=== PATIENT | male | born 1955 | race Caucasian/White ===

== ENCOUNTER → 2016-08-31 | Day surgery (SDC) | payer OTHER ==
--- NOTE | 2016-08-29 05:43 | HP ---
PREOPERATIVE HISTORY AND PHYSICAL: DATE OF ADMISSION/SURGERY: 08/31/16 DATE OF OFFICE VISIT: 08/25/16 ATTENDING SURGEON: Hattie Burns MD PROCEDURE: Left shoulder excision distal clavicle open, removal of ganglion cyst at the acromioclavicular joint. CHIEF COMPLAINT: Left shoulder pain. HISTORY OF PRESENT ILLNESS: Mr. Coombs is a 61-year-old male who presents to the clinic for ongoing left shoulder pain due to severe osteoarthritis of the left shoulder and presence of a ganglion cyst on the acromioclavicular joint. The patient has failed conservative measures and therefore has agreed to undergo a left shoulder excision distal clavicle open, removal of ganglion cyst of the acromioclavicular joint with Dr. Burns on 08/31/16. PAST MEDICAL HISTORY: 1. Ganglion cyst of the left shoulder. 2. Osteoarthritis of the left shoulder. 3. Atrial fibrillation. 4. Gout. 5. History of a grand mal seizure. 6. Lumbar spondylosis. 7. Lumbosacral stenosis. 8. Idiopathic peripheral neuropathy. PAST SURGICAL HISTORY: 1. ORIF of the left shoulder. 2. Washout of the left shoulder. 3. Right foot bunionectomy and accessory navicular removal. 4. Abdominal hernia repair. 5. Appendectomy. 6. Tonsillectomy. MEDICATIONS: 1. Hydrocodone/acetaminophen 10-325 mg 1 to 2 tabs every 6 hours as needed for pain. 2. Depakote ER 250 mg take 1 by mouth in the morning and take 2 tabs every evening. 3. Valium 5 mg 1 by mouth 1 hour prior to an MRI, may repeat x1 if not drowsy and still nervous. 4. Zolpidem tartrate 12.5 mg 1 by mouth at bedtime as needed. 5. Voltaren 1% apply 2 g of gel twice daily to the affected area. 6. Omeprazole 20 mg take 1 tab by mouth daily as needed. 7. Benzonatate 200 mg one by mouth 3 times daily as needed for cough. 8. Aspirin EC low dose 81 mg 1 tab p.o. daily. 9. Lyrica 100 mg 1 capsule twice daily, may take 2 capsules twice daily during flare of neuropathy. 10. Metoprolol succinate ER 100 mg take 1 by mouth every day. 11. Allopurinol 300 mg take 1 by mouth daily. ALLERGIES: DOXYCYCLINE and FLECAINIDE. FAMILY HISTORY: Mom, history of cancer. Patient denies family history of DVT or PE. SOCIAL HISTORY: This 61-year-old male lives with and daughter. He is a former smoker of one pack per day, but he quit 20 years ago. He denies alcohol or illegal drug use. REVIEW OF SYSTEMS: General: Negative for fevers, chills, night sweats. No known anesthesia problems. HEENT: Negative for headache, lightheadedness or syncopal episodes. Integumentary: Negative for abrasions, lesions or open wounds. Cardiovascular: Positive for occasional palpitations due to AFib. Negative for chest pain, edema or hypertension. Pulmonary: Negative for shortness of breath with exertion. Chronic cough or COPD. The patient does have a history of pneumonia. GI: Negative for nausea, vomiting, diarrhea, constipation or GERD. : Negative of nocturia, history of UTIs or kidney problems. Musculoskeletal: Positive for the current complaint. Neuro: Positive for numbness and tingling in the feet due to neuropathy. Positive for history of grand mal seizure. Negative for history of stroke. Endocrine: Negative for diabetes or thyroid issues. Heme: Negative for easy bruising, anemia, excessive bleeding or history of DVTs. Infectious Disease: Negative for history of MRSA, hep C, or HIV. PHYSICAL EXAMINATION GENERAL: Well-developed, well-nourished 61-year-old male in no acute distress. VITAL SIGNS: Height 74, weight 248, pulse 86, blood pressure 118/80, BMI 36.6. HEENT: Normocephalic, atraumatic. PERRLA. Throat: Clear. NECK: Supple. PULMONARY: Lungs clear to auscultation bilaterally. No wheezing, rhonchi or rales. CARDIO: Regular rate and rhythm. S1 and S2. No murmurs, gallops or rubs. No edema. ABDOMEN: Positive bowel sounds. Soft, nontender. MUSCULOSKELETAL: Left shoulder skin is intact. Probable ganglion cyst on the top of the AC joint that is tender to palpation. Forward flexion to 90 degrees , abduction to 45 degrees, extension to 45 degrees. Internal rotation to the lateral hip, external rotation to 45 degrees; +2 radial pulses. Sensation intact to light touch distally. NEUROLOGIC: Alert and oriented x3. Cranial nerves grossly intact. Sensation intact to light touch distally. LABORATORY DATA AND DIAGNOSTIC STUDIES: X-rays reveal glenohumeral arthritis. MRI reveal presence of a ganglion cyst in the left shoulder above the superior aspect of the acromioclavicular joint. IMPRESSION: Left shoulder osteoarthritis and ganglion cyst. PLAN: The patient is scheduled to undergo a left shoulder excision distal clavicle open, removal of ganglion cyst of the acromioclavicular joint with Dr. Burns on 08/31/16. He will return to the office in 10 to 14 days postop for followup and suture removal. The patient has had a recent episode of AFib that was due to use of indomethacin for gout. Therefore, clearance for surgery is pending cardiac clearance. He has been cleared by his primary care physician as long as Cardio clears him. The patient is currently taking hydrocodone/ acetaminophen for pain. He was prescribed Percocet for postoperative pain, but was instructed not to use the hydrocodone/acetaminophen at the same time as the Percocet. The patient was also prescribed Keflex for postoperative antibiotic for infection prevention. IVONE CAMPOS [id number]/[facility]PS #: [id number] [facility]
[~2016-08-31] MED LIST: Buffered Lidocaine 1% SYR 3ML* 3 ML/SYR SYRINGE INTRADERM ONE; Buffered Lidocaine 1% SYR 3ML* 3 ML/SYR SYRINGE ONE; Bupivacaine 0.25% SDV* 30 ML ONE; Dexamethasone IV* 4 MG/ML 1 ML (4 MG) ONE; Famotidine IV* 10 MG/ML 2 ML (20 mg) IV ONE; Famotidine IV* 10 MG/ML 2 ML (20 mg) ONE; KETAMINE HCL* 50 MG/ML 10 ML VIAL ONE; Ketorolac INJ* 30 MG/ML 1 ML VIAL ONE; Labetalol IV* 5 MG/ML 20 ML VIAL IV PUSH ONE; Labetalol IV* 5 MG/ML 20 ML VIAL ONE; Metoprolol Tartrate IV* 1 MG/ML 5 ML VIAL ONE; Midazolam* 1 MG/ML 5 ML VIAL (5 MG) ONE; Morphine INJ* 2 MG/ML 1 ML CARPUJECT IV PRN; Ondansetron INJ* 2 MG/ML VIAL ONE; PROCHLORPERAZINE INJ 5 MG/ML 2 ML VIAL IV PRN; Phenylephrine INJ* 10 MG/ML 1 ML VIAL (10 MG) ONE; Propofol* 10 MG/ML 20 ML BTL IV PUSH ONE; ceFAZolin 1 GM VIAL(*) ONE; ceFAZolin 2 GM PREMIX (*) 2 GM/50 ML BAG IVPB ONE; fentaNYL* 50 MCG/ML 2 ML VIAL (100 MCG VIAL) IV PRN; fentaNYL* 50 MCG/ML 2 ML VIAL (100 MCG VIAL) ONE; oxyCODONE/Acetamin 5/325 MG* TAB ONE; oxyCODONE/Acetamin 5/325 MG* TAB PO PRN
[2016-08-31 15:47] VITALS: BP 153/86
--- NOTE | 2016-09-01 00:54 | OP ---
DATE OF OPERATION: 08/31/16 [facility] DATE OF : 57 SURGEON: Hattie Burns MD RACK PULLER: IVONE Orellana. An college sports assistant was needed for the entirety of the case to help with positioning, retraction, and closure. ANESTHESIOLOGIST: Dr. Boudreaux. ANESTHESIA: General with LMA. PRE-OP DIAGNOSES: Left shoulder AC joint ganglion and AC joint arthritis. POST-OP DIAGNOSES: Left shoulder AC joint ganglion and AC joint arthritis. OPERATIVE PROCEDURE: Left open excision of ganglion, which was 3 cm x 5 cm and distal clavicle excision open. INDICATIONS: Santosh Coombs is a 61-year-old male with a complicated medical history of left shoulder ganglion that began a few months ago. We had aspirated it and sent it for culture and it was found to be negative. He had a complicated shoulder history of having a previous fracture with massive rotator cuff repair that then subsequently got infected. He has since had some necrosis of the humeral head and chronic infection and as he is quite young, he is waiting for his reverse shoulder arthroplasty. In the meantime, he has been subsequently developing pain along the anterior superior aspect of the shoulder along the AC joint. He was diagnosed with AC joint arthritis and the large ganglion cyst. This has been aspirated at least twice and injected. He experienced relief from that, but it keeps returning and he has elected to proceed with removal of the ganglion with distal clavicle excision. Risks and benefits of surgery were discussed at length including, but are not limited to bleeding, infection, damage to nerves, vessels, surrounding structures, wound nonhealing, persistent pain, need for further surgery, incomplete relief of symptoms, recurrence of the ganglion, risks of anesthesia, risk of DVT. After obtaining a preoperative risk assessment for his medical problems, he has elected to proceed with surgery. ESTIMATED BLOOD LOSS: 25 cc. SPECIMENS: Ganglion cyst as well as distal clavicle sent to pathology. COMPLICATIONS: None. DESCRIPTION OF PROCEDURE: The patient was greeted in the preoperative area by the attending surgeon. Correct extremity was marked. Consent was confirmed. The patient was brought back to the operating suite where he was placed in the supine position on the operating table. He then underwent general anesthesia with LMA intubation, which he tolerated without difficulty. The bed was then gently beach- chaired with a pillow under his knees and he was placed in a lazy beach chair. The left arm was then prepped and draped in the usual sterile fashion beginning with chlorhexidine soap and alcohol scrub and a final prep with ChloraPrep. After appropriate surgical pause indicating side, site, procedure, and administration of antibiotics, an incision centered over the distal clavicle was made. This was in line with the clavicle. This do encompass and envelope the entire ganglion. The soft tissues were carefully dissected and the ganglion was readily apparent. Care was taken to try to excise and release it from its adhesions and then release all in one mass. This took some time and this was done with Metzenbaum scissors and alternated with electrocautery device to preserve hemostasis. Once this was completely released, this was then sent to pathology. Next, the AP joint was identified and incised longitudinally. The distal clavicle was identified and appeared to be quite arthritic, though 1 cm was measured and 1 cm was removed of the distal clavicle. The care was taken to try to release all of the surrounding tissues. It was evident that the CC ligaments were spared and were not damaged as there was no elevation of the clavicle. The bone was also sent to pathology per policy. Wounds were copiously irrigated. The AC joint capsule and the fascia were closed with 0 Vicryl interrupted sutures. The subcutaneous layer was closed with 2-0 Vicryl and the skin with 3-0 nylon. Sterile dressings were applied. 30 mL of 0.25% Marcaine were injected all around the incision for postoperative pain control. The sterile dressings were applied and he was used to place in a regular sling. POSTOPERATIVE PLAN: He will be nonweightbearing. He will be allowed to work on range of motion as tolerated. He will be discharged on pain medication and antibiotics. I will see the patient back in 10 to 14 days. DVT prophylaxis was considered, but deferred due to no previous, personal, or family history. CC: [place], [place] [id number]/[facility] #: [id number] [facility]
== END | disposition home or self-care (01) ==
LOC: OR 10:10
PROVIDERS: ATTEND Orthopaedic Surgery
DX: M19.012 Primary osteoarthritis, left shoulder (principal); M67.412 Ganglion, left shoulder; I48.91 Unspecified atrial fibrillation; A69.20 Lyme disease, unspecified; Z87.891 Personal history of nicotine dependence
CPT/HCPCS: 88304; 88311; A9270-GY; J0690; J1100; J1885; J2250; J2405; J2704; J3010; J3490

== ENCOUNTER 2017-01-04 10:49 | Day surgery (SDC) | payer OTHER ==
[~2017-01-04 10:49] MED LIST changes: -Buffered Lidocaine 1% SYR 3ML* 3 ML/SYR SYRINGE ONE; -Bupivacaine 0.25% SDV* 30 ML ONE; +Dexamethasone IV* 4 MG/ML 1 ML (4 MG) IV SLOW PU ONE; +DiMENhydriNATE IV* 50 MG/ML VIAL IV PUSH PRN; +HYDROmorphone* 1 MG/ML 1 ML SYR IV PRN; -KETAMINE HCL* 50 MG/ML 10 ML VIAL ONE; -Ketorolac INJ* 30 MG/ML 1 ML VIAL ONE; -Labetalol IV* 5 MG/ML 20 ML VIAL IV PUSH ONE; -Labetalol IV* 5 MG/ML 20 ML VIAL ONE; -Metoprolol Tartrate IV* 1 MG/ML 5 ML VIAL ONE; -Midazolam* 1 MG/ML 5 ML VIAL (5 MG) ONE; -Morphine INJ* 2 MG/ML 1 ML CARPUJECT IV PRN; +Ondansetron INJ* 2 MG/ML VIAL IV PRN; -Ondansetron INJ* 2 MG/ML VIAL ONE; -Phenylephrine INJ* 10 MG/ML 1 ML VIAL (10 MG) ONE; -Propofol* 10 MG/ML 20 ML BTL IV PUSH ONE; -ceFAZolin 1 GM VIAL(*) ONE; +ceFAZolin 1 GM in Dextrose (*) 1 GM/50 ML BAG IVPB ONE; -ceFAZolin 2 GM PREMIX (*) 2 GM/50 ML BAG IVPB ONE; +ceFAZolin 2 GM PREMIX(*) 2 GM/50 ML BAG IVPB ONE; -fentaNYL* 50 MCG/ML 2 ML VIAL (100 MCG VIAL) ONE; -oxyCODONE/Acetamin 5/325 MG* TAB ONE; -oxyCODONE/Acetamin 5/325 MG* TAB PO PRN
[2017-01-04] MEDS ORDERED: fentaNYL* 50 MCG/ML 2 ML VIAL (100 MCG VIAL) ONE ×2 (11:03→12:58)
[2017-01-04] MEDS ORDERED: Midazolam* 1 MG/ML 5 ML VIAL (5 MG) ONE (11:03)
[2017-01-04] MEDS ORDERED: HYDROmorphone* 1 MG/ML 1 ML SYR ONE ×3 (11:03→13:46)
[2017-01-04] MEDS ORDERED: Bupivacaine 0.5% W/EPI SDV* 30 ML VIAL ONE ×2 (11:26→12:07)
[2017-01-04] MEDS ORDERED: Propofol* 10 MG/ML 20 ML BTL IV PUSH ONE (11:26)
[2017-01-04] MEDS ORDERED: Ondansetron INJ* 2 MG/ML VIAL ONE (11:26)
[2017-01-04] MEDS ORDERED: Morphine INJ* 10 MG/ML 1 ML SYRINGE ONE (12:58)
[2017-01-04] MEDS ORDERED: VASOPRESSIN 20 UNITS/ML 1 ML VIAL ONE (13:15)
[2017-01-04] MEDS ORDERED: Desflurane* 240 ML INH ONE (13:22)
[2017-01-04] MEDS ORDERED: Meperidine SYRINGE* 50 MG/ML ONE (13:49)
[2017-01-04 15:53] VITALS: BP 146/94
--- NOTE | 2017-01-05 13:05 | OP ---
CC: Dr. Navarrete OPERATIVE REPORT: DATE OF OPERATION: 01/04/17 DATE OF : 57 SURGEON: Hattie Burns MD SAP DEVELOPER: IVONE Orellana An per diem physical therapist assistant was needed for the entirety of the case to help with positioning, retraction, and was utilized throughout all portions of the case. ANESTHESIOLOGIST: Nabil Thompson MD ANESTHESIA: General interscalene block. PRE-OP DIAGNOSES: Left shoulder massive rotator cuff tear, glenohumeral arthritis, history of infection. POST-OP DIAGNOSES: 1. Left shoulder glenohumeral arthritis, chronic massive rotator tear. 2. History of infection. 3. Loose foreign body and impingement. OPERATIVE PROCEDURE: Left shoulder arthroscopy with: 1. Extensive glenohumeral debridement including chondroplasty. 2. Removal of foreign body x1. 3. Subacromial decompression with acromioplasty. 4. Aspiration of the joint. Micro specimen was sent for Gram stain, culture, and anaerobic/aerobic as well as P. acnes. COMPLICATIONS: None. ESTIMATED BLOOD LOSS: Minimal. INDICATIONS: Santosh Coombs is a 61-year-old gentleman who has had a complicated shoulder history with previous posterior humeral dislocation that resulted in large Hill-Sachs deformity as well as lesser tuberosity fracture. This was then fixed arthroscopic and open by my previous partner Dr. Brayan Vanegas. He had subsequent problems afterwards. He had an infection that was washed out. He then had AC joint pain and a ganglion in the shoulder. He underwent an open distal clavicle excision several months ago, which he did well from, but after discussion with myself and my shoulder colleague, we talked about debridement prior to any sort of replacement type of surgery. He also has not been floridly sick in a while but has maintained elevated CRP levels. After an extensive discussion of the risks and benefits of the surgery versus nonoperative treatment, he is elected to proceed. We did talk about the debridement only, this will not be any kind of repair in any fashion. He likely will need a reverse shoulder arthroplasty that would not be done at this time as he is too young. He verbalized understanding. After obtaining preoperative risk assessment, he is elected to proceed with surgery. DESCRIPTION OF PROCEDURE: The patient was greeted in the preoperative area by the attending surgeon, and correct extremity was marked and consent was confirmed. He underwent interscalene nerve block in the preoperative area by the anesthesiologist after which the patient was brought back to the operating suite where he was placed in the supine position on the operating table. He then underwent general anesthesia with LMA intubation, after which the patient was placed in the right lateral decubitus position with an axillary roll. All bony prominences were padded. He was supported with a pegboard. The left arm was suspended with about 15 pounds of traction. The left shoulder was then prepped and draped in usual sterile fashion beginning with chlorhexidine soap, scrub, and alcohol wipe, and a final prep of ChloraPrep. After appropriate surgical pause indicating side, site, procedure, and administration of antibiotics, the standard posterior lateral portal was made sharply with 11 blade and scope was introduced in the joint. The joint was examined. At this point, approximately 3 cc of serous fluid was then removed and sent for Gram stain culture, anaerobic/aerobic as well as P. acnes. There was evidence of a full thickness massive retracted rotator cuff tear, supraspinatus tear, although it was still attached anterosuperiorly. There was evidence of grade 2 to 3 changes of unstable flaps of the glenoid and a small area of grade 4 changes of the humeral head with grade 2 and 3 changes with unstable flaps. The anterior posterior labrum was torn. The superior labrum had evidence of previous biceps tenotomy and the subscap was identified and found to be retracted. The anterior portal was made in an outside-in fashion. The shaver was used to debride the anterior, posterior, and superior labrum. The electrocautery device was then used to release some of the adhesions anteriorly. Chondroplasty was also done of the glenoid and the humeral head as well and the rotator cuff was also debrided back. As this debridement was done and soft tissues were carefully removed, I identified a small area of sutures, which was then found to be a small anchor. This was a PEEK anchor that was around 4 to 5 mm in width. This was identified and then removed in its entirety. No further anchors were identified. The inferior recess was intact but had abundant synovitis. Once the debridement was completed in the glenohumeral joint, attention was directed to the subacromial space. The scope was repositioned in the subacromial space. There was abundant bursa that was evident as well as full thickness rotator cuff that was again attached anterosuperiorly but then largely torn. Lateral portal was made in an outside- in fashion. The shaver was then used to debride back the rotator cuff as well as the undersurface of the acromion, which had evidence of small anterolateral spur and a remnant spur from his previous decompression. The electrocautery device was used to skeletonize the acromion and 4-0 oval babak was then used for revision acromioplasty. All loose debris and fluid was removed from the joint. After final images were obtained and all fluid and debris was removed from the joint, the portals were closed with 3-0 nylon. Sterile dressings were applied, a Cryo/Cuff as well as sling. The patient was then awoken from anesthesia and transferred to the PACU in stable condition. POSTOPERATIVE PLAN: He will be weightbearing as tolerated. He will be allowed to work on range of motion as he gets comfortable. He will be in the sling for few days as tolerated. He will be discharged on pain medications as well as antibiotics. He is on chronic pain medication at baseline, so we will give him a short course of oxycodone IR. DVT prophylaxis is considered but deferred due to no previous personal or family history. I will see the patient back in 10 to 14 days. [id number]/[facility] #: [id number] YADIRA
== END 2017-01-04 15:58 | disposition home or self-care (01) ==
LOC: OR 10:49
PROVIDERS: ATTEND Orthopaedic Surgery
DX: M75.102 Unspecified rotator cuff tear or rupture of left shoulder, not specified as traumatic (principal); M75.42 Impingement syndrome of left shoulder; M19.012 Primary osteoarthritis, left shoulder; Z87.891 Personal history of nicotine dependence; I48.91 Unspecified atrial fibrillation; I10 Essential (primary) hypertension
CPT/HCPCS: 87070; 87205; 87640; 87641; A9270-GY; J0690; J1100; J1170; J2250; J2270; J2405; J2704; J3010

== ENCOUNTER 2017-05-06 09:59 | Emergency (ER) | payer OTHER ==
[2017-05-06] MEDS ORDERED: Albuterol 2.5 MG/3 ML NEB.SOL* (0.083%) INH ONE (12:01)
[2017-05-06] MEDS ORDERED: Ipratropium 0.5MG/2.5ML NEB* 0.5 MG/2.5 ML NEB.SOLN INH ONE (12:01)
[2017-05-06] MEDS ORDERED: methylPREDNISolone 125 MG* 2 ML VIAL IM ONE (12:01)
[2017-05-06 13:23] VITALS: BP 116/77
--- NOTE | 2017-06-11 07:26 | UC ---
Andrea Nunez Nikita, scribed for Chacha Linares DO on 05/06/17 at 1206 . Respiratory Complaint HPI - HPI Summary HPI Summary: This patient is a 61 year old M presenting to [facility] with a chief complaint of upper respiratory symptoms since 3 days ago. The patient rates the pain 0/10 in severity. Symptoms aggravated by nothing. Symptoms alleviated by nothing. Patient reports productive cough (clear), wheezing, decreased sleep, SOB, near LOC, and CANTU. Patient denies sinus congestion, nasal and eye drainage, sore throat, ear ache, CP, N/V, abdominal pain, urinary and bowel symptoms. Pt currently takes Xarelto. - History of Current Complaint Chief Complaint: UCRespiratory Stated Complaint: CHEST CONGESTION Time Seen by Provider: 05/06/17 11:55 Hx Obtained From: Patient Onset/Duration: Sudden Onset, Lasting Days, Still Present Timing: Constant Severity Currently: None Pain Intensity: 0 Pain Scale Used: 0-10 Numeric Character: Cough: Productive - clear Aggravating Factors: Nothing Alleviating Factors: Nothing Associated Signs And Symptoms: Positive: Wheezing - Patient reports productive cough (clear), decreased sleep, SOB, near LOC, and CANTU. Patient denies sinus congestion, nasal and eye drainage, sore throat, ear ache, CP, N/V, abdominal pain, urinary and bowel symptoms. - Allergies/Home Medications Allergies/Adverse Reactions: Allergies Allergy/AdvReac Type Severity Reaction Status Date / Time Doxycycline Allergy Intermediate Hives Verified 05/09/17 14:57 Flecainide Allergy See Comment Verified 05/09/17 14:57 MORPHINE EPIDURAL Allergy ITCHY Uncoded 05/06/17 10:10 NOSE/NAUSEA VOMITING psuedofed Allergy heart Uncoded 05/06/17 10:11 racing hx of afib VYCRAL SUTURES Allergy BODY Uncoded 05/06/17 10:10 REJECTS THE SUTURES Home Medications: Home Medications Rivaroxaban TAB(*) [Xarelto 20 mg] 20 mg PO DAILY 05/06/17 [History Confirmed ] PMH/Surg Hx/FS Hx/Imm Hx Cardiovascular History: Hypertension, Atrial Fibrillation Other Cardiovascular History: Palpitations Other Respiratory History: bronchial pneumonia GI/ History: Gastroesophageal Reflux Other GI/ History: neuropathy Neurological History: Seizures, Other - neuropathy Other Neurological History: neuropathy Psychological History: Anxiety - Surgical History Surgical History: Yes Surgery Procedure, Year, and Place: TONSILLECTOMY, ADENOIDECTOMY AND APPENDECTOMY A CHILD,. ABDOMINAL HERNIA SURGERY A CHILD. 1989 BUNIONECTOMY X2, [place]. 03/2015 LEFT SHOULDER ARTHROSCOPIC ROTATOR CUFF REPAIR AND ORIF, [facility] [place]. 04/2015 I & D LEFT SHOULDER, [facility] [place]; Left Shoulder Surgery for ganglion cyst 09/11/16 [facility] [place]; LEFT SHOULDER SURGERY DECEMBER [address] SMITH AT [facility] [place] - Family History Known Family History: Negative: Cardiac Disease, Hypertension, Diabetes - Social History Alcohol Use: None Substance Use Type: None Smoking Status (MU): Former Smoker Type: Cigarettes Amount Used/How Often: 1 PPD FOR 20 YEARS Length of Time of Smoking/Using Tobacco: 20 Have You Smoked in the Last Year: No When Did the Patient Quit Smoking/Using Tobacco: 1995 - Immunization History Most Recent Influenza Vaccination: Unknown Most Recent Tetanus Shot: 2009 Most Recent Pneumonia Vaccination: Never Review of Systems Eyes: Other - Denies eye discharge. ENT: Other - Denies sinus congestion, nasal discharge, sore throat, ear ache Respiratory: Shortness Of Breath, Cough - productive (clear), Other - Wheezing Cardiovascular: Other - denies CPv Gastrointestinal: Other - Denies N/V, abdominal pain, bowel symptoms Genitourinary: Other - Denies urinary symptoms Neurological: Headache, Other - Decreased sleep, near LOC All Other Systems Reviewed And Are Negative: Yes Physical Exam Triage Information Reviewed: Yes Vital Signs: Initial Vital Signs Temp 99 F 05/06/17 10:13 Pulse 88 05/06/17 10:13 Resp 20 05/06/17 10:13 BP 112/79 05/06/17 10:13 Pulse Ox 100 05/06/17 10:13 - Additional Comments Appearance: Well-Appearing, No Pain Distress, Well-Nourished Eyes: conjunctiva clear, negative: discharge ENT: Hearing grossly normal, Negative: Muffled/hoarse voice. Hearing grossly normal, normal voice. Neck: Normal, Supple Respiratory/Lung Sounds: Diffuse wheezing in all lyons. After nebulizer, auscultation reveals significantly decreased wheezing; only scattered wheezing remains. Cardiovascular: RRR, No murmur Musculoskeletal: Normal Neurological: Alert, muscle tone normal Psychiatric: Normal, age appropriate behavior Skin: Normal, other -- Warm, Dry, Normal color UC Diagnostic Evaluation - Laboratory O2 Sat by Pulse Oximetry: 100 Re-Evaluation - Re-Evaluation First Eval Change: Improved Comment: Pt reports significantly decreased wheezing and cough; pt also reports ease of breathing. Respiratory Course/Dx - Course Course Of Treatment: This patient is a 61 year old M presenting to [facility] with a chief complaint of upper respiratory symptoms since 3 days ago. The patient rates the pain 0/10 in severity. Symptoms aggravated by nothing. Symptoms alleviated by nothing. Patient reports productive cough (clear), wheezing, decreased sleep, SOB, near LOC, and CANTU. Patient denies sinus congestion, nasal and eye drainage, sore throat, ear ache, CP, N/V, abdominal pain, urinary and bowel symptoms. In the course, pt was given a nebulizer. Medications reviewed this visit. Pt will be discharged. Pt is agreeable with this plan. - Differential Dx/Diagnosis Provider Diagnoses: Acute bronchitis Discharge - Discharge Plan Condition: Stable Disposition: HOME Prescriptions: Albuterol HFA INHALER* [Ventolin HFA Inhaler*] 2 puff INH Q4H PRN #1 mdi PRN Reason: Sob/Wheezing Benzonatate CAP* [Tessalon 100 MG CAP*] 100 mg PO TID #30 cap Patient Education Materials: Acute Bronchitis (ED) Referrals: Eliezer Barnes, [facility] [Primary Care Provider] - If Needed Additional Instructions: INHALED BRONCHODILATORS: You have received a prescription for an inhaled bronchodilator -- a medication which stimulates the airways in the lung to dilate. This improves the flow of air in asthma, bronchitis, and emphysema. These medicines have some similarity to adrenaline, and can cause similar side effects: shakiness, racing heart, and a sense of nervousness. These side effects decrease with time. Contact your doctor if these side effects are severe. Do not over-use the medicine. Too-frequent use of the inhaler may make it ineffective. Call your doctor if the inhaler is not controlling your symptoms at the prescribed doses. COUGH-SUPPRESSANT & EXPECTORANT MEDICATION: You are to use a cough medication as needed for relief of symptoms. This medicine is a combination of an expectorant (to make the mucous thinner and more easily "coughed up") and a cough suppressant (to reduce the frequency of coughing). The cough-suppressant medicine is related to narcotics. You may experience mild nausea and sleepiness. Some patients who are very sensitive to narcotics may have stomach pain from this medicine. Taking the medicine with food reduces these side effects. Do not drive or work with machinery until you know how this medicine affects you. The expectorant should have no side effects. Iodine-containing expectorants (such as organidin) should not be taken by persons with active thyroid disease unless approved by your doctor. Call the doctor if you develop shortness of breath, hives, rash, itching, lightheadedness, or severe nausea and vomiting. EXPECTORANT MEDICATION:CONTINUE MUCINEX DIRECTED An expectorant medicine has been prescribed. This type of drug makes mucous thinner, helping the sinuses, nose, and bronchial tubes to remain free of pus and mucous. Expectorants make a cough less severe and more comfortable, and help infected sinuses drain. In general, antihistamines defeat the purpose of the expectorant by making mucous thicker. They should be avoided unless specifically recommended by your physician. TESSALON PERLES: You have received a prescription for Tessalon Perles (benzonatate). This is a non-narcotic medicine for relief of cough. It usually works in about 15- 20 minutes and lasts around four hours. Tessalon Perles should be swallowed. They should not be chewed or dissolved in the mouth (this can produce temporary numbing of the mouth and choking can occur). If you develop any adverse effects such as wheezing, shortness of breath, hives, rash, itching, or lightheadedness, please return at once. CORTICOSTEROID MEDICATION: You have been given a medicine of the cortisone class. This medication is used to control inflammation or allergy. It is usually only given for a short period of time, until the acute process subsides. There are usually no side effects from short-term use of cortisone-like medications. Some persons feel an increased sense of well-being and are not sleepy at bedtime. Long-term use of cortisone medications is best avoided, unless required for a severe condition. If your condition does not remit, or relapses after the course of corticosteroid medication, you should consult your physician. Contact the physician if you develop lightheadedness, black or tarry stools , swelling of the legs, or significant rapid change in weight. ANTIBIOTICS ARE NOT CURRENTLY INDICATED FOR YOUR CONDITION. hOWEVER, IF YOUR SYMPTOMS WORSEN OR PERSIST FOR OVER THE NEXT 3-5 DAYS, YOU CAN TAKE THE FOLLOWING MEDICATION: CEPHALOSPORINS: An antibiotic of the cephalosporin class has been prescribed. This type of antibiotic covers a wide variety of infections, including those of the skin, lungs, middle ear, and urinary tract. This antibiotic is somewhat similar to the penicillin family. In rare cases , a person who is allergic to penicillin will also be allergic to this medication. If you have had a severe allergic reaction to penicillin, and have not taken this antibiotic since that time, notify your doctor. Antibiotics which cover many germs ("broad spectrum" antibiotics) are more likely to cause diarrhea or "yeast" infections. Women prone to vaginal yeast problems may suffer an attack after taking this antibiotic. In infants, oral thrush (white spots "stuck" on the cheek) or yeast diaper rash may result. See your doctor if these problems occur. Call the doctor at once if you develop hives, itching, shortness of breath , or lightheadedness. ANYTIME YOU TAKE AN ANTIBIOTIC, IT IS IMPORTANT TO REPLENISH THE BODY'S SUPPLY OF "GOOD BACTERIA." YOU CAN GET GOOD BACTERIA FROM HIGH QUALITY CULTURED FOODS SUCH LOCAL YOGURT, SOUR KRAUT, NATIVIDAD NICOLE, NATURALLY FERMENTED PICKLES AND PROBIOTIC DRINKS. YOU CAN ALSO GET GOOD BACTERIA FROM A PROBIOTIC SUPPLEMENT. The documentation as recorded by the Andrea piedra Nikita accurately reflects the service I personally performed and the decisions made by , Chacha Linares DO.
== END 2017-05-06 13:30 | disposition home or self-care (01) ==
LOC: UCEAST 09:59
DX: J20.9 Acute bronchitis, unspecified (principal); I10 Essential (primary) hypertension; I48.91 Unspecified atrial fibrillation; Z79.01 Long term (current) use of anticoagulants; R00.2 Palpitations; K21.9 Gastro-esophageal reflux disease without esophagitis; G62.9 Polyneuropathy, unspecified; R56.9 Unspecified convulsions; F41.9 Anxiety disorder, unspecified; Z88.1 Allergy status to other antibiotic agents; Z88.5 Allergy status to narcotic agent; Z87.891 Personal history of nicotine dependence
CPT/HCPCS: 96372; 99212; G0463; J2930; J7644

== ENCOUNTER 2017-08-27 09:06 | Emergency (ER) | payer OTHER ==
[2017-08-27 09:16] VITALS: BP 138/78
--- NOTE | 2017-08-27 09:16 | UC ---
Respiratory Complaint HPI - HPI Summary HPI Summary: 62 yo male with a 2 day hx of productive cough and wheezing no f/c no CP or SOB some fatigue - History of Current Complaint Stated Complaint: CHEST CONGESTION Time Seen by Provider: 08/27/17 09:13 Hx Obtained From: Patient Onset/Duration: Gradual Onset, Lasting Days Timing: Constant Severity Initially: Mild Severity Currently: Moderate Pain Intensity: 2 Pain Scale Used: 0-10 Numeric Character: Cough: Productive Aggravating Factors: Nothing Alleviating Factors: Nothing Associated Signs And Symptoms: Positive: Wheezing - Allergies/Home Medications Allergies/Adverse Reactions: Allergies Allergy/AdvReac Type Severity Reaction Status Date / Time Doxycycline Allergy Intermediate Hives Verified 08/27/17 09:12 Flecainide Allergy See Comment Verified 08/27/17 09:12 MORPHINE EPIDURAL Allergy ITCHY Uncoded 08/27/17 09:12 NOSE/NAUSEA VOMITING psuedofed Allergy heart Uncoded 08/27/17 09:12 racing hx of afib VYCRAL SUTURES Allergy BODY Uncoded 08/27/17 09:12 REJECTS THE SUTURES PMH/Surg Hx/FS Hx/Imm Hx Previously Healthy: Yes Cardiovascular History: Hypertension, Atrial Fibrillation Respiratory History: Bronchitis, Pneumonia Neurological History: Seizures - Surgical History Surgical History: Yes Surgery Procedure, Year, and Place: TONSILLECTOMY, ADENOIDECTOMY AND APPENDECTOMY A CHILD,. ABDOMINAL HERNIA SURGERY A CHILD. [address] 03/2015 LEFT SHOULDER ARTHROSCOPIC ROTATOR [place]FF [place] [facility] [place] [facility] [place] Surgery for ganglion cyst 09[place]11/[place] [facility] [place]ER SURG[place] DECEM[place] [address] SM[place] [facility] [place] - Family History Known Family History: Negative: Cardiac Disease, Hypertension, Diabetes - Social History Alcohol Use: None Substance Use Type: None Smoking Status (MU): Former Smoker Type: Cigarettes Amount Used/How Often: 1 PPD FOR 20 YEARS Length of Time of Smoking/Using Tobacco: 20 Have You Smoked in the Last Year: No When Did the Patient Quit Smoking/Using Tobacco: 1995 - Immunization History Most Recent Influenza Vaccination: Unknown Most Recent Tetanus Shot: 2009 Most Recent Pneumonia Vaccination: Never Review of Systems Constitutional: Fatigue Skin: Negative Eyes: Negative ENT: Negative Respiratory: Cough Cardiovascular: Negative Gastrointestinal: Negative Genitourinary: Negative Motor: Negative Neurovascular: Negative Musculoskeletal: Negative Neurological: Negative Psychological: Negative Is Patient Immunocompromised?: No All Other Systems Reviewed And Are Negative: Yes Physical Exam Triage Information Reviewed: Yes Appearance: Well-Appearing, No Pain Distress, Well-Nourished Vital Signs: Initial Vital Signs Temp 98 F 08/27/17 09:12 Pulse 62 08/27/17 09:12 Resp 15 08/27/17 09:12 BP 138/78 08/27/17 09:12 Pulse Ox 100 08/27/17 09:12 Eyes: Positive: Conjunctiva Clear ENT: Positive: Hearing grossly normal, Pharynx normal, TMs normal, Uvula midline. Negative: Nasal congestion, Nasal drainage, Tonsillar swelling, Tonsillar exudate, Trismus, Muffled voice, Hoarse voice, Dental tenderness, Sinus tenderness Neck: Positive: Supple, Nontender, No Lymphadenopathy Respiratory: Positive: No respiratory distress, No accessory muscle use, Crackles - right base, Wheezing Cardiovascular: Positive: No Murmur. Negative: RRR Musculoskeletal: Positive: ROM Intact, No Edema Neurological: Positive: Alert Psychological Exam: Normal Skin Exam: Normal UC Diagnostic Evaluation - Laboratory O2 Sat by Pulse Oximetry: 100 - normal/not hypoxic - Radiology Xray Interpretation: No Acute Changes Radiology Interpretation Completed By: Radiologist Respiratory Course/Dx - Differential Dx/Diagnosis Provider Diagnoses: ACUTE BRONCHITIS WITH BRONCHOSPASM Discharge - Discharge Plan Condition: Stable Disposition: HOME Prescriptions: Amoxicillin PO (*) [Amoxicillin 875 MG (*)] 875 mg PO BID #14 tab Guaifenesin-Codeine [Cheratussin AC] 5 - 10 ml PO Q12HR PRN #100 syp MDD 20 PRN Reason: Cough Prednisone [Deltasone] 40 mg PO DAILY #10 tab Patient Education Materials: Acute Bronchitis (ED), Bronchospasm (ED) Referrals: Eliezer Barnes, [facility] C[employer]TER [Primary Care Provider] - 4 Days (if not better) Additional Instructions: rest fluids use inhaler as directed RECHECK FOR NEW OR WORSENING SYMPTOMS
[2017-08-27] MEDS ORDERED: Albuterol HFA INHALER* 8 gm MDI INH ONE (09:42)
--- NOTE | 2017-08-27 09:49 | RAD ---
INDICATION: Productive cough wheezing and rales. COMPARISON: Comparison prior study from August 09, 2015. TECHNIQUE: Dual-energy PA and lateral views of the chest were obtained. FINDINGS: The heart is within normal limits in size. Mediastinal and hilar contours appear within normal limits. The lungs are underinflated and clear. No pleural effusion is seen. IMPRESSION: NO EVIDENCE FOR ACTIVE CARDIOPULMONARY DISEASE.
== END 2017-08-27 10:12 | disposition home or self-care (01) ==
LOC: UCEAST 09:06
DX: J20.9 Acute bronchitis, unspecified (principal); I10 Essential (primary) hypertension; I48.91 Unspecified atrial fibrillation; R56.9 Unspecified convulsions; Z87.891 Personal history of nicotine dependence
CPT/HCPCS: 71046; 99213; A9270-GY; G0463

== ENCOUNTER 2018-02-01 06:01 | Emergency (ER) | payer OTHER ==
[2018-02-01] MEDS ORDERED: Albuterol/Ipratropium NEB.SOL* Albuterol 2.5 MG/Ipratropium 0.5 MG 3 ML INH ONE (06:47)
[2018-02-01] MEDS ORDERED: NS 0.9% 1000 ML* 1,000 ML IV ONE (06:47)
--- NOTE | 2018-02-01 06:56 | ED ---
Respiratory - HPI Summary HPI Summary: Pt. is a 62y.o male who presents to the ER for a productive cough and wheeze x 1.5 weeks. Pt. states cough has progressively become more productive and today his sputum was blood tinged. He admits to lightheadedness/dizziness, [place], and fever as high as 102F. Denies abd. pain, N/V/D, urinary symptoms, chest pain or palpitations. Pt. notes he did have a sore throat earlier in the week but it has resolved. Past medical hx or a fib (on xarelto), HTN, lyme disease, and chronic pain. Pt. denies smoking. States that he has a hx of recurrent bronchitis. Symptoms are moderate in severity. No current modifying factors. - History of Current Complaint Chief Complaint: EDUpperRespComplaint Stated Complaint: COUGH, FEVER Time Seen by Provider: 02/01/18 06:39 Hx Obtained From: Patient, Family/Boat Repairer Pain Intensity: 6 - Allergy/Home Medications Allergies/Adverse Reactions: Allergies Allergy/AdvReac Type Severity Reaction Status Date / Time doxycycline Allergy Intermediate Hives Verified 02/01/18 06:09 flecainide Allergy Itchy Verified 02/01/18 06:09 Nose, Nausea, Heart Racing Hx of AFIB pseudoephedrine Allergy Palpitation Verified 02/01/18 06:09 [From Olga] s VYCRAL SUTURES Allergy BODY Uncoded 02/01/18 06:09 REJECTS THE SUTURES Home Medications: Home Medications fentaNYL [Duragesic] 25 mcg TD SEE INSTRUCTIONS 02/01/18 [History Confirmed ] PMH/Surg Hx/FS Hx/Imm Hx Previously Healthy: Yes Endocrine/Hematology History: Denies: Hx Diabetes, Hx Thyroid Disease Cardiovascular History: Reports: Hx Atrial Fibrillation, Hx Hypercholesterolemia , Hx Hypertension - ON MEDICATION FOR, Other Cardiovascular Problems/Disorders - Atrial Fib occasionally Denies: Hx Congestive Heart Failure, Hx Pacemaker/ICD Respiratory History: Reports: Hx Pneumonia, Other Respiratory Problems/ Disorders - ASPIRATION PNEUMONIA BEGINNING OF 04/2015, RLL INFILTRATE Denies: Hx Asthma, Hx Chronic Obstructive Pulmonary Disease (COPD) GI History: Reports: Hx Gastroesophageal Reflux Disease - HX OF, Other GI Disorders - pre mri pt had 2016 colonoscopy with polyps removed Denies: Hx Ulcer History: Denies: Hx Dialysis, Hx Renal Disease Musculoskeletal History: Reports: Hx Arthritis - SPINE, Hx Back Problems - Chronic Back, Hx Bursitis - ELBOWS OCCASIONALLY, Hx Gout, Hx Tendonitis - BILATERAL KNEES AND ANKLES, Other Musculoskeletal History - SPINAL STENOSIS/ SOME NECK PROBLEMS Denies: Hx Rheumatoid Arthritis, Hx Osteoporosis Sensory History: Reports: Hx Contacts or Glasses - READING GLASSES Denies: Hx Hearing Aid Opthamlomology History: Reports: Hx Contacts or Glasses - READING GLASSES Neurological History: Reports: Hx Nerve Disease - IDIOPATHIC NEUROPATHY BILATERAL FEET AND LEGS, R/T HX OF LYME DISEASE, Hx Seizures - X - 12/2014 - MAY HAVE RELATED TO MEDICATION/WOKE 3 HRS LATER, FX LEFT SHOU, Other Neuro Impairments/Disorders Psychiatric History: Reports: Hx Anxiety, Other Psychiatric Issues/Disorders - Claustrophobia Denies: Hx Panic Disorder - Cancer History Hx Chemotherapy: No Hx Radiation Therapy: No Hx Palliative Cancer Treatment: No - Surgical History Surgery Procedure, Year, and Place: TONSILLECTOMY, ADENOIDECTOMY AND APPENDECTOMY A CHILD,. ABDOMINAL HERNIA SURGERY A CHILD. 1989 BUNIONECTOMY , [place]. 03/2015 LEFT SHOULDER ARTHROSCOPIC ROTATOR CUFF REPAIR [place] [facility] [place] I & D LEFT SHOULDER, [facility] [place] Surgery for ganglion cyst 09/11/16 [facility] [place] LEFT SHOULDER SURGERY DECEMBER [address] SMITH AT [facility] [place] Hx Anesthesia Reactions: Yes - BUNIONECTOMY,-MSO4 EPIDURAL - SEVERE N/V - Immunization History Date of Tetanus Vaccine: 2 years ago Date of Influenza Vaccine: 2011 Infectious Disease History: No Infectious Disease History: Denies: Hx Clostridium Difficile, Hx Hepatitis, Hx Human Immunodeficiency Virus (HIV), Hx of Known/Suspected MRSA, Hx Shingles, Hx Tuberculosis, Hx Known/ Suspected VRE, Hx Known/Suspected VRSA, History Other Infectious Disease, Traveled Outside the [place] in Last 30 Days - Family History Known Family History: Positive: Unknown Negative: Cardiac Disease, Hypertension, Diabetes - Social History Occupation: Retired Lives: With Family Alcohol Use: None Hx Substance Use: No Substance Use Type: Reports: None Hx Tobacco Use: No Smoking Status (MU): Former Smoker Type: Cigarettes Amount Used/How Often: 1 PPD FOR 20 YEARS Length of Time of Smoking/Using Tobacco: 20 Have You Smoked in the Last Year: No Review of Systems Positive: Fever, Chills Eyes: Negative ENT: Negative Cardiovascular: Negative Negative: Palpitations, Chest Pain Positive: Shortness Of Breath, Cough Gastrointestinal: Negative Negative: Abdominal Pain, Vomiting, Diarrhea, Nausea Genitourinary: Negative Skin: Negative Neurological: Negative Negative: Headache, Weakness, Paresthesia, Numbness, Syncope All Other Systems Reviewed And Are Negative: Yes Physical Exam Triage Information Reviewed: Yes Vital Signs On Initial Exam: Initial Vitals Temp Pulse Resp BP Pulse Ox 96.8 F 114 16 137/86 95 02/01/18 06:03 02/01/18 06:03 02/01/18 06:03 02/01/18 06:03 02/01/18 06:03 Vital Signs Reviewed: Yes Appearance: Positive: No Pain Distress - Pt. sitting on side of bed, appears to feel unwell but is nontoxic. present. Skin: Positive: Warm, Dry, Pale Head/Face: Positive: Normal Head/Face Inspection Eyes: Positive: Normal, BLAYNE ENT: Positive: Pharyngeal erythema. Negative: Tonsillar swelling, Tonsillar exudate Neck: Positive: Supple, Nontender. Negative: Nuchal Rigidity Respiratory/Lung Sounds: Positive: Other - He was instructed to ask for wheeze throughout. No accessory muscle use, retractions, inspiratory stridor. Cardiovascular: Positive: Normal, RRR Neurological: Positive: Normal, CN Intact II-III Psychiatric: Positive: Affect/Mood Appropriate Diagnostics - Vital Signs Vital Signs Temp Pulse Resp BP Pulse Ox 02/01/18 06:39 120/85 02/01/18 06:29 104 157/120 96 02/01/18 06:03 96.8 F 114 16 137/86 95 - Laboratory Result Diagrams: 02/01/18 07:18 02/01/18 07:18 Lab Statement: Any lab studies that have been ordered have been reviewed, and results considered in the medical decision making process. Disposition - Course Course Of Treatment: Patient presenting for productive cough, fever and shortness of breath. He is afebrile. Oxygenation saturation is 95% on room air which is low normal. Heart rate tachycardic around 114 beats per minute. Given ongoing symptoms, fever, shortness of breath, fatigue, will obtain basic blood work, give IV fluids, breathing treatment, chest x-ray and EKG. CBC shows a mildly elevated WBC of 12.2, mildly low H and H of 11.6 and 37. CMP unremarkable. Negative troponin. Chest xray per radiology is negative for infiltrate or acute change ECG done at 0658 shows a fib at a rate of 104bpm, normal axis, no ST elevation or depression. On re-exam pt.s wheezing has significantly improved and he is feeling better. Results discussed. Will cover with zithromax and start on steroids. Pt. states he does not tolerate steroids well and would like a medrol dose pack. He has a neb and duoneb at home. Advised breathing treatments every 4-6 hours. To schedule a close f.u with PCP. To return to ER for worsening sxs. Pt. understands and agrees with plan. DC vitals:O2 sat 95% on RA, resp. 18, temp. 98F, HR 95bpm, BP 131/93. - Differential Dx - Cardiopulmonary Differential Diagnoses - Cardiopulmonary: Acute Coronary, Asthma, Exacerbation Of COPD, Influenza, Lower Resp Infection - Diagnoses Provider Diagnoses: Bronchitis, Bronchospasm Discharge - Sign-Out/Discharge Documenting (check all that apply): Discharge/Admit/Transfer - Discharge Plan Condition: Good Disposition: HOME Prescriptions: Azithromycin TAB* [Zithromax TAB (Z-PENNIE) 250 mg #6 tabs] 2 tab PO .TODAY, THEN 1 DAILY #1 pennie methylPREDNISolone [Medrol Dosepak 4 MG*] 0 mg PO .SEE PENNIE INSTRUCTION #1 tab Patient Education Materials: Acute Bronchitis (ED), Bronchospasm (ED) Referrals: Eliezer Barnes, [employer] [Primary Care Provider] - Additional Instructions: Schedule a close follow up appointment with your PCP Take medications as directed Continue home breathing treatments every 4-6 hours as needed for wheezing Return to ER for increased shortness of breath, chest pain, or if concerned - Billing Disposition and Condition Condition: GOOD Disposition: Home
[2018-02-01 07:27] LABS: ABS Basophils 0.1 10^3/ul (0-0.2); ABS Eosinophils 0.4 10^3/ul (0-0.6); ABS Lymphocytes 1.8 10^3/ul (1.0-4.8); ABS Monocytes 0.8 10^3/ul (0-0.8); ABS Neutrophils 9.1 10^3/ul (1.5-7.7); ABS Nucleated RBC 0 10^3/ul; Hematocrit 37 % (42-52); Hemoglobin 11.6 g/dl (14.0-18.0); Lymphocyte % 14.4 % (25-47); Mean Corpuscular HGB Conc 32 g/dl (31-36); Mean Corpuscular Hemoglobin 27 pg (27-31); Mean Corpuscular Volume 85 fL (80-94); Mean Platelet Volume 7.6 um3 (7.4-10.4); Nucleated Red Blood Cells % 0; Platelet Count 229 10^3/ul (150-450); Red Blood Count 4.31 10^6/ul (4.00-5.40); Red Cell Distribution Width 17 % (10.5-15); White Blood Count 12.2 10^3/ul (3.5-10.8)
[2018-02-01 07:33] LABS: INR 1.37 (0.77-1.02)
[2018-02-01 07:47] LABS: EGFR Non-African American 78.7 (>60)
--- NOTE | 2018-02-01 07:53 | RAD ---
INDICATION: Cough COMPARISON: Chest x-ray dated August 27, 2017 TECHNIQUE: Single AP portable view of the chest was obtained. FINDINGS: Image quality is compromised due to the relative inferiority of a portable chest x-ray. The heart and mediastinum exhibit normal size and contour. The lungs are grossly clear. There is no evidence of a large pleural effusion. Visualized bones are normal for the patient's age. IMPRESSION: No radiographic evidence for acute cardiopulmonary abnormality on this portable chest x-ray.
[2018-02-01 08:46] VITALS: BP 131/93
== END 2018-02-01 08:46 | disposition home or self-care (01) ==
LOC: ED 06:01
DX: J40 Bronchitis, not specified as acute or chronic (principal); R05 Cough; R42 Dizziness and giddiness; I48.91 Unspecified atrial fibrillation; Z87.891 Personal history of nicotine dependence; R06.02 Shortness of breath
CPT/HCPCS: 36415; 71045; 80053; 84484; 85025; 85610; 93005; 96360; 99283; A9270-GY

== ENCOUNTER 2018-03-17 23:00 | Emergency (ER) | payer OTHER ==
[2018-03-17] MEDS ORDERED: Lidocaine 5% OINT TOPICAL ONE (23:47)
--- NOTE | 2018-03-18 00:21 | ED ---
Lower Extremity - HPI Summary HPI Summary: This is tadeo Ramirez documenting for attending Dr. Doron Miguel MD. The patient is a 62 y/o M [facility] c/o feeling of burning sensation in his left foot after applying capscacin cream to his foot and gray at 19:00 tonight. The pain is rated 8/10 in severity. He has a hx of arthritis and neuropathy in the foot and thought that the cream could help with a pain he's been having. He takes Lyrica for episodes of pain but has not taken anything for recently. He denies swelling and blistering in his foot. - History of Current Complaint Chief Complaint: EDExtremityLower Stated Complaint: LT FOOT PAIN Time Seen by Provider: 03/17/18 23:39 Hx Obtained From: Patient Mechanism Of Injury: Unknown Onset of Pain: Hours Onset/Duration: Still Present Severity Initially: Moderate Severity Currently: Moderate Pain Intensity: 8 Pain Scale Used: 0-10 Numeric Timing: Constant Location: Is Diffuse - all over left foot and gray Associated Signs And Symptoms: Positive: Negative - blistering. Negative: Swelling Aggravating Factor(s): Nothing Able to Bear Weight: Yes Related History: Other - neuropathy and arthritis Legs: 1 - burning sensation in left foot and gray - Allergies/Home Medications Allergies/Adverse Reactions: Allergies Allergy/AdvReac Type Severity Reaction Status Date / Time doxycycline Allergy Intermediate Hives Verified 03/20/18 10:20 flecainide Allergy Itchy Verified 03/20/18 10:20 Nose, Nausea, Heart Racing Hx of AFIB pseudoephedrine Allergy Palpitation Verified 03/20/18 10:20 [From Olga] s VYCRAL SUTURES Allergy BODY Uncoded 03/17/18 23:12 REJECTS THE SUTURES PMH/Surg Hx/FS Hx/Imm Hx Endocrine/Hematology History: Denies: Hx Diabetes, Hx Thyroid Disease Cardiovascular History: Reports: Hx Atrial Fibrillation, Hx Hypercholesterolemia , Hx Hypertension - ON MEDICATION FOR, Other Cardiovascular Problems/Disorders - Atrial Fib occasionally Denies: Hx Congestive Heart Failure, Hx Pacemaker/ICD Respiratory History: Reports: Hx Pneumonia, Other Respiratory Problems/ Disorders - ASPIRATION PNEUMONIA BEGINNING OF 04/2015, RLL INFILTRATE Denies: Hx Asthma, Hx Chronic Obstructive Pulmonary Disease (COPD) GI History: Reports: Hx Gastroesophageal Reflux Disease - HX OF, Other GI Disorders - pre mri pt had 2016 colonoscopy with polyps removed Denies: Hx Ulcer History: Denies: Hx Dialysis, Hx Renal Disease Musculoskeletal History: Reports: Hx Arthritis - SPINE, Hx Back Problems - Chronic Back, Hx Bursitis - ELBOWS OCCASIONALLY, Hx Gout, Hx Tendonitis - BILATERAL KNEES AND ANKLES, Other Musculoskeletal History - SPINAL STENOSIS/ SOME NECK PROBLEMS Denies: Hx Rheumatoid Arthritis, Hx Osteoporosis Sensory History: Reports: Hx Contacts or Glasses - READING GLASSES Denies: Hx Hearing Aid Opthamlomology History: Reports: Hx Contacts or Glasses - READING GLASSES Neurological History: Reports: Hx Nerve Disease - IDIOPATHIC NEUROPATHY BILATERAL FEET AND LEGS, R/T HX OF LYME DISEASE, Hx Seizures - X - 12/2014 - MAY HAVE RELATED TO MEDICATION/WOKE 3 HRS LATER, FX LEFT SHOU, Other Neuro Impairments/Disorders Psychiatric History: Reports: Hx Anxiety, Other Psychiatric Issues/Disorders - Claustrophobia Denies: Hx Panic Disorder - Cancer History Hx Chemotherapy: No Hx Radiation Therapy: No Hx Palliative Cancer Treatment: No - Surgical History Surgery Procedure, Year, and Place: TONSILLECTOMY, ADENOIDECTOMY AND APPENDECTOMY A CHILD,. ABDOMINAL HERNIA SURGERY A CHILD. [address]/2015 LEFT SHOULDER ARTHROSCOPIC ROTATOR CUFF REPAIR AND ORIF, [facility] [place]. 04/2015 I & D LEFT SHOULDER, [facility] [place]; Left Shoulder Surgery for ganglion cyst 09/11/16 [facility] [place]; LEFT SHOULDER SURGERY DECEMBER [address] SMITH AT [facility] [place] Hx Anesthesia Reactions: Yes - BUNIONECTOMY,-MSO4 EPIDURAL - SEVERE N/V - Immunization History Date of Tetanus Vaccine: 2 years ago Date of Influenza Vaccine: July 2017 Infectious Disease History: No Infectious Disease History: Denies: Hx Clostridium Difficile, Hx Hepatitis, Hx Human Immunodeficiency Virus (HIV), Hx of Known/Suspected MRSA, Hx Shingles, Hx Tuberculosis, Hx Known/ Suspected VRE, Hx Known/Suspected VRSA, History Other Infectious Disease, Traveled Outside the [place] in Last 30 Days - Family History Known Family History: Negative: Cardiac Disease, Hypertension, Diabetes - Social History Alcohol Use: None Hx Substance Use: No Substance Use Type: Reports: None Hx Tobacco Use: No Smoking Status (MU): Former Smoker Type: Cigarettes Amount Used/How Often: 1 PPD FOR 20 YEARS Length of Time of Smoking/Using Tobacco: 20 Have You Smoked in the Last Year: No Review of Systems Negative: Edema Skin: Negative - blistering Neurological: Other - burning sensation in left foot All Other Systems Reviewed And Are Negative: Yes Physical Exam - Summary Physical Exam Summary: Appearance: Well-appearing, Well-nourished, lying in bed comfortable Skin: Warm, dry, no obvious rash, No redness, swelling, or blistering in the left foot Eyes: sclera anicteric, no conjunctival pallor ENT: mucous membranes moist Neck: deferred Respiratory: No signs of respiratory distress Cardiovascular: Appears well perfused, pulses are nml Abdomen: deferred Musculoskeletal: Moving all 4 extremities without obvious discomfort Neurological: Awake and alert, mentation is normal, speech is fluent and appropriate Psychiatric: affect is normal, does not appear anxious or depressed Triage Information Reviewed: Yes Vital Signs On Initial Exam: Initial Vitals Temp Pulse Resp BP Pulse Ox 97.7 F 90 17 155/93 98 03/17/18 23:12 03/17/18 23:12 03/17/18 23:12 03/17/18 23:12 03/17/18 23:12 Vital Signs Reviewed: Yes Diagnostics - Vital Signs Vital Signs Temp Pulse Resp BP Pulse Ox 03/17/18 23:12 97.7 F 90 17 155/93 98 - Laboratory Lab Statement: Any lab studies that have been ordered have been reviewed, and results considered in the medical decision making process. Lower Extremity Course/Dx - Diagnoses Provider Diagnoses: Foot pain Discharge - Sign-Out/Discharge Documenting (check all that apply): Patient Departure - Pt will be discharged home. - Discharge Plan Condition: Good Disposition: HOME Prescriptions: Lidocaine 4% TOPICAL* 1 applic TOPICAL BID PRN #45 ml PRN Reason: Pain Patient Education Materials: Capsaicin (On the skin) Referrals: Eliezer Barnes NP [Primary Care Provider] - - Billing Disposition and Condition Condition: GOOD Disposition: Home
[2018-03-18 00:40] VITALS: BP 135/106
== END 2018-03-18 00:38 | disposition home or self-care (01) ==
LOC: ED 23:00
DX: M79.672 Pain in left foot (principal); Z87.891 Personal history of nicotine dependence
CPT/HCPCS: 99282; A9270-GY

== ENCOUNTER 2018-06-06 07:30 | Inpatient (IN) | payer OTHER ==
[~2018-06-06 07:30] MED LIST changes: +Buffered Lidocaine 0.9% SYRIN* 5 ML/SYR SYRINGE INTRADERM ONE; -Buffered Lidocaine 1% SYR 3ML* 3 ML/SYR SYRINGE INTRADERM ONE; -Dexamethasone IV* 4 MG/ML 1 ML (4 MG) IV SLOW PU ONE; -Dexamethasone IV* 4 MG/ML 1 ML (4 MG) ONE; +Dexamethasone TAB* 4 MG PO ONE; -Famotidine IV* 10 MG/ML 2 ML (20 mg) ONE; -HYDROmorphone* 1 MG/ML 1 ML SYR IV PRN; +Naloxone* 0.4 MG/ML 1 ML VIAL IV PRN; -Ondansetron INJ* 2 MG/ML VIAL IV PRN; +Ondansetron TAB* 4 MG PO ONE; -ceFAZolin 1 GM in Dextrose (*) 1 GM/50 ML BAG IVPB ONE; -ceFAZolin 2 GM PREMIX(*) 2 GM/50 ML BAG IVPB ONE; +oxyCODONE/Acetamin 5/325 MG* TAB PO PRN
--- OUTSIDE RECORDS SUMMARY | 2018-06-06 09:40 | XMS REPORT ---
:1955 External Reference #:[id number] Author Organization [employer] Address [address] [place] [address] [place] [address] Phone [phone] Care Team Providers Name Role Phone Abby Arora MD Primary Care Physician Unavailable Payers Type Date Identification Numbers Payment Provider Subscriber Commercial Policy Number: [id number] Jamaal Coombs Group Number: [id number] [address] PayID: [id number] [place] [address] Medigap Part B Expires: 2015 Policy Number: [id number] [employer] Melinda Coombs PayID: [id number] [address] [address] [place] [address] Commercial Effective: 2015 Policy Number: 70% [facility] Melinda Coombs Expires: 2017 PayID: [id number] [address] Problems Date Description Provider Status Onset: 03/20/2013 Atrial fibrillation Gregorio Garcia M.D. Active Onset: 03/20/2013 Electrocardiogram abnormal Gregorio Garcia M.D. Active Onset: 03/20/2013 Benign essential hypertension Gregorio Garcia M.D. Active Onset: 02/09/2015 Loss of consciousness Emani Inman M.D. Active Note: with high suspicion of seizure (01/08/15) Onset: 03/16/2015 Strain of rotator cuff capsule Brayan Vanegas M.D. Active Onset: 07/09/2015 Idiopathic peripheral neuropathy Emani Inman M.D. Active Onset: 07/09/2015 Lumbosacral stenosis Emani Inman M.D. Active Onset: 07/28/2015 Lumbar spondylosis Prasanna Mata M.D. Active Onset: 03/08/2016 Full thickness rotator cuff tear Hattie Burns MD Active Onset: 07/05/2016 Other seizures Emani Sandoval NP Active Onset: 07/05/2016 Shoulder joint pain Hattie Burns MD Active Onset: 07/05/2016 Localized, primary osteoarthritis of Hattie Burns MD Active the shoulder region Onset: 07/12/2016 Ganglion/synovial cyst - shoulder Hattie Burns MD Active Onset: 08/18/2016 Paroxysmal atrial fibrillation Eliezer Barnes NP Active Onset: 01/20/2017 Oth specific joint derangements of Hattie Burns MD Active left shoulder, NEC Onset: 04/14/2017 Residual foreign body in soft tissue Hattie Burns MD Active Family History Date Family Member(s) Problem(s) Comments General Epilepsy Father Alive And Well Father dementia Mother Rheumatoid Arthritis Mother Throat Cancer First Daughter Alive And Well Second Daughter Alive And Well Third Daughter Epilepsy First Brother Alive And Well Second Brother Alive And Well Paternal Grandfather due to Natural Causes () Paternal Grandmother due to Natural Causes () Maternal Grandfather due to ID () Maternal Grandmother due to Natural Causes () Social History Type Date Description Comments Marital Status Occupation Currently Working Occupation [employer] advisor ETOH Use Denies alcohol use Smoking Patient is a former smoker 20 years ago, 1 PPD Recreational Drug Use Denies Drug Use Daily Caffeine Consumes on average 2 cups of regular coffee per day Exercise Type/Frequency Exercises regularly walks 5 days a week General Hx Text Non smoker, no alcohol, lives in [place], moved from [place] in February. No foreign travel. No pets. Retired worked at [employer]. Allergies, Adverse Reactions, Alerts Date Description Reaction Status Severity Comments 11/12/2012 Doxycycline hives active hives 05/05/2015 Flecainide active seizure 10/14/2016 Vicryl Sutures suture abscess active 11/09/2012 NKDA inactive Medications Medication Date Status Form Strength Qnty SIG Indications Ordering Provider Alprazolam 06/04 Active Tablets 0.5mg 10tab 1/2-1 Tab Eliezer s Twice Daily KARLY Barnes as Needed For Anxiety Zolpidem 01/23 Active Tablets ER 12.5mg 30tab 1 by mouth Eliezer Tartrate ER /2017 s at bedtime KARLY Barnes as needed mdd 1 Nebulizer 08/28 Active Device 1unit use for R06.02 Eliezer /2017 s albuterol KARLY Barnes nebulized solution up to 4 times a day. Nebulizer 08/28 Active Kit QS for use 4 R06.02 Eliezer Kit/Tubing/Mout /2017 times daily KARLY Barnes hpiece as needed Xarelto 01/25 Active Tablets 20mg 90tab 1 by mouth Qutayb s every day Danette Garcia M.D. Depakote ER 07/08 Active Tablets ER 250mg 180ta take 1 tab 24HR bs (250 mg) by sheldon Inman in the M.DJackie morning and take 1 tabs every evening Lyrica Active Capsules 100mg 90cap one capsule Eliezer / s twice a day. KARLY Barnes may take two capsules twice daily during flare of neuropathy Hydrocodone Active 1 tab q-6 Unknown Bitartrate/Acet /0000 hours as aminophen needed Allopurinol Active Tablets 300mg 30tab Take One Eliezer /0000 s Tablet By KARLY Barnes Mouth Every Day Metoprolol Active Tablets ER 100mg 30tab Take One Eliezer Succinate ER / 24HR s Tablet By KARLY Barnes Mouth Every Day Ergocalciferol 05/08 Hx Capsules [id number] 8caps Take 1 by Zapravinb mouth weekly Estelle Burns x 8 weeks 06/04 Levofloxacin 02/13 Hx Tablets 500mg 10tab one by mouth J01.90 s daily for 10 Varn, - days N.P. 02/23 Fluticasone 10/25 Hx Suspension 50mcg/Act 16uni 2 sprays J20.9 Parris Propionate ts each nostril Varn, - daily as N.P. 04/26 Guaifenesin-Cod 10/25 Hx Solution 100-10mg/ 236ml 10 J20.9 5ML milliliters Varn, - 3 times a N.P. Guaifenesin-Cod 10/25 Hx Solution 100-10mg/ 236ml 10 J20.9 5ML milliliters Varn, - 3 times a N.P. Guaifenesin-Cod 10/25 Hx Syrup 100-10mg/ 240ml 10 5ML milliliters Varn, - three times N.P. 04/24 a day needed cough Guaifenesin-Cod 08/28 Hx Solution 100-10mg/ 236ml 10 ml 3 Norberto 5ML times a day Landon Mccabe M.D. 09/04 Pulmicort 08/28 Hx Aerosol 180mcg/Ac 1unit 2 puffs J20.9 t s twice daily Varn, - N.P. 03/15 Ipratropium 08/28 Hx Solution 0.5-2.5(3 90uni 1 vial in R06.02 Eliezer Ellinger/Albuter /2017 )mg/3ML ts nebulizer KARLY Barnes ol Sulfate - four times a 02/13 day needed for asthma Levofloxacin 06/14 Hx Tablets 500mg 10tab one by mouth J01.90 Eliezer s daily for 10 Molly, [employer]ATE - days 06/25 Benzonatate 06/14 Hx Capsules 200mg 30cap one by mouth J01.90 Eliezer s three times Molly, RE[employer]MENT [employer]IATE - daily as 06/20 needed for cough Amoxicillin/Cla 05/16 Hx Tablets 875-125mg 20tab one tablet J01.90 Parris vulanate s by mouth Varn, Potassium - twice daily N.P. 05/26 for 10 days Pulmicort 05/16 Hx Aerosol 180mcg/Ac 1unit 2 puffs J20.9 Parris Flexhaler t s twice daily Varn, - N.P. 06/15 Fluticasone 05/16 Hx Suspension 50mcg/Act 16uni 2 sprays J01.90 Parris Propionate ts each nostril Varn, - daily as N.P. 05/30 Zolpidem 05/01 Hx Tablets 10mg 30tab 1/2 to 1 tab Eliezer Tartrate s by mouth Molly, RE[employer]MENT ASSOCIATE - every night 01/23 at bedtime as needed Percocet 01/07 Hx Tablets 5-325mg 30tab 1 - 2 tabs s by mouth Yaseen, - every 4 - 6 MD 02/06 hours needed for pain. Keflex 01/04 Hx Capsules 500mg 28cap 1 tab by s mouth four Yaseen, - times a day MD 02/06 Oxycodone HCL 01/04 Hx Tablets 5mg 30tab 1-2 tabs by s mouth every Yaseen, - 4-6 hours as 01/27 needed Bactrim DS 10/05 Hx Tablets 800-160mg 14tab Take 1 by s mouth daily Yasedilcia, - x 14 days 12/10 Oxycodone HCL 09/02 Hx Capsules 5mg 30cap one to two s tablets Yaseen, - every 6 MD 08/13 hours needed for pain Keflex 08/25 Hx Capsules 500mg 40cap take 1 tab M67.412 s by mouth Grant, - four times a MD 08/13 day x days Percocet 08/08 Hx Tablets 5-325mg 40tab take 1 tabs b s as needed Grant, - for pain MD 08/13 every hours. do not combine with tylenol Oxycodone-Aceta 08/02 Hx Tablets 5-325mg 60tab 1-2 tabs po M67.412 Zaneb minophen s q 4 hrs prn Grant, - pain 08/13 Hydrocodone-Danyel 07/19 Hx Tablets 10-325mg 180ta 1-2 tablet S43.82xD Eliezer taminophen bs every 6 Molly, RE[employer]MENT ASS[employer]IATE - hours as 08/13 needed for pain M25.512 Oxycodone-Acetaminophen 07/12/2016 Hx Tablets 5-325mg 60tabs 1-2 tabs M19.012 Zaneb - by mouth Yaseen, 07/19/2016 every 4 MD hours as needed pain Valium 07/06/2016 Hx Tablets 5mg 2tabs 1 by Eliezer - mouth KARLY Barnes 12/10/2016 one hour prior to MRI. May repeat x 1 if not drowsy and still nervous. Oxycodone-Acetaminophen 07/05/2016 Hx Tablets 5-325mg 60tabs 1-2 tabs M75.122 Zaneb - po q 4 Yaseen, 07/12/2016 hrs prn MD pain Zolpidem Tartrate ER 06/10/2016 Hx Tablets 12.5mg 30tabs 1 by Eliezer - ER mouth at KARLY Barnes 04/13/2017 bedtime as needed Voltaren 05/26/2016 Hx Gel 1% 100gm apply 2 G60.3 Eliezer - grams of KARLY Barnes 08/23/2017 gel twice daily to the affected areas Hydrocodone-Acetaminophe 04/29/2016 Hx Tablets 10-325mg 180tabs 1-2 S43.82xD Eliezer n - tablet KARLY Barnes 07/06/2016 every 6 hours as needed for pain M25.512 Omeprazole 04/13/2016 - Hx Capsules DR 20mg 30caps take one Eliezer 08/23/2017 tablet by KARLY Barnes mouth once daily as needed Hydrocodone-Acet 03/02/2016 - Hx Tablets 10-325m 120tabs 1 tablet S43 Eliezer aminophen 04/13/2016 g every 6 .82 KARLY Barnes hours as xD needed for pain Advair HFA 02/23/2016 - Hx Aerosol 230-21m 8gm 2 puffs R05 Eliezer 08/22/2016 cg/Act twice daily KARLY Barnes (not using) Benzonatate 02/19/2016 - Hx Capsules 200mg 30caps one by mouth J20 Eliezer 12/26/2016 three times .9 KARLY Barnes daily as needed for cough (not taking) Percocet 02/19/2016 - Hx Tablets 5-325mg 60tabs 1 every 12 M25 Eliezer 04/29/2016 hours as .51 KARLY Barnes needed for 2 severe pain Levaquin 02/17/2016 - Hx Tablets 500mg 10tabs 1 by mouth Eliezer 02/19/2016 every day Molly, RE[employer]ISHMENT ASSOCIATE Amoxicillin/Clav 02/03/2016 - Hx Tablets 875-125 20tabs take one J01 Eliezer ulanate 02/13/2016 mg tablet q12 .00 Molly, REPL[employer]ISHMENT ASSOCIATE Potassium hours for 10 days Advair HFA 02/03/2016 - Hx Aerosol 230-21m 8gm 2 puffs R05 Eliezer 02/17/2016 cg/Act twice daily Molly, RE[employer]ISHMENT ASSOCIATE x 2 weeks Percocet 01/15/2016 - Hx Tablets 5-325mg 30tabs take 1 tabs M75 Zaneb 01/19/2016 as needed .12 MD Grant for pain 2 every 12 hours. do not combine with tylenol Oxycodone-Acetam 11/17/2015 - Hx Tablets 5-325mg 90tabs take 1/2- 1 M25 Eliezer inophen 12/14/2015 tablet by .51 Molly, RE[employer]ISHMENT ASSOCIATE mouth every 2 8 hours if needed for pain Amoxicillin/Clav 11/17/2015 - Hx Tablets 875-125 20tabs take one J01 Eliezer ulanate 11/28/2015 mg tablet q12 .00 Molly, REPLENISHMENT ASSOCIATE Potassium hours for 10 days Hydrocodone-Acet 11/10/2015 - Hx Tablets 5-325mg 60tabs take 1 Eliezer aminophen 11/17/2015 tablet every Molly, REPLENISHMENT ASSOCIATE 6 hours for pain. Valium 11/06/2015 - Hx Tablets 5mg 2tabs 1 by mouth Eliezer 11/06/2015 one hour Molly, REPLENISHMENT ASSOCIATE prior to MRI. May repeat x 1 if not drowsy and still nervous. Zolpidem 09/14/2015 - Hx Tablets ER 12.5mg 30tabs 1 by mouth Norberto Tartrate ER 05/26/2016 at bedtime [place]ach[place], as needed M.D. Hydrocodone-Acet 09/07/2015 - Hx Tablets 5-325mg 120tabs 1 tablets by S43 Eliezer aminophen 03/02/2016 mouth every .82 Molly, REPLENISHMENT ASSOCIATE 6 hours as xD needed for pain. Hydrocodone-Acet 08/24/2015 - Hx Tablets 5-500mg 60tabs 1 by mouth S43 Dirk aminophen 09/07/2015 every 6 .82 Holly, hours if xD M.D. needed Valium 06/16/2015 - Hx Tablets 5mg 2tabs 1 by mouth 1 Emani 07/08/2015 hour prior Henny, to MRI, december M.D. repeat x1 if not drowsy and still nervous Cipro 05/11/2015 - Hx Tablets 500mg 1 by mouth Unknown 05/26/2015 twice a day x 14 days Clindamycin HCL 05/11/2015 - Hx Capsules 300mg 1 po tid x Unknown 05/26/2015 14 days Hydrocodone-Acet 05/05/2015 - Hx Tablets 5-325mg 60tabs 1-2 tabs by 840 Syeda aminophen 08/24/2015 mouth four .4 Curiel-You times a day Satish león as needed pain Keflex 05/05/2015 - Hx Capsules 500mg 28caps 1 tab by Brayan 05/07/2015 mouth every Young, 6 hours M.D. Oxycodone-Acetam 04/02/2015 - Hx Tablets 5-325mg 60tabs 1-2 tabs by [place] fernandes 06/14/2015 mouth every Angel, 4 hours for M.D. pain Hydrocodone-Acet 03/16/2015 - Hx Tablets 5-325mg 60tabs 1-2 tabs po 840 Brayan aminophen 04/02/2015 qid prn pain .4 Satish Vanegas Depakote ER 02/25/2015 - Hx Tablets ER 250mg 180tabs 1 tab by Melinda Samaniego 07/08/2016 24HR mouth twice [place], a day M.D. Levetiracetam 02/09/2015 - Hx Tablets 250mg 60tabs Not Taking 780 Emani 06/14/2015 .39 Satish Inman Tramadol HCL 01/27/2015 - Hx Tablets 50mg 60tabs 1-2 tab Brayan 03/21/2015 every 4-6 Young, hours as M.D. needed pain Lidoderm 01/26/2015 - Hx Patches 5% 30units 1 topically Brayan 02/04/2015 every 12 Young, hours on and M.D. 12 hours off to affected area Indocin 05/10/2013 - Hx Suspension 25mg/5M [place] 10/22/2014 Inocencia Ortiz M.D. Indomethacin 05/10/2013 - Hx Capsules 25mg 80caps 1 po qd prn [place] 03/21/2015 Satish Ortiz Percocet 10/05/2012 - Hx Tablets 10-325m 60tabs 1 po qid prn Brayan 03/20/2013 darrian Vanegas M.D. Vicodin 08/24/2012 - Hx Tablets 5-500mg 40tabs 1-2 tablets Silvestre 03/20/2013 every 4-6 Gabby, hours as Satish needed Endocet 04/17/2012 - Hx Tablets 5-325mg 30tabs 1 po q 4 hr Brayan 03/20/2013 prn Satish Vanegas Zithromax - Hx Tablets 500mg 5tabs 1 qd for 5 Unknown Tri-Garuang 03/20/2013 days Ipratropium - Hx Solution 0.03% 30ml instill 2 Unknown Ellinger 03/20/2013 sprays in each nostril twice a day Albuterol - Hx Syrup 2mg/5ML Unknown Sulfate 03/20/2013 Voltaren - Hx Gel 1% Lrgtube apply 2 Unknown 03/20/2013 grams topically three times a day Salsalate - Hx Tablets 500mg 540tabs 1 tab by Unknown 03/20/2013 mouth four times a day times with food Ketorolac - Hx Tablets 10mg 10tabs take 1 by Unknown Tromethamine 03/20/2013 mouth every 8 hours as needed for migraine. take with food. Xanax - Hx Tablets 0.25mg 20tabs one by mouth Unknown 03/20/2013 up to three times daily as needed for anxiety Zolpidem - Hx Tablets ER 12.5mg 18tabs 1 po qhs Unknown Tartrate ER 05/08/2013 Flecainide - Hx Tablets 100mg 180tabs 1 po bid Unknown Acetate 01/19/2015 Lyrica - Hx Capsules 100mg 60caps 1 po bid Unknown 10/22/2014 Aspirin Ec - Hx 81mg 1 tablet po Unknown Lo-Dose 02/13/2018 daily Hydrocodone-Acet - Hx Tablets 10-325m 1-2 tabs by Unknown aminophen 02/06/2017 g mouth every 4- 6 hours as needed pain Ventolin HFA - Hx Aerosol 108(90B Inhale Two Unknown 08/23/2017 ase) Puffs By mcg/Act Mouth Every 4 Hours as Needed For For Shortness Of Tussin Cough DM - Hx Syrup 100-10m 5ml 3-4 Unknown 08/23/2017 g/5ML times a day as needed Iron - Hx Tablets 325(65F 1 by mouth Unknown 08/23/2017 e) mg every day Prednisone - Hx Tablets 40mg Keren, 01/29/2018 (Not MD Melinda Taking) Amoxicillin - Hx Tablets 875mg Keren, 01/29/2018 MD Melinda Guaifenesin-Code - Hx Solution 100-10m [place], ine 08/28/2017 g/5ML MD Melinda Albuterol - Hx Nebulizer (5mg/ML 2 puffs Unknown Sulfate 02/13/2018 ) 0.5% every 4 hours as needed sob or wheeze Fish Oil - Hx Capsules 1000mg 2 by mouth Unknown 06/04/2018 twice a day Medications Administered in Office Medication Date Status Form Strength Qnty SIG Indications Ordering Provider No Injection Administered Injection Hattie Burns MD No Injection Administered Injection Hattie Burns MD Depomedrol Administered Injection [place] 80MG Dana Ortiz M.D. Inj, Administered Injection Alex Pinto Regadenoson, 012 Nik, 0.1 MG Satish, JON, FASVICKI Technetium TC Administered Injection Alex Pinto 99M 012 Mulugeta Zaragoza M.D., JON, Per Unit Dose [place] Up To 40 Millicuries Immunizations CPT Code Status Date Vaccine Reaction Lot # 47095 Given 06/22/2017 Influenza Virus Vaccine, No immediate [id number] Quadrivalent, Split, reaction...jh Preservative Free Vital Signs Date Vital Result Comment 06/04/2018 Height 74 inches 6'2" Weight 294.75 lb Heart Rate 79 /min BP Systolic 124 mmHg BP Diastolic 76 mmHg Body Temperature 96.8 F O2 % BldC Oximetry 97 % BMI (Body Mass Index) 37.8 kg/m2 05/24/2018 Height 74 inches 6'2" Weight 286.50 lb Heart Rate 68 /min BP Systolic 146 mmHg BP Diastolic 88 mmHg Respiratory Rate 18 /min Body Temperature 97.5 F Pain Level 7 BMI (Body Mass Index) 36.8 kg/m2 04/27/2018 Height 74 inches 6'2" Weight 282.00 lb Heart Rate 64 /min BP Systolic Sitting 120 mmHg LA, large BP Diastolic Sitting 80 mmHg LA, large BMI (Body Mass Index) 36.2 kg/m2 Ejection Fraction 55%-60% echo 02/04/15 04/25/2018 Height 74 inches 6'2" Weight 263.00 lb BP Systolic Sitting 120 mmHg BP Diastolic Sitting 78 mmHg Respiratory Rate 15 /min BMI (Body Mass Index) 33.8 kg/m2 04/24/2018 Height 74 inches 6'2" Weight 286.00 lb BP Systolic 120 mmHg BP Diastolic 74 mmHg Respiratory Rate 18 /min Pain Level 5 BMI (Body Mass Index) 36.7 kg/m2 02/13/2018 Height 74 inches 6'2" Weight 286.25 lb Heart Rate 80 /min BP Systolic 109 mmHg BP Diastolic 65 mmHg Body Temperature 97.4 F O2 % BldC Oximetry 96 % BMI (Body Mass Index) 36.7 kg/m2 01/30/2018 Height 74 inches 6'2" Weight 284.00 lb Heart Rate 96 /min BP Systolic Sitting 128 mmHg BP Diastolic Sitting 78 mmHg Body Temperature 100.9 F O2 % BldC Oximetry 95 % BMI (Body Mass Index) 36.5 kg/m2 10/25/2017 Weight 271.50 lb Heart Rate 82 /min BP Systolic Sitting 126 mmHg BP Diastolic Sitting 80 mmHg Body Temperature 96.3 F O2 % BldC Oximetry 96 % 08/28/2017 Weight 271.00 lb Heart Rate 100 /min BP Systolic 120 mmHg BP Diastolic 78 mmHg Body Temperature 97.4 F O2 % BldC Oximetry 97 % 08/24/2017 Height 74 inches 6'2" Weight 270.00 lb w/shoes Heart Rate 82 /min BP Systolic Sitting 118 mmHg LA lg cuff BP Diastolic Sitting 74 mmHg LA lg cuff BMI (Body Mass Index) 34.7 kg/m2 Ejection Fraction 75% Jimmy 02/27/17 06/22/2017 Height 74 inches 6'2" Weight 282.25 lb Heart Rate 87 /min BP Systolic Sitting 118 mmHg BP Diastolic Sitting 72 mmHg O2 % BldC Oximetry 97 % BMI (Body Mass Index) 36.2 kg/m2 06/14/2017 Height 74 inches 6'2" Weight 281.00 lb Heart Rate 66 /min BP Systolic Sitting 122 mmHg BP Diastolic Sitting 68 mmHg Body Temperature 97.0 F O2 % BldC Oximetry 98 % BMI (Body Mass Index) 36.1 kg/m2 05/16/2017 Weight 281.50 lb Heart Rate 68 /min BP Systolic 118 mmHg BP Diastolic 68 mmHg Body Temperature 97.4 F O2 % BldC Oximetry 98 % 04/14/2017 Height 74 inches 6'2" Weight 285.00 lb BP Systolic 132 mmHg BP Diastolic 81 mmHg Respiratory Rate 16 /min Pain Level 4 BMI (Body Mass Index) 36.6 kg/m2 03/10/2017 Height 74 inches 6'2" Heart Rate 76 /min BP Systolic Sitting 124 mmHg LA, Large BP Diastolic Sitting 70 mmHg LA, Large 02/07/2017 Height 74 inches 6'2" Weight 285.00 lb Heart Rate 70 /min BP Systolic 128 mmHg BP Diastolic 80 mmHg Body Temperature 95.8 F Pain Level 5 BMI (Body Mass Index) 36.6 kg/m2 01/27/2017 Weight 284.00 lb Heart Rate 91 /min BP Systolic 118 mmHg BP Diastolic 80 mmHg Body Temperature 97.8 F O2 % BldC Oximetry 98 % 01/20/2017 Height 74 inches 6'2" Weight 285.00 lb BP Systolic 131 mmHg BP Diastolic 81 mmHg Respiratory Rate 16 /min Body Temperature 96.3 F Pain Level 4 BMI (Body Mass Index) 36.6 kg/m2 01/10/2017 Height 74 inches 6'2" Weight 285.00 lb Respiratory Rate 16 /min Body Temperature 96.6 F Pain Level 6 BMI (Body Mass Index) 36.6 kg/m2 12/26/2016 Weight 285.00 lb Heart Rate 84 /min BP Systolic Sitting 140 mmHg BP Diastolic Sitting 70 mmHg O2 % BldC Oximetry 97 % 12/21/2016 Height 74 inches 6'2" Weight 282.00 lb w/shoes Heart Rate 84 /min BP Systolic Sitting 138 mmHg LA lg cuff BP Diastolic Sitting 98 mmHg LA lg cuff BMI (Body Mass Index) 36.2 kg/m2 Ejection Fraction 55-60% Echo 02/04/15 12/15/2016 Height 74 inches 6'2" Weight 270.00 lb Heart Rate 84 /min BP Systolic 143 mmHg BP Diastolic 94 mmHg Body Temperature 97.3 F Pain Level 2 BMI (Body Mass Index) 34.7 kg/m2 10/14/2016 Height 74 inches 6'2" Weight 270.00 lb BP Systolic 120 mmHg BP Diastolic 80 mmHg Respiratory Rate 18 /min Pain Level 0 BMI (Body Mass Index) 34.7 kg/m2 09/13/2016 Height 74 inches 6'2" Weight 284.00 lb Respiratory Rate 16 /min Pain Level 6 BMI (Body Mass Index) 36.5 kg/m2 08/25/2016 Height 74 inches 6'2" Weight 284.75 lb with shoes Heart Rate 86 /min BP Systolic Sitting 118 mmHg LA lrg cuff BP Diastolic Sitting 80 mmHg LA lrg cuff BMI (Body Mass Index) 36.6 kg/m2 Ejection Fraction 55% - 60% echo 02/04/15 08/25/2016 Height 74 inches 6'2" Weight 270.00 lb Heart Rate 64 /min BP Systolic Sitting 132 mmHg BP Diastolic Sitting 80 mmHg Respiratory Rate 16 /min Pain Level 2 BMI (Body Mass Index) 34.7 kg/m2 08/18/2016 Weight 291.00 lb Heart Rate 68 /min BP Systolic Sitting 132 mmHg BP Diastolic Sitting 80 mmHg Respiratory Rate 15 /min Body Temperature 98.2 F O2 % BldC Oximetry 98 % 08/02/2016 Height 74 inches 6'2" Weight 270.00 lb Respiratory Rate 16 /min Pain Level 8 BMI (Body Mass Index) 34.7 kg/m2 07/12/2016 Height 74 inches 6'2" Weight 270.00 lb Pain Level 9 BMI (Body Mass Index) 34.7 kg/m2 07/05/2016 Height 74 inches 6'2" Weight 270.00 lb Heart Rate 82 /min BP Systolic Sitting 128 mmHg BP Diastolic Sitting 88 mmHg BMI (Body Mass Index) 34.7 kg/m2 06/20/2016 Weight 277.00 lb Heart Rate 90 /min BP Systolic Sitting 126 mmHg BP Diastolic Sitting 84 mmHg Respiratory Rate 15 /min Body Temperature 97.1 F O2 % BldC Oximetry 98 % 05/26/2016 Weight 278.50 lb Heart Rate 95 /min BP Systolic Sitting 135 mmHg BP Diastolic Sitting 84 mmHg Body Temperature 96.0 F O2 % BldC Oximetry 98 % 04/13/2016 Weight 286.00 lb Heart Rate 74 /min BP Systolic Sitting 132 mmHg BP Diastolic Sitting 82 mmHg Respiratory Rate 15 /min O2 % BldC Oximetry 98 % 03/08/2016 Height 72.5 inches 6'0.50" Weight 287.00 lb BMI (Body Mass Index) 38.4 kg/m2 03/02/2016 Weight 287.00 lb with shoes Heart Rate 106 /min BP Systolic Sitting 120 mmHg BP Diastolic Sitting 84 mmHg Body Temperature 96.7 F O2 % BldC Oximetry 98 % 02/23/2016 Height 74 inches 6'2" Weight 286.00 lb Heart Rate 76 /min BP Systolic Sitting 110 mmHg BP Diastolic Sitting 70 mmHg Body Temperature 97.3 F Pain Level 0 BMI (Body Mass Index) 36.7 kg/m2 02/19/2016 Weight 285.00 lb Heart Rate 86 /min BP Systolic Sitting 128 mmHg BP Diastolic Sitting 82 mmHg Respiratory Rate 14 /min Body Temperature 98.8 F O2 % BldC Oximetry 97 % 02/03/2016 Weight 288.00 lb Heart Rate 84 /min BP Systolic Sitting 124 mmHg BP Diastolic Sitting 82 mmHg Respiratory Rate 15 /min Body Temperature 98.3 F O2 % BldC Oximetry 98 % 01/21/2016 Weight 290.00 lb Heart Rate 100 /min BP Systolic Sitting 120 mmHg BP Diastolic Sitting 84 mmHg Body Temperature 96.6 F O2 % BldC Oximetry 97 % 01/20/2016 Height 72.5 inches 6'0.50" Weight 289.25 lb Heart Rate 74 /min BP Systolic Sitting 120 mmHg BP Diastolic Sitting 86 mmHg Respiratory Rate 18 /min Pain Level 4 BMI (Body Mass Index) 38.7 kg/m2 01/15/2016 Height 72.5 inches 6'0.50" Weight 294.00 lb Heart Rate 64 /min BP Systolic Sitting 132 mmHg BP Diastolic Sitting 74 mmHg Respiratory Rate 16 /min Pain Level 9 BMI (Body Mass Index) 39.3 kg/m2 12/07/2015 Height 72.5 inches 6'0.50" Weight 294.00 lb Heart Rate 80 /min BP Systolic Sitting 112 mmHg BP Diastolic Sitting 64 mmHg Respiratory Rate 14 /min Body Temperature 98.2 F BMI (Body Mass Index) 39.3 kg/m2 11/17/2015 Height 72.5 inches 6'0.50" Weight 294.00 lb Heart Rate 94 /min BP Systolic Sitting 126 mmHg BP Diastolic Sitting 82 mmHg Respiratory Rate 15 /min Body Temperature 97.2 F O2 % BldC Oximetry 98 % BMI (Body Mass Index) 39.3 kg/m2 11/16/2015 Height 72.5 inches 6'0.50" Weight 296.00 lb Heart Rate 80 /min BP Systolic Sitting 130 mmHg BP Diastolic Sitting 82 mmHg Respiratory Rate 14 /min Body Temperature 98.9 F BMI (Body Mass Index) 39.6 kg/m2 10/23/2015 Height 72.5 inches 6'0.50" Weight 291.00 lb Heart Rate 85 /min BP Systolic Sitting 128 mmHg BP Diastolic Sitting 78 mmHg Body Temperature 96.7 F O2 % BldC Oximetry 98 % BMI (Body Mass Index) 38.9 kg/m2 09/07/2015 Height 72.5 inches 6'0.50" Weight 280.50 lb Heart Rate 63 /min BP Systolic Sitting 122 mmHg BP Diastolic Sitting 79 mmHg Body Temperature 97.0 F O2 % BldC Oximetry 98 % BMI (Body Mass Index) 37.5 kg/m2 08/24/2015 Height 75 inches 6'3" Weight 282.00 lb BMI (Body Mass Index) 35.2 kg/m2 07/28/2015 Height 75 inches 6'3" Weight 282.00 lb Heart Rate 74 /min BP Systolic Sitting 122 mmHg BP Diastolic Sitting 82 mmHg Pain Level 0 BMI (Body Mass Index) 35.2 kg/m2 07/09/2015 Height 75 inches 6'3" Weight 265.00 lb Heart Rate 68 /min BP Systolic Sitting 130 mmHg BP Diastolic Sitting 72 mmHg Respiratory Rate 16 /min BMI (Body Mass Index) 33.1 kg/m2 06/15/2015 Height 75 inches 6'3" Weight 265.00 lb Heart Rate 64 /min BP Systolic Sitting 112 mmHg BP Diastolic Sitting 80 mmHg Respiratory Rate 14 /min BMI (Body Mass Index) 33.1 kg/m2 05/27/2015 Height 75 inches 6'3" Weight 285.00 lb Heart Rate 71 /min BP Systolic Sitting 126 mmHg BP Diastolic Sitting 80 mmHg Respiratory Rate 14 /min Body Temperature 97.2 F BMI (Body Mass Index) 35.6 kg/m2 05/21/2015 Height 75 inches 6'3" Weight 295.00 lb Body Temperature 95.6 F BMI (Body Mass Index) 36.9 kg/m2 05/05/2015 Height 75 inches 6'3" Weight 295.00 lb Pain Level 5 BMI (Body Mass Index) 36.9 kg/m2 05/01/2015 Height 75 inches 6'3" Weight 295.00 lb Pain Level 7 BMI (Body Mass Index) 36.9 kg/m2 04/02/2015 Height 75 inches 6'3" Weight 295.00 lb Body Temperature 94.1 F BMI (Body Mass Index) 36.9 kg/m2 03/16/2015 Height 75 inches 6'3" Weight 295.00 lb Heart Rate 81 /min BP Systolic 118 mmHg BP Diastolic 82 mmHg BMI (Body Mass Index) 36.9 kg/m2 02/10/2015 Height 75 inches 6'3" Weight 292.00 lb w/ shoes Heart Rate 70 /min BP Systolic Sitting 124 mmHg Ra, reg BP Diastolic Sitting 80 mmHg Ra, reg BMI (Body Mass Index) 36.5 kg/m2 Ejection Fraction 55-60% 02/04/15 ECHO 02/09/2015 Height 75 inches 6'3" Weight 290.00 lb Heart Rate 66 /min BP Systolic Sitting 110 mmHg BP Diastolic Sitting 78 mmHg Respiratory Rate 20 /min BMI (Body Mass Index) 36.2 kg/m2 01/20/2015 Height 75 inches 6'3" Weight 305.75 lb with shoes Heart Rate 66 /min BP Systolic Sitting 118 mmHg Ra lg cuff BP Diastolic Sitting 90 mmHg Ra lg cuff Respiratory Rate 16 /min BMI (Body Mass Index) 38.2 kg/m2 01/15/2015 Height 75 inches 6'3" Weight 295.00 lb Heart Rate 67 /min BP Systolic Sitting 112 mmHg BP Diastolic Sitting 87 mmHg Pain Level 8 with movement BMI (Body Mass Index) 36.9 kg/m2 10/23/2014 Height 75 inches 6'3" Weight 301.00 lb Heart Rate 72 /min BP Systolic Sitting 148 mmHg LA, large BP Diastolic Sitting 90 mmHg LA, large BMI (Body Mass Index) 37.6 kg/m2 05/08/2013 Height 75 inches 6'3" Weight 304.00 lb Heart Rate 60 /min BP Systolic 120 mmHg BP Diastolic 84 mmHg BMI (Body Mass Index) 38.0 kg/m2 03/20/2013 Height 75 inches 6'3" Weight 300.00 lb Heart Rate 84 /min BP Systolic Sitting 144 mmHg BP Diastolic Sitting 100 mmHg Respiratory Rate 16 /min BMI (Body Mass Index) 37.5 kg/m2 11/12/2012 Height 75 inches 6'3" Weight 275.00 lb Heart Rate 72 /min BP Systolic 130 mmHg BP Diastolic 86 mmHg Body Temperature 97.8 F BMI (Body Mass Index) 34.4 kg/m2 Results Test Date Test Result H/L Range Note Urine Culture And 05/24/2018 Urine Culture SEE RESULT BELOW 1 Sensitivities Type & Screen 05/24/2018 Patient Blood A Negative Type Antibody Screen NEGATIVE Urinalysis Profile 05/24/2018 Urine Color Yellow Urine Appearance Clear Urine Specific [place] 1.019 1.010-1.030 Urine pH 5.0 5-9 Urine Urobilinogen Negative Negative Urine Ketones Negative Negative Urine Protein Negative Negative Urine Leukocytes Negative Negative Urine Blood Negative Negative * * Negative 2 Urine Nitrite Negative Negative Urine Bilirubin Negative Negative Urine Glucose Negative Negative CBC Auto Diff 05/24/2018 White Blood Count 9.9 10^3/uL 3.5-10.8 Red Blood Count 4.73 10^6/uL 4.00-5.40 Hemoglobin 12.5 g/dL Low 14.0-18.0 Hematocrit 39 % Low 42-52 Mean Corpuscular Volume 83 fL 80-94 Mean Corpuscular Hemoglobin 26 pg Low 27-31 Mean Corpuscular HGB Conc 32 g/dL 31-36 Red Cell Distribution Width 17 % High 10.5-15 Platelet Count 356 10^3/uL 150-450 Mean Platelet Volume 8.1 um3 7.4-10.4 Abs Neutrophils 5.2 10^3/uL 1.5-7.7 Abs Lymphocytes 3.2 10^3/uL 1.0-4.8 Abs Monocytes 1.1 10^3/uL High 0-0.8 Abs Eosinophils 0.3 10^3/uL 0-0.6 Abs Basophils 0 10^3/uL 0-0.2 Abs Nucleated RBC 0 10^3/uL Granulocyte % 53.0 % 38-83 Lymphocyte % 32.3 % 25-47 Monocyte % 11.5 % High 0-7 Eosinophil % 2.8 % 0-6 Basophil % 0.4 % 0-2 Nucleated Red Blood Cells % 0.1 Comp Metabolic Panel 05/24/2018 Sodium 140 mmol/L 135-145 Potassium 4.8 mmol/L 3.5-5.0 Chloride 104 mmol/L 101-111 Co2 Carbon Dioxide 31 mmol/L 22-32 Anion Gap 5 mmol/L 2-11 Glucose 67 mg/dL Low 70-100 Blood Urea Nitrogen 14 mg/dL 6-24 Creatinine 0.97 mg/dL 0.67-1.17 BUN/Creatinine Ratio 14.4 8-20 Calcium 9.3 mg/dL 8.6-10.3 Total Protein 6.6 g/dL 6.4-8.9 Albumin 4.4 g/dL 3.2-5.2 Globulin 2.2 g/dL 2-4 Albumin/Globulin Ratio 2.0 1-3 Total Bilirubin 0.30 mg/dL 0.2-1.0 Alkaline Phosphatase 50 U/L 34-104 Alt 11 U/L 7-52 Ast 13 U/L 13-39 Egfr Non- 78.7 >60 Egfr 95.2 >60 3 Laboratory test finding 05/24/2018 Partial Thrombo Time 43.4 seconds High 26.0-36.3 PTT Inr/Protime 05/24/2018 Inr 1.51 High 0.77-1.02 CBC Auto Diff 05/07/2018 White Blood Count 6.0 10^3/uL 3.5-10.8 Red Blood Count 4.44 10^6/uL 4.00-5.40 Hemoglobin 11.9 g/dL Low 14.0-18.0 Hematocrit 38 % Low 42-52 Mean Corpuscular Volume 85 fL 80-94 Mean Corpuscular Hemoglobin 27 pg 27-31 Mean Corpuscular HGB Conc 32 g/dL 31-36 Red Cell Distribution Width 17 % High 10.5-15 Platelet Count 281 10^3/uL 150-450 Mean Platelet Volume 7.9 um3 7.4-10.4 Abs Neutrophils 3.0 10^3/uL 1.5-7.7 Abs Lymphocytes 2.2 10^3/uL 1.0-4.8 Abs Monocytes 0.6 10^3/uL 0-0.8 Abs Eosinophils 0.2 10^3/uL 0-0.6 Abs Basophils 0 10^3/uL 0-0.2 Abs Nucleated RBC 0 10^3/uL Granulocyte % 49.4 % 38-83 Lymphocyte % 36.6 % 25-47 Monocyte % 10.0 % High 0-7 Eosinophil % 3.5 % 0-6 Basophil % 0.5 % 0-2 Nucleated Red Blood Cells % 0.1 Laboratory test finding 05/07/2018 C Reactive Protein 8.68 mg/L High < 8.01 Erythrocyte Sed Rate 10 mm/Hr 0-20 Vitamin D Total 25(Oh) 19.3 ng/mL Low 20-50 CBC Auto Diff 02/01/2018 White Blood Count 12.2 10^3/uL High 3.5-10.8 Red Blood Count 4.31 10^6/uL 4.00-5.40 Hemoglobin 11.6 g/dL Low 14.0-18.0 Hematocrit 37 % Low 42-52 Mean Corpuscular Volume 85 fL 80-94 Mean Corpuscular Hemoglobin 27 pg 27-31 Mean Corpuscular HGB Conc 32 g/dL 31-36 Red Cell Distribution Width 17 % High 10.5-15 Platelet Count 229 10^3/uL 150-450 Mean Platelet Volume 7.6 um3 7.4-10.4 Abs Neutrophils 9.1 10^3/uL High 1.5-7.7 Abs Lymphocytes 1.8 10^3/uL 1.0-4.8 Abs Monocytes 0.8 10^3/uL 0-0.8 Abs Eosinophils 0.4 10^3/uL 0-0.6 Abs Basophils 0.1 10^3/uL 0-0.2 Abs Nucleated RBC 0 10^3/uL Granulocyte % 75.2 % 38-83 Lymphocyte % 14.4 % Low 25-47 Monocyte % 7.0 % 0-7 Eosinophil % 3.0 % 0-6 Basophil % 0.4 % 0-2 Nucleated Red Blood Cells % 0 Inr/Protime 02/01/2018 Inr 1.37 High 0.77-1.02 Comp Metabolic Panel 02/01/2018 Sodium 136 mmol/L Low 139-145 Potassium 4.1 mmol/L 3.5-5.0 Chloride 101 mmol/L 101-111 Co2 Carbon Dioxide 27 mmol/L 22-32 Anion Gap 8 mmol/L 2-11 Glucose 93 mg/dL 70-100 Blood Urea Nitrogen 14 mg/dL 6-24 Creatinine 0.97 mg/dL 0.67-1.17 BUN/Creatinine Ratio 14.4 8-20 Calcium 8.7 mg/dL 8.6-10.3 Total Protein 6.4 g/dL 6.4-8.9 Albumin 3.7 g/dL 3.2-5.2 Globulin 2.7 g/dL 2-4 Albumin/Globulin Ratio 1.4 1-3 Total Bilirubin 0.50 mg/dL 0.2-1.0 Alkaline Phosphatase 44 U/L 34-104 Alt 9 U/L 7-52 Ast 12 U/L Low 13-39 Egfr Non- 78.7 >60 Egfr 101.2 >60 4 Laboratory test finding 02/01/2018 Troponin-I (TnI) 0.00 ng/mL <0.04 Basic Metabolic Panel 12/20/2017 Sodium 143 mmol/L 139-145 Potassium 4.9 mmol/L 3.5-5.0 Chloride 104 mmol/L 101-111 Co2 Carbon Dioxide 32 mmol/L 22-32 Anion Gap 7 mmol/L 2-11 Glucose 85 mg/dL 70-100 Blood Urea Nitrogen 18 mg/dL 6-24 Creatinine 1.05 mg/dL 0.67-1.17 BUN/Creatinine Ratio 17.1 8-20 Calcium 9.1 mg/dL 8.6-10.3 Egfr Non- 71.8 >60 Egfr 92.3 >60 5 Laboratory test finding 12/20/2017 C Reactive Protein 8.80 mg/L High < 5.00 6 Order 08/28/2017 Nebulizer Treatment <pending> Lipid Profile (Trig/Chol/HDL) 07/03/2017 Triglycerides 125 mg/dL 7 Cholesterol 154 mg/dL 8 HDL Cholesterol 36.1 mg/dL 9 LDL Cholesterol 93 mg/dL 10 Laboratory test finding 07/03/2017 Glucose 89 mg/dL 70-100 11 Uric Acid 4.9 mg/dL 4.4-7.6 12 CRP High Sensitivity 5.25 mg/L 13 Laboratory test finding 02/07/2017 PSA Screening 1.083 ng/mL 0-4.000 14 C Reactive Protein 7.45 mg/L High < 5.00 15 Ua Routine 01/27/2017 Ua Specific [place] 1.020 Ua PH 5 Ua Color yellow Ua Appera clear Ua WBC neg Ua Protein trace Ua Glucose norm Ua Ketones neg Ua Bilirubin neg Ua Urobilinogen norm Ua Nitrite neg Ua Occult Blood trace Body Fluid C&S 01/04/2017 Body Fluid Cult Gram SEE RESULT BELOW 16 Stain CBC Auto Diff 12/28/2016 White Blood Count 8.2 10^3/uL 3.5-10.8 Red Blood Count 4.43 10^6/uL 4.0-5.4 Hemoglobin 13.3 g/dL Low 14.0-18.0 Hematocrit 41 % Low 42-52 Mean Corpuscular Volume 92 fL 80-94 Mean Corpuscular Hemoglobin 30 pg 27-31 Mean Corpuscular HGB Conc 33 g/dL 31-36 Red Cell Distribution Width 16 % High 10.5-15 Platelet Count 224 10^3/uL 150-450 Mean Platelet Volume 8 um3 7.4-10.4 Abs Neutrophils 4.0 10^3/uL 1.5-7.7 Abs Lymphocytes 3.3 10^3/uL 1.0-4.8 Abs Monocytes 0.7 10^3/uL 0-0.8 Abs Eosinophils 0.3 10^3/uL 0-0.6 Abs Basophils 0 10^3/uL 0-0.2 Abs Nucleated RBC 0 10^3/uL Granulocyte % 48.6 % 38-83 Lymphocyte % 39.7 % 25-47 Monocyte % 8.0 % 1-9 Eosinophil % 3.1 % 0-6 Basophil % 0.6 % 0-2 Nucleated Red Blood Cells % 0 Comp Metabolic Panel 12/28/2016 Sodium 138 mmol/L 133-145 Potassium 4.7 mmol/L 3.5-5.0 Chloride 102 mmol/L 101-111 Co2 Carbon Dioxide 30 mmol/L 22-32 Anion Gap 6 mmol/L 2-11 Glucose 74 mg/dL 70-100 Blood Urea Nitrogen 20 mg/dL 6-24 Creatinine 1.04 mg/dL 0.67-1.17 BUN/Creatinine Ratio 19.2 8-20 Calcium 8.8 mg/dL 8.6-10.3 Total Protein 6.2 g/dL Low 6.4-8.9 Albumin 4.0 g/dL 3.2-5.2 Globulin 2.2 g/dL 2-4 Albumin/Globulin Ratio 1.8 1-3 Total Bilirubin 0.30 mg/dL 0.2-1.0 Alkaline Phosphatase 49 U/L 34-104 Alt 11 U/L 7-52 Ast 14 U/L 13-39 Egfr Non- 72.8 >60 Egfr 93.7 >60 17 CBC Auto Diff 09/22/2016 White Blood Count 7.4 10^3/uL 3.5-10.8 Red Blood Count 4.64 10^6/uL 4.0-5.4 Hemoglobin 14.0 g/dL 14.0-18.0 Hematocrit 43 % 42-52 Mean Corpuscular Volume 93 fL 80-94 Mean Corpuscular Hemoglobin 30 pg 27-31 Mean Corpuscular HGB Conc 32 g/dL 31-36 Red Cell Distribution Width 15 % 10.5-15 Platelet Count 265 10^3/uL 150-450 Mean Platelet Volume 8 um3 7.4-10.4 Abs Neutrophils 4.0 10^3/uL 1.5-7.7 Abs Lymphocytes 2.3 10^3/uL 1.0-4.8 Abs Monocytes 0.6 10^3/uL 0-0.8 Abs Eosinophils 0.3 10^3/uL 0-0.6 Abs Basophils 0.1 10^3/uL 0-0.2 Abs Nucleated RBC 0 10^3/uL Granulocyte % 54.2 % 38-83 Lymphocyte % 31.8 % 25-47 Monocyte % 8.8 % 1-9 Eosinophil % 4.5 % 0-6 Basophil % 0.7 % 0-2 Nucleated Red Blood Cells % 0.1 Basic Metabolic Panel 09/22/2016 Sodium 137 mmol/L 133-145 Potassium 4.4 mmol/L 3.5-5.0 Chloride 100 mmol/L Low 101-111 Co2 Carbon Dioxide 30 mmol/L 22-32 Anion Gap 7 mmol/L 2-11 Glucose 87 mg/dL 70-100 Blood Urea Nitrogen 13 mg/dL 6-24 Creatinine 0.97 mg/dL 0.67-1.17 BUN/Creatinine Ratio 13.4 8-20 Calcium 9.3 mg/dL 8.6-10.3 Egfr Non- 78.9 >60 Egfr 101.5 >60 18 Inr/Protime 09/22/2016 Inr 0.98 0.89-1.11 Laboratory test 08/31/2016 Surgical Pathology SEE RESULT BELOW 19 finding Laboratory test 07/12/2016 Body Fluid C&S SEE RESULT BELOW 20, 21 finding Body Fluid Cell 07/12/2016 Body Fluid Source Synovial Fluid 20 Count Body Fluid Appearance Cloudy 20 Body Fluid Color Yellow 20 Body Fluid Volume 1 mL 20 Body Fluid WBC 294 /mcL 20, 22 Body Fluid RBC 5108 /mcL 20 Body Fluid Lymph 95 % 20 Body Fluid Reactive Lymph 5 % 20 Body Fluid Other Cells 100 20 Body Fluid Total Cells Counted 42 20 Fluid Reviewed By MD (SEE NOTE) 20, 23 Laboratory test 07/12/2016 Cytology Non-Trauma Director SEE RESULT BELOW 20, 24 finding Laboratory test 07/07/2016 Valproic Acid 38.0 g/mL Low 50-100 finding (Depakene) CBC Auto Diff 07/05/2016 White Blood Count 5.7 10^3/uL 3.5-10.8 Red Blood Count 4.66 10^6/uL 4.0-5.4 Hemoglobin 13.9 g/dL Low 14.0-18.0 Hematocrit 42 % 42-52 Mean Corpuscular Volume 91 fL 80-94 Mean Corpuscular Hemoglobin 30 pg 27-31 Mean Corpuscular HGB Conc 33 g/dL 31-36 Red Cell Distribution Width 16 % High 10.5-15 Platelet Count 210 10^3/uL 150-450 Mean Platelet Volume 8 um3 7.4-10.4 Abs Neutrophils 2.5 10^3/uL 1.5-7.7 Abs Lymphocytes 2.3 10^3/uL 1.0-4.8 Abs Monocytes 0.6 10^3/uL 0-0.8 Abs Eosinophils 0.2 10^3/uL 0-0.6 Abs Basophils 0 10^3/uL 0-0.2 Abs Nucleated RBC 0 10^3/uL Granulocyte % 44.6 % 38-83 Lymphocyte % 40.1 % 25-47 Monocyte % 10.7 % High 1-9 Eosinophil % 4.3 % 0-6 Basophil % 0.3 % 0-2 Nucleated Red Blood Cells % 0 Laboratory test finding 07/05/2016 Erythrocyte Sed Rate 10 mm/Hr 0-20 C Reactive Protein 10.24 mg/L High < 5.00 25 Laboratory test 05/17/2016 Surgical Pathology SEE RESULT 26, 27 finding BELOW Laboratory test 05/17/2016 Clotest SEE RESULT 28, 29 finding BELOW Laboratory test 03/18/2016 Erythrocyte Sed Rate 8 mm/Hr 0-20 finding Laboratory test 03/07/2016 Occult Blood - Stool pos x 2, neg x finding 1 Laboratory test 03/04/2016 C Reactive Protein 7.75 mg/L High < 5.00 30 finding Laboratory test 03/04/2016 Anti Nuclear 2.1 U 31 finding Antibody Creatine Kinase(CK) 79 U/L 10-223 32 C Reactive Protein 7.61 mg/L High < 5.00 33 Vitamin B12 And Folate Serum 03/04/2016 Vitamin B12 474 pg/mL 180-914 34 Folic Acid (Folate) 14.81 ng/mL >3.99 Laboratory test finding 03/04/2016 Ferritin < 10.0 ng/mL Low 24-336 Iron & Iron Binding Capacity 03/04/2016 Iron 73 g/dL 50-212 Unsaturated Iron Binding 406 g/dL Total Iron Binding Capacity 479 g/dL High 250-450 % Iron Saturation 15 % 15-55 CBC Auto Diff 03/04/2016 White Blood Count 8.3 10^3/uL 3.5-10.8 Red Blood Count 4.80 10^6/uL 4.0-5.4 Hemoglobin 11.5 g/dL Low 14.0-18.0 Hematocrit 38 % Low 42-52 Mean Corpuscular Volume 79 fL Low 80-94 Mean Corpuscular Hemoglobin 24 pg Low 27-31 Mean Corpuscular HGB Conc 30 g/dL Low 31-36 Red Cell Distribution Width 20 % High 10.5-15 Platelet Count 289 10^3/uL 150-450 Mean Platelet Volume 8 um3 7.4-10.4 Abs Neutrophils 4.8 10^3/uL 1.5-7.7 Abs Lymphocytes 2.3 10^3/uL 1.0-4.8 Abs Monocytes 0.8 10^3/uL 0-0.8 Abs Eosinophils 0.4 10^3/uL 0-0.6 Abs Basophils 0.1 10^3/uL 0-0.2 Abs Nucleated RBC 0 10^3/uL Granulocyte % 58.3 % 38-83 Lymphocyte % 27.2 % 25-47 Monocyte % 9.0 % 1-9 Eosinophil % 4.8 % 0-6 Basophil % 0.7 % 0-2 Nucleated Red Blood Cells % 0 Vitamin D 1,25 And Vitamin 03/04/2016 Vitamin D Total 25(Oh) 13.7 ng/mL Low 30-50 35 D,2 Vitamin D, 1,25 Dihydroxy 23 pg/mL 18-64 36 Laboratory test finding 03/04/2016 Vitamin B12 475 pg/mL 180-914 37 Silvia Igg AB Reflex 03/04/2016 SS-A/Ro Antibody 0.2 U 38 SS-B/La Antibody <0.2 U 39 Sm (Thompson) IgG Antibody <0.2 U 40 U1-nRNP Antibody <0.2 U 41 Scl-70 (Scleroderma) Antibody <0.2 U 42 Abigail-1 Antibody <0.2 U 43 Laboratory test finding 03/04/2016 Complement C3 128 mg/dL 75 - 175 44 Complement C4 22 mg/dL 14 - 40 45 Anti Double Stranded Dna AB <12.3 IU/mL 46 Cardiolipin Igg/Igm 03/04/2016 Phospholipid Ab IgM, S < 4.0 MPL 47 Phospholipid Ab IgG < 4.0 GPL 48 Laboratory test finding 01/26/2016 C Reactive Protein 11.04 mg/L High < 5.00 49 Laboratory test finding 01/26/2016 Anti Nuclear Antibody 2.2 U 50 PSA Screening 0.666 ng/mL 0-4.000 51 Lipid Profile (Trig/Chol/HDL) 01/26/2016 Triglycerides 182 mg/dL 52 Cholesterol 160 mg/dL 53 HDL Cholesterol 31.7 mg/dL 54 LDL Cholesterol 92 mg/dL 55 Basic Metabolic Panel 01/26/2016 Sodium 137 mmol/L 133-145 Potassium 4.2 mmol/L 3.5-5.0 Chloride 101 mmol/L 101-111 Co2 Carbon Dioxide 30 mmol/L 22-32 Anion Gap 6 mmol/L 2-11 Glucose 81 mg/dL 70-100 Blood Urea Nitrogen 15 mg/dL 6-24 Creatinine 1.06 mg/dL 0.67-1.17 BUN/Creatinine Ratio 14.2 8-20 Calcium 9.2 mg/dL 8.6-10.3 Egfr Non- 71.5 >60 Egfr 92.0 >60 56 Laboratory test finding 01/26/2016 Erythrocyte Sed Rate 4 mm/Hr 0-20 57 CBC Auto Diff 01/26/2016 White Blood Count 5.4 10^3/uL 3.5-10.8 Red Blood Count 5.09 10^6/uL 4.0-5.4 Hemoglobin 11.9 g/dL Low 14.0-18.0 Hematocrit 40 % Low 42-52 Mean Corpuscular Volume 78 fL Low 80-94 Mean Corpuscular Hemoglobin 23 pg Low 27-31 Mean Corpuscular HGB Conc 30 g/dL Low 31-36 Red Cell Distribution Width 18 % High 10.5-15 Platelet Count 278 10^3/uL 150-450 Mean Platelet Volume 8 um3 7.4-10.4 Abs Neutrophils 2.4 10^3/uL 1.5-7.7 Abs Lymphocytes 2.1 10^3/uL 1.0-4.8 Abs Monocytes 0.5 10^3/uL 0-0.8 Abs Eosinophils 0.3 10^3/uL 0-0.6 Abs Basophils 0 10^3/uL 0-0.2 Abs Nucleated RBC 0 10^3/uL Granulocyte % 44.4 % 38-83 Lymphocyte % 39.8 % 25-47 Monocyte % 9.9 % High 1-9 Eosinophil % 5.0 % 0-6 Basophil % 0.9 % 0-2 Nucleated Red Blood Cells % 0.1 Liver Function Panel 01/26/2016 Total Protein 6.7 g/dL 6.4-8.9 Albumin 4.3 g/dL 3.2-5.2 Globulin 2.4 g/dL 2-4 Albumin/Globulin Ratio 1.8 1-3 Total Bilirubin 0.40 mg/dL 0.2-1.0 Direct Bilirubin 0.10 mg/dL 0.03-0.18 Indirect Bilirubin 0.3 mg/dL 0.3-1.0 Alkaline Phosphatase 47 U/L 34-104 Alt 12 U/L 7-52 Ast 16 U/L 13-39 Body Fluid C&S 12/30/2015 Body Fluid Cult SEE RESULT BELOW 58 Gram Stain Laboratory test 12/30/2015 Anaerobic Culture SEE RESULT BELOW 59 finding Laboratory test 12/18/2015 C Reactive Protein 52.18 mg/L High < 5.00 60 finding Laboratory test 11/30/2015 C Reactive Protein 13.25 mg/L High < 5.00 61 finding CBC Auto Diff 09/19/2015 White Blood Count 7.2 10^3/uL 3.5-10.8 Red Blood Count 4.88 10^6/uL 4.0-5.4 Hemoglobin 12.6 g/dL Low 14.0-18.0 Hematocrit 41 % Low 42-52 Mean Corpuscular Volume 85 fL 80-94 Mean Corpuscular Hemoglobin 26 pg Low 27-31 Mean Corpuscular HGB Conc 31 g/dL 31-36 Red Cell Distribution Width 15 % 10.5-15 Platelet Count 303 10^3/uL 150-450 Mean Platelet Volume 8 um3 7.4-10.4 Abs Neutrophils 4.3 10^3/uL 1.5-7.7 Abs Lymphocytes 2.0 10^3/uL 1.0-4.8 Abs Monocytes 0.6 10^3/uL 0-0.8 Abs Eosinophils 0.2 10^3/uL 0-0.6 Abs Basophils 0.1 10^3/uL 0-0.2 Abs Nucleated RBC 0 10^3/uL Granulocyte % 60.3 % 38-83 Lymphocyte % 27.6 % 25-47 Monocyte % 7.7 % 1-9 Eosinophil % 3.4 % 0-6 Basophil % 1.0 % 0-2 Nucleated Red Blood Cells % 0 Comp Metabolic Panel 09/19/2015 Sodium 133 mmol/L 133-145 Potassium 4.4 mmol/L 3.5-5.0 Chloride 103 mmol/L 101-111 Co2 Carbon Dioxide 24 mmol/L 22-32 Anion Gap 6 mmol/L 2-11 Glucose 113 mg/dL High 70-100 Blood Urea Nitrogen 15 mg/dL 6-24 Creatinine 0.91 mg/dL 0.67-1.17 BUN/Creatinine Ratio 16.5 8-20 Calcium 9.0 mg/dL 8.6-10.3 Total Protein 6.2 g/dL Low 6.4-8.9 Albumin 4.1 g/dL 3.2-5.2 Globulin 2.1 g/dL 2-4 Albumin/Globulin Ratio 2.0 1-3 Total Bilirubin 0.40 mg/dL 0.2-1.0 Alkaline Phosphatase 46 U/L 34-104 Alt 11 U/L 7-52 Ast 13 U/L 13-39 Egfr Non- 85.3 >60 Egfr 109.7 >60 62 Laboratory test finding 09/11/2015 Rheumatoid Factor <15 IU/mL <15 63 Anti Ssa/Ro 0.3 U 64 Anti SSB LA <0.2 U 65 U1 MOTION PICTURE COMMENTATOR/SNRNP Igg Autoabs <0.2 U 66 SM(Thompson) Igg Autoantibodies <0.2 U 67 CBC Auto Diff 07/24/2015 White Blood Count 7.7 10^3/uL 4.8-10.8 Red Blood Count 4.79 10^6/uL 4.0-5.4 Hemoglobin 13.7 g/dL Low 14.0-18.0 Hematocrit 42 % 42-52 Mean Corpuscular Volume 89 fL 80-94 Mean Corpuscular Hemoglobin 29 pg 27-31 Mean Corpuscular HGB Conc 32 g/dL 31-36 Red Cell Distribution Width 17 % High 10.5-15 Platelet Count 301 10^3/uL 150-450 Mean Platelet Volume 8 um3 7.4-10.4 Abs Neutrophils 4.5 10^3/uL 1.5-7.7 Abs Lymphocytes 2.2 10^3/uL 1.0-4.8 Abs Monocytes 0.6 10^3/uL 0-0.8 Abs Eosinophils 0.3 10^3/uL 0-0.6 Abs Basophils 0.1 10^3/uL 0-0.2 Abs Nucleated RBC 0 10^3/uL Granulocyte % 58.6 % 38-83 Lymphocyte % 29.1 % 25-47 Monocyte % 8.0 % 1-9 Eosinophil % 3.5 % 0-6 Basophil % 0.8 % 0-2 Nucleated Red Blood Cells % 0 Comp Metabolic Panel 07/24/2015 Sodium 140 mmol/L 133-145 Potassium 4.3 mmol/L 3.5-5.0 Chloride 104 mmol/L 101-111 Co2 Carbon Dioxide 29 mmol/L 22-32 Anion Gap 7 mmol/L 2-11 Glucose 90 mg/dL 70-100 Blood Urea Nitrogen 15 mg/dL 6-24 Creatinine 1.00 mg/dL 0.67-1.17 BUN/Creatinine Ratio 15.0 8-20 Calcium 9.0 mg/dL 8.6-10.3 Total Protein 6.1 g/dL Low 6.4-8.9 Albumin 4.0 g/dL 3.2-5.2 Globulin 2.1 g/dL 2-4 Albumin/Globulin Ratio 1.9 1-3 Total Bilirubin 0.50 mg/dL 0.2-1.0 Alkaline Phosphatase 50 U/L 34-104 Alt 10 U/L 7-52 Ast 11 U/L Low 13-39 Egfr Non- 76.7 >60 Egfr 98.7 >60 68 Laboratory test finding 07/24/2015 TSH (Thyroid Stim Horm) 1.50 ?IU/mL 0.34-5.60 Free T4 (Free Thyroxine) 0.66 ng/mL 0.61-1.12 Vitamin B12 424 pg/mL 180-914 69 Folic Acid (Folate) 11.05 ng/mL >3.99 Teri (Antinuclear Antibodies) Reflexed to FA Negative Protein Electrophoresis 07/24/2015 Total Protein(Pep) 6.3 g/dL 6.3 - 7.9 Albumin 3.4 g/dL 3.4-4.7 Alpha-1 Globulin 0.2 g/dL 0.1-0.3 Alpha-2 Globulin 0.8 g/dL 0.6-1.0 Beta Globulin 0.9 g/dL 0.7-1.2 Gamma Globulin 0.9 g/dL 0.6-1.6 Albumin/Globulin Ratio 1.19 Impression See Comment 70 Teri Hep-2 07/24/2015 Teri Pattern Speckled Negative Teri Titer 1:640 <1:80 Teri Reviewed By MD Lemuel Rai <SEE NOTE> 71 CBC Auto Diff 01/08/2015 White Blood Count 13.1 10^3/uL High 4.8-10.8 Red Blood Count 4.47 10^6/uL 4.0-5.4 Hemoglobin 13.3 g/dL Low 14.0-18.0 Hematocrit 41 % Low 42-52 Mean Corpuscular Volume 91 fL 80-94 Mean Corpuscular Hemoglobin 30 pg 27-31 Mean Corpuscular HGB Conc 33 g/dL 31-36 Red Cell Distribution Width 16 % High 10.5-15 Platelet Count 277 10^3/uL 150-450 Mean Platelet Volume 8 um3 7.4-10.4 Abs Neutrophils 8.6 10^3/uL High 1.5-7.7 Abs Lymphocytes 3.3 10^3/uL 1.0-4.8 Abs Monocytes 0.8 10^3/uL 0-0.8 Abs Eosinophils 0.3 10^3/uL 0-0.6 Abs Basophils 0.1 10^3/uL 0-0.2 Abs Nucleated RBC 0 10^3/uL Granulocyte % 65.4 % 38-83 Lymphocyte % 24.9 % Low 25-47 Monocyte % 6.3 % 1-9 Eosinophil % 2.5 % 0-6 Basophil % 0.9 % 0-2 Nucleated Red Blood Cells % 0 Comp Metabolic Panel 01/08/2015 Sodium 136 mmol/L 133-145 Potassium 3.6 mmol/L 3.5-5.0 Chloride 100 mmol/L Low 101-111 Co2 Carbon Dioxide 23 mmol/L 22-32 Anion Gap 13 mmol/L High 2-11 Glucose 110 mg/dL High 70-100 Blood Urea Nitrogen 16 mg/dL 6-24 Creatinine 1.45 mg/dL High 0.67-1.17 BUN/Creatinine Ratio 11.0 8-20 Calcium 8.9 mg/dL 8.6-10.3 Total Protein 6.6 g/dL 6.4-8.9 Albumin 4.0 g/dL 3.2-5.2 Globulin 2.6 g/dL 2-4 Albumin/Globulin Ratio 1.5 1-3 Total Bilirubin 0.40 mg/dL 0.2-1.0 Alkaline Phosphatase 49 U/L 34-104 Alt 16 U/L 7-52 Ast 21 U/L 13-39 Egfr Non- 50.0 >60 Egfr 64.3 >60 72 Laboratory test 01/08/2015 Troponin I 0.04 ng/mL High <0.03 73 finding Inr/Protime 01/08/2015 Inr 0.98 0.78-1.07 Laboratory test 01/08/2015 Activated Partial 33.8 seconds 26.0-36.3 finding Thrombo Time Lactic Acid 6.9 mmol/L High 0.5-2.2 74 Type & Screen 01/08/2015 Patient Blood Type A Negative Antibody Screen NEGATIVE Urinalysis Profile 01/08/2015 Urine Color Yellow Urine Appearance Cloudy Urine Specific [place] 1.015 1.010-1.030 Urine pH 5.0 5-9 Urine Urobilinogen Negative Negative Urine Ketones Negative Negative Urine Protein 1+(30 mg/dL) Negative Urine Leukocytes Negative Negative Urine Blood 1+ Negative Urine Nitrite Negative Negative Urine Bilirubin Negative Negative Urine Glucose Negative Negative Urine White Blood Cell Trace(0-5/hpf) Absent Urine Red Blood Cell Trace(0-2/hpf) Absent Urine Bacteria Absent Absent Urine Squamous Epithelial Cell Present Absent 1 SEE RESULT BELOW Name: MELINDA COOMBS : [address]: Hattie Burns MD Acct: [id number] Unit: [id number] AGE: 62 Location: PAT Re05/24/18 SEX: M Status: REG REF SPEC: [id number] ERICK: 05/24/[address] [facility] [address]: Hattie Burns MD REQ: [id number] RECD: 05/24/18 STATUS: COMP _ SOURCE: URINE SPDESC: ORDERED: Urine Culture QUERIES: Urine Source: Clean Catch Procedure Result Reported Site Urine Culture Final 05/25/18- 1232 ML No Growth (<1,000 CFU/mL) * ML - Main Lab . END OF REPORT DEPARTMENT OF PATHOLOGY, [address] [place] [address] Lemuel Leyva M.D. Director [facility] # [id number] 2 *Ascorbic acid is present which may interfere with detection of blood. 3 Because ethnic data is not always readily available, this report includes an eGFR for both -Americans and non- Americans. The National Kidney Disease Education Program (NKDEP) does not endorse the use of the MDRD equation for patients that are not between the ages of 18 and 70, are , have extremes of body size, muscle mass, or nutritional status, or are non- or non-. According to the National Kidney Foundation, irrespective of diagnosis, the stage of the disease is based on the level of kidney function: Stage Description GFR(mL/min/1.73 m(2)) 1 Kidney damage with normal or decreased GFR 90 2 Kidney damage with mild decrease in GFR 60-89 3 Moderate decrease in GFR 30-59 4 Severe decrease in GFR 15-29 5 Kidney failure <15 (or dialysis) 4 Because ethnic data is not always readily available, this report includes an eGFR for both -Americans and non- Americans. The National Kidney Disease Education Program (NKDEP) does not endorse the use of the MDRD equation for patients that are not between the ages of 18 and 70, are , have extremes of body size, muscle mass, or nutritional status, or are non- or non-. According to the National Kidney Foundation, irrespective of diagnosis, the stage of the disease is based on the level of kidney function: Stage Description GFR(mL/min/1.73 m(2)) 1 Kidney damage with normal or decreased GFR 90 2 Kidney damage with mild decrease in GFR 60-89 3 Moderate decrease in GFR 30-59 4 Severe decrease in GFR 15-29 5 Kidney failure <15 (or dialysis) 5 Because ethnic data is not always readily available, this report includes an eGFR for both -Americans and non- Americans. The National Kidney Disease Education Program (NKDEP) does not endorse the use of the MDRD equation for patients that are not between the ages of 18 and 70, are , have extremes of body size, muscle mass, or nutritional status, or are non- or non-. According to the National Kidney Foundation, irrespective of diagnosis, the stage of the disease is based on the level of kidney function: Stage Description GFR(mL/min/1.73 m(2)) 1 Kidney damage with normal or decreased GFR 90 2 Kidney damage with mild decrease in GFR 60-89 3 Moderate decrease in GFR 30-59 4 Severe decrease in GFR 15-29 5 Kidney failure <15 (or dialysis) 6 Acute inflammation: >10.00 7 Desirable: <150 Borderline High: 150-199 High: 200-499 Very High: >500 8 Desirable: <200 Borderline High: 200-239 High: >239 9 Low: <40 Desirable: 40-60 High: >60 10 Desirable: <100 Near Optimal: 100-129 Borderline High: 130-159 High: 160-189 Very High: >189 11 FASTING 10 HOUR 12 FASTING 10 HOUR 13 Low risk: <1.00 Average risk: 1.00-3.00 High risk: >3.00 14 Serum levels of PSA measured using the Anne Cuauhtemoc DXI Hybritech immunoassay should not be interpreted as absolute evidence of the presence or absence of disease. The PSA value should be used in conjunction with other pertinent clinical diagnostic procedures. The values obtained with different assay methods or kits cannot be used interchangeably. 15 Acute inflammation: >10.00 16 SEE RESULT BELOW Name: MELINDA COOMBS : [address]: Hattie Burns MD Acct: [id number] Unit: [id number] AGE: 61 Location: OR Re01/04/17 SEX: M Status: [facility] SPEC: [id number] ERICK: 01/04/[address] [facility] [address]: Hattie Burns MD REQ: [id number] RECD: 01/04/17 STATUS: RAJESH ROCHA DR: Eliezer Barnes REPLENISHMENT ASSOCIATE _ SOURCE: JOINT FLUI SPDESC:SHOULDER L ORDERED: BF Cult/GS, MRSA/SA SSTI Procedure Result Reported Site Body Fluid Gram Stain Final 01/04/17- 1554 ML 2+ Neutrophils Possible 1+ Gram Positive Cocci Preparation By Cytospin Smear Body Fluid Culture Final 01/08/17- 0847 ML No Growth Day 4 MRSA/S. aureus SSTI PCR Final 01/04/17- 1634 ML Organism 1 MRSA NEGATIVE Organism 2 S.AUREUS NEGATIVE * ML - MAIN LAB ([facility]) . END OF REPORT * ML=Testing performed at Main Lab DEPARTMENT OF PATHOLOGY, [address] [place] [address] Lemuel Leyva M.D. Director [facility] # [id number] 17 Because ethnic data is not always readily available, this report includes an eGFR for both -Americans and non- Americans. The National Kidney Disease Education Program (NKDEP) does not endorse the use of the MDRD equation for patients that are not between the ages of 18 and 70, are , have extremes of body size, muscle mass, or nutritional status, or are non- or non-. According to the National Kidney Foundation, irrespective of diagnosis, the stage of the disease is based on the level of kidney function: Stage Description GFR(mL/min/1.73 m(2)) 1 Kidney damage with normal or decreased GFR 90 2 Kidney damage with mild decrease in GFR 60-89 3 Moderate decrease in GFR 30-59 4 Severe decrease in GFR 15-29 5 Kidney failure <15 (or dialysis) 18 Because ethnic data is not always readily available, this report includes an eGFR for both -Americans and non- Americans. The National Kidney Disease Education Program (NKDEP) does not endorse the use of the MDRD equation for patients that are not between the ages of 18 and 70, are , have extremes of body size, muscle mass, or nutritional status, or are non- or non-. According to the National Kidney Foundation, irrespective of diagnosis, the stage of the disease is based on the level of kidney function: Stage Description GFR(mL/min/1.73 m(2)) 1 Kidney damage with normal or decreased GFR 90 2 Kidney damage with mild decrease in GFR 60-89 3 Moderate decrease in GFR 30-59 4 Severe decrease in GFR 15-29 5 Kidney failure <15 (or dialysis) 19 SEE RESULT BELOW Name: MELINDA COOMBS : [address]: Hattie Burns MD Acct: [id number] Unit: [id number] AGE: 61 Location: OR Re08/31/16 SEX: M Status: REG SDC SPEC: [id number] ERICK: 08/31/16- [facility] DR: Hattie Burns MD REQ: [id number] RECD: 08/31/16143 STATUS: SOUT _ ORDERED: Decal, LEVEL III FINAL DIAGNOSIS Bone and soft tissue, left shoulder, resection: -- Ganglion cyst. -- Bone and cartilage with severe degenerative osteoarthritic changes. -- Normocellular bone marrow with mixed trilinear hematopoiesis. 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 The cut surface is cystic and mucinous regan-pink. Received separately in the same container is a 3.7 x 2.4 x 1.1 cm regan-pink irregular shaggy bone fragment with a smooth margin of resection. [employer] sections are submitted in cassettes A and B to include bone following decalcification in cassette B. MICROSCOPIC DESCRIPTION Signed (signature on file) Lemuel Leyva MD 1035 END OF REPORT * ML=Testing performed at Main Lab DEPARTMENT OF PATHOLOGY, [address] [place] [address] Lemuel Leyva M.D. Director [facility] # [id number] 20 [id number] 21 SEE RESULT BELOW Name: MELINDA COOMBS : [address]: Hattie Burns MD Acct: [id number] Unit: [id number] AGE: 60 Location: [facility] Re07/12/16 SEX: M Status: REG REF SPEC: [id number] ERICK: 07/12/16-[address]: Hattie Burns MD REQ: [id number] RECD: 07/12/16 STATUS: COMP _ SOURCE: JOINT FLUI SPDESC:SHOULDER L ORDERED: YOSSI Ruffin/GS Procedure Result Reported Site Body Fluid Gram Stain Final 07/12/16- 2222 ML 2+ Nucleated Cells No Neutrophils Observed No Organisms Seen Preparation By Direct Smear Body Fluid Culture Final 07/16/16- 826 ML No Growth Day 4 * ML - MAIN LAB ([facility]) . END OF REPORT * ML=Testing performed at Main Lab DEPARTMENT OF PATHOLOGY, [address] [place] [address] Lemuel Leyva M.D. Director [facility] # [id number] 22 -- REFERENCE VALUE -- Synovial: <150/mcL Peritoneal: <500/mcL Pleural: <500/mcL Pericardial: <500/mcL 23 Reactive macrophages and synovial cells seen. Peripheral blood contamination. No acute inflammatory response seen. Reviewed by Dr. Leyva 24 SEE RESULT BELOW Name: MELINDA COOMBS Celestine : [address]: Hattie Burns MD Acct: [id number] Unit: [id number] AGE: 60 Location: [facility] Re07/12/16 SEX: M Status: REG REF SPEC: [id number] ERICK: 07/12/161207 SUBM DR: Hattie Burns MD REQ: [id number] RECD: 07/12/16 STATUS: SOUT _ ORDERED: THIN PREP NON G COMMENTS: [id number] FINAL DIAGNOSIS Shoulder, left, fine needle aspiration: --Benign- proteinaceous fluid with scattered macrophages only. Shoulder NEC - GANGLION CYST OF LEFT SHOULDER FINE NEEDLE ASPIRATION CLINICAL HISTORY Ganglion fluid left shoulder. History of infection, multiple surgeries, new mass above AC joint. GROSS DESCRIPTION 1 mls of cloudy viscous orange fluid. Signed (signature on file) Lemuel Leyva MD 1427 END OF REPORT * ML=Testing performed at Main Lab DEPARTMENT OF PATHOLOGY, [address] [place] [address] Lemuel Leyva M.D. Director [facility] # [id number] 25 Acute inflammation: >10.00 26 [id number] 27 SEE RESULT BELOW Name: BRANDENMELINDA : [address]: Wero Aquino MD Acct: [id number] Unit: [id number] AGE: 60 Location: [facility] Re05/17/16 SEX: M Status: REG REF SPEC: [id number] ERICK: 05/17/16-[address]: Wero Aquino MD REQ: [id number] RECD: 05/17/16-1554 STATUS: ELVIS ROCHA DR: Eliezer Barnes REPLENISHMENT ASSOCIATE _ ORDERED: LEVEL IV COMMENTS: [id number] FINAL DIAGNOSIS Small bowel, second portion of duodenum, biopsy: -- Small bowel mucosa with normal villous architecture and no significant pathologic abnormality. -- No infectious agents or viral pathologic changes are identified. CLINICAL HISTORY No history given POST-OPERATIVE DIAGNOSIS Esophagus - normal; stomach - normal, biopsied; duodenum - normal, biopsied. Colonoscopy to cecum - tics. 10 years GROSS DESCRIPTION The specimen is received in formalin labeled, Biopsy Second Portion Duodenum , and consists of a 0.6 x 0.3 x 0.2 cm speckled regan-red irregular to polypoid soft tissue fragment, which is entirely submitted in one cassette. Signed (signature on file) Lemuel Leyva MD 1048 END OF REPORT * ML=Testing performed at Main Lab DEPARTMENT OF PATHOLOGY, [address] [place] [address] Lemuel Leyva M.D. Director [facility] # [id number] 28 [id number] 29 SEE RESULT BELOW Name: MELINDA COOMBS : [address]: Wero Aquino MD Acct: [id number] Unit: [id number] AGE: 60 Location: END[facility] Re05/17/16 SEX: M Status: REG REF SPEC: [id number] ERICK: 05/17/16-[address] [facility] [address]: Wero Aquino MD REQ: [id number] RECD: 05/17/16-160 STATUS: COMP OTHR DR: Eliezer Barnes REPLENISHMENT ASSOCIATE _ SOURCE: GAS ANTRUM SPDESC: ORDERED: Clotest COMMENTS: [id number] Procedure Result Reported Site Clotest Final 05/18/16- 739 ML Clotest Negative * ML - [facility] ([facility]) . END OF REPORT * ML=Testing performed at Main Lab DEPARTMENT OF PATHOLOGY, [address] [place] [address] Lemuel Leyva M.D. Director [facility] # [id number] 30 Acute inflammation: >10.00 31 Interpretation: Weak Positive (1.1-2.9) REFERENCE VALUE <=1.0 (Negative) Test Performed by: [address] [address] [employer] Coordinator: Doroteo Humphries II, M.D., Ph.D. 32 Please check this week 33 Acute inflammation: >10.00 34 Normal Range 180 to 914 Indeterminate Range 145 to 180 Deficient Range <145 35 Please check this week 36 Test Performed by: [place] [address] [employer] Coordinator: Doroteo Humphries II, M.D., Ph.D. 37 Normal Range 180 to 914 Indeterminate Range 145 to 180 Deficient Range <145 38 REFERENCE VALUE <1.0 (Negative) 39 REFERENCE VALUE <1.0 (Negative) 40 REFERENCE VALUE <1.0 (Negative) 41 REFERENCE VALUE <1.0 (Negative) 42 REFERENCE VALUE <1.0 (Negative) 43 REFERENCE VALUE <1.0 (Negative) Test Performed by: [place] [address] [employer] Coordinator: Doroteo Humphries II, M.D., Ph.D. 44 Test Performed by: [place] [address] [employer] Coordinator: Doroteo Humphries II, M.D., Ph.D. 45 Test Performed by: [place] [address] [employer] Coordinator: Doroteo Humphries II, M.D., Ph.D. 46 REFERENCE VALUE <30.0 (Negative) Test Performed by: [place] [address] [employer] Coordinator: Doroteo Humphries II, M.D., Ph.D. 47 REFERENCE VALUE <10.0 (Negative) 48 REFERENCE VALUE <10.0 (Negative) Test Performed by: [place] [address] [employer] Coordinator: Doroteo Humphries II, M.D., Ph.D. 49 Acute inflammation: >10.00 50 Interpretation: Weak Positive (1.1-2.9) REFERENCE VALUE <=1.0 (Negative) Test Performed by: [place] [address] [employer] Coordinator: Doroteo Humphries II, M.D., Ph.D. 51 FASTING 10 HOUR 52 Desirable <150 Borderline high 150-199 High 200-499 Very High >500 53 Desirable <200 Borderline high 200-239 High >239 54 Low <40 Desirable: 40-60 High: >60 55 Desirable: <100 mg/dL Near Optimal: 100-129 mg/dL Borderline High: 130-159 mg/dL High: 160-189 mg/dL Very High: >189 mg/dL 56 Because ethnic data is not always readily available, this report includes an eGFR for both -Americans and non- Americans. The National Kidney Disease Education Program (NKDEP) does not endorse the use of the MDRD equation for patients that are not between the ages of 18 and 70, are , have extremes of body size, muscle mass, or nutritional status, or are non- or non-. According to the National Kidney Foundation, irrespective of diagnosis, the stage of the disease is based on the level of kidney function: Stage Description GFR(mL/min/1.73 m(2)) 1 Kidney damage with normal or decreased GFR 90 2 Kidney damage with mild decrease in GFR 60-89 3 Moderate decrease in GFR 30-59 4 Severe decrease in GFR 15-29 5 Kidney failure <15 (or dialysis) 57 FASTING 10 HOUR 58 SEE RESULT BELOW Name: MELINDA COOMBS : [address]: Shayne Lopez MD Acct: [id number] Unit: [id number] AGE: 60 Location: Re12/30/15 SEX: M Status: REG REF SPEC: [id number] ERICK: 12/30/15-[address]: Shayne Lopez MD REQ: [id number] RECD: 12/30/15 STATUS: RAJESH ROCHA DR: Eliezer Barnes REPLENISHMENT ASSOCIATE _ SOURCE: JOINT FLUI SPDESC:SHOULDER R ORDERED: BF Cult/GS Procedure Result Reported Site Body Fluid Gram Stain Final 12/30/15- 1251 ML 1+ Neutrophils 3+ Nucleated Cells No Organisms Seen Preparation By Cytospin Smear Body Fluid Culture Final 01/06/16- 904 ML NO GROWTH 7 DAYS * ML - MAIN LAB ([facility]) . END OF REPORT * ML=Testing performed at Main Lab DEPARTMENT OF PATHOLOGY, [address] [place] [address] Lemuel Leyva M.D. Director [place] # [id number] 60 SEE RESULT BELOW Name: MELINDA COOMBS : [address]: Shayne Lopez MD Acct: [id number] Unit: [id number] AGE: 60 Location: SP Re12/30/15 SEX: M Status: REG REF SPEC: [id number] ERICK: 12/30/15-[address] [facility] [address]: Shayne Lopez MD REQ: [id number] RECD: 12/30/15 STATUS: RAJESH ROCHA DR: Eliezer Barnes REPLENISHMENT ASSOCIATE _ SOURCE: BODY FLUID SPDESC:SHOULDER R ORDERED: Anaerobic Cult Procedure Result Reported Site Anaerobic Culture Final 01/06/16903 ML NO GROWTH AT 7 DAYS * ML - [facility] ([facility]) . END OF REPORT * ML=Testing performed at Main Lab DEPARTMENT OF PATHOLOGY, [address] [place] [address] Lemuel Leyva M.D. Director [facility] # [id number] 60 Acute inflammation: >10.00 61 Acute inflammation: >10.00 62 Because ethnic data is not always readily available, this report includes an eGFR for both -Americans and non- Americans. The National Kidney Disease Education Program (NKDEP) does not endorse the use of the MDRD equation for patients that are not between the ages of 18 and 70, are , have extremes of body size, muscle mass, or nutritional status, or are non- or non-. According to the National Kidney Foundation, irrespective of diagnosis, the stage of the disease is based on the level of kidney function: Stage Description GFR(mL/min/1.73 m(2)) 1 Kidney damage with normal or decreased GFR 90 2 Kidney damage with mild decrease in GFR 60-89 3 Moderate decrease in GFR 30-59 4 Severe decrease in GFR 15-29 5 Kidney failure <15 (or dialysis) 63 Test Performed by: [place] [address] [employer] Coordinator: Doroteo Humphries II, M.D., Ph.D. 64 REFERENCE VALUE <1.0 (Negative) Test Performed by: [place] [address] [employer] Coordinator: Doroteo Humphries II, M.D., Ph.D. 65 REFERENCE VALUE <1.0 (Negative) Test Performed by: [place] [address] [employer] Coordinator: Doroteo Humphries II, M.D., Ph.D. 66 REFERENCE VALUE <1.0 (Negative) Test Performed by: [facility] [place] [address] [employer] Coordinator: Doroteo Humphries II, M.D., Ph.D. 67 REFERENCE VALUE <1.0 (Negative) Test Performed by: [place] [address] [employer] Coordinator: Doroteo Humphries II, M.D., Ph.D. 68 Because ethnic data is not always readily available, this report includes an eGFR for both -Americans and non- Americans. The National Kidney Disease Education Program (NKDEP) does not endorse the use of the MDRD equation for patients that are not between the ages of 18 and 70, are , have extremes of body size, muscle mass, or nutritional status, or are non- or non-. According to the National Kidney Foundation, irrespective of diagnosis, the stage of the disease is based on the level of kidney function: Stage Description GFR(mL/min/1.73 m(2)) 1 Kidney damage with normal or decreased GFR 90 2 Kidney damage with mild decrease in GFR 60-89 3 Moderate decrease in GFR 30-59 4 Severe decrease in GFR 15-29 5 Kidney failure <15 (or dialysis) 69 Normal Range 180 to 914 Indeterminate Range 145 to 180 Deficient Range <145 70 RESULT: No apparent monoclonal protein on serum electrophoresis. Test Performed by: [place] [address] [employer] Coordinator: Doroteo Humphries II, M.D., Ph.D. 71 Lemuel Leyva 72 Because ethnic data is not always readily available, this report includes an eGFR for both -Americans and non- Americans. The National Kidney Disease Education Program (NKDEP) does not endorse the use of the MDRD equation for patients that are not between the ages of 18 and 70, are , have extremes of body size, muscle mass, or nutritional status, or are non- or non-. According to the National Kidney Foundation, irrespective of diagnosis, the stage of the disease is based on the level of kidney function: Stage Description GFR(mL/min/1.73 m(2)) 1 Kidney damage with normal or decreased GFR 90 2 Kidney damage with mild decrease in GFR 60-89 3 Moderate decrease in GFR 30-59 4 Severe decrease in GFR 15-29 5 Kidney failure <15 (or dialysis) 73 Reference Range and Interpretation: TnI (ng/mL) Interpretation Less Than 0.03 ng/mL Not supportive of diagnosis of ID 0.03 - 0.50 ng/mL Indeterminate: suggest serial studies if clinically indicated. Greater than 0.5 ng/mL Consistent with diagnosis of ID 74 Critical Result LACT:6.9 Called to COLE at: 19:15:20 by:[id number] Read back by:COLE Procedures Date CPT Code Description Status 04/27/2018 21042 EKG Tracing & Interpretation Completed 11/08/2017 83934 Destruction ALL Benign Or Premalignant Lesion (Other Completed Than [place] 08/24/2017 44706 EKG Tracing & Interpretation Completed 03/10/2017 23234 EKG Tracing & Interpretation Completed 01/25/2017 36792 Color Flow Doppler/Interp & Reprt Completed 01/25/2017 89826 Pulse Wave/Continuous-Interp.RPT Completed 01/25/2017 18948 Echocardiography, Transesophageal, Real Time W/Image 2D Completed W/W/O M-M 01/04/2017 71089 arthroscopy w/removal loose body or foreign body Completed 01/04/2017 74057 Arthroscopy Shoulder Debridement Extensive Completed 01/04/2017 79150 Arthroscopy Shoulder Debridement Extensive Completed 01/04/2017 91658 Arthroscopy,Shoulder Decompression Of Subacromial Space Completed W/Acromio 12/21/2016 09389 EKG Tracing & Interpretation Completed 08/31/2016 15992 claviculectomy;partial Completed 08/31/2016 38602 claviculectomy;partial Completed 08/31/2016 88942 Excision Tumor, Soft Tissue, Shoulder Area Subfascial, Completed 5 CM Or > 08/25/2016 30786 EKG Tracing & Interpretation Completed 08/02/2016 Aspiration &/Or Inj Of Ganglion Cyst(S) Any Location Completed 07/12/201609049 Aspiration &/Or Inj Of Ganglion Cyst(S) Any Location Completed 05/17/2016 Colonoscopy Completed 07/09/2015 88256 Nerve Conduction 03-04 Studies Completed 07/09/2015 54094 Needle Electromyography Complete, Five Or More Muscles Completed Studied 06/03/2015 53927 EEG Recording Awake & Asleep Completed 05/07/2015 07962 I & D Post-Op Wound Infect Compl Completed 05/07/2015 97259 I & D Post-Op Wound Infect Compl Completed 03/25/2015 48550 Repair Rotator Cuff Rupture open Acute Completed 03/25/2015 42921 Repair Rotator Cuff Rupture open Acute Completed 03/25/2015 19061 Arthroscopy Shoulder,W/Rotator Cuff Repair Completed 03/25/2015 83545 Arthroscopy Shoulder,W/Rotator Cuff Repair Completed 03/25/2015 47923 Open TX Proximal Humeral FX Incl Fixation When Completed Performed 03/25/2015 45482 Open TX Proximal Humeral FX Incl Fixation When Completed Performed 02/06/2015 29819 Holter Monitor Review (24 hr)dr review & interp only Completed 02/04/2015 91595 ECHO Transthoracic, Real-Time 2D With Doppler And Color Completed Flow 02/03/2015 72197 EEG Recording Awake & Drowsy Completed 01/20/2015 59213 EKG Tracing & Interpretation Completed 01/09/2015 90155 Dislocation Shoulder W/FX GRTR Tuberosity Completed W/Manipulation 01/09/2015 13562 EKG, Interpretation Only Completed 01/09/2015 48482 Closed TX Of Greater Humeral Tuberosity FX;W/O Completed Manipulation 01/09/2015 37705 EEG Recording Awake & Asleep Completed 10/23/2014 60601 EKG Tracing & Interpretation Completed 03/22/2013 08767 Holter Monitoring 24 HR New Completed 03/21/2013 44211 ECHO Transthoracic, Real-Time 2D With Doppler And Color Completed Flow 03/20/2013 86542 EKG Tracing & Interpretation Completed 10/05/201233067 Inject/Drain Joint/Bursa Major W/O US Completed 08/19/2012 Inject/Drain Joint/Bursa Intermediate W/O US Completed 07/04/2012 48352 Inject/Drain Joint/Bursa Intermediate W/O US Completed 07/04/2012 93804 Rad Exam; Foot Comp Completed 07/04/2012 07852 Rad Exam; Foot Limited Completed 07/04/2012 75047 Rad Exam; Ankle Comp Completed 06/25/2012 76499 Stress Test Completed 06/25/2012 56596 Myocardial Perfusion Imaging Tomographic (Spect) Completed Multiple Studies 06/05/2012 36265 ECHO Stress Test Incl Perf Contiuous ekg Monitoring Completed W/Phys Superv 06/04/2012 53404 ECHO Transthoracic, Real-Time 2D With Doppler And Color Completed Flow Encounters Type Date Location Provider CPT E/M Dx Office Visit 04/27/2018 3:20p [facility] Gregorio Garcia, [address]11 I48.2 M.Bailee R94.31 Z01.810 M19.012 Office Visit 04/24/2018 2:15p [facility] [place] [address] M19.012 C.M.A. S46.012D Office Visit 02/13/2018 2:20p [facility] Internal Medicine - Parris Cornejo, N.P. 51290 J20.9 Arion Office Visit 01/30/2018 2:00p [facility] Internal Medicine - Arturo Chery, 12997 J20.9 Migue Covarrubias Office Visit 11/08/2017 9:30a [facility] [place] [address] L30.4 L57.0 Office Visit 10/31/2017 9:30a [facility] [place] [address] D22.39 D18.01 D48.5 Office Visit 10/25/2017 3:40p [facility] Internal Medicine Parris Cornejo, N.P. 19659 J20.9 - Jerry D23.9 Office Visit 08/28/2017 3:40p [facility] [place] [address] R05 Arion R06.02 Office Visit 08/24/2017 1:20p [facility] Gregorio SJackie 36678 I48.0 Emre Garcia M.D. R94.31 I71.9 I35.1 Office Visit 06/22/2017 9:40a [facility] [place] [address] Z00.00 Arion G40.89 I48.0 M10.9 Z23 R79.82 Office Visit 06/14/2017 10:40a [facility] [place] [address] J01.90 - Arion Office Visit 05/16/2017 11:20a [facility] Internal Medicine Parris Cornejo, N.P. 34372 J01.90 - Arion J20.9 Office Visit 04/14/2017 10:30a [facility] [place] [address] M75.122 C.M.A. M79.5 M19.012 Office Visit 04/14/2017 2:30p [facility] Emani Inman M.D. 38237 G40.89 Services Of [facility] Office Visit 01/27/2017 2:00p [facility] [place] [address] R35.8 - Arion R32 Office Visit 12/26/2016 3:00p [facility] [place] [address] Z01.818 Arion M25.512 I48.0 G60.3 G40.89 Office Visit 12/21/2016 3:20p [facility] Gregorio Garcia, 92536 R94.31 Satish I48.91 Z01.810 S46.012A Office Visit 12/15/2016 9:30a [facility] [place] [address] M19.012 C.M.A. S46.012D Office Visit 08/25/2016 3:00p [facility] IVONE Santacruz 87858 I48.0 Z01.810 M67.412 Office Visit 08/18/2016 9:00a [facility] [place] [address] Z01.818 Arion M67.412 G40.89 I48.0 M10.9 Office Visit 07/12/2016 11:15a [facility] [place] [address] M19.012 C.M.A. M75.122 M67.412 Office Visit 07/05/2016 1:30p [facility] [place] [address] M25.512 C.M.A. M19.012 M75.122 R22.32 Office Visit 07/05/2016 8:30a [facility] Emani Sandoval, 18146 G40.89 REPLENISHMENT ASSOCIATE G60.3 M75.122 M48.07 Office Visit 06/20/2016 9:40a [facility] [place] [address] M25.512 Arion Office Visit 05/26/2016 9:20a [facility] [place] [address] M25.512 Arion D64.9 G60.3 Office Visit 04/13/2016 11:40a [facility] [place] [address] M25.512 Arion Office Visit 03/08/2016 11:45a [facility] [place] [address] M75.122 C.M.A. R79.82 Office Visit 03/02/2016 3:20p [facility] Internal [place] [address] D64.9 [place] Office Visit 02/23/2016 2:00p [facility] [place] Kathleen, 22350 R76.0 [facility] Satish R79.82 R20.8 Office Visit 02/19/2016 3:40p [facility] [place] [address] R05 [place] J20.9 M25.512 Office Visit 02/03/2016 10:40a [facility] [place] [address] R05 [place] J01.00 M25.512 Office Visit 01/21/2016 3:40p [facility] [place] [address] R79.9 [place] Z12.5 Z13.220 Z13.1 Office Visit 01/20/2016 8:30a [facility] Emani Inman M.D. 93803 G40.89 Services Of [facility] G60.3 M48.07 Z79.899 Office Visit 01/15/2016 1:00p [facility] [address] M75.122 C.[facility]. M25.512 Office Visit 12/07/2015 2:00p [facility] Vera Morocho 50518 M25.512 Infectious Diseases Satish Lopez R79.82 Office Visit 11/17/2015 10:40a [facility] [place] [address] J01.90 - [place] Office Visit 11/16/2015 3:40p [facility] Vera Morocho 48496 M25.512 Infectious Diseases Satish Lopez Z96.612 Office Visit 10/23/2015 2:20p [facility] [place] [address] F43.21 - [place] Office Visit 09/07/2015 1:00p [facility] [place] [address] M25.50 - [place] Office Visit 08/24/2015 8:00a [facility] Tr Barrera M.D. 06871 S43.82xD C.M.A. S46.012D Office Visit 07/28/2015 11:00a [facility] Prasanna Mata, 87342 M47.816 Of Emre Covarrubias Office Visit 07/09/2015 8:30a [facility] Emani Inman, 02407 M48.07 Services Of Emre Covarrubias G40.89 G60.3 Office Visit 06/15/2015 2:15p [facility] Emani Inman M.D. 75048 G40.89 Services [facility] M54.17 Office Visit 05/27/2015 2:20p [facility] Vera Morocho 25290 T81.4xxD Infectious Dago Lopez M.D. Office Visit 05/11/2015 10:20a [facility] Vera Morocho 41217 780.60 Infectious Dago Lopez M.D. 780.99 786.30 998.59 Office Visit 05/11/2015 9:00a [facility], Allie Wang, 44893 486 Hospitalists D.O. 345.90 780.60 998.59 Office Visit 05/10/2015 9:00a [facility], Allie Wang 84699 486 Hospitalists D.O. 345.90 998.59 780.60 Office Visit 05/09/2015 8:59a [facility], Allie Wang, 16841 780.60 Hospitalists D.O. 998.59 345.90 486 Office Visit 05/08/2015 8:59a [facility], Allie Wang, 29377 780.60 Hospitalists D.O. 486 998.59 345.90 Office Visit 05/07/2015 8:58a [facility], Allie Wang, 19544 486 Hospitalists D.O. 998.59 345.90 780.60 Office Visit 02/10/2015 1:30p [facility] IVONE Santacruz 61743 427.31 401.1 780.2 780.39 Office Visit 02/09/2015 3:15p [facility] Emani Inman M.D. 50962 780.39 Services [facility] Office Visit 01/20/2015 3:20p [facility] Gregorio Samaniego 29629 780.2 Satish Garcia 427.31 401.1 Office Visit 01/10/2015 10:20a [facility] Emani Inman 12550 780.39 MSofie 780.2 831.02 Office Visit 01/10/2015 1:43p [facility], Gaby Hernandez, 99170 780.2 Hospitalserena Covarrubias 427.31 780.39 274.9 Office Visit 01/09/2015 7:00a [facility] Brayan Vanegas M.D. 64127 719.41 C.M.AJackie 831.02 812.03 Office Visit 01/09/2015 10:09a [facility] Emani Inman 26718 780.2 MJackieDJackie Office Visit 01/08/2015 10:08a [facility] Emani Inman 18820 780.2 MJackieDJackie Office Visit 01/08/2015 1:42p [facility], Aileen Malin 33713 780.2 Hospitalists 780.39 427.31 274.9 Office Visit 10/23/2014 3:20p [facility] S. Jose, 57204 427.31 MSofie 401.1 Office Visit 05/13/2013 9:45a [facility] [place] Angel, 67804 719.47 C.M.A. MSofie Office Visit 05/08/2013 2:40p [facility] S. 97385 427.31 Satish Garcia Office Visit 03/20/2013 2:40p [facility] S. 92405 427.31 Satish Garcia 794.31 401.1 Office Visit 03/07/2013 3:19p [facility] Roddy Pierre, 39570 780.59 M.DJackie Office Visit 11/12/2012 2:20p [facility] Shayne Morocho 94198 719.07 Infectious Diseases Satish Lopez Office Visit 10/12/2012 2:45p [facility] Brayan Vanegas M.D. 63203 726.65 C.M.A. Office Visit 10/05/2012 2:00p [facility] [place] You 74907 726.65 C.M.A. RPA-C 719.07 719.06 Office Visit 10/02/2012 2:00p [facility] Brayan Vanegas M.D. 50404 274.9 C.M.A. 726.65 Office Visit 08/24/2012 4:00p [facility] Silvestre Hutsonelia 50735 274.9 C.M.A. M.DJackie Office Visit 07/04/2012 1:30p [facility] [place] Ortiz 11363 719.07 C.M.A. M.DJackie Office Visit 04/17/2012 2:45p [facility] Brayan Vanegas M.D. 07111 715.36 C.M.A. Plan of Care Future Appointment(s):06/19/2018 10:45 am - Hattie Burns MD at [facility]06/06/2018 10:30 am - Maricarmen Ramirez PA-C at [facility]04/26/2019 8:30 am - Emani Inman M.D. at [facility]06/06/2018 10:30 am - Hattie Burns MD at [facility] C.MJackieA.06/04/2018 - Eliezer Barnes, NPZ01.818 Encounter for other preprocedural yirjyrjxqpyU84.512 Pain in left tryycpxtN41.91 Unspecified atrial sozwxyhigavaX34.9 Anemia, yklthkrkksqT91.89 Other seizures
--- OUTSIDE RECORDS SUMMARY | 2018-06-06 09:41 | XMS REPORT ---
:1955 External Reference #:[id number] Author Organization [employer] Address [address] [facility] [place] [address] [place] [address] Phone [phone] Care Team Providers Name Role Phone Eliezer Barnes NP Primary Care Physician Unavailable Payers Type Date Identification Numbers Payment Provider Subscriber Commercial Policy Number: [id number] Jamaal Coombs Group Number: [id number] [address] PayID: [id number] [place] [address] Medigap Part B Expires: 2015 Policy Number: [id number] [employer] Melinda Coombs PayID: [id number] [address] [address] [place] [address] Commercial Effective: 2015 Policy Number: 70% [facility] Melinda Coombs Expires: 2017 PayID: [id number] [address] Problems Date Description Provider Status Onset: 03/20/2013 Atrial fibrillation Gregorio Garcia M.D. Active Onset: 03/20/2013 Electrocardiogram abnormal Gregorio Garcia M.D. Active Onset: 03/20/2013 Benign essential hypertension Gregorio Garcia M.D. Active Onset: 02/09/2015 Loss of consciousness Emani Inman M.D. Active Note: with high suspicion of seizure (01/08/15) Onset: 03/16/2015 Strain of rotator cuff capsule Brayan Vaengas M.D. Active Onset: 07/09/2015 Idiopathic peripheral neuropathy [...] Natural Causes () Maternal Grandfather due to [place] () Maternal Grandmother due to Natural Causes () Social History Type Date Description Comments Marital Status Occupation Currently Working Occupation [employer] advisor ETOH Use Denies alcohol use Smoking Patient is a former smoker 20 years ago, 1 PPD Recreational Drug Use Denies Drug Use Daily Caffeine Consumes on average 2 cups of regular coffee per day Exercise Type/Frequency Exercises regularly walks 5 days a week General Hx Text Non smoker, no alcohol, lives in [place], moved from [place] in February. No foreign travel. No pets. Retired worked at [employer]. Allergies, Adverse Reactions, Alerts Date Description Reaction Status Severity Comments 11/12/2012 Doxycycline hives active hives 05/05/2015 Flecainide active seizure 10/14/2016 Vicryl Sutures suture abscess active 11/09/2012 NKDA inactive Medications Medication Date Status Form Strength Qnty SIG Indications Ordering Provider Ergocalciferol 05/08 Active Capsules [id number] 8caps Take 1 by Zaneb mouth weekly Grant, x 8 weeks Zolpidem 01/23 Active Tablets ER 12.5mg 30tab 1 by mouth Eliezer Tartrate ER /2017 s at bedtime KARLY Barnes as needed mdd 1 Nebulizer 08/28 Active Device 1unit use for R06.02 Eliezer /2018 s albuterol KARLY Barnes nebulized solution up to 4 times a day. Nebulizer 08/28 Active Kit QS for use 4 R06.02 Eliezer Kit/Tubing/Mout /2017 times daily KARLY Barnes hpiece as needed Xarelto 01/25 Active Tablets 20mg 90tab 1 by mouth Qutayb s every day Danette Garcia M.D. Depakote ER 07/08 Active Tablets ER 250mg 180ta take 1 tab Emani /2015 24HR bs (250 mg) by sheldon Inman in the M.D. morning and take 1 tabs every evening [...] Tablet By KARLY Barnes Mouth Every Day Levofloxacin 02/13 Hx Tablets 500mg 10tab one by mouth J01.90 s daily for 10 Varn, - days N.P. 02/23 Fluticasone 10/25 Hx Suspension 50mcg/Act 16uni 2 sprays J20.9 Parris Propionate ts each nostril Varn, - daily as N.P. 04/26 Guaifenesin-Cod 10/25 Hx Solution 100-10mg/ 236ml 10 J20.9 Parris eine 5ML milliliters Varn, - 3 times a N.P. Guaifenesin-Cod 10/25 Hx Solution 100-10mg/ 236ml 10 J20.9 Parris 5ML milliliters Varn, - 3 times a [...] 0.5-2.5(3 90uni 1 vial in R06.02 Eliezer [place]/Albuter )mg/3ML ts nebulizer KARLY Barnes ol Sulfate - four times a 02/13 day needed for asthma Levofloxacin 06/14 Hx Tablets 500mg 10tab one by mouth J01.90 Eliezer s daily for 10 Molly, [employer] - days 06/25 Benzonatate 06/14 Hx Capsules 200mg 30cap one by mouth J01.90 Eliezer s three times Molly, [employer] - daily as 06/20 needed for cough Amoxicillin/Cla 05/16 Hx Tablets 875-125mg 20tab one tablet J01.90 Parris vulanate s by mouth Varn, Potassium - twice daily N.P. 05/26 for 10 Pulmicort 05/16 Hx Aerosol 180mcg/Ac 1unit 2 puffs J20.9 Parris Flexhal t s twice daily Varn, - N.P. 06/15 Fluticasone 05/16 Hx Suspension 50mcg/Act 16uni 2 sprays J01.90 Parris Propionate ts each nostril Varn, - daily as N.P. 05/30 Zolpidem 05/01 Hx Tablets 10mg 30tab 1/2 to 1 tab Eliezer Tartrate s by mouth Molly, [employer] - every night 01/23 at bedtime as needed Percocet 01/07 Hx Tablets 5-325mg 30tab 1 - 2 tabs b s by mouth Yaseen, - every 4 - 6 MD 02/06 hours needed for pain. Keflex 01/04 Hx Capsules 500mg 28cap 1 tab by b s mouth four Yaseen, - times a day MD 02/06 Oxycodone HCL 01/04 Hx Tablets 5mg 30tab 1-2 tabs by s mouth every Yaseen, - 4-6 hours as MD 01/27 needed Bactrim DS 10/05 Hx Tablets 800-160mg 14tab Take 1 by s mouth daily Yasedilcia, - x 14 days MD 12/10 Oxycodone HCL 09/02 Hx Capsules 5mg 30cap one to two s tablets Yaseen, - every 6 MD 08/13 hours needed for pain Keflex 08/25 Hx Capsules 500mg 40cap take 1 tab M67.412 s by mouth Yasedilcia, - four times a MD 08/13 day x days Percocet 08/08 Hx Tablets 5-325mg 40tab take 1 tabs b s as needed Yaseen, - for pain MD 08/13 every hours. do not combine with tylenol Oxycodone-Aceta 08/02 Hx Tablets 5-325mg 60tab 1-2 tabs po M67.412 Zaneb minophen s q 4 hrs prn Grant, - pain MD 08/13 Hydrocodone-Danyel 07/19 Hx Tablets 10-325mg 180ta 1-2 tablet S43.82xD Eliezer taminophen /2015 bs every 6 Molly [employer] - hours as 08/13 needed for pain [...] po q 4 Yaseen, 07/12/2016 hrs prn pain Zolpidem Tartrate ER 06/10/2016 Hx Tablets [...] 1 by mouth Eliezer 02/19/2016 every day KARLY Barnes Amoxicillin/Clav 02/03/2016 - Hx Tablets 875-125 20tabs take one J01 Eliezer ulanate 02/13/2016 mg tablet q12 .00 Molly, [employer] Potassium hours for 10 days Advair HFA 02/03/2016 - Hx Aerosol 230-21m 8gm 2 puffs R05 Eliezer 02/17/2016 cg/Act twice daily Molly, [employer] x 2 weeks Percocet 01/15/2016 - Hx Tablets 5-325mg 30tabs take 1 tabs M75 Zaneb 01/19/2016 as needed .12 MD Grant for pain 2 every 12 hours. do not combine with tylenol Oxycodone-Acetam 11/17/2015 - Hx Tablets 5-325mg 90tabs take 1/2- 1 M25 Eliezer inophen 12/14/2015 tablet by .51 Molly, [employer] mouth every 2 8 hours if needed for pain Amoxicillin/Clav 11/17/2015 - Hx Tablets 875-125 20tabs take one J01 Eliezer ulanate 11/28/2015 mg tablet q12 .00 Molly, [employer] Potassium hours for 10 days Hydrocodone-Acet 11/10/2015 - Hx Tablets 5-325mg 60tabs take 1 Eliezer aminophen 11/17/2015 tablet every Molly, [employer] 6 hours for pain. Valium 11/06/2015 - Hx Tablets 5mg 2tabs 1 by mouth Eliezer 11/06/2015 one hour Molly, [employer] prior to MRI. December repeat x 1 if not drowsy and still nervous. Zolpidem 09/14/2015 - Hx Tablets ER 12.5mg 30tabs 1 by mouth Norberto Tartrate ER 05/26/2016 at bedtime Xinika, as needed M.D. Hydrocodone-Acet 09/07/2015 - Hx Tablets 5-325mg 120tabs 1 tablets by S43 Eliezer aminophen 03/02/2016 mouth every .82 Molly, [employer] 6 hours as xD needed for pain. [...] by Melinda Samaniego 07/08/2016 24HR mouth twice William, a day M.DJacike Levetiracetam 02/09/2015 - Hx Tablets 250mg 60tabs [...] Silvestre 03/20/2013 every 4-6 Gabby, hours as M.D. needed Endocet 04/17/2012 - Hx Tablets 5-325mg 30tabs 1 po q 4 hr Brayan 03/20/2013 prn Satish Vanegas Zithromax - Hx Tablets 500mg 5tabs 1 qd for 5 Unknown Tri-Gaurang 03/20/2013 days Ipratropium - Hx Solution 0.03% 30ml instill 2 Unknown [place] 03/20/2013 sprays in each nostril twice a [...] Melinda Taking) Amoxicillin - Hx Tablets 875mg [employer], 01/29/2018 MD Melinda Guaifenesin-Code - Hx Solution 100-10m Keren, ine 08/28/2017 g/5ML MD Melinda Albuterol - Hx Nebulizer (5mg/ML 2 puffs Unknown Sulfate 02/13/2018 ) 0.5% every 4 hours as needed sob or wheeze Medications Administered in Office Medication Date Status Form Strength Qnty SIG Indications Ordering Provider No Injection Administered Injection Hattie Burns MD No Injection Administered Injection Zapravinb Damian Burns MD Depomedrol Administered Injection [place] 80MG Dana Ortiz M.D. Inj, Administered Injection Alex Pinto Regadenoson, 012 Nik, 0.1 MG Satish, JON, FASNC Technetium TC Administered Injection Alex Pinto 99M 012 Muulgeta Zaragoza M.D., FACPamela, Per Unit Dose FASVICKI Up To 40 Millicuries Immunizations CPT Code Status Date Vaccine Reaction Lot # [id number] Given 06/22/2017 Influenza Virus Vaccine, No immediate [id number] Quadrivalent, Split, reaction...jh Preservative Free Vital Signs Date Vital Result Comment 05/24/2018 Height 74 inches 6'2" Weight 286.50 [...] Test Date Test Result H/L Range Note CBC Auto Diff 05/07/2018 White Blood Count [...] Egfr Non- 78.7 >60 Egfr 101.2 >60 1 Laboratory test finding 02/01/2018 Troponin-I (TnI) 0.00 [...] Egfr Non- 71.8 >60 Egfr 92.3 >60 2 Laboratory test finding 12/20/2017 C Reactive Protein 8.80 mg/L High < 5.00 3 Order 08/28/2017 Nebulizer Treatment <pending> Lipid Profile (Trig/Chol/HDL) 07/03/2017 Triglycerides 125 mg/dL 4 Cholesterol 154 mg/dL 5 HDL Cholesterol 36.1 mg/dL 6 LDL Cholesterol 93 mg/dL 7 Laboratory test finding 07/03/2017 Glucose 89 mg/dL 70-100 8 Uric Acid 4.9 mg/dL 4.4-7.6 9 CRP High Sensitivity 5.25 mg/L 10 Laboratory test finding 02/07/2017 PSA Screening 1.083 ng/mL 0-4.000 11 C Reactive Protein 7.45 mg/L High < 5.00 12 Ua Routine 01/27/2017 Ua Specific [place] 1.020 Ua PH 5 Ua Color yellow Ua Appera clear Ua WBC neg Ua Protein trace Ua Glucose norm Ua Ketones neg Ua Bilirubin neg Ua Urobilinogen norm Ua Nitrite neg Ua Occult Blood trace Body Fluid C&S 01/04/2017 Body Fluid Cult Gram SEE RESULT BELOW 13 Stain CBC Auto Diff 12/28/2016 White Blood [...] Egfr Non- 72.8 >60 Egfr 93.7 >60 14 CBC Auto Diff 09/22/2016 White Blood Count [...] Egfr Non- 78.9 >60 Egfr 101.5 >60 15 Inr/Protime 09/22/2016 Inr 0.98 0.89-1.11 Laboratory test 08/31/2016 Surgical Pathology SEE RESULT BELOW 16 finding Laboratory test 07/12/2016 Body Fluid C&S SEE RESULT BELOW 17, 18 finding Body Fluid Cell 07/12/2016 Body Fluid Source Synovial Fluid 17 Count Body Fluid Appearance Cloudy 17 Body Fluid Color Yellow 17 Body Fluid Volume 1 mL 17 Body Fluid WBC 294 /mcL 17, 19 Body Fluid RBC 5108 /mcL 17 Body Fluid Lymph 95 % 17 Body Fluid Reactive Lymph 5 % 17 Body Fluid Other Cells 100 17 Body Fluid Total Cells Counted 42 17 Fluid Reviewed By MD (SEE NOTE) 17, 20 Laboratory test 07/12/2016 Cytology Non-Teacher Learning Disabled SEE RESULT BELOW 17, 21 finding Laboratory test 07/07/2016 Valproic Acid 38.0 [...] Reactive Protein 10.24 mg/L High < 5.00 22 Laboratory test 05/17/2016 Clotest SEE RESULT 23, 24 finding BELOW Laboratory test 05/17/2016 Surgical Pathology SEE RESULT 25, 26 finding BELOW Laboratory test 03/18/2016 Erythrocyte Sed Rate 8 mm/Hr 0-20 finding Laboratory test 03/07/2016 Occult Blood - Stool pos x 2, neg x finding 1 Laboratory test 03/04/2016 C Reactive Protein 7.75 mg/L High < 5.00 27 finding Laboratory test 03/04/2016 Anti Nuclear 2.1 U 28 finding Antibody Creatine Kinase(CK) 79 U/L 10-223 29 C Reactive Protein 7.61 mg/L High < 5.00 30 Vitamin B12 And Folate Serum 03/04/2016 Vitamin B12 474 pg/mL 180-914 31 Folic Acid (Folate) 14.81 ng/mL >3.99 Laboratory [...] D Total 25(Oh) 13.7 ng/mL Low 30-50 32 D,2 Vitamin D, 1,25 Dihydroxy 23 pg/mL 18-64 33 Laboratory test finding 03/04/2016 Vitamin B12 475 pg/mL 180-914 34 Silvia Igg AB Reflex 03/04/2016 SS-A/Ro Antibody 0.2 U 35 SS-B/La Antibody <0.2 U 36 Sm (Thompson) IgG Antibody <0.2 U 37 U1-nRNP Antibody <0.2 U 38 Scl-70 (Scleroderma) Antibody <0.2 U 39 Abigail-1 Antibody <0.2 U 40 Laboratory test finding 03/04/2016 Complement C3 128 mg/dL 75 - 175 41 Complement C4 22 mg/dL 14 - 40 42 Anti Double Stranded Dna AB <12.3 IU/mL 43 Cardiolipin Igg/Igm 03/04/2016 Phospholipid Ab IgM, S < 4.0 MPL 44 Phospholipid Ab IgG < 4.0 GPL 45 Laboratory test finding 01/26/2016 C Reactive Protein 11.04 mg/L High < 5.00 46 Laboratory test finding 01/26/2016 Anti Nuclear Antibody 2.2 U 47 PSA Screening 0.666 ng/mL 0-4.000 48 Lipid Profile (Trig/Chol/HDL) 01/26/2016 Triglycerides 182 mg/dL 49 Cholesterol 160 mg/dL 50 HDL Cholesterol 31.7 mg/dL 51 LDL Cholesterol 92 mg/dL 52 Basic Metabolic Panel 01/26/2016 Sodium 137 mmol/L 133-145 Potassium 4.2 mmol/L 3.5-5.0 Chloride 101 mmol/L 101-111 Co2 Carbon Dioxide 30 mmol/L 22-32 Anion Gap 6 mmol/L 2-11 Glucose 81 mg/dL 70-100 Blood Urea Nitrogen 15 mg/dL 6-24 Creatinine 1.06 mg/dL 0.67-1.17 BUN/Creatinine Ratio 14.2 8-20 Calcium 9.2 mg/dL 8.6-10.3 Egfr Non- 71.5 >60 Egfr 92.0 >60 53 Laboratory test finding 01/26/2016 Erythrocyte Sed Rate 4 mm/Hr 0-20 54 CBC Auto Diff 01/26/2016 White Blood Count [...] 12/30/2015 Body Fluid Cult SEE RESULT BELOW 55 Gram Stain Laboratory test 12/30/2015 Anaerobic Culture SEE RESULT BELOW 56 finding Laboratory test 12/18/2015 C Reactive Protein 52.18 mg/L High < 5.00 57 finding Laboratory test 11/30/2015 C Reactive Protein 13.25 mg/L High < 5.00 58 finding Comp Metabolic Panel 09/19/2015 Sodium 133 mmol/L [...] Egfr Non- 85.3 >60 Egfr 109.7 >60 59 CBC Auto Diff 09/19/2015 White Blood Count [...] Blood Cells % 0 Laboratory test finding 09/11/2015 Rheumatoid Factor <15 IU/mL <15 60 Anti Ssa/Ro 0.3 U 61 Anti SSB LA <0.2 U 62 U1 POOL LIFEGUARD/SNRNP Igg Autoabs <0.2 U 63 SM(Thompson) Igg Autoantibodies <0.2 U 64 CBC Auto Diff 07/24/2015 White Blood Count [...] Egfr Non- 76.7 >60 Egfr 98.7 >60 65 Laboratory test finding 07/24/2015 TSH (Thyroid Stim Horm) 1.50 ?IU/mL 0.34-5.60 Free T4 (Free Thyroxine) 0.66 ng/mL 0.61-1.12 Vitamin B12 424 pg/mL 180-914 66 Folic Acid (Folate) 11.05 ng/mL >3.99 Teri (Antinuclear Antibodies) Reflexed to FA Negative Protein Electrophoresis 07/24/2015 Total Protein(Pep) 6.3 g/dL 6.3 - 7.9 Albumin 3.4 g/dL 3.4-4.7 Alpha-1 Globulin 0.2 g/dL 0.1-0.3 Alpha-2 Globulin 0.8 g/dL 0.6-1.0 Beta Globulin 0.9 g/dL 0.7-1.2 Gamma Globulin 0.9 g/dL 0.6-1.6 Albumin/Globulin Ratio 1.19 Impression See Comment 67 Teri Hep-2 07/24/2015 Teri Pattern Speckled Negative Teri Titer 1:640 <1:80 Teri Reviewed By MD Lemuel Rai <SEE NOTE> 68 CBC Auto Diff 01/08/2015 White Blood Count [...] Egfr Non- 50.0 >60 Egfr 64.3 >60 69 Laboratory test 01/08/2015 Troponin I 0.04 ng/mL High <0.03 70 finding Inr/Protime 01/08/2015 Inr 0.98 0.78-1.07 Laboratory test 01/08/2015 Activated Partial 33.8 seconds 26.0-36.3 finding Thrombo Time Lactic Acid 6.9 mmol/L High 0.5-2.2 71 Type & Screen 01/08/2015 Patient Blood Type A Negative Antibody Screen NEGATIVE Urinalysis Profile 01/08/2015 Urine Color Yellow Urine Appearance Cloudy Urine Specific [place] 1.015 1.010-1.030 Urine pH 5.0 5-9 Urine Urobilinogen Negative Negative Urine Ketones Negative Negative Urine Protein 1+(30 mg/dL) Negative Urine Leukocytes Negative Negative Urine Blood 1+ Negative Urine Nitrite Negative Negative Urine Bilirubin Negative Negative Urine Glucose Negative Negative Urine White Blood Cell Trace(0-5/hpf) Absent Urine Red Blood Cell Trace(0-2/hpf) Absent Urine Bacteria Absent Absent Urine Squamous Epithelial Cell Present Absent 1 Because ethnic data is not always readily [...] 15-29 5 Kidney failure <15 (or dialysis) 2 Because ethnic data is not always readily [...] 15-29 5 Kidney failure <15 (or dialysis) 3 Acute inflammation: >10.00 4 Desirable: <150 Borderline High: 150-199 High: 200-499 Very High: >500 5 Desirable: <200 Borderline High: 200-239 High: >239 6 Low: <40 Desirable: 40-60 High: >60 7 Desirable: <100 Near Optimal: 100-129 Borderline High: 130-159 High: 160-189 Very High: >189 8 FASTING 10 HOUR 9 FASTING 10 HOUR 10 Low risk: <1.00 Average risk: 1.00-3.00 High risk: >3.00 11 Serum levels of PSA measured using the Anne Harleigh DXI Hybritech immunoassay should not be interpreted as absolute evidence of the presence or absence of disease. The PSA value should be used in conjunction with other pertinent clinical diagnostic procedures. The values obtained with different assay methods or kits cannot be used interchangeably. 12 Acute inflammation: >10.00 13 SEE RESULT BELOW Name: MELINDA COOMBS : [address]: Hattie Burns MD Acct: [id number] Unit: [id number] AGE: 61 Location: OR Re01/04/17 SEX: M Status: MARIAH VACAC SPEC: [id number] ERICK: 01/04/17132 [facility] DR: Hattie Burns MD REQ: [id number] RECD: 01/04/17 STATUS: RAJESH ROCHA DR: Eliezer Barnes [employer] _ SOURCE: JOINT FLUI SPDESC:SHOULDER L ORDERED: [...] Organism 2 S.AUREUS NEGATIVE * ML - [facility] ([facility]) . END OF REPORT * ML=Testing performed at Main Lab DEPARTMENT OF PATHOLOGY, [address] [place] [address] Lemuel Leyva M.D. Director [facility] # [id number] 14 Because ethnic data is not always readily [...] 15-29 5 Kidney failure <15 (or dialysis) 15 Because ethnic data is not always readily [...] 15-29 5 Kidney failure <15 (or dialysis) 16 SEE RESULT BELOW Name: MELINDA COOMBS : [address]: Hattie Burns MD Acct: [id number] Unit: [id number] AGE: 61 Location: [place] Re08/31/16 SEX: M Status: [place] [facility] [place] [id number] ERICK: 08/31/16- SUBM DR: Hattie Burns MD REQ: [id number] RECD: 08/31/16-1431 STATUS: SOUT _ ORDERED: Decal, LEVEL III [...] fragment with a smooth margin of resection. Porcelain Enamel Sprayer sections are submitted in cassettes A and B to include bone following decalcification in cassette B. MICROSCOPIC DESCRIPTION Signed (signature on file) Lemuel Leyva MD 1035 END OF REPORT * ML=Testing performed at Main Lab DEPARTMENT OF PATHOLOGY, [address] [place] [address] Lemuel Leyva M.D. Director [facility] # [id number] 17 [id number] SEE RESULT BELOW Name: MELINDA COOMBS Celestine : [address]: Hattie Burns MD Acct: [id number] Unit: [id number] AGE: 60 Location: [facility] Re07/12/16 SEX: M Status: REG REF SPEC: [id number] ERICK: 07/12/161207 SUBM DR: Hattie Burns MD REQ: [id number] RECD: 07/12/16 STATUS: COMP _ SOURCE: JOINT FLUI SPDESC:SHOULDER L ORDERED: YOSSI Ruffin/KANIKA Procedure Result Reported Site Body Fluid Gram Stain Final 07/12/162222 ML 2+ Nucleated Cells No Neutrophils Observed No Organisms Seen Preparation By Direct Smear Body Fluid Culture Final 07/16/16- 826 ML No Growth Day 4 * ML - MAIN LAB ([facility]) . END OF REPORT * ML=Testing performed at Main Lab DEPARTMENT OF PATHOLOGY, [address] [place] [address] Lemuel Leyva M.D. Director [facility] # [id number] 19 -- REFERENCE VALUE -- Synovial: <150/mcL Peritoneal: <500/mcL Pleural: <500/mcL Pericardial: <500/mcL 20 Reactive macrophages and synovial cells seen. Peripheral blood contamination. No acute inflammatory response seen. Reviewed by Dr. Leyva 21 SEE RESULT BELOW Name: MELINDA COOMBS : [address]: Hattie Burns MD Acct: [id number] Unit: [id number] AGE: 60 Location: [facility] Re07/12/16 SEX: M Status: REG REF SPEC: [id number] ERICK: 07/12/16-1207 [facility] DR: Hattie Burns MD REQ: [id number] RECD: 07/12/16 STATUS: SOUT _ ORDERED: THIN PREP NON G COMMENTS: [id number] FINAL DIAGNOSIS Shoulder, left, fine needle aspiration: [...] performed at Main Lab DEPARTMENT OF PATHOLOGY, [address] [place] [address] Lemuel Leyva M.D. Director [facility] # [id number] 22 Acute inflammation: >10.00 23 [id number] 24 SEE RESULT BELOW Name: MELINDA COOMBS : [address]: Wero Aquino MD Acct: [id number] Unit: [id number] AGE: 60 Location: [facility] Re05/17/16 SEX: M Status: REG REF SPEC: [id number] ERICK: 05/17/16-1309 [facility] DR: Wero Aquino MD REQ: [id number] RECD: 05/17/16-160 STATUS: RAJESH ROCHA DR: Eliezer Barnes [employer] _ SOURCE: GAS ANTRUM SPDES: ORDERED: Clotest COMMENTS: [id number] Procedure Result Reported Site Clotest Final 05/18/16- 0740 ML Clotest Negative * ML - MAIN LAB ([facility]) . END OF REPORT * ML=Testing performed at Main Lab DEPARTMENT OF PATHOLOGY, [address], [place], [place] [address] Lemuel Leyva M.D. Director [facility] # [id number] 25 [id number] 26 SEE RESULT BELOW Name: MELINDA COOMBS : [address]: Wero Aquino MD Acct: [id number] Unit: [id number] AGE: 60 Location: [facility] Re05/17/16 SEX: M Status: REG REF SPEC: [id number] ERICK: 05/17/16-[address]: Wero Aquino MD REQ: [id number] RECD: 05/17/16-7902 STATUS: ELVIS ROCHA DR: Eliezer Barnes [employer] _ ORDERED: LEVEL IV COMMENTS: [id number] FINAL DIAGNOSIS Small bowel, second portion of [...] performed at Main Lab DEPARTMENT OF PATHOLOGY, [address] [place] [address] Lemuel Leyva M.D. Director [facility] # [id number] 27 Acute inflammation: >10.00 28 Interpretation: Weak Positive (1.1-2.9) REFERENCE VALUE <=1.0 (Negative) Test Performed by: [place] [address] [employer] Assistant: Doroteo Humphries II, M.D., Ph.D. 29 Please check this week 30 Acute inflammation: >10.00 31 Normal Range 180 to 914 Indeterminate Range 145 to 180 Deficient Range <145 32 Please check this week 33 Test Performed by: [place] [address] [employer] Assistant: Doroteo Humphries II, M.D., Ph.D. 34 Normal Range 180 to 914 Indeterminate Range 145 to 180 Deficient Range <145 35 REFERENCE VALUE <1.0 (Negative) 36 REFERENCE VALUE <1.0 (Negative) 37 REFERENCE VALUE <1.0 (Negative) 38 REFERENCE VALUE <1.0 (Negative) 39 REFERENCE VALUE <1.0 (Negative) 40 REFERENCE VALUE <1.0 (Negative) Test Performed by: [place] [address] [employer] Assistant: Doroteo Humphries II, M.D., Ph.D. 41 Test Performed by: [place] [address] [employer] Assistant: Doroteo Humphries II, M.D., Ph.D. 42 Test Performed by: [place] [address] [employer] Assistant: Doroteo Humphries II, M.D., Ph.D. 43 REFERENCE VALUE <30.0 (Negative) Test Performed by: [place] [address] [employer] Assistant: Doroteo Humphries II, M.D., Ph.D. 44 REFERENCE VALUE <10.0 (Negative) 45 REFERENCE VALUE <10.0 (Negative) Test Performed by: [place] [address] [employer] Assistant: Doroteo Humphries II, M.D., Ph.D. 46 Acute inflammation: >10.00 47 Interpretation: Weak Positive (1.1-2.9) REFERENCE VALUE <=1.0 (Negative) Test Performed by: [place] [address] [employer] Assistant: Doroteo Humphries II, M.D., Ph.D. 48 FASTING 10 HOUR 49 Desirable <150 Borderline high 150-199 High 200-499 Very High >500 50 Desirable <200 Borderline high 200-239 High >239 51 Low <40 Desirable: 40-60 High: >60 52 Desirable: <100 mg/dL Near Optimal: 100-129 mg/dL Borderline High: 130-159 mg/dL High: 160-189 mg/dL Very High: >189 mg/dL 53 Because ethnic data is not always readily [...] 15-29 5 Kidney failure <15 (or dialysis) 54 FASTING 10 HOUR 55 SEE RESULT BELOW Name: BRANDENMELINDA : [address]: Shayne Lopez MD Acct: [id number] Unit: [id number] AGE: 60 Location: Re12/30/15 SEX: M Status: REG REF SPEC: [id number] ERICK: 12/30/15 [facility] DR: Shayne Lopez MD REQ: [id number] RECD: 12/30/15 STATUS: RAJESH ROCHA DR: Eliezer Barnes [employer] _ SOURCE: JOINT FLUI SPDESC:SHOULDER R ORDERED: BF Laly/KANIKA Procedure Result Reported Site Body Fluid Gram Stain Final 12/30/15- 1252 ML 1+ Neutrophils 3+ Nucleated Cells No Organisms Seen Preparation By Cytospin Smear Body Fluid Culture Final 01/06/16- 0905 ML NO GROWTH 7 DAYS * ML - MAIN LAB ([facility]) . END OF REPORT * ML=Testing performed at Main Lab DEPARTMENT OF PATHOLOGY, [address] [place] [address] Lemuel Leyva M.D. Director [facility] # [id number] 56 SEE RESULT BELOW Name: MELINDA COOMBS : [address]: Shayne Lopez MD Acct: [id number] Unit: [id number] AGE: 60 Location: [place] Re12/30/15 SEX: M Status: REG REF SPEC: [id number] ERICK: 12/30/15 [facility] [address]: Shayne Lopez MD REQ: [id number] RECD: 12/30/15 STATUS: RAJESH ROCHA DR: Eliezer Barnes DIRECTOR OF [employer]PORATE [employer]ONSORSHIPS _ SOURCE: BODY FLUID SPDESC:SHOULDER R ORDERED: Anaerobic Cult Procedure Result Reported Site Anaerobic Culture Final 01/06/16903 ML NO GROWTH AT 7 DAYS * ML - MAIN LAB (PSC1) . END OF REPORT * ML=Testing performed at Main Lab DEPARTMENT OF PATHOLOGY, [address] [place] [address] Lemuel Leyva M.D. Director [facility] # [id number] 57 Acute inflammation: >10.00 58 Acute inflammation: >10.00 59 Because ethnic data is not always readily [...] 15-29 5 Kidney failure <15 (or dialysis) 60 Test Performed by: [place] [address] Acquisitions Assistant: Doroteo Humphries II, M.D., Ph.D. 61 REFERENCE VALUE <1.0 (Negative) Test Performed by: [place] [address] Acquisitions Assistant: Doroteo Humphries II, M.D., Ph.D. 62 REFERENCE VALUE <1.0 (Negative) Test Performed by: [place] [address] Acquisitions Assistant: Doroteo Humphries II, M.D., Ph.D. 63 REFERENCE VALUE <1.0 (Negative) Test Performed by: [place] [address] Acquisitions Assistant: Doroteo Humphries II, M.D., Ph.D. 64 REFERENCE VALUE <1.0 (Negative) Test Performed by: [place] [id number] Acquisitions Assistant: Doroteo Humphries II, M.D., Ph.D. 65 Because ethnic data is not always readily [...] 15-29 5 Kidney failure <15 (or dialysis) 66 Normal Range 180 to 914 Indeterminate Range 145 to 180 Deficient Range <145 67 RESULT: No apparent monoclonal protein on serum electrophoresis. Test Performed by: [address] [address] Acquisitions Assistant: Doroteo Humphries II, M.D., Ph.D. 68 Lemuel Leyva 69 Because ethnic data is not always readily [...] 15-29 5 Kidney failure <15 (or dialysis) 70 Reference Range and Interpretation: TnI (ng/mL) Interpretation Less Than 0.03 ng/mL Not supportive of diagnosis of [place] 0.03 - 0.50 ng/mL Indeterminate: suggest serial studies if clinically indicated. Greater than 0.5 ng/mL Consistent with diagnosis of [place] 71 Critical Result LACT:6.9 Called to [id number] at: 19:15:20 by:[id number] Read back by:COLE Procedures Date CPT Code Description Status 04/27/2018 78668 EKG Tracing & Interpretation Completed 11/08/2017 75318 Destruction ALL Benign Or Premalignant Lesion (Other Completed Than [place] 08/24/2017 63147 EKG Tracing & Interpretation Completed 03/10/2017 79108 EKG Tracing & Interpretation Completed 01/25/2017 29993 Color Flow Doppler/Interp & Reprt Completed 01/25/2017 19359 Pulse Wave/Continuous-Interp.RPT Completed 01/25/2017 89631 Echocardiography, Transesophageal, Real Time W/Image 2D Completed W/W/O M-M 01/04/2017 53155 arthroscopy w/removal loose body or foreign body Completed 01/04/2017 17540 Arthroscopy Shoulder Debridement Extensive Completed 01/04/2017 79822 Arthroscopy Shoulder Debridement Extensive Completed 01/04/2017 86761 Arthroscopy,Shoulder Decompression Of Subacromial Space Completed W/Acromio 12/21/2016 77764 EKG Tracing & Interpretation Completed 08/31/2016 10955 claviculectomy;partial Completed 08/31/2016 97569 claviculectomy;partial Completed 08/31/2016 59442 Excision Tumor, Soft Tissue, Shoulder Area Subfascial, Completed 5 CM Or > 08/25/2016 60377 EKG Tracing & Interpretation Completed 08/02/201665637 Aspiration &/Or Inj Of Ganglion Cyst(S) Any Location Completed 07/12/2016 Aspiration &/Or Inj Of Ganglion Cyst(S) Any Location Completed 05/17/2016 Colonoscopy Completed 07/09/2015 86274 Nerve Conduction 03-04 Studies Completed 07/09/2015 72459 Needle Electromyography Complete, Five Or More Muscles Completed Studied 06/03/2015 24558 EEG Recording Awake & Asleep Completed 05/07/2015 71752 I & D Post-Op Wound Infect Compl Completed 05/07/2015 11989 I & D Post-Op Wound Infect Compl Completed 03/25/2015 73178 Repair Rotator Cuff Rupture open Acute Completed 03/25/2015 47880 Repair Rotator Cuff Rupture open Acute Completed 03/25/2015 87895 Arthroscopy Shoulder,W/Rotator Cuff Repair Completed 03/25/2015 02666 Arthroscopy Shoulder,W/Rotator Cuff Repair Completed 03/25/2015 33869 Open TX Proximal Humeral FX Incl Fixation When Completed Performed 03/25/2015 61897 Open TX Proximal Humeral FX Incl Fixation When Completed Performed 02/06/2015 48555 Holter Monitor Review (24 hr)dr review & interp only Completed 02/04/2015 22038 ECHO Transthoracic, Real-Time 2D With Doppler And Color Completed Flow 02/03/2015 77121 EEG Recording Awake & Drowsy Completed 01/20/2015 50961 EKG Tracing & Interpretation Completed 01/09/2015 66059 Dislocation Shoulder W/FX GRTR Tuberosity Completed W/Manipulation 01/09/2015 18616 EKG, Interpretation Only Completed 01/09/2015 49502 Closed TX Of Greater Humeral Tuberosity FX;W/O Completed Manipulation 01/09/2015 66272 EEG Recording Awake & Asleep Completed 10/23/2014 37511 EKG Tracing & Interpretation Completed 03/22/2013 79360 Holter Monitoring 24 HR New Completed 03/21/2013 50355 ECHO Transthoracic, Real-Time 2D With Doppler And Color Completed Flow 03/20/2013 83855 EKG Tracing & Interpretation Completed 10/05/2012 99833 Inject/Drain Joint/Bursa Major W/O US Completed 08/19/201246848 Inject/Drain Joint/Bursa Intermediate W/O US Completed 07/04/2012 79644 Inject/Drain Joint/Bursa Intermediate W/O US Completed 07/04/2012 15835 Rad Exam; Foot Comp Completed 07/04/2012 07050 Rad Exam; Foot Limited Completed 07/04/2012 81012 Rad Exam; Ankle Comp Completed 06/25/2012 37426 Stress Test Completed 06/25/2012 85994 Myocardial Perfusion Imaging Tomographic (Spect) Completed Multiple Studies 06/05/2012 97050 ECHO Stress Test Incl Perf Contiuous ekg Monitoring Completed W/Phys Superv 06/04/2012 63844 ECHO Transthoracic, Real-Time 2D With Doppler And Color Completed Flow Encounters Type Date Location Provider CPT E/M Dx Office Visit 04/27/2018 3:20p [facility] Gregorio Garcia, 45248 I48.2 Satish R94.31 Z01.810 M19.012 Office Visit 04/24/2018 2:15p [facility] [place] [address] M19.012 C.M.AJackie S46.012D Office Visit 02/13/2018 2:20p [facility] Internal Medicine - Parris Cornejo, N.P. 68676 J20.9 [place] Office Visit 01/30/2018 2:00p [facility] Internal Medicine - Arturo Chery 47589 J20.9 [place] Covarrubias Office Visit 11/08/2017 9:30a [facility] [place] [address] L30.4 L57.0 Office Visit 10/31/2017 9:30a [facility] [place] [address] D22.39 D18.01 D48.5 Office Visit 10/25/2017 3:40p [facility] Internal Medicine Parris Cornejo, N.P. 27329 J20.9 - [place] D23.9 Office Visit 08/28/2017 3:40p [facility] [place] [address] R05 [place] R06.02 Office Visit 08/24/2017 1:20p [facility] Of Gregorio Samaniego 82221 I48.0 Emre Garcia M.D. R94.31 I71.9 I35.1 Office Visit 06/22/2017 9:40a [facility] [place] [address] Z00.00 [place] G40.89 I48.0 M10.9 Z23 R79.82 Office Visit 06/14/2017 10:40a [facility] [place] [address] J01.90 - [place] Office Visit 05/16/2017 11:20a [facility] Internal Medicine Parris Cornejo, N.P. 77560 J01.90 - [place] J20.9 Office Visit 04/14/2017 10:30a [facility] [place] [address] M75.122 C.M.A. M79.5 M19.012 Office Visit 04/14/2017 2:30p [facility] Emani Inman M.D. 10703 G40.89 [facility] Of [facility] Office Visit 01/27/2017 2:00p [facility] [place] [address] R35.8 - [place] R32 Office Visit 12/26/2016 3:00p [facility] [place] [address] Z01.818 [place] M25.512 I48.0 G60.3 G40.89 Office Visit 12/21/2016 3:20p [facility] Gregorio Garcia, 19217 R94.31 M.D. I48.91 Z01.810 S46.012A Office Visit 12/15/2016 9:30a [facility] [place] [address] M19.012 C.M.A. S46.012D Office Visit 08/25/2016 3:00p [facility] IVONE Santacruz 53385 I48.0 Z01.810 M67.412 Office Visit 08/18/2016 9:00a [facility] [place] [address] Z01.818 [place] M67.412 G40.89 I48.0 M10.9 Office Visit 07/12/2016 11:15a [facility] [place] [address] M19.012 C.M.A. M75.122 M67.412 Office Visit 07/05/2016 1:30p [facility] [place] [address] M25.512 C.M.A. M19.012 M75.122 R22.32 Office Visit 07/05/2016 8:30a [facility] Emani Sandoval 13819 G40.89 DIRECTOR OF [employer]SHIPS G60.3 M75.122 M48.07 Office Visit 06/20/2016 9:40a [facility] [place] [address] M25.512 [place] Office Visit 05/26/2016 9:20a [facility] [place] [address] M25.512 [place] D64.9 G60.3 Office Visit 04/13/2016 11:40a [facility] [place] [address] M25.512 [place] Office Visit 03/08/2016 11:45a [facility] [place] [address] M75.122 C.M.A. R79.82 Office Visit 03/02/2016 3:20p [facility] [place] [address] D64.9 [place] Office Visit 02/23/2016 2:00p [facility] Of Garett Frannie, 81449 R76.0 [facility] Satish R79.82 R20.8 Office Visit 02/19/2016 3:40p [facility] [place] [address] R05 Jerry J20.9 M25.512 Office Visit 02/03/2016 10:40a [facility] [place] [address] R05 Jerry J01.00 M25.512 Office Visit 01/21/2016 3:40p [facility] [place] [address] R79.9 [place] Z12.5 Z13.220 Z13.1 Office Visit 01/20/2016 8:30a [facility] Emani Inman M.D. 99840 G40.89 Services Of [facility] G60.3 M48.07 Z79.899 Office Visit 01/15/2016 1:00p [facility] [place] [address] M75.122 C.M.A. M25.512 Office Visit 12/07/2015 2:00p [facility] Vera Morocho 78979 M25.512 Infectious Diseases Satish Lopez R79.82 Office Visit 11/17/2015 10:40a [facility] [place] [address] J01.90 - [place] Office Visit 11/16/2015 3:40p [facility] Shayne Morocho 02554 M25.512 Infectious Diseases Satish Lopez Z96.612 Office Visit 10/23/2015 2:20p [facility] [place] [address] F43.21 - [place] Office Visit 09/07/2015 1:00p [facility] Internal Medicine Eliezeragatha Barnes, KRALY 45015 M25.50 - [place] Office Visit 08/24/2015 8:00a [facility] Tr Barrera M.D. 79394 S43.82xD Isa S46.012D Office Visit 07/28/2015 11:00a [facility] Prasanna Mata, 58652 M47.816 Of Emre Covarrubias Office Visit 07/09/2015 8:30a [facility] Emani Inman, 57952 M48.07 Services Of Emre Covarrubias G40.89 G60.3 Office Visit 06/15/2015 2:15p [facility] Emani Inman M.D. 26644 G40.89 [facility] M54.17 Office Visit 05/27/2015 2:20p [facility] Vera Morocho 58632 T81.4xxD Infectious Diseases Satish Lopez Office Visit 05/11/2015 10:20a [facility] Vera Morocho 07479 780.60 Infectious Diseases Satish Lopez 780.99 786.30 998.59 Office Visit 05/11/2015 9:00a [facility], Allie Wang, 88990 486 Hospitalists D.O. 345.90 780.60 998.59 Office Visit 05/10/2015 9:00a [facility], Allie Wang, 36941 486 Hospitalists D.O. 345.90 998.59 780.60 Office Visit 05/09/2015 8:59a [facility], Allie Wang, 78237 780.60 Hospitalists D.O. 998.59 345.90 486 Office Visit 05/08/2015 8:59a [facility], Allie Wang, 58092 780.60 Hospitalists D.O. 486 998.59 345.90 Office Visit 05/07/2015 8:58a [facility], Allie Wang, 30073 486 Hospitalists D.O. 998.59 345.90 780.60 Office Visit 02/10/2015 1:30p [facility] IVONE Santacruz 38655 427.31 401.1 780.2 780.39 Office Visit 02/09/2015 3:15p [facility] Emani Inman M.D. 58045 780.39 Services [facility] Office Visit 01/20/2015 3:20p [facility] Qutaybeh SJackie 85566 780.2 Satish Garcia 427.31 401.1 Office Visit 01/10/2015 10:20a [facility] Emani Inman, 02516 780.39 M.DJackie 780.2 831.02 Office Visit 01/10/2015 1:43p [facility], Gaby Hernandez, 55836 780.2 Hospitalists Satish 427.31 780.39 274.9 Office Visit 01/09/2015 7:00a [facility] Brayan Vanegas M.D. 56281 719.41 C.M.A. 831.02 812.03 Office Visit 01/09/2015 10:09a [facility] Emani Inman, 33291 780.2 M.D. Office Visit 01/08/2015 10:08a [facility] Emani Inman, 11476 780.2 M.D. Office Visit 01/08/2015 1:42p [facility], Aileen Malin, 73308 780.2 Hospitalists DIRECTOR OF [employer]SHIPS 780.39 427.31 274.9 Office Visit 10/23/2014 3:20p [facility] Gamaltaybrosaline Garcia 65514 427.31 Satish 401.1 Office Visit 05/13/2013 9:45a [facility] [place] Ortiz 35057 719.47 C.M.A. MJackieDJackie Office Visit 05/08/2013 2:40p [facility] Qutaybrosaline SJackie 32742 427.31 Satish Garcia Office Visit 03/20/2013 2:40p [facility] Qutaybeh SJackie 14090 427.31 Satish Garcia 794.31 401.1 Office Visit 03/07/2013 3:19p [facility] Roddy Pierre, 66757 780.59 MJackieDJackie Office Visit 11/12/2012 2:20p [facility] Shayne Morocho 05978 719.07 Infectious Diseases Satish Lopez Office Visit 10/12/2012 2:45p [facility] Brayan Vanegas M.D. 10205 726.65 C.M.A. Office Visit 10/05/2012 2:00p [facility] Bia You, 41204 726.65 C.M.A. [facility] 719.07 719.06 Office Visit 10/02/2012 2:00p [facility] Brayan Vanegas M.D. 94110 274.9 C.M.A. 726.65 Office Visit 08/24/2012 4:00p [facility] Silvestre Hutsonelia 41127 274.9 C.M.AJackie Covarrubias Office Visit 07/04/2012 1:30p [facility] [place] Angel 14240 719.07 C.M.AJackie Covarrubias Office Visit 04/17/2012 2:45p [facility] Brayan Vanegas M.D. 60860 715.36 C.M.A. Plan of Care Future Appointment(s):06/19/2018 10:45 am - Hattie Burns MD at [facility]06/04/2018 2:00 pm - Eliezer Barnes NP at [facility] Internal Medicine [facility]06/06/2018 10:30 am - Maricarmen Ramirez PA-C at [facility]04/26/2019 8:30 am - Emani Inman M.D. at [facility]06/06/2018 10:30 am - Hattie Burns MD at [facility]
--- OUTSIDE RECORDS SUMMARY | 2018-06-06 09:41 | XMS REPORT | Continuity of Care Document ---
:1955 External Reference #:[id number] Author Name Teofilo Fuentes, OD Address [address] [place] [address] Care Team Providers Name Role Phone Maurizio GILLESPIE, Tal Care Team Information Director Of Informatics Unavailable Maurizio GILLESPIE, Tal Primary Care Physician Unavailable Payers Type Date Identification Numbers Payment Provider Subscriber Policy Number: [id number] [facility] Santosh Coombs PayID: [id number] [address] [place] [address] Advance Directives Description No Information Available Problems Date Description Provider Status Onset: 02/10/2015 Nuclear senile cataract Marian Lopez O.D. Active Onset: 02/10/2015 Presbyopia Marian Lopez O.D. Active Onset: 02/10/2015 Vitreous opacities Marian Lopez O.D. Active Onset: 02/10/2015 Ulcerative blepharitis Marian Lopez O.D. Active Family History Date Family Member(s) Problem(s) Comments General Noncontributory Father Cataract Mother Cancer Social History Type Date Description Comments Sex Unknown ETOH Use Denies alcohol use Tobacco Use Start: Unknown End: Unknown Patient is a former smoker Smoking Status Reviewed: 05/09/18 Patient is a former smoker Allergies, Adverse Reactions, Alerts Description No Known Drug Allergies Medications Medication Date Status Form Strength Qnty SIG Indications Ordering Provider Allopurinol 00/0 Active Tablets Unknown 000 Keppra 00/0 Active Tablets by mouth Unknown 000 twice a day Aspir-81 0000/[address] 81mg once per Unknown 000 day by mouth Metoprolol 00/0 Active Tablets ER Unknown Succinate ER 000 24HR Lyrica /0 Active Capsules Unknown 000 Immunizations Description No Information Available Vital Signs Date Vital Result Comment 05/09/2018 3:24pm Intraocular Pressure Right Eye 14 mmHg Intraocular Pressure Left Eye 14 mmHg 02/10/2015 9:22am Intraocular Pressure Right Eye 14 mmHg Intraocular Pressure Left Eye 15 mmHg Results Description No Information Available Procedures Date Code Description Status 05/09/2018 02229 Refraction Completed 05/09/2018 84283 Eye Exam New Comprehensive Completed 02/10/2015 48049 Ophthalmoscopy Initial Completed 02/10/2015 64566 Refraction Completed 02/10/2015 85003 Eye Exam Est Comprehensive Completed Encounters Description No Information Available Plan of Treatment 05/09/2018 - Teofilo Fuentes, ODH43.813 Vitreous degeneration, jpglsgtzjT80.13 Age -related nuclear cataract, nlfmhbnmxJ38.4 PresbyopiaFollow up:yearly full, sooner PRN
[2018-06-06] MEDS ORDERED: KETAMINE HCL* 50 MG/ML 10 ML VIAL ONE (09:43)
[2018-06-06] MEDS ORDERED: fentaNYL* 50 MCG/ML 2 ML VIAL (100 MCG VIAL) ONE ×2 (09:43→11:52)
[2018-06-06] MEDS ORDERED: Midazolam* 1 MG/ML 5 ML VIAL (5 MG) ONE (09:43)
[2018-06-06] MEDS ORDERED: Dexamethasone IV* 4 MG/ML 1 ML (4 MG) ONE (09:45)
[2018-06-06] MEDS ORDERED: Famotidine IV* 10 MG/ML 2 ML (20 mg) ONE (09:45)
[2018-06-06] MEDS ORDERED: ceFAZolin 1 GM in Dextrose (*) 1 GM/50 ML BAG IVPB ONE (09:45)
[2018-06-06] MEDS ORDERED: ceFAZolin 2 GM PREMIX in ORs 2 GM/50 ML BAG IVPB ONE (09:45)
[2018-06-06] MEDS ORDERED: Buffered Lidocaine 0.9% SYRIN* 5 ML/SYR SYRINGE ONE (09:55)
[2018-06-06] MEDS ORDERED: Ondansetron ODT TAB* 4 MG ONE (10:07)
[2018-06-06] MEDS ORDERED: Dexamethasone TAB* 4 MG ONE (10:07)
[2018-06-06] MEDS ORDERED: Lidocaine 2% PF * 5 ML VIAL ONE (12:05)
[2018-06-06] MEDS ORDERED: Phenylephrine INJ* 10 MG/ML 1 ML VIAL (10 MG) ONE (12:05)
[2018-06-06] MEDS ORDERED: Propofol* 10 MG/ML 20 ML BTL IV PUSH ONE (12:06)
[2018-06-06] MEDS ORDERED: Bupivacaine 0.25% SDV* 30 ML ONE (12:06)
[2018-06-06] MEDS ORDERED: Metoprolol Tartrate IV* 1 MG/ML 5 ML VIAL ONE (12:13)
[2018-06-06] MEDS ORDERED: Atracurium* 10 MG/ML 10 ML VIAL ONE ×2 (13:08→14:12)
[2018-06-06] MEDS ORDERED: Ropivacaine* 2 MG/ML 20 ML VIAL (0.2%) ONE (14:55)
[2018-06-06] MEDS ORDERED: ceFAZolin 1 GM VIAL(*) ONE (15:33)
--- NOTE | 2018-06-06 17:39 | RAD ---
CPT II Codes: G9500 INDICATION: Left total shoulder replacement. Fluoroscopic services provided for referring physician. 10.2 seconds of fluoroscopy time was used. One spot image demonstrates left shoulder arthroplasty in place. IMPRESSION: Fluoroscopic services provided for referring physician for left shoulder arthroplasty.
[2018-06-06] MEDS ORDERED: Cyclobenzaprine TAB* 10 MG PO PRN (17:47)
[2018-06-06] MEDS ORDERED: Ondansetron INJ* 2 MG/ML VIAL IV PRN (17:47)
[2018-06-06] MEDS ORDERED: oxyCODONE TAB* 5 MG TAB PO PRN ×2 (17:47→22:39)
[2018-06-06] MEDS ORDERED: oxyCODONE/Acetamin 5/325 MG* TAB PO PRN (17:47)
[2018-06-06] MEDS ORDERED: diPHENhydraMINE IV* 50 MG/ML 1 ml VIAL (BENADRYL) IV PRN (17:47)
[2018-06-06] MEDS ORDERED: Magnesium Hydroxide LIQ* 30 ML UDC PO PRN (17:47)
[2018-06-06] MEDS ORDERED: Zolpidem TAB* 10 MG PO PRN (17:58)
[2018-06-06] MEDS ORDERED: Morphine VIAL* 4 MG/ML VIAL (1 ml vial) IV ONE (18:28)
[2018-06-06] MEDS: Morphine VIAL* 4 MG/ML VIAL (1 ml vial) IV PRN ×2 (18:29→19:00)
[2018-06-06] MEDS: Acetaminophen TAB* 325 MG PO SCH (21:50)
[2018-06-06] MEDS: Divalproex DR TAB(*) 250 MG PO SCH (21:56)
[2018-06-06] MEDS: Docusate CAP* 100 MG PO SCH (21:56)
[2018-06-06] MEDS: Magnesium Hydroxide LIQ* 30 ML UDC PO SCH (21:56)
--- NOTE | 2018-06-06 22:22 | CONSULT ---
Consult Consult: INPATIENT PAIN CONSULTATION Santosh Coombs is a 62 year old male with a history of atrial fibrillation. He takes Xarelto for this and in the past was on Flecainide to try to control palpitations. Three years ago, he had a grand mal seizure which is thought to have been caused by Flecainide. He dislocated his left shoulder during the seizure. He has had chronic left shoulder pain since. He has had multiple surgeries on the shoulder but still had pain. He has been a patient in the [facility] since 2017. He has been on different opioid medications for his pain since 2016. He has been on oxycodone, hydrocodone, transdermal fentanyl. Most recently, he was on hydroocodone/APAP, 10/325 up to 6 times a day. 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 He was admitted to [facility] today and underwent a left total shoulder replacement. I was asked to consult and assist in his post op pain management. PAST MEDICAL HISTORY: Atrial fibrillation, Peripheral Neuropathy possibly from Lyme disease, Seizures, HTN ALLERGIES: Doxycycline, Flecainide, pseudephedrine Current Medications Acetaminophen (Tylenol Tab*) 975 mg PO Q8H [facility] Last Admin: 06/06/18 21:50 Dose: Not Given Allopurinol (Zyloprim Tab*) 300 mg PO QAM [facility] Cyclobenzaprine HCl (Flexeril Tab*) 5 mg PO TID PRN PRN Reason: SPASMS Diphenhydramine HCl (Benadryl Iv*) 25 mg IV Q6H PRN PRN Reason: itching Divalproex Sodium (Depakote Dr Tab(*)) 250 mg PO BID [facility] Last Admin: 06/06/18 21:56 Dose: 250 mg Docusate Sodium (Colace Cap*) 100 mg PO BID [facility] Last Admin: 06/06/18 21:56 Dose: 100 mg Cefazolin Sodium/Dextrose (Kefzol 1 Gm In Dextrose Duplex (*)) 1 gm in 50 mls @ 200 mls/hr IVPB Q8H [facility] Stop: 06/07/18 16:14 Lactated Ringer's (Lactated Ringers 1000 Ml Bag*) 1,000 mls @ 75 mls/hr IV PER RATE [facility] Last Admin: 06/06/18 19:35 Dose: 75 mls/hr Lactulose (Lactulose*) 30 ml PO Q6H PRN PRN Reason: constipation Magnesium Hydroxide (Milk Of Magnesia Liq*) 30 ml PO BID [facility] Last Admin: 06/06/18 21:56 Dose: 30 ml Magnesium Hydroxide (Milk Of Magnesia Liq*) 30 ml PO Q6H PRN PRN Reason: constipation Metoprolol Succinate (Toprol Xl Tab*) 100 mg PO QAM [facility] Morphine Sulfate (Morphine Vial*) 4 mg IV Q2H PRN PRN Reason: PAIN Ondansetron HCl (Zofran Inj*) 4 mg IV Q6H PRN PRN Reason: nausea Oxycodone HCl (Roxycodone Tab*) 10 mg PO Q4H PRN PRN Reason: PAIN - SEVERE Last Admin: 06/06/18 22:07 Dose: 10 mg Oxycodone/Acetaminophen (Percocet 5/325 Tab*) 1 tab PO Q4H PRN PRN Reason: PAIN Oxycodone/Acetaminophen (Percocet 5/325 Tab*) 2 tab PO Q4H PRN PRN Reason: PAIN Pregabalin (Lyrica Cap(*)) 100 mg PO QAM DENA Rivaroxaban (Xarelto(*)) 20 mg PO QAM [facility] Zolpidem Tartrate (Ambien Tab*) 10 mg PO BEDTIME PRN; Protocol PRN Reason: INSOMNIA SOCIAL HISTORY: Non smoker, non drinker, lives with in 1 story house, 0 JEFF. Retired customs broker Vital Signs Temp Pulse Resp BP Pulse Ox 98.0 F 100 18 127/96 95 06/06/18 21:26 06/06/18 21:26 06/06/18 22:07 06/06/18 21:26 06/06/18 21:26 EXAM: GENERAL: alert, oriented x 3 LUNGS: clear HEART: regular rhythm ABDOMEN: Soft, +BS EXTREMITIES: Left shoulder wrapped. PPI. Some edema left hand NEUROLOGIC: A & O. Able to move all 4 extremities ASSESSMENT: 1. Left Shoulder Pain 2. Left Total Shoulder Replacement 3. Chronic Pain on Chronic Opioid Therapy PLAN: As he normally takes [place], 10/325 6 times a day, he may need more than 2 Percocet to control his post-op pain. I will write for Oxycodone 15 mg Q4H PRN and 20 mg Q4H PRN. He also has MSO4 4 mg IV for breakthrough. He was instructed to call the Pain Clinic tomorrow before they close to update them. Thanks.
[2018-06-07] MEDS: ceFAZolin 1 GM in Dextrose (*) 1 GM/50 ML BAG IVPB SCH ×3 (00:06→14:55)
[2018-06-07] MEDS: oxyCODONE/Acetamin 5/325 MG* TAB PO PRN ×2 (00:19→12:43)
[2018-06-07] MEDS: Morphine VIAL* 4 MG/ML VIAL (1 ml vial) IV PRN ×2 (01:07→03:37)
[2018-06-07] MEDS: Acetaminophen TAB* 325 MG PO SCH ×2 (01:24→08:33)
[2018-06-07] MEDS: oxyCODONE TAB* 5 MG TAB PO PRN ×3 (05:31→15:41)
--- NOTE | 2018-06-07 07:52 | RAD ---
INDICATION: Postop status post total left shoulder replacement surgery. TECHNIQUE: 2 views of the left shoulder were obtained. FINDINGS: The patient is status post total left shoulder replacement surgery with a reversed polarity prosthesis. The bones and prostheses are in normal alignment. There are multiple surgical chacho present. There is widening of the acromioclavicular joint which is unchanged from the prior study. IMPRESSION: STATUS POST LEFT SHOULDER ARTHROPLASTY. R1
[2018-06-07 08:12] LABS: EGFR Non-African American 72.6 (>60)
[2018-06-07] MEDS: Magnesium Hydroxide LIQ* 30 ML UDC PO SCH (08:31)
--- NOTE | 2018-06-07 08:32 | PN ---
Progress Note - Progress Note Date of Service: 06/07/18 SOAP: Subjective: []Patient seen and examined at bedside. He feels well and desires DC home today. Denies CP, SOB, dizziness, nausea, LUE numbness. Objective: [] General: Well appearing, NAD LUE: Drain removed with tip intact and without complication. Elbow, wrist and digits with flexion and extension intact. Okay sign and thumbs up sign intacyt. Sensation intact distally. 2+ radial pulse and capillary refill less than two seconds distally. Calves supple and nontender without erythema, edema or palpable cords Assessment: []POD1 s/p Left total shoulder replacement Plan: []Non-weight bearing for operative upper extremity. No active or passive range of motion of the shoulder. Continue elbow, wrist, and hand pendulums shown by PT . elbow should be visible to patient at all times, Do not posteriorly extend elbow. Per Dr Melendez pain consult: As he normally takes [place], 10/325 6 times a day, he may need more than 2 Percocet to control his post-op pain. I will write for Oxycodone 15 mg Q4H PRN and 20 mg Q4H PRN. He also has MSO4 4 mg IV for breakthrough. He was instructed to call [facility] tomorrow before they close to update them. dc home today Vital Signs Temp 98.0 F 06/07/18 12:50 Pulse 87 06/07/18 12:50 Resp 20 06/07/18 12:50 BP 138/78 06/07/18 12:50 Pulse Ox 96 06/07/18 12:50 Intake & Output 06/06/18 06/07/18 06/07/18 18:59 06:59 18:59 Intake Total 3000 505 905 Output Total 650 675 650 Balance 2350 -170 255 Weight 292 lb Intake: IV Fluids 3000 55 105 ABX - CEFAZOLIN 55 55 ANCEF 3 GMS 100 LR 50 lr 2900 Oral 450 800 Output: Hemovac Amount #1 250 Urine 400 675 400 Estimated Blood Loss 250 Other: Estimated Void Large Large # Voids 1 1 Laboratory Last Values Hgb 10.3 g/dl (14.0-18.0) L 06/07/18 08:26 Hct 33 % (42-52) L 06/07/18 08:26 Plt Count 256 10^3/ul (150-450) 06/07/18 08:26 MPV 7.8 um3 (7.4-10.4) 06/07/18 08:26 Sodium 137 mmol/L (135-145) 06/07/18 06:31 Potassium 4.8 mmol/L (3.5-5.0) 06/07/18 06:31 Chloride 105 mmol/L (101-111) 06/07/18 06:31 Carbon Dioxide 27 mmol/L (22-32) 06/07/18 06:31 Anion Gap 5 mmol/L (2-11) 06/07/18 06:31 BUN 19 mg/dL (6-24) 06/07/18 06:31 Creatinine 1.04 mg/dL (0.67-1.17) 06/07/18 06:31 Est GFR ( Amer) 87.9 (>60) 06/07/18 06:31 Est GFR (Non-Af Amer) 72.6 (>60) 06/07/18 06:31 BUN/Creatinine Ratio 18.3 (8-20) 06/07/18 06:31 Glucose 120 mg/dL (70-100) H 06/07/18 06:31 Calcium 8.2 mg/dL (8.6-10.3) L 06/07/18 06:31 <Myesha Harper - Last Filed: 06/07/18 13:18> - Progress Note SOAP: Pt seen and examined at 6:15 AM. Appreciate pain consult. Reviewed operative findings. Pt wants to go home today. Dressing down on Monday to shower. Reviewed positioning of shoulder. Will see at post op visit. <Hattie Burns - Last Filed: 06/07/18 21:03>
[2018-06-07] MEDS: Docusate CAP* 100 MG PO SCH (08:33)
[2018-06-07] MEDS: Divalproex DR TAB(*) 250 MG PO SCH (08:33)
[2018-06-07 08:49] LABS: Hematocrit 33 % (42-52); Hemoglobin 10.3 g/dl (14.0-18.0); Mean Platelet Volume 7.8 um3 (7.4-10.4); Platelet Count 256 10^3/ul (150-450)
[2018-06-07] MEDS ORDERED: Metoprolol Succinate XL TAB* 100 MG PO SCH (09:00)
[2018-06-07] MEDS ORDERED: Allopurinol TAB* 300 MG PO SCH (09:00)
[2018-06-07] MEDS ORDERED: Rivaroxaban TAB(*) 20 MG TAB PO SCH (09:00)
[2018-06-07] MEDS ORDERED: Pregabalin CAP(*) 100 MG PO SCH (09:00)
[2018-06-07 12:50] VITALS: BP 138/78
--- NOTE | 2018-06-07 12:51 | OP ---
DATE OF OPERATION: 06/06/18 - ROOM #347 DATE OF : 57 ATTENDING SURGEON: Hattie Burns MD ASSISTANTS: IVONE Tran and Rosalina GARCIA student. ANESTHESIOLOGIST: Dr. Boudreaux. ANESTHESIA: General with interscalene block. PRE-OP DIAGNOSES: 1. Left shoulder glenohumeral arthritis, humeral fracture nonunion, malunion. 2. Complete rotator cuff tear. POST-OP DIAGNOSES: 1. Left shoulder glenohumeral arthritis, humeral fracture nonunion, malunion. 2. Complete rotator cuff tear. OPERATIVE PROCEDURES: Left reverse shoulder arthroplasty. Please add #22 modifier complication as the case required a significant amount of time due to patients size, previous surgery, deformity of shoulder, distortion of anatomy. ESTIMATED BLOOD LOSS: 400 cc. IMPLANTS: Tornier Aequalis Flex Ascend stem size 3 with a centered base plate and +9 poly reverse baseplate 29 x 40 with a size 36 head. INDICATIONS: Santosh Coombs is a 62-year-old male with a very complicated history of left shoulder dislocation where he tore his rotator cuff, he also fractured his lesser tuberosity. He then underwent open reduction internal fixation, but the tuberosity did not heal; however, his subscap ended up being repaired. He has since had increasing pain and dysfunction. He had limitations in his range of motion for years as well as a component of pseudoparalysis as well as stiffness. He has also had numerous other surgeries, with distal clavicle excision. He has had a removal of loose body from arthroscopy and he has not done well. After extensive discussion and multiple opinions provided to the patient, it was determined that he is a candidate for reverse. We were waiting until he was a little bit older, his pain has increased significantly out of proportion, he is on narcotic pain medication. He has significant dysfunction. We talked about the risks and benefits of surgery. Risks include but are not limited to bleeding, infection, damage to nerves, vessels, surrounding structures, wound nonhealing, persistent pain, need for further surgery, scarring, stiffness, incomplete relief of symptoms, risk of anesthesia, risk of dislocation, fracture, and loss of motion. He has elected to proceed with surgery. DESCRIPTION OF PROCEDURE: The patient was greeted in the preoperative area by the attending surgeon. Correct extremity was marked, consent was confirmed. The patient was brought back to the operating suite, where he was placed in the supine position on the operating table. He then underwent interscalene nerve block by the anesthesiologist in the preoperative area. He then was brought back to the operating suite where he was placed in a supine position on the operating table. He then underwent general anesthesia with endotracheal intubation after which he was appropriately positioned on the bed in the lazy beach chair position. All bony prominences were padded. He was secured with straps. The left shoulder was then prepped and draped in the usual sterile fashion with chlorhexidine soap, scrub and alcohol wipe and a final prep with ChloraPrep. After appropriate surgical pause indicating side, site, procedure, administration of antibiotics, previously made incision was utilized and extended proximally and distally. Soft tissues were carefully exposed. There was abundant scar tissue on the muscle planes, it was difficult to identify. Therefore, distally the deltopectoral groove was identified and then tracked proximally. The pec tendon was identified, the proximal 1 cm was released. The abundant significant scar tissue about the bursal space was then carefully released. The patient had significant superior migration of the humeral head that was evident. As the dissection was taken proximally, the deformity of the patient's head was noted. He had a previous lesser tuberosity fracture that resulted in deformity of the anterior aspect of the head. The bicipital groove was able to be palpated, but only certain parts. At this point, the evidence of a full thickness supraspinatus tear tendon was identified, but the subscap in part was still attached on the bursal aspect. After the soft tissues were exposed and the conjoint tendon identified and the CA ligament released, the subscap was then released in a peeled fashion. This had a large bony fragment from his previous lesser tuberosity fracture that was embedded in the tendon. The tendon quality was poor, it was released and the patient was attempted to be externally rotated. This appeared to quite challenging. Subscap was released to expose the humeral head, but there was obviously the large fragment in the tendon itself that was blocking margin. This was then carefully scalloped out and removed. This was about 3 cm x 2 cm in dimension. The subscap had been tagged, but again was poor quality. After the subscap was released, fluid and culture specimens were then sent for stat Gram stain and culture, to be held for 10 to 14 days for P acnes. The patient has a history of possible infection in his shoulder, which may have been actually Vicryl sensitivity. The larger head glenosphere was chosen to prevent the risk of dislocation. This was very challenging to put in, but we were able to place it in. It was slightly larger in size than his glenoid was, however. At this point , this was secured. Appropriately, attention was then directed to the humeral stem. At this point, the humeral head was then carefully dislocated. Again he had significant deformity. Using the humeral cut guide, a provisional cut was made to try to not take too much bone, because this case was already complicated with the deformity. Once this was done, the canal finder was placed, his canal also was slightly distorted and when I tried to put the appropriate amount of version on the humeral component it drifted to more about 30 to 40 degrees retroversion compared to the 20 degrees which would have been optimal. The bone quality was okay, it was found that the size 3 was appropriate fit. The protector plate was placed and then attention was directed to the glenoid. The humeral shaft was placed deep into the wound. Posterior retractor was placed first, then a superior glenoid retractor Hohmann was placed. I exposed the glenoid, which had a small amount of cartilage remaining. The subscap was then mobilized. The superior, inferior, and middle glenohumeral ligaments were released. The neck retractor was placed anteriorly. This exposed the entire glenoid. The Mathis was then used to remove any remaining cartilage. At this point, the labrum was released beginning superiorly and then anteriorly. Then with tension on the inferior sutures, the inferior labrum was then released with care to prevent any iatrogenic injury to the vessels. This allowed for good exposure of the glenoid. At this point, about 10 mm from the inferior port it was provisionally marked. The size 29 guidewire was then drilled and placed. Once that was appropriately positioned, the reamer was then used to ream the chondral surface to allow for a bony bleeding bed. The footprint reamer was then used to ream around where the base plate would fit. This was then lavaged and any loose debris was removed. The size 8 mm cannulated drill bit was then drilled, and a size 6.5 mm cannulated drill bit was then drilled through the length of the glenoid center peg, which was found to be about 38. The final implant was then chosen and brought to the field and then placed with excellent purchase, 3 interlocking screws were then placed of equivocal length with a good fixation. At this point, because of the patient's size it was determined that we should try the larger glenosphere to prevent dislocation as this is a risk based on his BMI, his history. After the subscap was released, fluid and culture specimens were then sent for stat Gram stain and culture, to be held for 10 to 14 days for P acnes. The patient has a history of possible infection in his shoulder, which may have been actually Vicryl sensitivity. The larger head glenosphere was chosen to prevent the risk of dislocation. This was very challenging to put in, but we were able to place it in. It was slightly larger in size than his glenoid was, however. At this point, this was secured. Appropriately, attention was then directed to the humeral stem. The humerus just brought through the wound and assessed. The #3 stem was still fitting appropriately. The centered baseplate was then placed and the trial implant. The patient had been paralyzed and this was confirmed, but the shoulder was unable to be reduced. Further releases had been done posteriorly, anteriorly. The CA ligament was confirmed to be released. Any remaining infraspinatus was released, but the patient had very tight anatomy and it was difficult to reduce. After a significant time with trial and error trying to re- cut the humeral head, with care not to violate and take away the greater tuberosity, it was determined that the glenosphere was a larger size, then could be accommodating the shoulder and therefore, the size 36 head was then placed. After this, the shoulder was able to be trialed but because of the patient's anatomy, the version was appropriate. X- ray was brought in to make sure that there was no fracture or damage to the shoulder and that the components were well placed and this was confirmed. Finally, the stem was checked again and again his version was not 20 degrees like we had said, so reassessed and retrialed, also bone graft from his humerus was placed. This allowed for a good press fit and allowed me to fix the version of the humerus. Once that was appropriately seated, the shoulder was able to be reduced. There was concern with a +6 poly that there may be more give and therefore the +9 was placed, it was found to have better fit. The shoulder was able to be forward flex to about 110, externally rotated to about 40 degrees, and abducted to about 90. The patient had poor preop range of motion, this was customer retention representative of that as well. Once the stability was confirmed and the x-ray confirmed acceptable alignment, the final implants were brought to the field. The centered tray was impacted onto the size 3 stem which was placed, with the version allowed to make sure that the version did not change, this was impacted and placed in a good position. Then the poly was impacted and placed. The shoulder was then reduced and taken through range of motion, it was found to satisfactory. At this point, the subscap was not able to be repaired again because of his previous surgery and because of the large loose body that was misplaced in it. The wounds were then copiously irrigated with sterile saline. At this point, Gram stain did come back and was found to be negative. The intraarticular drain was then placed. The deltopectoral interval was closed with #2 Ethibond sutures. The skin was closed with 2-0 Vicryl and chacho. Sterile dressings were applied as well as a Cryo/Cuff and an UltraSling with no pillow. He was awoken from anesthesia and transferred to PACU in stable condition. This case did take significantly longer than typical reverse arthroplasty due to the patient's anatomy, due to the adhesions, due to the preoperative contracture, as well as the large BMI of the patient. POSTOPERATIVE PLAN: He will be admitted and receive 24 hours of antibiotics. He will be on pain medication. Acute pain consult was made because the patient has a previous history of pain management issues. We will take out the drain on postop day #1. He will be in the sling for 6 weeks. Postoperative x-rays were obtained and found to be a located joint. I will follow the patient very closely and I may limit his passive range of motion. I will see the patient back in 10 to 14 days. [id number]/CPS #: [id number]
== END 2018-06-07 15:40 | disposition home or self-care (01) | DRG 315 ==
LOC: AA 09:35 → SSU 19:37
PROVIDERS: ADMIT Orthopaedic Surgery; ATTEND Orthopaedic Surgery
PROC: 0RRK00Z Replacement of Left Shoulder Joint with Reverse Ball and Socket Synthetic Substitute, Open Approach (ICD-10-PCS; principal; 2018-06-06 11:00)
DX: M19.012 Primary osteoarthritis, left shoulder (principal); S42.26 Fracture of lesser tuberosity of humerus; M87.9 Osteonecrosis, unspecified; I10 Essential (primary) hypertension; M47.816 Spondylosis without myelopathy or radiculopathy, lumbar region; M48.07 Spinal stenosis, lumbosacral region; G60.9 Hereditary and idiopathic neuropathy, unspecified; I48.0 Paroxysmal atrial fibrillation; I77.819 Aortic ectasia, unspecified site; M75.122 Complete rotator cuff tear or rupture of left shoulder, not specified as traumatic; G40.909 Epilepsy, unspecified, not intractable, without status epilepticus; E66.9 Obesity, unspecified; I08.3 Combined rheumatic disorders of mitral, aortic and tricuspid valves; I48.2 Chronic atrial fibrillation; R94.31 Abnormal electrocardiogram [ECG] [EKG]; G89.29 Other chronic pain; Z88.1 Allergy status to other antibiotic agents; Z82.0 Family history of epilepsy and other diseases of the nervous system; Z82.61 Family history of arthritis; Z80.8 Family history of malignant neoplasm of other organs or systems; Z91.048 Other nonmedicinal substance allergy status; Z87.891 Personal history of nicotine dependence; Z88.8 Allergy status to other drugs, medicaments and biological substances; Z68.37 Body mass index [BMI] 37.0-37.9, adult
CPT/HCPCS: 36415; 76001; 80048; 85014; 85018; 85049; 87070; 87073; 87205; 88304; 88311; A9270-GY; C1713; C1776; J0690; J1100; J2250; J2270; J2704; J2795; J3010; J3490; J8540

== ENCOUNTER 2018-10-08 03:54 | Emergency (ER) | payer OTHER ==
--- OUTSIDE RECORDS SUMMARY | 2018-10-08 04:03 | XMS REPORT | Continuity of Care Document ---
:1955 External Reference #:[id number] Author Name Trish Bartholomew Care Team Providers Name Role Phone Abby Arora MD Primary Care Physician Unavailable Payers Date Identification Numbers Payment Provider Subscriber Policy Number: [id number] Jamaal Coombs Group Number: [id number] [address] PayID: [id number] [place] [address] Expires: 2015 Policy Number: [id number] [employer] Melinda Coombs PayID: [id number] [address] [address] [place] [address] Effective: 2015 Policy Number: 70% [facility] Melinda Coombs Expires: 2017 PayID: [id number] [address] Advance Directives Description No Information Available Problems Date Description Provider Status Onset: 03/20/2013 [...] fibrillation Eliezer Barnes NP Active Onset: 01/20/2017 Other specific joint derangements of Hattie Burns MD Active left shoulder, not elsewhere classified Onset: 04/14/2017 Residual foreign body in soft tissue Hattie Burns MD Active Onset: 07/17/2018 Prosthetic arthroplasty of shoulder Hattie Burns MD Active Family History Date Family Member(s) Observation Comments General Epilepsy Father Alive And Well Father dementia Mother Rheumatoid Arthritis Mother Throat Cancer First Daughter Alive And Well Second Daughter Alive And Well Third Daughter Epilepsy First Brother Alive And Well Second Brother Alive And Well Paternal Grandfather due to Natural Causes () Paternal Grandmother due to Natural Causes () Maternal Grandfather due to [place] () Maternal Grandmother due to Natural Causes () Social History Type Date Description Comments Sex Unknown Marital Status Occupation Currently Working Occupation [employer] advisor ETOH Use Denies alcohol use Tobacco Use Start: Unknown End: Patient is a former 20 years ago, 1 Unknown smoker PPD Recreational Drug Use Denies Drug Use Smoking Status Reviewed: 09/26/18 Patient is a former 20 years ago, 1 smoker PPD Exercise Type/Frequency Exercises regularly walks 5 days a week Allergies, Adverse Reactions, Alerts Date Description Reaction Status Severity Comments 11/12/2012 Doxycycline hives Active hives 05/05/2015 Flecainide Active seizure 10/14/2016 Vicryl Sutures suture abscess Active 11/09/2012 NKDA Inactive Medications Medication Date Status Form Strength Qnty SIG Indications Ordering Provider Cephalexin 09/26 Active Capsules 500mg 15cap one tablet Z96.612 s three times Holly, a day for 5 M.D. days Guaifenesin-Cod 09/07 Active Syrup 100-10mg/ 240ml 10 J06.9 Eliezer ei 5ML milliliters KARLY Barnes four times a day as needed cough Colace 06/07 Active Capsules 100mg 90cap 1 tab every Zane s 12 hours as Yasalvador, needed for MD constipation Zolpidem 01/23 Active Tablets ER 12.5mg 30tab Take One Eliezer Tartrate ER s Tablet By KARLY Barnes Mouth AT Bedtime as Needed Maximum Daily Dose=1 Nebulizer 08/28 Active Device 1unit use for R06. Eliezer s albuterol KARLY Barnes nebulized solution up to 4 times a day. Nebulizer 08/28 Active Kit QS for use 4 R06 Eliezer Kit/Tubing/Mout times daily KARLY Barnes hpiece as needed [...] twice daily during flare of neuropathy Hydrocodone 00 Active 1 tab q-6 Unknown Bitartrate/Acet /0000 hours as aminophen needed Metoprolol Active Tablets ER 100mg 30tab Take One Eliezer Succinate ER /0000 24HR s Tablet By KARLY Barnes Mouth Every Day Allopurinol 00 Active Tablets 300mg 30tab Take One Eliezer /0000 s Tablet By KARLY Barnes Mouth Every Day Fish Oil Active Capsules 1000mg 1 tab by Unknown /0000 mouth every morning Levofloxacin 08/01 Hx Tablets 500mg 10tab one by mouth R0 s daily for 10 Varn, - days N.P. 08/11 Guaifenesin-Cod 08/01 Hx Syrup 100-10mg/ 240ml 10 R05 5ML milliliters Varn, - three times N.P. 08/15 a day needed cough Qvar Redihaler 07/25 Hx Aerosol 40mcg/Act 31.8g 2 puffs by m mouth twice Molly RECREATION ASSISTANT - a day 07/25 Alprazolam 06/04 Hx Tablets 0.5mg 10tab 08/22-1 Tab s Twice Daily KARLY Barnes - as Needed 09/06 For Anxiety Ergocalciferol 05/08 Hx Capsules [id number] 8caps Take 1 by Zaneb mouth weekly Grant, - x 8 weeks 06/04 Levofloxacin 02/13 Hx Tablets 500mg 10tab one by mouth J01.90 s daily for 10 Varn, - days N.P. 02/23 Fluticasone 10/25 Hx Suspension 50mcg/Act 16uni 2 sprays R0 Propionate ts each nostril Varn, - daily as N.P. 04/26 Guaifenesin-Cod 10/25 Hx Solution 100-10mg/ 236ml 10 R05 5ML milliliters Varn, - 3 times a N.P. Guaifenesin-Cod 10/25 Hx Solution 100-10mg/ 236ml 10 R05 5ML milliliters Varn, - 3 times a N.P. Guaifenesin-Cod 10/25 Hx Syrup 100-10mg/ 240ml 10 5ML milliliters Varn, - three times N.P. 04/24 a day needed cough Guaifenesin-Cod 08/28 Hx Solution 100-10mg/ 236ml 10 ml 3 Boley 5ML times a day Landon Mccabe M.D. 09/04 Pulmicort 08/28 Hx Aerosol 180mcg/Ac 1unit 2 puffs R05 Parris Flexhaler t s twice daily Varn, - N.P. 03/15 Ipratropium 08/28 Hx Solution 0.5-2.5(3 90uni 1 vial in R06.02 Eliezer [place]/Albuter /2017 )mg/3ML ts nebulizer KARLY Barnes ol Sulfate - four times a 02/13 day as needed for asthma Levofloxacin 06/14 Hx Tablets 500mg 10tab one by mouth J01.90 Eliezer s daily for 10 Molly, RECREATION ASSISTANT - days 06/25 Benzonatate 06/14 Hx Capsules 200mg 30cap one by mouth J01.90 Eliezer s three times Molly, RECREATION ASSISTANT - daily as 06/20 needed for cough Amoxicillin/Cla 05/16 Hx Tablets 875-125mg 20tab one tablet J01.90 Parris vulanate s by mouth Varn, Potassium - twice daily N.P. 05/26 for 10 Pulmicort 05/16 Hx Aerosol 180mcg/Ac 1unit 2 puffs R05 Parris Flexhaler t s twice daily Varn, - N.P. 06/15 Fluticasone 05/16 Hx Suspension 50mcg/Act 16uni 2 sprays J01.90 Parris Propionate ts each nostril Varn, - daily as N.P. 05/30 needed Zolpidem 05/01 Hx Tablets 10mg 30tab 1/2 to 1 tab Eliezer Tartrate s by mouth Molly RECREATION ASSISTANT - every night 01/23 at bedtime as needed Percocet 01/07 Hx Tablets 5-325mg 30tab 1 - 2 tabs s by mouth Yaseen, - every 4 - 6 02/06 hours needed for pain. Keflex 01/04 Hx Capsules 500mg 28cap 1 tab by ne s mouth four Yaseen, - times a day MD 02/06 Oxycodone HCL 01/04 Hx Tablets 5mg 30tab 1-2 tabs by ne s mouth every Yaseen, - 4-6 hours as 01/27 needed Bactrim DS 10/05 Hx Tablets 800-160mg 14tab Take 1 by ne s mouth daily Yaseen, - x 14 days 12/10 Oxycodone HCL 09/02 Hx Capsules 5mg 30cap one to two Zaneb s tablets Grant, - every 6 08/13 hours needed for pain Keflex 08/25 Hx Capsules 500mg 40cap take 1 tab M67.412 Zaneb s by mouth Grant, - four times a MD 08/13 day x days Percocet 08/08 Hx Tablets 5-325mg 40tab take 1 tabs neb s as needed Grant, - for pain 08/13 every hours. do not combine with tylenol Oxycodone-Aceta 08/02 Hx Tablets 5-325mg 60tab 1-2 tabs po M67.412 Zaneb min s q 4 hrs prn Grant, - pain MD 08/13 Hydrocodone-Danyel 07/19 Hx Tablets 10-325mg 180ta 1-2 tablet S43.82xD Eliezer taminophen bs every 6 KARLY Barnes - hours as 08/13 needed for pain M25.512 Oxycodone-Acetaminophen 07/12/2016 Hx Tablets 5-325mg 60tabs 1-2 tabs M19.012 Zaneb - by mouth Grant, 07/19/2016 every 4 MD hours as needed pain Valium 07/06/2016 Hx Tablets 5mg 2tabs 1 by Eliezer - mouth KARLY Barnes 12/10/2016 one hour prior to MRI. May repeat x 1 if not drowsy and still nervous. Oxycodone-Acetaminophen 07/05/2016 Hx Tablets 5-325mg 60tabs 1-2 tabs M75.122 Zaneb - po q 4 Grant, 07/12/2016 hrs prn pain Zolpidem Tartrate ER [...] 30caps take one Eliezer 08/23/2017 tablet by Molly, RECREATION ASSISTANT mouth once daily as needed Hydrocodone-Acet 03/02/2016 - Hx Tablets 10-325m 120tabs 1 tablet S43 Eliezer aminophen 04/13/2016 g every 6 .82 KARLY Barnes hours as xD needed for pain Advair HFA 02/23/2016 - Hx Aerosol 230-21m 8gm 2 puffs R05 Eliezer 08/22/2016 cg/Act twice daily Molly RECREATION ASSISTANT (not using) Benzonatate 02/19/2016 - Hx Capsules 200mg 30caps one by mouth R05 Eliezer 12/26/2016 three times KARLY Barnes daily as needed for cough [...] Eliezer ulanate 02/13/2016 mg tablet q12 .00 KARLY Barnes Potassium hours for 10 days Advair HFA 02/03/2016 - Hx Aerosol 230-21m 8gm 2 puffs R05 Eliezer 02/17/2016 cg/Act twice daily KARLY Barnes x 2 weeks Percocet 01/15/2016 - Hx Tablets 5-325mg 30tabs take 1 tabs M75 Zaneb 01/19/2016 as needed .12 MD Grant for pain 2 every 12 hours. do not combine with tylenol Oxycodone-Acetam 11/17/2015 - Hx Tablets 5-325mg 90tabs take 1/2- 1 M25 Eliezer inophen 12/14/2015 tablet by .51 KARLY Barnes mouth every 2 8 hours if needed for pain Amoxicillin/Clav 11/17/2015 - Hx Tablets 875-125 20tabs take one J01 Eliezer ulanate 11/28/2015 mg tablet q12 .00 Molly, RECREATION ASSISTANT Potassium hours for 10 days Hydrocodone-Acet 11/10/2015 - Hx Tablets 5-325mg 60tabs take 1 Eliezer aminophen 11/17/2015 tablet every Molly, RECREATION ASSISTANT 6 hours for pain. Valium 11/06/2015 - Hx Tablets 5mg 2tabs 1 by mouth Eliezer 11/06/2015 one hour Molly, RECREATION ASSISTANT prior to MRI. December repeat x 1 if not drowsy and still nervous. Zolpidem 09/14/2015 - Hx Tablets ER 12.5mg 30tabs 1 by mouth Norberto Tartrate ER 05/26/2016 at bedtime Pachikara, as needed M.D. Hydrocodone-Acet 09/07/2015 - Hx Tablets 5-325mg 120tabs 1 tablets by S43 Eliezer aminophen 03/02/2016 mouth every .82 Molly, RECREATION ASSISTANT 6 hours as xD needed for pain. Hydrocodone-Acet 08/24/2015 - Hx Tablets 5-500mg 60tabs 1 by mouth S43 Dirk aminophen 09/07/2015 every 6 .82 Holly, hours if xD M.D. needed Valium 06/16/2015 - Hx Tablets 5mg 2tabs 1 by mouth 1 Emani 07/08/2015 hour [facility], december M.D. repeat x1 if [...] 07/08/2016 24HR mouth twice William, a day M.DJackie Levetiracetam 02/09/2015 - Hx Tablets 250mg 60tabs [...] 1 po q 4 hr Brayan 03/20/2013 prblair Vanegas M.D. Zithromax - Hx Tablets 500mg 5tabs 1 qd for 5 Unknown Tri-Gaurang 03/20/2013 days Ipratropium - Hx Solution 0.03% 30ml instill 2 Unknown [place] 03/20/2013 sprays in each nostril twice a [...] Burns MD Depomedrol Administered Injection [place] 80MG 012 Satish Ortiz Inj, Administered Injection Alexsravan Pinto Regadenoson, 012 Nik, 0.1 MG Satish, FACPamela, FASNC Technetium TC Administered Injection Alex Blair 99M 012 Mulugeta Zaragoza M.D., FAC, Per Unit Dose FASNC Up To 40 Millicuries Immunizations CPT Code Status Date Vaccine Reaction Lot # [id number] Given 06/22/2017 Influenza Virus Vaccine, No immediate [id number] Quadrivalent, Split, reaction...jh Preservative Free Vital Signs Date Vital Result Comment 09/26/2018 1:52pm Height 75 inches 6'3" Weight 293.00 lb BP Systolic 122 mmHg BP Diastolic 68 mmHg Body Temperature 97.2 F Pain Level 4 BMI (Body Mass Index) 36.6 kg/m2 09/13/2018 9:17am Height 75 inches 6'3" Weight 275.00 lb Heart Rate 89 /min Body Temperature 97.3 F Pain Level 4 O2 % BldC Oximetry 98 % BMI (Body Mass Index) 34.4 kg/m2 09/07/2018 11:34am Height 74 inches 6'2" Weight 281.00 lb Heart Rate 80 /min BP Systolic 114 mmHg BP Diastolic 73 mmHg Body Temperature 99.1 F O2 % BldC Oximetry 97 % BMI (Body Mass Index) 36.1 kg/m2 08/01/2018 11:53am Height 74 inches 6'2" Weight 275.00 lb Heart Rate 96 /min BP Systolic Sitting 104 mmHg BP Diastolic Sitting 65 mmHg Body Temperature 97.2 F O2 % BldC Oximetry 100 % BMI (Body Mass Index) 35.3 kg/m2 07/17/2018 10:19am Height 74 inches 6'2" Weight 294.00 lb BP Systolic 122 mmHg BP Diastolic 68 mmHg Respiratory Rate 20 /min Pain Level 2 BMI (Body Mass Index) 37.7 kg/m2 06/19/2018 10:54am Height 74 inches 6'2" Weight 294.00 lb Heart Rate 80 /min BP Systolic Sitting 142 mmHg Lue lg cuff BP Diastolic Sitting 80 mmHg Lue lg cuff Pain Level 8 BMI (Body Mass Index) 37.7 kg/m2 06/04/2018 2:11pm Height 74 inches 6'2" Weight 294.75 lb Heart Rate 79 /min BP Systolic 124 mmHg BP Diastolic 76 mmHg Body Temperature 96.8 F O2 % BldC Oximetry 97 % BMI (Body Mass Index) 37.8 kg/m2 05/24/2018 1:39pm Height 74 inches 6'2" Weight 286.50 lb Heart Rate 68 /min BP Systolic 146 mmHg BP Diastolic 88 mmHg Respiratory Rate 18 /min Body Temperature 97.5 F Pain Level 7 BMI (Body Mass Index) 36.8 kg/m2 04/27/2018 3:09pm Height 74 inches 6'2" Weight 282.00 lb Heart Rate 64 /min BP Systolic Sitting 120 mmHg LA, large BP Diastolic Sitting 80 mmHg LA, large BMI (Body Mass Index) 36.2 kg/m2 Ejection Fraction 55%-60% echo 02/04/15 04/25/2018 9:57am Height 74 inches 6'2" Weight 263.00 lb BP Systolic Sitting 120 mmHg BP Diastolic Sitting 78 mmHg Respiratory Rate 15 /min BMI (Body Mass Index) 33.8 kg/m2 04/24/2018 2:23pm Height 74 inches 6'2" Weight 286.00 lb BP Systolic 120 mmHg BP Diastolic 74 mmHg Respiratory Rate 18 /min Pain Level 5 BMI (Body Mass Index) 36.7 kg/m2 02/13/2018 1:57pm Height 74 inches 6'2" Weight 286.25 lb Heart Rate 80 /min BP Systolic 109 mmHg BP Diastolic 65 mmHg Body Temperature 97.4 F O2 % BldC Oximetry 96 % BMI (Body Mass Index) 36.7 kg/m2 01/30/2018 2:19pm Height 74 inches 6'2" Weight 284.00 lb Heart Rate 96 /min BP Systolic Sitting 128 mmHg BP Diastolic Sitting 78 mmHg Body Temperature 100.9 F O2 % BldC Oximetry 95 % BMI (Body Mass Index) 36.5 kg/m2 10/25/2017 3:28pm Weight 271.50 lb Heart Rate 82 /min BP Systolic Sitting 126 mmHg BP Diastolic Sitting 80 mmHg Body Temperature 96.3 F O2 % BldC Oximetry 96 % 08/28/2017 4:19pm Weight 271.00 lb Heart Rate 100 /min BP Systolic 120 mmHg BP Diastolic 78 mmHg Body Temperature 97.4 F O2 % BldC Oximetry 97 % 08/24/2017 1:00pm Height 74 inches 6'2" Weight 270.00 lb w/shoes Heart Rate 82 /min BP Systolic Sitting 118 mmHg LA lg cuff BP Diastolic Sitting 74 mmHg LA lg cuff BMI (Body Mass Index) 34.7 kg/m2 Ejection Fraction 75% Jimmy 02/27/17 06/22/2017 9:39am Height 74 inches 6'2" Weight 282.25 lb Heart Rate 87 /min BP Systolic Sitting 118 mmHg BP Diastolic Sitting 72 mmHg O2 % BldC Oximetry 97 % BMI (Body Mass Index) 36.2 kg/m2 06/14/2017 11:13am Height 74 inches 6'2" Weight 281.00 lb Heart Rate 66 /min BP Systolic Sitting 122 mmHg BP Diastolic Sitting 68 mmHg Body Temperature 97.0 F O2 % BldC Oximetry 98 % BMI (Body Mass Index) 36.1 kg/m2 05/16/2017 11:07am Weight 281.50 lb Heart Rate 68 /min BP Systolic 118 mmHg BP Diastolic 68 mmHg Body Temperature 97.4 F O2 % BldC Oximetry 98 % 04/14/2017 10:25am Height 74 inches 6'2" Weight 285.00 lb BP Systolic 132 mmHg BP Diastolic 81 mmHg Respiratory Rate 16 /min Pain Level 4 BMI (Body Mass Index) 36.6 kg/m2 03/10/2017 9:10am Height 74 inches 6'2" Heart Rate 76 /min BP Systolic Sitting 124 mmHg LA, Large BP Diastolic Sitting 70 mmHg LA, Large 02/07/2017 9:07am Height 74 inches 6'2" Weight 285.00 lb Heart Rate 70 /min BP Systolic 128 mmHg BP Diastolic 80 mmHg Body Temperature 95.8 F Pain Level 5 BMI (Body Mass Index) 36.6 kg/m2 01/27/2017 1:53pm Weight 284.00 lb Heart Rate 91 /min BP Systolic 118 mmHg BP Diastolic 80 mmHg Body Temperature 97.8 F O2 % BldC Oximetry 98 % 01/20/2017 11:02am Height 74 inches 6'2" Weight 285.00 lb BP Systolic 131 mmHg BP Diastolic 81 mmHg Respiratory Rate 16 /min Body Temperature 96.3 F Pain Level 4 BMI (Body Mass Index) 36.6 kg/m2 01/10/2017 11:34am Height 74 inches 6'2" Weight 285.00 lb Respiratory Rate 16 /min Body Temperature 96.6 F Pain Level 6 BMI (Body Mass Index) 36.6 kg/m2 12/26/2016 2:52pm Weight 285.00 lb Heart Rate 84 /min BP Systolic Sitting 140 mmHg BP Diastolic Sitting 70 mmHg O2 % BldC Oximetry 97 % 12/21/2016 2:55pm Height 74 inches 6'2" Weight 282.00 lb w/shoes Heart Rate 84 /min BP Systolic Sitting 138 mmHg LA lg cuff BP Diastolic Sitting 98 mmHg LA lg cuff BMI (Body Mass Index) 36.2 kg/m2 Ejection Fraction 55-60% Echo 02/04/15 12/15/2016 9:44am Height 74 inches 6'2" Weight 270.00 lb Heart Rate 84 /min BP Systolic 143 mmHg BP Diastolic 94 mmHg Body Temperature 97.3 F Pain Level 2 BMI (Body Mass Index) 34.7 kg/m2 10/14/2016 8:44am Height 74 inches 6'2" Weight 270.00 lb BP Systolic 120 mmHg BP Diastolic 80 mmHg Respiratory Rate 18 /min Pain Level 0 BMI (Body Mass Index) 34.7 kg/m2 09/13/2016 2:22pm Height 74 inches 6'2" Weight 284.00 lb Respiratory Rate 16 /min Pain Level 6 BMI (Body Mass Index) 36.5 kg/m2 08/25/2016 2:37pm Height 74 inches 6'2" Weight 284.75 lb with shoes Heart Rate 86 /min BP Systolic Sitting 118 mmHg LA lrg cuff BP Diastolic Sitting 80 mmHg LA lrg cuff BMI (Body Mass Index) 36.6 kg/m2 Ejection Fraction 55% - 60% echo 02/04/15 08/25/2016 1:30pm Height 74 inches 6'2" Weight 270.00 lb Heart Rate 64 /min BP Systolic Sitting 132 mmHg BP Diastolic Sitting 80 mmHg Respiratory Rate 16 /min Pain Level 2 BMI (Body Mass Index) 34.7 kg/m2 08/18/2016 8:55am Weight 291.00 lb Heart Rate 68 /min BP Systolic Sitting 132 mmHg BP Diastolic Sitting 80 mmHg Respiratory Rate 15 /min Body Temperature 98.2 F O2 % BldC Oximetry 98 % 08/02/2016 8:25am Height 74 inches 6'2" Weight 270.00 lb Respiratory Rate 16 /min Pain Level 8 BMI (Body Mass Index) 34.7 kg/m2 07/12/2016 11:06am Height 74 inches 6'2" Weight 270.00 lb Pain Level 9 BMI (Body Mass Index) 34.7 kg/m2 07/05/2016 8:36am Height 74 inches 6'2" Weight 270.00 lb Heart Rate 82 /min BP Systolic Sitting 128 mmHg BP Diastolic Sitting 88 mmHg BMI (Body Mass Index) 34.7 kg/m2 06/20/2016 9:36am Weight 277.00 lb Heart Rate 90 /min BP Systolic Sitting 126 mmHg BP Diastolic Sitting 84 mmHg Respiratory Rate 15 /min Body Temperature 97.1 F O2 % BldC Oximetry 98 % 05/26/2016 9:15am Weight 278.50 lb Heart Rate 95 /min BP Systolic Sitting 135 mmHg BP Diastolic Sitting 84 mmHg Body Temperature 96.0 F O2 % BldC Oximetry 98 % 04/13/2016 11:36am Weight 286.00 lb Heart Rate 74 /min BP Systolic Sitting 132 mmHg BP Diastolic Sitting 82 mmHg Respiratory Rate 15 /min O2 % BldC Oximetry 98 % 03/08/2016 12:07pm Height 72.5 inches 6'0.50" Weight 287.00 lb BMI (Body Mass Index) 38.4 kg/m2 03/02/2016 3:52pm Weight 287.00 lb with shoes Heart Rate 106 /min BP Systolic Sitting 120 mmHg BP Diastolic Sitting 84 mmHg Body Temperature 96.7 F O2 % BldC Oximetry 98 % 02/23/2016 2:14pm Height 74 inches 6'2" Weight 286.00 lb Heart Rate 76 /min BP Systolic Sitting 110 mmHg BP Diastolic Sitting 70 mmHg Body Temperature 97.3 F Pain Level 0 BMI (Body Mass Index) 36.7 kg/m2 02/19/2016 3:32pm Weight 285.00 lb Heart Rate 86 /min BP Systolic Sitting 128 mmHg BP Diastolic Sitting 82 mmHg Respiratory Rate 14 /min Body Temperature 98.8 F O2 % BldC Oximetry 97 % 02/03/2016 10:43am Weight 288.00 lb Heart Rate 84 /min BP Systolic Sitting 124 mmHg BP Diastolic Sitting 82 mmHg Respiratory Rate 15 /min Body Temperature 98.3 F O2 % BldC Oximetry 98 % 01/21/2016 3:28pm Weight 290.00 lb Heart Rate 100 /min BP Systolic Sitting 120 mmHg BP Diastolic Sitting 84 mmHg Body Temperature 96.6 F O2 % BldC Oximetry 97 % 01/20/2016 8:30am Height 72.5 inches 6'0.50" Weight 289.25 lb Heart Rate 74 /min BP Systolic Sitting 120 mmHg BP Diastolic Sitting 86 mmHg Respiratory Rate 18 /min Pain Level 4 BMI (Body Mass Index) 38.7 kg/m2 01/15/2016 1:05pm Height 72.5 inches 6'0.50" Weight 294.00 lb Heart Rate 64 /min BP Systolic Sitting 132 mmHg BP Diastolic Sitting 74 mmHg Respiratory Rate 16 /min Pain Level 9 BMI (Body Mass Index) 39.3 kg/m2 12/07/2015 1:56pm Height 72.5 inches 6'0.50" Weight 294.00 lb Heart Rate 80 /min BP Systolic Sitting 112 mmHg BP Diastolic Sitting 64 mmHg Respiratory Rate 14 /min Body Temperature 98.2 F BMI (Body Mass Index) 39.3 kg/m2 11/17/2015 10:42am Height 72.5 inches 6'0.50" Weight 294.00 lb Heart Rate 94 /min BP Systolic Sitting 126 mmHg BP Diastolic Sitting 82 mmHg Respiratory Rate 15 /min Body Temperature 97.2 F O2 % BldC Oximetry 98 % BMI (Body Mass Index) 39.3 kg/m2 11/16/2015 3:23pm Height 72.5 inches 6'0.50" Weight 296.00 lb Heart Rate 80 /min BP Systolic Sitting 130 mmHg BP Diastolic Sitting 82 mmHg Respiratory Rate 14 /min Body Temperature 98.9 F BMI (Body Mass Index) 39.6 kg/m2 10/23/2015 2:31pm Height 72.5 inches 6'0.50" Weight 291.00 lb Heart Rate 85 /min BP Systolic Sitting 128 mmHg BP Diastolic Sitting 78 mmHg Body Temperature 96.7 F O2 % BldC Oximetry 98 % BMI (Body Mass Index) 38.9 kg/m2 09/07/2015 1:04pm Height 72.5 inches 6'0.50" Weight 280.50 lb Heart Rate 63 /min BP Systolic Sitting 122 mmHg BP Diastolic Sitting 79 mmHg Body Temperature 97.0 F O2 % BldC Oximetry 98 % BMI (Body Mass Index) 37.5 kg/m2 08/24/2015 8:13am Height 75 inches 6'3" Weight 282.00 lb BMI (Body Mass Index) 35.2 kg/m2 07/28/2015 11:07am Height 75 inches 6'3" Weight 282.00 lb Heart Rate 74 /min BP Systolic Sitting 122 mmHg BP Diastolic Sitting 82 mmHg Pain Level 0 BMI (Body Mass Index) 35.2 kg/m2 07/09/2015 8:36am Height 75 inches 6'3" Weight 265.00 lb Heart Rate 68 /min BP Systolic Sitting 130 mmHg BP Diastolic Sitting 72 mmHg Respiratory Rate 16 /min BMI (Body Mass Index) 33.1 kg/m2 06/15/2015 2:26pm Height 75 inches 6'3" Weight 265.00 lb Heart Rate 64 /min BP Systolic Sitting 112 mmHg BP Diastolic Sitting 80 mmHg Respiratory Rate 14 /min BMI (Body Mass Index) 33.1 kg/m2 05/27/2015 2:12pm Height 75 inches 6'3" Weight 285.00 lb Heart Rate 71 /min BP Systolic Sitting 126 mmHg BP Diastolic Sitting 80 mmHg Respiratory Rate 14 /min Body Temperature 97.2 F BMI (Body Mass Index) 35.6 kg/m2 05/21/2015 2:16pm Height 75 inches 6'3" Weight 295.00 lb Body Temperature 95.6 F BMI (Body Mass Index) 36.9 kg/m2 05/05/2015 2:51pm Height 75 inches 6'3" Weight 295.00 lb Pain Level 5 BMI (Body Mass Index) 36.9 kg/m2 05/01/2015 11:13am Height 75 inches 6'3" Weight 295.00 lb Pain Level 7 BMI (Body Mass Index) 36.9 kg/m2 04/02/2015 2:49pm Height 75 inches 6'3" Weight 295.00 lb Body Temperature 94.1 F BMI (Body Mass Index) 36.9 kg/m2 03/16/2015 8:44am Height 75 inches 6'3" Weight 295.00 lb Heart Rate 81 /min BP Systolic 118 mmHg BP Diastolic 82 mmHg BMI (Body Mass Index) 36.9 kg/m2 02/10/2015 1:23pm Height 75 inches 6'3" Weight 292.00 lb w/ shoes Heart Rate 70 /min BP Systolic Sitting 124 mmHg Ra, reg BP Diastolic Sitting 80 mmHg Ra, reg BMI (Body Mass Index) 36.5 kg/m2 Ejection Fraction 55-60% 02/04/15 ECHO 02/09/2015 3:32pm Height 75 inches 6'3" Weight 290.00 lb Heart Rate 66 /min BP Systolic Sitting 110 mmHg BP Diastolic Sitting 78 mmHg Respiratory Rate 20 /min BMI (Body Mass Index) 36.2 kg/m2 01/20/2015 3:19pm Height 75 inches 6'3" Weight 305.75 lb with shoes Heart Rate 66 /min BP Systolic Sitting 118 mmHg Ra lg cuff BP Diastolic Sitting 90 mmHg Ra lg cuff Respiratory Rate 16 /min BMI (Body Mass Index) 38.2 kg/m2 01/15/2015 1:30pm Height 75 inches 6'3" Weight 295.00 lb Heart Rate 67 /min BP Systolic Sitting 112 mmHg BP Diastolic Sitting 87 mmHg Pain Level 8 with movement BMI (Body Mass Index) 36.9 kg/m2 10/23/2014 3:13pm Height 75 inches 6'3" Weight 301.00 lb Heart Rate 72 /min BP Systolic Sitting 148 mmHg LA, large BP Diastolic Sitting 90 mmHg LA, large BMI (Body Mass Index) 37.6 kg/m2 05/08/2013 2:15pm Height 75 inches 6'3" Weight 304.00 lb Heart Rate 60 /min BP Systolic 120 mmHg BP Diastolic 84 mmHg BMI (Body Mass Index) 38.0 kg/m2 03/20/2013 2:18pm Height 75 inches 6'3" Weight 300.00 lb Heart Rate 84 /min BP Systolic Sitting 144 mmHg BP Diastolic Sitting 100 mmHg Respiratory Rate 16 /min BMI (Body Mass Index) 37.5 kg/m2 11/12/2012 2:34pm Height 75 inches 6'3" Weight 275.00 lb Heart Rate 72 /min BP Systolic 130 mmHg BP Diastolic 86 mmHg Body Temperature 97.8 F BMI (Body Mass Index) 34.4 kg/m2 Results Test Date Facility Test Result H/L Range Note Drug Abuse 08/10/2018 [facility] Urine Amphetamine Negative ng/ mL 1 [address] [place] [address] [phone] Urine Barbiturates Negative ng/mL 2 Urine Benzodiazepines Negative ng/mL 3 Urine Cocaine Negative ng/mL 4 Urine Phencyclidine Negative ng/mL Cutoff: 25 Urine Tetrahydrocannabinol Negative ng/mL Cutoff: 50 5 Creatinine, Urine 349.8 mg/dL Specific [place] 1.021 pH 5.7 Oxidants Negative 6 Adulterants Comment Normal Codeine, Ur Not Detected ng/mL Cutoff: 25 7 Ghrtvxn-3-wkln-glucuronide, Ur Not Detected ng/mL 8 Morphine, Ur Not Detected ng/mL Cutoff: 25 9 Zljkeptd-5-bosv-glucuronide, U Not Detected ng/mL 10 6-monoacetylmorphine, Ur Not Detected ng/mL Cutoff: 25 11 Hydrocodone, Ur Not Detected ng/mL Cutoff: 25 12 Norhydrocodone, Ur Not Detected ng/mL Cutoff: 25 13 Dihydrocodeine, Ur Not Detected ng/mL Cutoff: 25 14 Hydromorphone, Ur Not Detected ng/mL Cutoff: 25 15 [id number] Not Detected ng/mL 16 Oxycodone, Ur Not Detected ng/mL Cutoff: 25 17 Noroxycodone, Ur Not Detected ng/mL Cutoff: 25 18 Oxymorphone, Ur Not Detected ng/mL Cutoff: 25 19 Pdmkurgubwv-4-fcxp-glucuronide Not Detected ng/mL 20 Noroxymorphone, Ur Not Detected ng/mL Cutoff: 25 21 Fentanyl, Ur Not Detected ng/mL Cutoff: 2 22 Norfentanyl, Ur Not Detected ng/mL Cutoff: 2 23 Meperidine, Ur Not Detected ng/mL Cutoff: 25 24 Normeperidine, Ur Not Detected ng/mL Cutoff: 25 25 Naloxone, Ur Not Detected ng/mL Cutoff: 25 26 Trhmftjy-2-vwtq-glucuronide, U Present ng/mL Abnormal 27 Methadone, Ur Not Detected ng/mL Cutoff: 25 28 Eddp, Ur Not Detected ng/mL Cutoff: 25 29 Propoxyphene, Ur Not Detected ng/mL Cutoff: 25 30 Norpropoxyphene, Ur Not Detected ng/mL Cutoff: 25 31 Tramadol, Ur Not Detected ng/mL Cutoff: 25 32 O-desmethyltramadol, Ur Not Detected ng/mL Cutoff: 25 33 Tapentadol, Ur Not Detected ng/mL Cutoff: 25 34 N-desmethyltapentadol, Ur Not Detected ng/mL Cutoff: 50 35 Bjbjhobscz-mdde-pknxyqfenbl, U Not Detected ng/mL 36 Buprenorphine, Ur Not Detected ng/mL Cutoff: 5 37 Norbuprenorphine, Ur Present ng/mL Abnormal Cutoff: 5 38 Norbuprenorphine glucuronide Not Detected ng/mL Cutoff: 20 39 Opioid Interpretation See Comment 40 Urinalysis Profile 05/24/2018 [facility] Urine Color Yellow [address] [place] [address] [phone] Urine Appearance Clear Urine Specific [place] 1.019 N 1.010-1.030 Urine pH 5.0 N 5-9 Urine Urobilinogen Negative Negative Urine Ketones Negative Negative Urine Protein Negative Negative Urine Leukocytes Negative Negative Urine Blood Negative Negative * * Abnormal Negative 41 Urine Nitrite Negative Negative Urine Bilirubin Negative Negative Urine Glucose Negative Negative CBC Auto Diff 05/24/2018 [facility] White Blood 9.9 10^3/uL N 3.5-10.[address] [place] [address] [phone] Red Blood Count 4.73 10^6/uL N 4.00-5.40 Hemoglobin 12.5 g/dL Low 14.0-18.0 Hematocrit 39 % Low 42-52 Mean Corpuscular Volume 83 fL N 80-94 Mean Corpuscular Hemoglobin 26 pg Low 27-31 Mean Corpuscular HGB Conc 32 g/dL N 31-36 Red Cell Distribution Width 17 % High 10.5-15 Platelet Count 356 10^3/uL N 150-450 Mean Platelet Volume 8.1 um3 N 7.4-10.4 Abs Neutrophils 5.2 10^3/uL N 1.5-7.7 Abs Lymphocytes 3.2 10^3/uL N 1.0-4.8 Abs Monocytes 1.1 10^3/uL High 0-0.8 Abs Eosinophils 0.3 10^3/uL N 0-0.6 Abs Basophils 0 10^3/uL N 0-0.2 Abs Nucleated RBC 0 10^3/uL Granulocyte % 53.0 % N 38-83 Lymphocyte % 32.3 % N 25-47 Monocyte % 11.5 % High 0-7 Eosinophil % 2.8 % N 0-6 Basophil % 0.4 % N 0-2 Nucleated Red Blood Cells % 0.1 Inr/Protime 05/24/2018 [facility] Inr 1.51 High 0.77-1.[address] [place] [address] [phone] Laboratory test 05/24/2018 [facility] Partial 43.4 High 26.0- 36.[address] [place] [address] Time PTT [phone] Comp Metabolic 05/24/2018 [facility] Sodium 140 mmol/L N 135- [address] [place], [place] [id number] [phone] Potassium 4.8 mmol/L N 3.5-5.0 Chloride 104 mmol/L N 101-111 Co2 Carbon Dioxide 31 mmol/L N 22-32 Anion Gap 5 mmol/L N 2-11 Glucose 67 mg/dL Low 70-100 Blood Urea Nitrogen 14 mg/dL N 6-24 Creatinine 0.97 mg/dL N 0.67-1.17 BUN/Creatinine Ratio 14.4 N 8-20 Calcium 9.3 mg/dL N 8.6-10.3 Total Protein 6.6 g/dL N 6.4-8.9 Albumin 4.4 g/dL N 3.2-5.2 Globulin 2.2 g/dL N 2-4 Albumin/Globulin Ratio 2.0 N 1-3 Total Bilirubin 0.30 mg/dL N 0.2-1.0 Alkaline Phosphatase 50 U/L N 34-104 Alt 11 U/L N 7-52 Ast 13 U/L N 13-39 Egfr Non- 78.7 >60 Egfr 95.2 >60 42 Type & Screen 05/24/2018 [facility] Patient Blood Type A Negative [address] [place], [place] [id number] [phone] Antibody Screen NEGATIVE Urine Culture And 05/24/2018 [facility] Urine Culture SEE RESULT [address] [place] [address] [phone] CBC Auto Diff 05/07/2018 [facility] White Blood 6.0 10^3/uL N 3.5-[address] DR[address] Count 0.8 [place], [place] [id number] [phone] Red Blood Count 4.44 10^6/uL N 4.00-5.40 Hemoglobin 11.9 g/dL Low 14.0-18.0 Hematocrit 38 % Low 42-52 Mean Corpuscular Volume 85 fL N 80-94 Mean Corpuscular Hemoglobin 27 pg N 27-31 Mean Corpuscular HGB Conc 32 g/dL N 31-36 Red Cell Distribution Width 17 % High 10.5-15 Platelet Count 281 10^3/uL N 150-450 Mean Platelet Volume 7.9 um3 N 7.4-10.4 Abs Neutrophils 3.0 10^3/uL N 1.5-7.7 Abs Lymphocytes 2.2 10^3/uL N 1.0-4.8 Abs Monocytes 0.6 10^3/uL N 0-0.8 Abs Eosinophils 0.2 10^3/uL N 0-0.6 Abs Basophils 0 10^3/uL N 0-0.2 Abs Nucleated RBC 0 10^3/uL Granulocyte % 49.4 % N 38-83 Lymphocyte % 36.6 % N 25-47 Monocyte % 10.0 % High 0-7 Eosinophil % 3.5 % N 0-6 Basophil % 0.5 % N 0-2 Nucleated Red Blood Cells % 0.1 Laboratory test 05/07/2018 [facility] C Reactive 8.68 mg/L High <8.[address] [place] [address] [phone] Erythrocyte Sed Rate 10 mm/Hr N 0-20 Vitamin D Total 25(Oh) 19.3 ng/mL Low 20-50 CBC Auto 02/01/2018 [facility] White Blood 12.2 10^3/uL High 3.5-10.[address] [place] [address] [phone] Red Blood Count 4.31 10^6/uL N 4.00-5.40 Hemoglobin 11.6 g/dL Low 14.0-18.0 Hematocrit 37 % Low 42-52 Mean Corpuscular Volume 85 fL N 80-94 Mean Corpuscular Hemoglobin 27 pg N 27-31 Mean Corpuscular HGB Conc 32 g/dL N 31-36 Red Cell Distribution Width 17 % High 10.5-15 Platelet Count 229 10^3/uL N 150-450 Mean Platelet Volume 7.6 um3 N 7.4-10.4 Abs Neutrophils 9.1 10^3/uL High 1.5-7.7 Abs Lymphocytes 1.8 10^3/uL N 1.0-4.8 Abs Monocytes 0.8 10^3/uL N 0-0.8 Abs Eosinophils 0.4 10^3/uL N 0-0.6 Abs Basophils 0.1 10^3/uL N 0-0.2 Abs Nucleated RBC 0 10^3/uL Granulocyte % 75.2 % N 38-83 Lymphocyte % 14.4 % Low 25-47 Monocyte % 7.0 % N 0-7 Eosinophil % 3.0 % N 0-6 Basophil % 0.4 % N 0-2 Nucleated Red Blood Cells % 0 Inr/Protime 02/01/2018 [facility] Inr 1.37 High 0.77-1.02 [address] [place] [address] [phone] Comp Metabolic 02/01/2018 [facility] Sodium 136 mmol/L Low 139 -145 Panel [address] [place] [address] [phone] Potassium 4.1 mmol/L N 3.5-5.0 Chloride 101 mmol/L N 101-111 Co2 Carbon Dioxide 27 mmol/L N 22-32 Anion Gap 8 mmol/L N 2-11 Glucose 93 mg/dL N 70-100 Blood Urea Nitrogen 14 mg/dL N 6-24 Creatinine 0.97 mg/dL N 0.67-1.17 BUN/Creatinine Ratio 14.4 N 8-20 Calcium 8.7 mg/dL N 8.6-10.3 Total Protein 6.4 g/dL N 6.4-8.9 Albumin 3.7 g/dL N 3.2-5.2 Globulin 2.7 g/dL N 2-4 Albumin/Globulin Ratio 1.4 N 1-3 Total Bilirubin 0.50 mg/dL N 0.2-1.0 Alkaline Phosphatase 44 U/L N 34-104 Alt 9 U/L N 7-52 Ast 12 U/L Low 13-39 Egfr Non- 78.7 >60 Egfr 101.2 >60 44 Laboratory test 02/01/2018 [facility] Troponin-I (TnI) 0.00 ng/ mL <0.04 finding [address] [place] [address] [phone] Basic Metabolic 12/20/2017 [facility] Sodium 143 mmol/L N 139- 145 Panel [address] [place] [address] [phone] Potassium 4.9 mmol/L N 3.5-5.0 Chloride 104 mmol/L N 101-111 Co2 Carbon Dioxide 32 mmol/L N 22-32 Anion Gap 7 mmol/L N 2-11 Glucose 85 mg/dL N 70-100 Blood Urea Nitrogen 18 mg/dL N 6-24 Creatinine 1.05 mg/dL N 0.67-1.17 BUN/Creatinine Ratio 17.1 N 8-20 Calcium 9.1 mg/dL N 8.6-10.3 Egfr Non- 71.8 >60 Egfr 92.3 >60 45 Laboratory test 12/20/2017 [facility] C Reactive 8.80 High < 5.00 [address] Protein mg/[place] [address] [phone] Order 08/28/2017 [facility] Nebulizer <pending [address] Treatment > [place], [place] [id number] [phone] Lipid Profile 07/03/2017 [facility] Triglycerides 125 47 (Trig/Chol/HDL) [address] mg/[place] [address] [phone] Cholesterol 154 mg/dL 48 HDL Cholesterol 36.1 mg/dL 49 LDL Cholesterol 93 mg/dL 50 Laboratory test finding 07/03/2017 [facility] Glucose 89 mg/dL N 70-[address] [place] [address] [phone] Uric Acid 4.9 mg/dL N 4.4-7.6 52 CRP High Sensitivity 5.25 mg/L 53 Laboratory test 02/07/2017 [facility] PSA Screening 1.083 ng/mL N 0-4.000 [address] [place] [address] [phone] C Reactive Protein 7.45 mg/L High < 5.00 55 Ua Routine 01/27/2017 [facility] Ua Specific [place] 1.020 Ua PH 5 Ua Color yellow Ua Appera clear Ua WBC neg Ua Protein trace Ua Glucose norm Ua Ketones neg Ua Bilirubin neg Ua Urobilinogen norm Ua Nitrite neg Ua Occult Blood trace Body Fluid 01/04/2017 [facility] Body Fluid SEE RESULT 56 C&S [address] [place] [place] [address] Stain [phone] CBC Auto Diff 12/28/2016 [facility] White Blood 8.2 10^3/uL N 3.5-10. [address] Count 8 [place] [address] [phone] Red Blood Count 4.43 10^6/uL N 4.0-5.4 Hemoglobin 13.3 g/dL Low 14.0-18.0 Hematocrit 41 % Low 42-52 Mean Corpuscular Volume 92 fL N 80-94 Mean Corpuscular Hemoglobin 30 pg N 27-31 Mean Corpuscular HGB Conc 33 g/dL N 31-36 Red Cell Distribution Width 16 % High 10.5-15 Platelet Count 224 10^3/uL N 150-450 Mean Platelet Volume 8 um3 N 7.4-10.4 Abs Neutrophils 4.0 10^3/uL N 1.5-7.7 Abs Lymphocytes 3.3 10^3/uL N 1.0-4.8 Abs Monocytes 0.7 10^3/uL N 0-0.8 Abs Eosinophils 0.3 10^3/uL N 0-0.6 Abs Basophils 0 10^3/uL N 0-0.2 Abs Nucleated RBC 0 10^3/uL N Granulocyte % 48.6 % N 38-83 Lymphocyte % 39.7 % N 25-47 Monocyte % 8.0 % N 1-9 Eosinophil % 3.1 % N 0-6 Basophil % 0.6 % N 0-2 Nucleated Red Blood Cells % 0 N Comp Metabolic Panel 12/28/2016 [facility] Sodium 138 mmol/L N 133-[address] [place] [address] [phone] Potassium 4.7 mmol/L N 3.5-5.0 Chloride 102 mmol/L N 101-111 Co2 Carbon Dioxide 30 mmol/L N 22-32 Anion Gap 6 mmol/L N 2-11 Glucose 74 mg/dL N 70-100 Blood Urea Nitrogen 20 mg/dL N 6-24 Creatinine 1.04 mg/dL N 0.67-1.17 BUN/Creatinine Ratio 19.2 N 8-20 Calcium 8.8 mg/dL N 8.6-10.3 Total Protein 6.2 g/dL Low 6.4-8.9 Albumin 4.0 g/dL N 3.2-5.2 Globulin 2.2 g/dL N 2-4 Albumin/Globulin Ratio 1.8 N 1-3 Total Bilirubin 0.30 mg/dL N 0.2-1.0 Alkaline Phosphatase 49 U/L N 34-104 Alt 11 U/L N 7-52 Ast 14 U/L N 13-39 Egfr Non- 72.8 N >60 Egfr 93.7 N >60 57 CBC Auto Diff 09/22/2016 [facility] White Blood 7.4 10^3/uL N 3.5-10.[address] [place] [address] [phone] Red Blood Count 4.64 10^6/uL N 4.0-5.4 Hemoglobin 14.0 g/dL N 14.0-18.0 Hematocrit 43 % N 42-52 Mean Corpuscular Volume 93 fL N 80-94 Mean Corpuscular Hemoglobin 30 pg N 27-31 Mean Corpuscular HGB Conc 32 g/dL N 31-36 Red Cell Distribution Width 15 % N 10.5-15 Platelet Count 265 10^3/uL N 150-450 Mean Platelet Volume 8 um3 N 7.4-10.4 Abs Neutrophils 4.0 10^3/uL N 1.5-7.7 Abs Lymphocytes 2.3 10^3/uL N 1.0-4.8 Abs Monocytes 0.6 10^3/uL N 0-0.8 Abs Eosinophils 0.3 10^3/uL N 0-0.6 Abs Basophils 0.1 10^3/uL N 0-0.2 Abs Nucleated RBC 0 10^3/uL N Granulocyte % 54.2 % N 38-83 Lymphocyte % 31.8 % N 25-47 Monocyte % 8.8 % N 1-9 Eosinophil % 4.5 % N 0-6 Basophil % 0.7 % N 0-2 Nucleated Red Blood Cells % 0.1 N Basic Metabolic Panel 09/22/2016 [facility] Sodium 137 mmol/L N 133-[address] [place] [address] [phone] Potassium 4.4 mmol/L N 3.5-5.0 Chloride 100 mmol/L Low 101-111 Co2 Carbon Dioxide 30 mmol/L N 22-32 Anion Gap 7 mmol/L N 2-11 Glucose 87 mg/dL N 70-100 Blood Urea Nitrogen 13 mg/dL N 6-24 Creatinine 0.97 mg/dL N 0.67-1.17 BUN/Creatinine Ratio 13.4 N 8-20 Calcium 9.3 mg/dL N 8.6-10.3 Egfr Non- 78.9 N >60 Egfr 101.5 N >60 58 Inr/Protime 09/22/2016 [facility] Inr 0.98 N 0.89-1.[address] [place], [place] [id number] [phone] Laboratory test 08/31/2016 [facility] Surgical SEE RESULT [address] [place] [address] [phone] Laboratory test 07/12/2016 [facility] Body Fluid SEE RESULT 60, finding [address] C&S BELOW [address] [place] [address] [phone] Body Fluid Cell 07/12/2016 [facility] Body Fluid Synovial N Count [address] [place] [address] [phone] Body Fluid Appearance Cloudy N Body Fluid Color Yellow N Body Fluid Volume 1 mL N Body Fluid WBC 294 /mcL N 62 Body Fluid RBC 5108 /mcL N Body Fluid Lymph 95 % N Body Fluid Reactive Lymph 5 % N Body Fluid Other Cells 100 N Body Fluid Total Cells Counted 42 N Fluid Reviewed By MD (SEE NOTE) N 63 Laboratory test 07/12/2016 [facility] Cytology Non-Furnace Repairer SEE RESULT [address] [place] [address] [phone] Laboratory test 07/07/2016 [facility] Valproic Acid 38.0 g/mL Low 50-[address] (Depakene) 0 [place] [address] [phone] Laboratory test 07/05/2016 [facility] Erythrocyte Sed 10 mm/Hr N 0-[address] [place] [address] [phone] C Reactive Protein 10.24 mg/L High < 5.00 65 CBC Auto Diff 07/05/2016 [facility] White Blood 5.7 10^3/uL N 3.5-10.[address] [place] [address] [phone] Red Blood Count 4.66 10^6/uL N 4.0-5.4 Hemoglobin 13.9 g/dL Low 14.0-18.0 Hematocrit 42 % N 42-52 Mean Corpuscular Volume 91 fL N 80-94 Mean Corpuscular Hemoglobin 30 pg N 27-31 Mean Corpuscular HGB Conc 33 g/dL N 31-36 Red Cell Distribution Width 16 % High 10.5-15 Platelet Count 210 10^3/uL N 150-450 Mean Platelet Volume 8 um3 N 7.4-10.4 Abs Neutrophils 2.5 10^3/uL N 1.5-7.7 Abs Lymphocytes 2.3 10^3/uL N 1.0-4.8 Abs Monocytes 0.6 10^3/uL N 0-0.8 Abs Eosinophils 0.2 10^3/uL N 0-0.6 Abs Basophils 0 10^3/uL N 0-0.2 Abs Nucleated RBC 0 10^3/uL N Granulocyte % 44.6 % N 38-83 Lymphocyte % 40.1 % N 25-47 Monocyte % 10.7 % High 1-9 Eosinophil % 4.3 % N 0-6 Basophil % 0.3 % N 0-2 Nucleated Red Blood Cells % 0 N Laboratory test 05/17/2016 [facility] Surgical SEE RESULT 66, [address] [place] [address] [phone] Laboratory test 05/17/2016 [facility] Clotest SEE RESULT 68 , [address] [place] [address] [phone] Laboratory test 03/18/2016 [facility] Erythrocyte Sed 8 mm/Hr N 0-[address] [place] [address] [phone] Laboratory test 03/07/2016 [facility] Occult Blood - pos x 2, finding Stool neg x 1 Cardiolipin 03/04/2016 [facility] Phospholipid Ab < 4.0 MPL N 70 Igg/Igm [address] IgM, [place] [address] [phone] Phospholipid Ab IgG < 4.0 GPL N 71 Laboratory test 03/04/2016 [facility] Anti Nuclear 2.1 U Abnormal [address] [place] [address] [phone] Creatine Kinase(CK) 79 U/L N 10-223 73 C Reactive Protein 7.61 mg/L High < 5.00 74 Laboratory test 03/04/2016 [facility] Complement C3 128 mg/dL N 75 - 175 [address] [place] [address] [phone] Complement C4 22 mg/dL N 14 - 40 76 Anti Double Stranded Dna AB <12.3 IU/mL N 77 Vitamin B12 And 03/04/2016 [facility] Vitamin B12 474 pg/mL N 180-914 78 Folate Serum [address] [place] [address] [phone] Folic Acid (Folate) 14.81 ng/mL N >3.99 Laboratory test 03/04/2016 [facility] Ferritin < 10.0 ng/mL Low 24-336 finding [address] [place] [address] [phone] Iron & Iron 03/04/2016 [facility] Iron 73 g/dL N 50-212 Binding Capacity [address] [place] [address] [phone] Unsaturated Iron Binding 406 g/dL N Total Iron Binding Capacity 479 g/dL High 250-450 % Iron Saturation 15 % N 15-55 CBC Auto Diff 03/04/2016 [facility] White Blood 8.3 10^3/uL N 3.5-10.8 [address] [facility] [place] [address] [phone] Red Blood Count 4.80 10^6/uL N 4.0-5.4 Hemoglobin 11.5 g/dL Low 14.0-18.0 Hematocrit 38 % Low 42-52 Mean Corpuscular Volume 79 fL Low 80-94 Mean Corpuscular Hemoglobin 24 pg Low 27-31 Mean Corpuscular HGB Conc 30 g/dL Low 31-36 Red Cell Distribution Width 20 % High 10.5-15 Platelet Count 289 10^3/uL N 150-450 Mean Platelet Volume 8 um3 N 7.4-10.4 Abs Neutrophils 4.8 10^3/uL N 1.5-7.7 Abs Lymphocytes 2.3 10^3/uL N 1.0-4.8 Abs Monocytes 0.8 10^3/uL N 0-0.8 Abs Eosinophils 0.4 10^3/uL N 0-0.6 Abs Basophils 0.1 10^3/uL N 0-0.2 Abs Nucleated RBC 0 10^3/uL N Granulocyte % 58.3 % N 38-83 Lymphocyte % 27.2 % N 25-47 Monocyte % 9.0 % N 1-9 Eosinophil % 4.8 % N 0-6 Basophil % 0.7 % N 0-2 Nucleated Red Blood Cells % 0 N Laboratory test 03/04/2016 [facility] C Reactive 7.75 mg/L High < 5.00 [address] [place] [address] [phone] Vitamin D 1,25 03/04/2016 [facility] Vitamin D 13.7 Low 30-50 80 And Vitamin D,[address] Total 25(Oh) ng/[place] [address] [phone] Vitamin D, 1,25 Dihydroxy 23 pg/mL N 18-64 81 Laboratory test 03/04/2016 [facility] Vitamin B12 475 pg/mL N 180-914 [address] [place] [address] [phone] Silvia Igg AB Reflex 03/04/2016 [facility] SS-A/Ro 0.2 U N [address] [place] [address] [phone] SS-B/La Antibody <0.2 U N 84 Sm (Thompson) IgG Antibody <0.2 U N 85 U1-nRNP Antibody <0.2 U N 86 Scl-70 (Scleroderma) Antibody <0.2 U N 87 Abigail-1 Antibody <0.2 U N 88 Liver Function 01/26/2016 [facility] Total Protein 6.7 g/dL N 6.4-8.[address] [place] [address] [phone] Albumin 4.3 g/dL N 3.2-5.2 Globulin 2.4 g/dL N 2-4 Albumin/Globulin Ratio 1.8 N 1-3 Total Bilirubin 0.40 mg/dL N 0.2-1.0 Direct Bilirubin 0.10 mg/dL N 0.03-0.18 Indirect Bilirubin 0.3 mg/dL N 0.3-1.0 Alkaline Phosphatase 47 U/L N 34-104 Alt 12 U/L N 7-52 Ast 16 U/L N 13-39 Laboratory test 01/26/2016 [facility] C Reactive 11.04 High < 5.00 [address] Protein mg/[place] [address] [phone] Laboratory test 01/26/2016 [facility] Anti Nuclear 2.2 U Abnormal [address] [place] [address] [phone] PSA Screening 0.666 ng/mL N 0-4.000 91 Lipid Profile 01/26/2016 [facility] Triglycerides 182 mg/dL N 92 (Trig/Chol/HDL) [address] [place] [address] [phone] Cholesterol 160 mg/dL N 93 HDL Cholesterol 31.7 mg/dL N 94 LDL Cholesterol 92 mg/dL N 95 Basic Metabolic Panel 01/26/2016 [facility] Sodium 137 mmol/L N 133-[address] [place] [address] [phone] Potassium 4.2 mmol/L N 3.5-5.0 Chloride 101 mmol/L N 101-111 Co2 Carbon Dioxide 30 mmol/L N 22-32 Anion Gap 6 mmol/L N 2-11 Glucose 81 mg/dL N 70-100 Blood Urea Nitrogen 15 mg/dL N 6-24 Creatinine 1.06 mg/dL N 0.67-1.17 BUN/Creatinine Ratio 14.2 N 8-20 Calcium 9.2 mg/dL N 8.6-10.3 Egfr Non- 71.5 N >60 Egfr 92.0 N >60 96 Laboratory test 01/26/2016 [facility] Erythrocyte Sed 4 mm/Hr N 0-[address] [place] [address] [phone] CBC Auto Diff 01/26/2016 [facility] White Blood 5.4 N 3.5- 10.[address] Count 10^3/[place] [address] [phone] Red Blood Count 5.09 10^6/uL N 4.0-5.4 Hemoglobin 11.9 g/dL Low 14.0-18.0 Hematocrit 40 % Low 42-52 Mean Corpuscular Volume 78 fL Low 80-94 Mean Corpuscular Hemoglobin 23 pg Low 27-31 Mean Corpuscular HGB Conc 30 g/dL Low 31-36 Red Cell Distribution Width 18 % High 10.5-15 Platelet Count 278 10^3/uL N 150-450 Mean Platelet Volume 8 um3 N 7.4-10.4 Abs Neutrophils 2.4 10^3/uL N 1.5-7.7 Abs Lymphocytes 2.1 10^3/uL N 1.0-4.8 Abs Monocytes 0.5 10^3/uL N 0-0.8 Abs Eosinophils 0.3 10^3/uL N 0-0.6 Abs Basophils 0 10^3/uL N 0-0.2 Abs Nucleated RBC 0 10^3/uL N Granulocyte % 44.4 % N 38-83 Lymphocyte % 39.8 % N 25-47 Monocyte % 9.9 % High 1-9 Eosinophil % 5.0 % N 0-6 Basophil % 0.9 % N 0-2 Nucleated Red Blood Cells % 0.1 N Laboratory test 12/30/2015 [facility] Anaerobic SEE RESULT [address] [place] [address] [phone] Body Fluid C&S 12/30/2015 [facility] Body Fluid SEE RESULT [address] [place] [address] Stain [phone] Laboratory test 12/18/2015 [facility] C Reactive 52.18 mg/L High < [address] Protein 5.00 [place] [address] [phone] Laboratory test 11/30/2015 [facility] C Reactive 13.25 mg/L High < [address] Protein 5.00 [place] [address] [phone] CBC Auto Diff 09/19/2015 [facility] White Blood 7.2 10^3/uL N 3.5-[address] Count 0.8 [place] [address] [phone] Red Blood Count 4.88 10^6/uL N 4.0-5.4 Hemoglobin 12.6 g/dL Low 14.0-18.0 Hematocrit 41 % Low 42-52 Mean Corpuscular Volume 85 fL N 80-94 Mean Corpuscular Hemoglobin 26 pg Low 27-31 Mean Corpuscular HGB Conc 31 g/dL N 31-36 Red Cell Distribution Width 15 % N 10.5-15 Platelet Count 303 10^3/uL N 150-450 Mean Platelet Volume 8 um3 N 7.4-10.4 Abs Neutrophils 4.3 10^3/uL N 1.5-7.7 Abs Lymphocytes 2.0 10^3/uL N 1.0-4.8 Abs Monocytes 0.6 10^3/uL N 0-0.8 Abs Eosinophils 0.2 10^3/uL N 0-0.6 Abs Basophils 0.1 10^3/uL N 0-0.2 Abs Nucleated RBC 0 10^3/uL N Granulocyte % 60.3 % N 38-83 Lymphocyte % 27.6 % N 25-47 Monocyte % 7.7 % N 1-9 Eosinophil % 3.4 % N 0-6 Basophil % 1.0 % N 0-2 Nucleated Red Blood Cells % 0 N Comp Metabolic Panel 09/19/2015 [facility] Sodium 133 mmol/L N 133-[address] [place] [address] [phone] Potassium 4.4 mmol/L N 3.5-5.0 Chloride 103 mmol/L N 101-111 Co2 Carbon Dioxide 24 mmol/L N 22-32 Anion Gap 6 mmol/L N 2-11 Glucose 113 mg/dL High 70-100 Blood Urea Nitrogen 15 mg/dL N 6-24 Creatinine 0.91 mg/dL N 0.67-1.17 BUN/Creatinine Ratio 16.5 N 8-20 Calcium 9.0 mg/dL N 8.6-10.3 Total Protein 6.2 g/dL Low 6.4-8.9 Albumin 4.1 g/dL N 3.2-5.2 Globulin 2.1 g/dL N 2-4 Albumin/Globulin Ratio 2.0 N 1-3 Total Bilirubin 0.40 mg/dL N 0.2-1.0 Alkaline Phosphatase 46 U/L N 34-104 Alt 11 U/L N 7-52 Ast 13 U/L N 13-39 Egfr Non- 85.3 N >60 Egfr 109.7 N >60 102 Laboratory test 09/11/2015 [facility] Rheumatoid <15 IU/mL N < 15 [address] [place] [address] [phone] Anti Ssa/Ro 0.3 U N 104 Anti SSB LA <0.2 U N 105 U1 BREAKDOWN PERSON/SNRNP Igg Autoabs <0.2 U N 106 SM(Thompson) Igg Autoantibodies <0.2 U N 107 CBC Auto Diff 07/24/2015 [facility] White Blood 7.7 10^3/uL N 4.8-10.[address] [place] [address] [phone] Red Blood Count 4.79 10^6/uL N 4.0-5.4 Hemoglobin 13.7 g/dL Low 14.0-18.0 Hematocrit 42 % N 42-52 Mean Corpuscular Volume 89 fL N 80-94 Mean Corpuscular Hemoglobin 29 pg N 27-31 Mean Corpuscular HGB Conc 32 g/dL N 31-36 Red Cell Distribution Width 17 % High 10.5-15 Platelet Count 301 10^3/uL N 150-450 Mean Platelet Volume 8 um3 N 7.4-10.4 Abs Neutrophils 4.5 10^3/uL N 1.5-7.7 Abs Lymphocytes 2.2 10^3/uL N 1.0-4.8 Abs Monocytes 0.6 10^3/uL N 0-0.8 Abs Eosinophils 0.3 10^3/uL N 0-0.6 Abs Basophils 0.1 10^3/uL N 0-0.2 Abs Nucleated RBC 0 10^3/uL N Granulocyte % 58.6 % N 38-83 Lymphocyte % 29.1 % N 25-47 Monocyte % 8.0 % N 1-9 Eosinophil % 3.5 % N 0-6 Basophil % 0.8 % N 0-2 Nucleated Red Blood Cells % 0 N Comp Metabolic Panel 07/24/2015 [facility] Sodium 140 mmol/L N 133-[address] [place] [address] [phone] Potassium 4.3 mmol/L N 3.5-5.0 Chloride 104 mmol/L N 101-111 Co2 Carbon Dioxide 29 mmol/L N 22-32 Anion Gap 7 mmol/L N 2-11 Glucose 90 mg/dL N 70-100 Blood Urea Nitrogen 15 mg/dL N 6-24 Creatinine 1.00 mg/dL N 0.67-1.17 BUN/Creatinine Ratio 15.0 N 8-20 Calcium 9.0 mg/dL N 8.6-10.3 Total Protein 6.1 g/dL Low 6.4-8.9 Albumin 4.0 g/dL N 3.2-5.2 Globulin 2.1 g/dL N 2-4 Albumin/Globulin Ratio 1.9 N 1-3 Total Bilirubin 0.50 mg/dL N 0.2-1.0 Alkaline Phosphatase 50 U/L N 34-104 Alt 10 U/L N 7-52 Ast 11 U/L Low 13-39 Egfr Non- 76.7 N >60 Egfr 98.7 N >60 108 Teri Hep-2 07/24/2015 [facility] Teri Pattern Speckled N Negative [address] [place] [address] [phone] Teri Titer 1:640 N <1:80 Teri Reviewed By MD Lemuel Rai <SEE NOTE> N 109 Protein 07/24/2015 [facility] Total 6.3 g/dL N 6.3 - Electrophoresis 101 Protein(Pep) 7.9 [place] [address] [phone] Albumin 3.4 g/dL N 3.4-4.7 Alpha-1 Globulin 0.2 g/dL N 0.1-0.3 Alpha-2 Globulin 0.8 g/dL N 0.6-1.0 Beta Globulin 0.9 g/dL N 0.7-1.2 Gamma Globulin 0.9 g/dL N 0.6-1.6 Albumin/Globulin Ratio 1.19 N Impression See Comment N 110 Laboratory test 07/24/2015 [facility] TSH (Thyroid 1.50 ?IU/mL N 0.34-5.[address] Stim Horm) [place] [address] [phone] Free T4 (Free Thyroxine) 0.66 ng/mL N 0.61-1.12 Vitamin B12 424 pg/mL N 180-914 111 Folic Acid (Folate) 11.05 ng/mL N >3.99 Teri (Antinuclear Antibodies) Reflexed to FA Abnormal Negative Comp Metabolic Panel 01/08/2015 [facility] Sodium 136 mmol/L N [address] [place] [address] [phone] Potassium 3.6 mmol/L N 3.5-5.0 Chloride 100 mmol/L Low 101-111 Co2 Carbon Dioxide 23 mmol/L N 22-32 Anion Gap 13 mmol/L High 2-11 Glucose 110 mg/dL High 70-100 Blood Urea Nitrogen 16 mg/dL N 6-24 Creatinine 1.45 mg/dL High 0.67-1.17 BUN/Creatinine Ratio 11.0 N 8-20 Calcium 8.9 mg/dL N 8.6-10.3 Total Protein 6.6 g/dL N 6.4-8.9 Albumin 4.0 g/dL N 3.2-5.2 Globulin 2.6 g/dL N 2-4 Albumin/Globulin Ratio 1.5 N 1-3 Total Bilirubin 0.40 mg/dL N 0.2-1.0 Alkaline Phosphatase 49 U/L N 34-104 Alt 16 U/L N 7-52 Ast 21 U/L N 13-39 Egfr Non- 50.0 N >60 Egfr 64.3 N >60 112 CBC Auto 01/08/2015 [facility] White Blood 13.1 10^3/uL High 4.8-10.[address] [place] [address] [phone] Red Blood Count 4.47 10^6/uL N 4.0-5.4 Hemoglobin 13.3 g/dL Low 14.0-18.0 Hematocrit 41 % Low 42-52 Mean Corpuscular Volume 91 fL N 80-94 Mean Corpuscular Hemoglobin 30 pg N 27-31 Mean Corpuscular HGB Conc 33 g/dL N 31-36 Red Cell Distribution Width 16 % High 10.5-15 Platelet Count 277 10^3/uL N 150-450 Mean Platelet Volume 8 um3 N 7.4-10.4 Abs Neutrophils 8.6 10^3/uL High 1.5-7.7 Abs Lymphocytes 3.3 10^3/uL N 1.0-4.8 Abs Monocytes 0.8 10^3/uL N 0-0.8 Abs Eosinophils 0.3 10^3/uL N 0-0.6 Abs Basophils 0.1 10^3/uL N 0-0.2 Abs Nucleated RBC 0 10^3/uL N Granulocyte % 65.4 % N 38-83 Lymphocyte % 24.9 % Low 25-47 Monocyte % 6.3 % N 1-9 Eosinophil % 2.5 % N 0-6 Basophil % 0.9 % N 0-2 Nucleated Red Blood Cells % 0 N Laboratory 01/08/2015 [facility] Troponin I 0.04 ng/mL High < 0.03 113 test finding [address] [place], [place] [address] [phone] Inr/Protime 01/08/2015 [facility] Inr 0.98 N 0.78-1.07 [address] [place], [place] [id number] [phone] Laboratory 01/08/2015 [facility] Activated 33.8 N 26.0-36.3 test finding [address] [place] [address] [place] [address] Thrombo Time [phone] Lactic Acid 6.9 mmol/L High 0.5-2.2 114 Type & Screen 01/08/2015 [facility] Patient Blood Type A Negative N [address] [place] [address] [phone] Antibody Screen NEGATIVE N Urinalysis Profile 01/08/2015 [facility] Urine Color Yellow N [address] [place] [address] [phone] Urine Appearance Cloudy N Urine Specific [place] 1.015 N 1.010-1.030 Urine pH 5.0 N 5-9 Urine Urobilinogen Negative N Negative Urine Ketones Negative N Negative Urine Protein 1+(30 mg/dL) Abnormal Negative Urine Leukocytes Negative N Negative Urine Blood 1+ Abnormal Negative Urine Nitrite Negative N Negative Urine Bilirubin Negative N Negative Urine Glucose Negative N Negative Urine White Blood Cell Trace(0-5/hpf) N Absent Urine Red Blood Cell Trace(0-2/hpf) N Absent Urine Bacteria Absent N Absent Urine Squamous Epithelial Cell Present Abnormal Absent 1 REFERENCE VALUE Cutoff: 500 2 REFERENCE VALUE Cutoff: 200 3 REFERENCE VALUE Cutoff: 100 4 REFERENCE VALUE Cutoff: 150 5 ADDITIONAL INFORMATION This report is intended for use in clinical monitoring or management of patients. It is not intended for use in employment-related testing. 6 REFERENCE VALUE Cutoff: 200 mg/L 7 Tylenol 3 8 Metabolite of codeine REFERENCE VALUE Cutoff: 100 9 Sophie Vásquez, MS Contin; Also a minor metabolite (10%) of codeine and can be seen in low concentrations (<2,000 ng/mL) with poppy seed ingestion. 10 Metabolite of morphine REFERENCE VALUE Cutoff: 100 11 Metabolite of heroin 12 Lortab, [place], Vicodin; Also a very minor metabolite of codeine and impurity (<1%) of oxycodone. 13 Metabolite of hydrocodone 14 Metabolite of hydrocodone 15 Dilaudid, Exalgo; Also a metabolite of hydrocodone and a minor (<5%) metabolite of morphine. 16 Metabolite of hydromorphone REFERENCE VALUE Cutoff: 100 17 Endocet, Percocet, Oxycontin 18 Metabolite of oxycodone 19 Numorphan, Opana; Also a metabolite of oxycodone. 20 Metabolite of oxymorphone REFERENCE VALUE Cutoff: 100 21 Metabolite of oxymorphone 22 Actiq, Duragesic, Fentora 23 Metabolite of fentanyl 24 Demerol 25 Metabolite of meperidine 26 Narcan 27 Metabolite of naloxone REFERENCE VALUE Cutoff: 100 28 Dolophine 29 Metabolite of methadone 30 Darvon, Darvocet 31 Metabolite of propoxyphene 32 Tradol, Ultram, Ultracet 33 Metabolite of tramadol 34 Nucynta 35 Metabolite of tapentadol 36 Metabolite of tapentadol REFERENCE VALUE Cutoff: 100 37 Buprenex, Suboxone 38 Metabolite of buprenorphine 39 Metabolite of buprenorphine 40 Test detected the presence of buprenorphine metabolite (norbuprenorphine) along with naloxone metabolite (qzhpmdla-9-ecuc-glucuronide). Suspect use of buprenorphine with naloxone (e.g. Suboxone) within the past three days. ADDITIONAL INFORMATION This test was developed and its performance characteristics determined by [facility] in a manner consistent with CLIA requirements. This test has not been cleared or approved by the U.S. Food and Drug Administration. Test Performed by: [facility] [address] [place] [address] 41 *Ascorbic acid is present which may interfere with detection of blood. 42 Because ethnic data is not always readily [...] 15-29 5 Kidney failure <15 (or dialysis) 43 SEE RESULT BELOW Name: MELINDA COOMBS : [address]: Hattie Burns MD Acct: [id number] Unit: [id number] AGE: 62 Location: [facility] Re05/24/18 SEX: M Status: REG REF SPEC: [id number] ERICK: 05/24/[address] [facility] [address]: Hattie Burns MD REQ: [id number] RECD: 05/24/18 STATUS: COMP _ SOURCE: URINE SPDESC: ORDERED: Urine Culture QUERIES: Urine Source: Clean Catch Procedure Result Reported Site Urine Culture Final 05/25/18- 1232 ML No Growth (<1,000 CFU/mL) * ML - Main Lab . END OF REPORT DEPARTMENT OF PATHOLOGY, [address] [place] [address] Lemuel Leyva M.D. Director [facility] # [id number] 44 Because ethnic data is not always readily [...] 15-29 5 Kidney failure <15 (or dialysis) 45 Because ethnic data is not always readily [...] 15-29 5 Kidney failure <15 (or dialysis) 46 Acute inflammation: >10.00 47 Desirable: <150 Borderline High: 150-199 High: 200-499 Very High: >500 48 Desirable: <200 Borderline High: 200-239 High: >239 49 Low: <40 Desirable: 40-60 High: >60 50 Desirable: <100 Near Optimal: 100-129 Borderline High: 130-159 High: 160-189 Very High: >189 51 FASTING 10 HOUR 52 FASTING 10 HOUR 53 Low risk: <1.00 Average risk: 1.00-3.00 High risk: >3.00 54 Serum levels of PSA measured using the Anne Zuni DXI Hybritech immunoassay should not be interpreted as absolute evidence of the presence or absence of disease. The PSA value should be used in conjunction with other pertinent clinical diagnostic procedures. The values obtained with different assay methods or kits cannot be used interchangeably. 55 Acute inflammation: >10.00 56 SEE RESULT BELOW Name: MELINDA COOMBS : [address]: Hattie Burns MD Acct: [id number] Unit: [id number] AGE: 61 Location: [place] Re01/04/17 SEX: M Status: [facility] SPEC: [id number] ERICK: 01/04/[address] [facility] [address]: Hattie Burns MD REQ: [id number] RECD: 01/04/17 STATUS: RAJESH ROCHA DR: Eliezer Barnes RECREATION ASSISTANT _ SOURCE: JOINT FLUI SPDESC:SHOULDER L ORDERED: BF Laly/GS, MRSA/SA SSTI Procedure Result Reported Site Body [...] performed at Main Lab DEPARTMENT OF PATHOLOGY, [address] [place] [address] Lemuel Leyva M.D. Director [facility] # [id number] 57 Because ethnic data is not always readily [...] 15-29 5 Kidney failure <15 (or dialysis) 58 Because ethnic data is not always readily [...] 15-29 5 Kidney failure <15 (or dialysis) 59 SEE RESULT BELOW Name: MELINDA COOMBS : [address]: Hattie Burns MD Acct: [id number] Unit: [id number] AGE: 61 Location: [place] Re08/31/16 SEX: M Status: [place] [facility] SPEC: [id number] ERICK: 08/31/16- [facility] DR: Hattie Burns MD REQ: [id number] RECD: 08/31/16143 STATUS: SOUT _ ORDERED: Decal, [...] fragment with a smooth margin of resection. Team Coordinator sections are submitted in cassettes A and B to include bone following decalcification in cassette B. MICROSCOPIC DESCRIPTION Signed (signature on file) Lemuel Leyva MD 1035 END OF REPORT * ML=Testing performed at Main Lab DEPARTMENT OF PATHOLOGY, [address] [place] [address] Lemuel Leyva M.D. Director [facility] # [id number] 60 [id number] 61 SEE RESULT BELOW Name: MELINDA COOMBS : [address]: Hattie Burns MD Acct: [id number] Unit: [id number] AGE: 60 Location: [facility] Re07/12/16 SEX: M Status: REG REF SPEC: [id number] ERICK: 07/12/16-[address]: Hattie Burns MD REQ: [id number] RECD: 07/12/16 STATUS: COMP _ SOURCE: JOINT FLUI SPDESC:SHOULDER L ORDERED: YOSSI Ruffin/GS Procedure Result Reported Site Body Fluid Gram Stain Final 07/12/16- 2222 ML 2+ Nucleated Cells No Neutrophils Observed No Organisms Seen Preparation By Direct Smear Body Fluid Culture Final 07/16/16- 826 ML No Growth Day 4 * ML - MAIN LAB ([facility]) . END OF REPORT * ML=Testing performed at Main Lab DEPARTMENT OF PATHOLOGY, [address] [place] [address] Lemuel Leyva M.D. Director [facility] # [id number] 62 -- REFERENCE VALUE -- Synovial: <150/mcL Peritoneal: <500/mcL Pleural: <500/mcL Pericardial: <500/mcL 63 Reactive macrophages and synovial cells seen. Peripheral blood contamination. No acute inflammatory response seen. Reviewed by Dr. Leyva 64 SEE RESULT BELOW Name: MELINDA COOMBS : [address]: Hattie Burns MD Acct: [id number] Unit: [id number] AGE: 60 Location: [facility] Re07/12/16 SEX: M Status: REG REF SPEC: [id number] ERICK: 07/12/16-[address] [facility] [address]: Hattie Burns MD REQ: [id number] RECD: 07/12/16 STATUS: SOUT _ ORDERED: THIN PREP NON G COMMENTS: [id number] FINAL DIAGNOSIS Shoulder, left, fine needle aspiration: [...] performed at Main Lab DEPARTMENT OF PATHOLOGY, [address] [place] [address] Lemuel Leyva M.D. Director [facility] # [id number] 65 Acute inflammation: >10.00 66 [id number] 67 SEE RESULT BELOW Name: MELINDA COOMBS : [address]: Wero Aquino MD Acct: [id number] Unit: [id number] AGE: 60 Location: [facility] Re05/17/16 SEX: M Status: REG REF SPEC: [id number] ERICK: 05/17/16-[address] [facility] [address]: Wero Aquino MD REQ: [id number] RECD: 05/17/16-1494 STATUS: ELVIS ROCHA DR: Eliezer Barnes RECREATION ASSISTANT _ ORDERED: LEVEL IV COMMENTS: [id number] FINAL DIAGNOSIS Small bowel, second portion of [...] performed at Main Lab DEPARTMENT OF PATHOLOGY, [address] [place] [address] Lemuel Leyva M.D. Director [facility] # [id number] 68 [id number] 69 SEE RESULT BELOW Name: MELINDA COOMBS : [address]: Wero Aquino MD Acct: [id number] Unit: [id number] AGE: 60 Location: [facility] Re05/17/16 SEX: M Status: REG REF SPEC: [id number] ERICK: 05/17/16-[address] [facility] [address]: Wero Aquino MD REQ: [id number] RECD: 05/17/16-160 STATUS: RAJESH ROCHA DR: Eliezer Barnes RECREATION ASSISTANT _ SOURCE: GAS ANTRUM SPDESC: ORDERED: Clotest COMMENTS: [id number] Procedure Result Reported Site Clotest Final 05/18/16739 ML Clotest Negative * ML - MAIN LAB ([facility]) . END OF REPORT * ML=Testing performed at Main Lab DEPARTMENT OF PATHOLOGY, [address] [place] [address] Lemuel Leyva M.D. Director [place] # [id number] 70 REFERENCE VALUE <10.0 (Negative) 71 REFERENCE VALUE <10.0 (Negative) Test Performed by: [place] [address] Studio Receptionist: Doroteo Humphries II, M.D., Ph.D. 72 Interpretation: Weak Positive (1.1-2.9) REFERENCE VALUE <=1.0 (Negative) Test Performed by: [place] [address] Studio Receptionist: Doroteo Humphries II, M.D., Ph.D. 73 Please check this week 74 Acute inflammation: >10.00 75 Test Performed by: [place] [address] Studio Receptionist: Doroteo Humphries II, M.D., Ph.D. 76 Test Performed by: [place] [address] Studio Receptionist: Doroteo Humphries II, M.D., Ph.D. 77 REFERENCE VALUE <30.0 (Negative) Test Performed by: [place] [address] Studio Receptionist: Doroteo Humphries II, M.D., Ph.D. 78 Normal Range 180 to 914 Indeterminate Range 145 to 180 Deficient Range <145 79 Acute inflammation: >10.00 80 Please check this week 81 Test Performed by: [place] [address] Studio Receptionist: Doroteo Humphries II, M.D., Ph.D. 82 Normal Range 180 to 914 Indeterminate Range 145 to 180 Deficient Range <145 83 REFERENCE VALUE <1.0 (Negative) 84 REFERENCE VALUE <1.0 (Negative) 85 REFERENCE VALUE <1.0 (Negative) 86 REFERENCE VALUE <1.0 (Negative) 87 REFERENCE VALUE <1.0 (Negative) 88 REFERENCE VALUE <1.0 (Negative) Test Performed by: [place] [address] Studio Receptionist: Doroteo Humphries II, M.D., Ph.D. 89 Acute inflammation: >10.00 90 Interpretation: Weak Positive (1.1-2.9) REFERENCE VALUE <=1.0 (Negative) Test Performed by: [place] [address] Studio Receptionist: Doroteo Humphries II, M.D., Ph.D. 91 FASTING 10 HOUR 92 Desirable <150 Borderline high 150-199 High 200-499 Very High >500 93 Desirable <200 Borderline high 200-239 High >239 94 Low <40 Desirable: 40-60 High: >60 95 Desirable: <100 mg/dL Near Optimal: 100-129 mg/dL Borderline High: 130-159 mg/dL High: 160-189 mg/dL Very High: >189 mg/dL 96 Because ethnic data is not always readily [...] 15-29 5 Kidney failure <15 (or dialysis) 97 FASTING 10 HOUR 98 SEE RESULT BELOW Name: MELINDA COOMBS : [address]: Shayne Lopez MD Acct: [id number] Unit: [id number] AGE: 60 Location: Re12/30/15 SEX: M Status: REG REF SPEC: [id number] ERICK: 12/30/15-[address] [facility] [address]: Shayne Lopez MD REQ: [id number] RECD: 12/30/15 STATUS: COMP [facility] DR: Eliezer Barnes RECREATION ASSISTANT _ SOURCE: BODY FLUID SPDESC:SHOULDER R ORDERED: Anaerobic Cult Procedure Result Reported Site Anaerobic Culture Final 01/06/16- 903 ML NO GROWTH AT 7 DAYS * ML - MAIN LAB ([facility]) . END OF REPORT * ML=Testing performed at Main Lab DEPARTMENT OF PATHOLOGY, [address] [place] [address] Lemuel Leyva M.D. Director [facility] # [id number] 99 SEE RESULT BELOW Name: MELINDA COOMBS DOB: [address]: Shayne Lopez MD Acct: [id number] Unit: [id number] AGE: 60 Location: [place] Re12/30/15 SEX: M Status: REG REF SPEC: [id number] ERICK: 12/30/[address] [facility] [address]: Shayne Lopez MD REQ: [id number] RECD: 12/30/15 STATUS: COMP AJ DR: Eliezer Barnes RECREATION ASSISTANT _ SOURCE: JOINT FLUI SPDESC:SHOULDER R ORDERED: BF Cult/GS Procedure Result Reported Site Body Fluid Gram Stain Final 12/30/15- 1252 ML 1+ Neutrophils 3+ Nucleated Cells No Organisms Seen Preparation By Cytospin Smear Body Fluid Culture Final 01/06/16- 0905 ML NO GROWTH 7 DAYS * ML - [facility] ([facility]) . END OF REPORT * [facility] DEPARTMENT OF PATHOLOGY, [address] [place] [address] Lemuel Leyva M.D. Director [facility] # [id number] 100 Acute inflammation: >10.00 101 Acute inflammation: >10.00 102 Because ethnic data is not always readily [...] 15-29 5 Kidney failure <15 (or dialysis) 103 Test Performed by: [place] [address] Studio Receptionist: Doroteo Humphries II, M.D., Ph.D. 104 REFERENCE VALUE <1.0 (Negative) Test Performed by: [place] [address] Studio Receptionist: Doroteo Humphries II, M.D., Ph.D. 105 REFERENCE VALUE <1.0 (Negative) Test Performed by: [place] [address] Studio Receptionist: Doroteo Humphries II, M.D., Ph.D. 106 REFERENCE VALUE <1.0 (Negative) Test Performed by: [place] [address] Studio Receptionist: Doroteo Humphries II, M.D., Ph.D. 107 REFERENCE VALUE <1.0 (Negative) Test Performed by: [place] [address] Studio Receptionist: Doroteo Humphries II, M.D., Ph.D. 108 Because ethnic data is not always readily [...] 15-29 5 Kidney failure <15 (or dialysis) 109 Lemuel Leyva 110 RESULT: No apparent monoclonal protein on serum electrophoresis. Test Performed by: [place] [address] Studio Receptionist: Doroteo G. Morice, II, M.D., Ph.D. 111 Normal Range 180 to 914 Indeterminate Range 145 to 180 Deficient Range <145 112 Because ethnic data is not always readily [...] 15-29 5 Kidney failure <15 (or dialysis) 113 Reference Range and Interpretation: TnI (ng/mL) Interpretation Less Than 0.03 ng/mL Not supportive of diagnosis of [place] 0.03 - 0.50 ng/mL Indeterminate: suggest serial studies if clinically indicated. Greater than 0.5 ng/mL Consistent with diagnosis of [place] 114 Critical Result LACT:6.9 Called to COLE at: 19:15:20 by:[id number] Read back by:COLE Procedures Date Code Description Status 06/06/2018 09536 Arthroplasty,Total Shoulder Replacement (TSR) Completed 06/06/2018 88027 Arthroplasty,Total Shoulder Replacement (TSR) Completed 04/27/2018 22789 EKG Tracing & Interpretation Completed 11/08/2017 08750 Destruction ALL Benign Or Premalignant Lesion (Other Completed Than [place] 08/24/2017 13986 EKG Tracing & Interpretation Completed 03/10/2017 39176 EKG Tracing & Interpretation Completed 01/25/2017 53869 Color Flow Doppler/Interp & Reprt Completed 01/25/2017 62049 Pulse Wave/Continuous-Interp.RPT Completed 01/25/2017 17636 Echocardiography, Transesophageal, Real Time W/Image 2D Completed W/W/O M-M 01/04/2017 79673 arthroscopy w/removal loose body or foreign body Completed 01/04/2017 89514 Arthroscopy Shoulder Debridement Extensive Completed 01/04/2017 58536 Arthroscopy Shoulder Debridement Extensive Completed 01/04/2017 90789 Arthroscopy,Shoulder Decompression Of Subacromial Space Completed W/Acromio 12/21/2016 51185 EKG Tracing & Interpretation Completed 08/31/2016 01583 claviculectomy;partial Completed 08/31/2016 08030 claviculectomy;partial Completed 08/31/2016 39647 Excision Tumor, Soft Tissue, Shoulder Area Subfascial, Completed 5 CM Or > 08/25/2016 50730 EKG Tracing & Interpretation Completed 08/02/2016 Aspiration &/Or Inj Of Ganglion Cyst(S) Any Location Completed 07/12/2016 Aspiration &/Or Inj Of Ganglion Cyst(S) Any Location Completed 05/17/2016 68941800 Colonoscopy Completed 07/09/2015 24957 Nerve Conduction 03-04 Studies Completed 07/09/2015 16448 Needle Electromyography Complete, Five Or More Muscles Completed Studied 06/03/2015 34607 EEG Recording Awake & Asleep Completed 05/07/2015 61248 I & D Post-Op Wound Infect Compl Completed 05/07/2015 23316 I & D Post-Op Wound Infect Compl Completed 03/25/2015 06274 Repair Rotator Cuff Rupture open Acute Completed 03/25/2015 29343 Repair Rotator Cuff Rupture open Acute Completed 03/25/2015 91111 Arthroscopy Shoulder,W/Rotator Cuff Repair Completed 03/25/2015 20737 Arthroscopy Shoulder,W/Rotator Cuff Repair Completed 03/25/2015 24371 Open TX Proximal Humeral FX Incl Fixation When Completed Performed 03/25/2015 99225 Open TX Proximal Humeral FX Incl Fixation When Completed Performed 02/06/2015 22649 Holter Monitor Review (24 hr)dr review & interp only Completed 02/04/2015 68183 ECHO Transthoracic, Real-Time 2D With Doppler And Color Completed Flow 02/03/2015 37483 EEG Recording Awake & Drowsy Completed 01/20/2015 45652 EKG Tracing & Interpretation Completed 01/09/2015 05060 Dislocation Shoulder W/FX GRTR Tuberosity Completed W/Manipulation 01/09/2015 02345 EKG, Interpretation Only Completed 01/09/2015 03229 Closed TX Of Greater Humeral Tuberosity FX;W/O Completed Manipulation 01/09/2015 52827 EEG Recording Awake & Asleep Completed 10/23/2014 58037 EKG Tracing & Interpretation Completed 03/22/2013 88305 Holter Monitoring 24 HR New Completed 03/21/2013 68817 ECHO Transthoracic, Real-Time 2D With Doppler And Color Completed Flow 03/20/2013 22810 EKG Tracing & Interpretation Completed 10/05/201212843 Inject/Drain Joint/Bursa Major W/O US Completed 08/19/2012 Inject/Drain Joint/Bursa Intermediate W/O US Completed 07/04/201259826 Inject/Drain Joint/Bursa Intermediate W/O US Completed 07/04/2012 79655 Rad Exam; Foot Comp Completed 07/04/2012 07864 Rad Exam; Foot Limited Completed 07/04/2012 19315 Rad Exam; Ankle Comp Completed 06/25/2012 10890 Stress Test Completed 06/25/2012 11392 Myocardial Perfusion Imaging Tomographic (Spect) Completed Multiple Studies 06/05/2012 55282 ECHO Stress Test Incl Perf Contiuous ekg Monitoring Completed W/Phys Superv 06/04/2012 02668 ECHO Transthoracic, Real-Time 2D With Doppler And Color Completed Flow Encounters Type Date Location Provider Dx Diagnosis Office Visit 09/13/2018 Orthopedic Hattie Burns MD M19.012 Primary 9:15a Services Of [facility] osteoarthritis, left shoulder Z96.612 Presence of left artificial shoulder joint Office Visit 09/07/2018 11:40a [facility] Eliezer Barnes M19.012 Primary Medicine - RECREATION ASSISTANT osteoarthritis, left [place] shoulder J06.9 Acute upper respiratory infection, unspecified Office Visit 08/01/2018 [facility] Parris Cornejo, R05 Cough 11:40a Medicine - N.P. [place] Office Visit 06/04/2018 [facility] Eliezer Barnes NP Z01.818 Encounter for other 2:00p Medicine - preprocedural [place] examination M25.512 Pain in left shoulder I48.91 Unspecified atrial fibrillation D64.9 Anemia, unspecified G40.89 Other seizures Office Visit 04/27/2018 [place] Qutaybeh S. I48.2 Chronic atrial 3:20p Cardiology Satish Garcia fibrillation R94.31 Abnormal electrocardiogram [ECG] [EKG] Z01.810 Encounter for preprocedural cardiovascular examination M19.012 Primary osteoarthritis, left shoulder Office Visit 04/25/2018 Neurohospitalist Emani Inman, G40.89 Other seizures 10:00a Clinic M.Bailee G60.9 Hereditary and idiopathic neuropathy, unspecified Office Visit 04/24/2018 Orthopedic Hattie Burns, M19.012 Primary 2:15p Services Of osteoarthritis, left C.M.A. shoulder S46.012D Strain of musc/tend the rotator cuff of left shoulder, subs Office Visit 02/13/2018 2:20p [facility] Parris Cornejo J20.9 Acute bronchitis, Medicine - N.P. unspecified [place] Office Visit 01/30/2018 2:00p [facility] Internal Arturo Montoya J20.9 Acute bronchitis, Medicine - Satish Chery unspecified [place] Office Visit 11/08/2017 9:30a [facility] Dermatology Sam Goldstein L30.4 Erythema intertrigo L57.0 Actinic keratosis Office Visit 10/31/2017 9:30a [facility] Dermatology Sam Goldstein, D22.39 Melanocytic nevi of other parts of face D18.01 Hemangioma of skin and subcutaneous tissue D48.5 Neoplasm of uncertain behavior of skin Office Visit 10/25/2017 3:40p [facility] Internal Parris Cornejo, J20.9 Acute bronchitis, Medicine - N.P. unspecified [place] D23.9 Other benign neoplasm of skin, unspecified Office Visit 08/28/2017 3:40p [facility] Internal Medicine - Eliezer Barnes NP R05 Cough [place] R06.02 Shortness of breath Office Visit 08/24/2017 Clif[place] Qutajp S. I48.0 Paroxysmal atrial 1:20p Cardiology Of Satish Garcia fibrillation [facility] R94.31 Abnormal electrocardiogram [ECG] [EKG] I71.9 Aortic aneurysm of unspecified site, without rupture I35.1 Nonrheumatic aortic (valve) insufficiency Office Visit 06/22/2017 9:40a [facility] Internal Eliezer Barnes Z00.00 Encntr for Medicine - RECREATION ASSISTANT general adult [place] medical exam w/o abnormal findings G40.89 Other seizures I48.0 Paroxysmal atrial fibrillation M10.9 Gout, unspecified Z23 Encounter for immunization R79.82 Elevated C-reactive protein (CRP) Office Visit 06/14/2017 10:40a [facility] Eliezer Barnes NP J01.90 Acute sinusitis, Medicine - unspecified [place] Office Visit 05/16/2017 11:20a [facility] Parris Cornejo J01.90 Acute sinusitis, Medicine - N.P. unspecified [place] J20.9 Acute bronchitis, unspecified Office Visit 04/14/2017 10:30a Orthopedic Hattie Burns, M75.122 Complete Services Of MD almonte-cuff C.M.A. tear/ruptr of left shoulder, not trauma M79.5 Residual foreign body in soft tissue M19.012 Primary osteoarthritis, left shoulder Office Visit 04/14/2017 2:30p [place] [facility] Emani Inman, G40.89 Other seizures Services Of Emre Covarrubias Office Visit 01/27/2017 2:00p [facility] Eliezer Barnes NP R35.8 Other polyuria Medicine - [place] R32 Unspecified urinary incontinence Office Visit 12/26/2016 3:00p [facility] Eliezer Barnes, Z01.818 Encounter for other Medicine - RECREATION ASSISTANT preprocedural [place] examination M25.512 Pain in left shoulder I48.0 Paroxysmal atrial fibrillation G60.3 Idiopathic progressive neuropathy G40.89 Other seizures Office 12/21/2016 [facility] Qutaybrosaline S. R94.31 Abnormal Visit 3:20p Cardiology Satish Garcia electrocardiogram [ECG] [EKG] I48.91 Unspecified atrial fibrillation Z01.810 Encounter for preprocedural cardiovascular examination S46.012A Strain of musc/tend the rotator cuff of left shoulder, init Office Visit 12/15/2016 Orthopedic Hattie Burns, M19.012 Primary 9:30a Services Of osteoarthritis, left C.M.A. shoulder S46.012D Strain of musc/tend the rotator cuff of left shoulder, subs Office Visit 08/25/2016 3:00p [facility] Trish Gonzalez, I48.0 Paroxysmal atrial PA fibrillation Z01.810 Encounter for preprocedural cardiovascular examination M67.412 Ganglion, left shoulder Office Visit 08/18/2016 9:00a [facility] Internal Eliezer Barnes, Z01.818 Encounter for other Medicine - RECREATION ASSISTANT preprocedural [place] examination M67.412 Ganglion, left shoulder G40.89 Other seizures I48.0 Paroxysmal atrial fibrillation M10.9 Gout, unspecified Office Visit 07/12/2016 Orthopedic Hattie Burns, M19.012 Primary 11:15a Services Of osteoarthritis, left C.M.A. shoulder M75.122 Complete rotatr-cuff tear/ruptr of left shoulder, not trauma M67.412 Ganglion, left shoulder Office Visit 07/05/2016 1:30p Orthopedic Hattie Burns, M25.512 Pain in left Services Of shoulder C.M.A. M19.012 Primary osteoarthritis, left shoulder M75.122 Complete rotatr-cuff tear/ruptr of left shoulder, not trauma R22.32 Localized swelling, mass and lump, left upper limb Office Visit 07/05/2016 Neurohospitalist Emani Sandoval, G40.89 Other 8:30a Clinic RECREATION ASSISTANT seizures G60.3 Idiopathic progressive neuropathy M75.122 Complete rotatr-cuff tear/ruptr of left shoulder, not trauma M48.07 Spinal stenosis, lumbosacral region Office Visit 06/20/2016 9:40a [facility] Internal Eliezer Barnes M25.512 Pain in left Medicine - RECREATION ASSISTANT shoulder [place] Office Visit 05/26/2016 9:20a [facility] Internal Eliezer Barnes M25.512 Pain in left Medicine - RECREATION ASSISTANT shoulder [place] D64.9 Anemia, unspecified G60.3 Idiopathic progressive neuropathy Office Visit 04/13/2016 11:40a [facility] Internal Eliezer Barnes M25.512 Pain in left Medicine - RECREATION ASSISTANT shoulder [place] Office Visit 03/08/2016 11:45a Orthopedic Hattie Burns, M75.122 Complete Services Of Isa GILLESPIE rotatr-cuff tear/ruptr of left shoulder, not trauma R79.82 Elevated C-reactive protein (CRP) Office Visit 03/02/2016 3:20p [facility] Internal Eliezer Barnes D64.9 Anemia, Medicine - RECREATION ASSISTANT unspecified [place] Office Visit 02/23/2016 2:00p Rheumatology Garett R76.0 Raised antibody Services Of Emre Kathleen M.D. titer R79.82 Elevated C-reactive protein (CRP) R20.8 Other disturbances of skin sensation Office Visit 02/19/2016 3:40p [facility] Internal Medicine - Eliezer Barnes NP R05 Cough [place] J20.9 Acute bronchitis, unspecified M25.512 Pain in left shoulder Office Visit 02/03/2016 10:40a [facility] Internal Medicine - Eliezer Barnes NP R05 Cough [place] J01.00 Acute maxillary sinusitis, unspecified M25.512 Pain in left shoulder Office Visit 01/21/2016 3:40p [facility] Internal Eliezer Barnes, R79.9 Abnormal finding Medicine - RECREATION ASSISTANT of blood [place] chemistry, unspecified Z12.5 Encounter for screening for malignant neoplasm of prostate Z13.220 Encounter for screening for lipoid disorders Z13.1 Encounter for screening for diabetes mellitus Office Visit 01/20/2016 8:30a [facility] Emani Inman, G40.89 Other seizures Services Of Emre Covarrubias G60.3 Idiopathic progressive neuropathy M48.07 Spinal stenosis, lumbosacral region Z79.899 Other jail (current) drug therapy Office Visit 01/15/2016 1:00p Orthopedic Hattie Burns, M75.122 Complete Services Of MD almonte-jess C.M.A. tear/ruptr of left shoulder, not trauma M25.512 Pain in left shoulder Office Visit 12/07/2015 2:00p [facility] Vera Morocho M25.512 Pain in left Infectious Mac, MJackieD. shoulder Diseases R79.82 Elevated C-reactive protein (CRP) Office Visit 11/17/2015 10:40a [facility] Internal Eliezer Barnes, J01.90 Acute sinusitis, Medicine - RECREATION ASSISTANT unspecified [place] Office Visit 11/16/2015 3:40p [facility] Vera Morocho M25.512 Pain in left Infectious [place], shoulder Diseases M.D. Z96.612 Presence of left artificial shoulder joint Office Visit 10/23/2015 2:20p [facility] Internal Eliezer Barnes, F43.21 Adjustment Medicine - RECREATION ASSISTANT disorder with [place] depressed mood Office Visit 09/07/2015 1:00p [facility] Internal Eliezer Barnes M25.50 Pain in Medicine - RECREATION ASSISTANT unspecified joint [place] Office Visit 08/24/2015 8:00a Orthopedic Tr Barrera, S43.82xD Sprain of oth Services Of Satish parts of left C.M.A. shoulder girdle, subs encntr S46.012D Strain of musc/tend the rotator cuff of left shoulder, subs Office Visit 07/28/2015 Neurosurgery Prasanna Sanchez M47.816 Spondylosis w/o 11:00a Services Of Emer Mata M.D. myelopathy or radiculopathy, lumbar region Office Visit 07/09/2015 [facility] Emani M48.07 Spinal stenosis, 8:30a Services Of Emre Inman M.D. lumbosacral region G40.89 Other seizures G60.3 Idiopathic progressive neuropathy Office Visit 06/15/2015 2:15p [facility] Emani Inman G40.89 Other seizures Services Of Emre Covarrubias M54.17 Radiculopathy, lumbosacral region Office Visit 05/27/2015 [facility] Shayne Morocho T81.4xxD Infection 2:20p For Amado Lopez M.D. following a Diseases procedure, subsequent encounter Office Visit 05/11/2015 [facility] Shayne Morocho 780.60 Fever, 10:20a For Amado Lopez M.D. Unspecified Diseases 780.99 General Symptoms Other 786.30 Hemoptysis, Unspecified 998.59 Postoperative Infection Other [facility]albaro Wang D.O. Organism Unspec Hospitalists 345.90 Epilepsy Unspec W/O Intractable 780.60 Fever, Unspecified 998.59 Postoperative Infection Other Office Visit 05/10/2015 [facility],albaro Wang D.O. Organism Unspec Hospitalists 345.90 Epilepsy Unspec W/O Intractable 998.59 Postoperative Infection Other 780.60 Fever, Unspecified Office Visit 05/09/2015 [facility] Fever, Assoc,Cassidy Wang.O. Unspecified Hospitalists 998.59 Postoperative Infection Other 345.90 Epilepsy Unspec W/O Intractable 486 Pneumonia Organism Unspec Office Visit 05/08/2015 8:59a [facility] Allie 780.60 Fever, Assoc,albaro Wang D.O. Unspecified Hospitalists 486 Pneumonia Organism Unspec 998.59 Postoperative Infection Other 345.90 Epilepsy Unspec W/O Intractable Office Visit 05/07/2015 8:58a [facility] Allie 486 Pneumonia Assoc,pc Sherry Wang Organism Unspec Hospitalists 998.59 Postoperative Infection Other 345.90 Epilepsy Unspec W/O Intractable 780.60 Fever, Unspecified Office Visit 02/10/2015 1:30p [facility] Trish Gonzalez, 427.31 Atrial PA Fibrillation 401.1 Hypertension Benign 780.2 Syncope & Collapse 780.39 Convulsions Other Office Visit 02/09/2015 3:15p [facility] Emani Inman 780.39 Convulsions Other Services Of [facility] Satish Office Visit 01/20/2015 3:20p [facility] Gregorio SJackie 780.2 Syncope & Ibis Garcia M.DJackie 427.31 Atrial Fibrillation 401.1 Hypertension Benign Office Visit 01/10/2015 Neurohospitalist Emani 780.39 Convulsions 10:20a Clinic Satish Inman Other 780.2 Syncope & Collapse 831.02 Dislocation Humerus Posterior Closed Office Visit 01/10/2015 1:43p [facility] Gaby Hernandez 780.2 Syncope & Assoc,albaro Covarrubias Collapse Hospitalists 427.31 Atrial Fibrillation 780.39 Convulsions Other 274.9 Gout Unspec Office Visit 01/09/2015 7:00a Orthopedic Brayan Vanegas 719.41 Pain Joint Services Of Isa Covarrubias Shoulder Region 831.02 Dislocation Humerus Posterior Closed 812.03 FX Humerus Greater Tuberosity Closed Office Visit 01/09/2015 Neurohospitalist Emani Inman 780.2 Syncope & 10:09a Clinic MSofie Collapse Office Visit 01/08/2015 Neurohospitalist Emani Inman 780.2 Syncope & 10:08a Clinic M.DJackie Collapse Office Visit 01/08/2015 [facility] Aileen 780.2 Syncope & 1:42p Assoc,pc Hospitalists KARLY Malin Collapse 780.39 Convulsions Other 427.31 Atrial Fibrillation 274.9 Gout Unspec Office Visit 10/23/2014 [facility] Gregorio SJackie 427.31 Atrial 3:20p Cardiology Satish Garcia Fibrillation 401.1 Hypertension Benign Office Visit 05/13/2013 9:45a [facility] [place] Chester9.47 Pain Joint Ankle & Services Of Satish Ortiz Foot C.M.A. Office Visit 05/08/2013 2:40p [facility] Qutaybeh S. 427.31 Atrial Cardiology Magzechariahydcandida, Fibrillation M.D. Office Visit 03/20/2013 2:40p [facility] Qutaybeh S. 427.31 Atrial Cardiology Maghaydah, Fibrillation M.D. 794.31 Electrocardiogram (ECG) (EKG) Abnormal 401.1 Hypertension Benign Office Visit 03/07/2013 3:19p Sleep Disorder Roddy SK. 780.59 Sleep Disturbances Center Satish Pierre Other Office Visit 11/12/2012 2:20p [facility] Shayne Morocho 719.07 Effusion Joint Infectious [place], Ankle & Foot Diseases Adonis.Cassidy. Office Visit 10/12/2012 2:45p Orthopedic Brayan Vanegas 726.65 Bursitis Services Of Satish Bautistaatenelson C.M.AJackie Office Visit 10/05/2012 2:00p Orthopedic Bia 726.65 Bursitis Services Of Tuan You C.M.Ana [facility] 719.07 Effusion Joint Ankle & Foot 719.06 Effusion Joint Lower Leg Office Visit 10/02/2012 2:00p Orthopedic Services Brayan Vanegas 274.9 Gout Unspec Of Pamela.MBlossom Covarrubias 726.65 Bursitis Prepatellar Office Visit 08/24/2012 Orthopedic Silvestre 274.9 Gout Unspec 4:00p Services Of Saitsh Pierre C.M.AJackie Office Visit 07/04/2012 Orthopedic [place] 719.07 Effusion Joint Ankle 1:30p Services Of Satish Ortiz & Foot C.M.A. Office Visit 04/17/2012 Orthopedic Brayan Vanegas, 715.36 Osteoarthrosis 2:45p Services Of Satish Lyman Spec C.M.A. Prime Or 2Ndy Lower Leg Plan of Treatment Future Appointment(s):10/11/2018 9:00 am - Hattie Burns MD at Orthopedic Services Of C.M.A.09/27/2018 2:20 pm - Sam Goldstein MD at [facility] Nnvesqmutid52/25 /2019 9:15 am - Hattie Burns MD at Orthopedic Services Of C.M.A.04/26/2019 8: 30 am - Emani Inman M.D. at [facility]09/26/2018 - Tr Barrera M.D.Z96.612 Presence of left artificial shoulder jointNew Medication :Cephalexin 500 mg - one tablet three times a day for 5 daysFollow up:Follow up : Dr. Burns 2-3 weeks Scrub those two areas with washcloth, or gauze daily, then open to the air or neosporin with a bandaid
--- OUTSIDE RECORDS SUMMARY | 2018-10-08 04:04 | XMS REPORT | Continuity of Care Document ---
:1955 External Reference #:[id number] Author Name Trish Bartholomew Care Team Providers Name Role Phone Abby Arora MD Primary Care Physician Unavailable Payers Type Date Identification Numbers Payment Provider Subscriber Policy Number: [id number] Jamaal Coombs Group Number: [id number] [address] PayID: [id number] [place] [address] Expires: 2015 Policy Number: [id number] [employer] Melinda Coombs PayID: [id number] [address] [address] [place] [address] Effective: 2015 Policy Number: 70% [facility] Melinda Coombs Expires: 2017 PayID: [id number] [address] Advance Directives Description No Information Available Problems [...] Natural Causes () Maternal Grandfather due to RI () Maternal Grandmother due to Natural Causes () Social History Type Date Description Comments Sex Unknown Marital Status Occupation Currently Working Occupation [employer] advisor ETOH Use Denies alcohol use Tobacco Use Start: Unknown End: Patient is a former 20 years ago, 1 Unknown smoker PPD Recreational Drug Use Denies Drug Use Smoking Status Reviewed: 09/13/18 Patient is a former 20 years ago, 1 smoker PPD Exercise Type/Frequency Exercises regularly walks 5 days a week Allergies, Adverse Reactions, Alerts Date Description Reaction Status Severity Comments 11/12/2012 Doxycycline hives Active hives 05/05/2015 Flecainide Active seizure 10/14/2016 Vicryl Sutures suture abscess Active 11/09/2012 NKDA Inactive Medications Medication Date Status Form Strength Qnty SIG Indications Ordering Provider Guaifenesin-Cod 09/07 Active Syrup 100-10mg/ 240ml 10 J06.9 Eliezer ei /2019 5ML milliliters KARLY Barnes four times a day as needed cough Colace 06/07 Active Capsules 100mg 90cap 1 tab every Zane s 12 hours as Grant, needed for MD constipation Zolpidem 01/23 Active Tablets ER 12.5mg 30tab Take One Eliezer Tartrate ER s Tablet By KARLY Barnes Mouth AT Bedtime as Needed Maximum Daily Dose=1 Nebulizer 08/28 Active Device 1unit use for R06. Eliezer s albuterol KARLY Barnes nebulized solution up to 4 times a day. Nebulizer 08/28 Active Kit QS for use 4 R06.02 Eliezer Kit/Tubing/Mout times daily KARLY Barnes hpiece [...] By KARLY Barnes Mouth Every Day Allopurinol Active Tablets 300mg 30tab Take One Eliezer / s Tablet By KARLY Barnes Mouth Every [...] Hx Aerosol 40mcg/Act 31.8g 2 puffs by Eliezer m mouth twice KARLY Barnes - a day 07/25 Alprazolam 06/04 Hx Tablets 0.5mg 10tab 08/22-1 Tab s Twice Daily KARLY Barnes - as Needed 09/06 For Anxiety Ergocalciferol 05/08 Hx Capsules 48906Sopw 8caps Take 1 by Zaneb mouth weekly Estelle Burns x 8 weeks 06/04 Levofloxacin 02/13 Hx Tablets 500mg 10tab one by mouth J01.90 s daily for 10 Varn, - days N.P. 02/23 Fluticasone 10/25 Hx Suspension 50mcg/Act 16uni 2 sprays R0 Propionate ts each nostril Varn, - daily as N.P. 04/26 Guaifenesin-Cod 10/25 Hx Solution 100-10mg/ 236ml 10 R05 Parris ei 5ML milliliters Varn, - 3 times a N.P. Guaifenesin-Cod 10/25 Hx Solution 100-10mg/ 236ml 10 R05 Parris ei 5ML milliliters Varn, - 3 times a N.P. Guaifenesin-Cod 10/25 Hx Syrup 100-10mg/ 240ml 10 5ML milliliters Varn, - three times N.P. /04 a day needed cough Guaifenesin-Cod 08/28 Hx Solution 100-10mg/ 236ml 10 ml 3 Norbetro 5ML times a day Landon Mccabe M.D. 09/04 Pulmicort 08/28 Hx Aerosol 180mcg/Ac 1unit 2 puffs Flexhaler t s twice daily Varn, - N.P. 03/15 Ipratropium 08/28 Hx Solution 0.5-2.5(3 90uni 1 vial in R06.02 Eliezer [place]/Albuter )mg/3ML ts nebulizer KARLY Barnes ol Sulfate - four times a 02/13 day needed for asthma Levofloxacin 06/14 Hx Tablets 500mg 10tab one by mouth J01.90 Eliezer s daily for 10 Molly, MANAGER LVN - days 06/25 Benzonatate 06/14 Hx Capsules 200mg 30cap one by mouth J01.90 Eliezer s three times Molly, MANAGER LVN - daily as 06/20 needed for cough [...] tab Eliezer Tartrate s by mouth Molly, MANAGER LVN - every night 01/23 at bedtime as needed Percocet 01/07 Hx Tablets 5-325mg 30tab 1 - 2 tabs s by mouth Yaseen, - every 4 - 6 02/06 hours needed for pain. Keflex 01/04 Hx Capsules 500mg 28cap 1 tab by s mouth four Yaseen, - times a day 02/06 Oxycodone HCL 01/04 Hx Tablets 5mg 30tab 1-2 tabs by s mouth every Yaseen, - 4-6 hours as 01/27 needed Bactrim DS 10/05 Hx Tablets 800-160mg 14tab Take 1 by s mouth daily Yaseen, - x 14 days 12/10 Oxycodone HCL 09/02 Hx Capsules 5mg 30cap one to two s tablets Yaseen, - every 6 / hours needed for pain Keflex 08/25 Hx Capsules 500mg 40cap take 1 tab M67.412 neb s by mouth Grant, - four times [...] tabs M75.122 Zaneb - po q 4 Yasalvador, 07/12/2016 hrs prn pain Zolpidem Tartrate ER [...] Eliezer ulanate 11/28/2015 mg tablet q12 .00 KARLY Barnes Potassium hours for 10 days Hydrocodone-Acet 11/10/2015 - Hx Tablets 5-325mg 60tabs take 1 Eliezer aminophen 11/17/2015 tablet every Molly, MANAGER LVN 6 hours for pain. Valium 11/06/2015 - Hx Tablets 5mg 2tabs 1 by mouth Eliezer 11/06/2015 one hour Molly, MANAGER LVN prior to MRI. December repeat x 1 if not drowsy and still nervous. Zolpidem 09/14/2015 - Hx Tablets ER 12.5mg 30tabs 1 by mouth [place] Tartrate ER 05/26/2016 at bedtime Pachikara, as needed M.D. Hydrocodone-Acet 09/07/2015 - Hx Tablets 5-325mg 120tabs 1 tablets by S43 Eliezer aminophen 03/02/2016 mouth every .82 Molly, MANAGER LVN 6 hours as xD needed for pain. Hydrocodone-Acet 08/24/2015 - Hx Tablets 5-500mg 60tabs 1 by mouth S43 Dirk aminophen 09/07/2015 every 6 .82 Holly, hours if xD M.D. needed Valium 06/16/2015 - Hx Tablets 5mg 2tabs 1 by mouth 1 Emani 07/08/2015 hour prior Cowdery, to MRI, december M.D. repeat x1 if not drowsy and still nervous Cipro 05/11/2015 - Hx Tablets 500mg 1 by mouth Unknown 05/26/2015 twice a day x 14 days Clindamycin HCL 05/11/2015 - Hx Capsules 300mg 1 po tid x Unknown 05/26/2015 14 days Hydrocodone-Acet 05/05/2015 - Hx Tablets 5-325mg 60tabs 1-2 tabs by 840 Syeda aminophen 08/24/2015 mouth four .4 Veena-You times a day Satish león as needed pain Keflex 05/05/2015 - Hx Capsules 500mg 28caps 1 tab by Brayan 05/07/2015 mouth every Guilherme, 6 hours M.D. Oxycodone-Acetam 04/02/2015 - Hx [...] Samaniego 07/08/2016 24HR mouth twice William, a emilie Covarrubias Levetiracetam 02/09/2015 - Hx Tablets 250mg 60tabs [...] Silvestre 03/20/2013 every 4-6 Gabby, hours as M.DJackie needed Endocet 04/17/2012 - Hx Tablets 5-325mg 30tabs 1 po q 4 hr Brayan 03/20/2013 prblair Vanegas M.D. Zithromax - Hx Tablets 500mg 5tabs 1 qd for 5 Unknown Tri-Gaurang 03/20/2013 days Ipratropium - Hx Solution 0.03% 30ml instill 2 Unknown [place] 03/20/2013 sprays in each nostril twice a [...] Indications Ordering Provider No Injection Administered Injection Zaneb 016 Yaseen, MD No Injection Administered Injection Hattie Burns MD Depomedrol Administered Injection [place] 80MG 012 Satish Ortiz Inj, Administered Injection Alex Blair Regadenoson, 012 Nik, 0.1 MG Satish, FACPamela, FASNC Technetium TC Administered Injection Alex Pinto 99M 012 Mulugeta Zaragoza M.D., FAC, Per Unit Dose FASNV Up To 40 Millicuries Immunizations CPT Code Status Date Vaccine Reaction Lot # 42422 Given 06/22/2017 Influenza Virus Vaccine, No immediate [id number] Quadrivalent, Split, reaction...jh Preservative Free Vital Signs Date Vital Result Comment 09/13/2018 9:17am Height 75 inches 6'3" Weight [...] Result H/L Range Note Drug Abuse 08/10/2018 [facility] Urine Amphetamine Negative ng/ mL 1 [address] [place] [address] [phone] Urine Barbiturates Negative ng/mL 2 Urine Benzodiazepines Negative ng/mL 3 Urine Cocaine Negative ng/mL 4 Urine Phencyclidine Negative ng/mL Cutoff: 25 Urine Tetrahydrocannabinol Negative ng/mL Cutoff: 50 5 Creatinine, Urine 349.8 mg/dL Specific Harmony 1.021 pH 5.7 Oxidants Negative 6 Adulterants Comment Normal Codeine, Ur Not Detected ng/mL Cutoff: 25 7 Mbzlbcg-3-rpgs-glucuronide, Ur Not Detected ng/mL 8 Morphine, Ur Not Detected ng/mL Cutoff: 25 9 Ytvqgxqx-6-kzvf-glucuronide, U Not Detected ng/mL 10 6-monoacetylmorphine, Ur Not Detected ng/mL Cutoff: 25 11 Hydrocodone, Ur Not Detected ng/mL Cutoff: 25 12 Norhydrocodone, Ur Not Detected ng/mL Cutoff: 25 13 Dihydrocodeine, Ur Not Detected ng/mL Cutoff: 25 14 Hydromorphone, Ur Not Detected ng/mL Cutoff: 25 15 Dfnchmrkaybog3dqpnllsyhjerfpp Not Detected ng/mL 16 Oxycodone, Ur Not Detected ng/mL Cutoff: 25 17 Noroxycodone, Ur Not Detected ng/mL Cutoff: 25 18 Oxymorphone, Ur Not Detected ng/mL Cutoff: 25 19 Kcolhpjurpk-6-qfpk-glucuronide Not Detected ng/mL 20 Noroxymorphone, Ur Not Detected ng/mL Cutoff: 25 21 Fentanyl, Ur Not Detected ng/mL Cutoff: 2 22 Norfentanyl, Ur Not Detected ng/mL Cutoff: 2 23 Meperidine, Ur Not Detected ng/mL Cutoff: 25 24 Normeperidine, Ur Not Detected ng/mL Cutoff: 25 25 Naloxone, Ur Not Detected ng/mL Cutoff: 25 26 Njltiqee-4-hoeq-glucuronide, U Present ng/mL Abnormal 27 Methadone, Ur [...] Ur Not Detected ng/mL Cutoff: 50 35 Vkqhylrbvi-bnwm-qfzzgdlzosy, U Not Detected ng/mL 36 Buprenorphine, Ur Not Detected ng/mL Cutoff: 5 37 Norbuprenorphine, Ur Present ng/mL Abnormal Cutoff: 5 38 Norbuprenorphine glucuronide Not Detected ng/mL Cutoff: 20 39 Opioid Interpretation See Comment 40 Urinalysis Profile 05/24/2018 [facility] Urine Color Yellow [address] [place] [address] [phone] Urine Appearance Clear Urine Specific Harmony 1.019 N 1.010-1.030 Urine pH 5.0 N 5-9 Urine Urobilinogen Negative Negative Urine Ketones Negative Negative Urine Protein Negative Negative Urine Leukocytes Negative Negative Urine Blood Negative Negative * * Abnormal Negative 41 Urine Nitrite Negative Negative Urine Bilirubin Negative Negative Urine Glucose Negative Negative CBC Auto Diff 05/24/2018 [facility] White Blood 9.9 10^3/uL N 3.5-10.[address] [place] [address] [phone] Red Blood Count 4.73 10^6/uL N 4.00-5.40 [...] Red Blood Cells % 0.1 Inr/Protime 05/24/2018 [facility] Inr 1.51 High 0.77-1.[address] [place] [address] [phone] Laboratory test 05/24/2018 [facility] Partial 43.4 High 26.0- 36.[address] [place] [address] Time PTT [phone] Comp Metabolic 05/24/2018 [facility] Sodium 140 mmol/L N 135- [address] [place] [address] [phone] Potassium 4.8 mmol/L N 3.5-5.0 Chloride 104 [...] 95.2 >60 42 Type & Screen 05/24/2018 [facility] Patient Blood Type A Negative [address] [place] [address] [phone] Antibody Screen NEGATIVE Urine Culture And 05/24/2018 [facility] Urine Culture SEE RESULT [address] [place] [address] [phone] CBC Auto Diff 05/07/2018 [facility] White Blood 6.0 10^3/uL N 3.5-[address] Count 0.8 [place] [address] [phone] Red Blood Count 4.44 10^6/uL N 4.00-5.40 [...] Blood Cells % 0.1 Laboratory test 05/07/2018 [facility] C Reactive 8.68 mg/L High <8.[address] [place] [address] [phone] Erythrocyte Sed Rate 10 mm/Hr N 0-20 Vitamin D Total 25(Oh) 19.3 ng/mL Low 20-50 CBC Auto 02/01/2018 [facility] White Blood 12.2 10^3/uL High 3.5-10.[address] [place] [address] [phone] Red Blood Count 4.31 10^6/uL N 4.00-5.40 [...] Red Blood Cells % 0 Inr/Protime 02/01/2018 [facility] Inr 1.37 High 0.77-1.02 [address] [place] [address] [phone] Comp Metabolic 02/01/2018 [facility] Sodium 136 mmol/L Low 139 -145 Panel [address] [place] [address] [phone] Potassium 4.1 mmol/L N 3.5-5.0 Chloride 101 [...] Egfr 101.2 >60 44 Laboratory test 02/01/2018 [facility] Troponin-I (TnI) 0.00 ng/ mL <0.04 finding [address] [place] [address] [phone] Basic Metabolic 12/20/2017 [facility] Sodium 143 mmol/L N 139- 145 Panel [address] [place] [address] [phone] Potassium 4.9 mmol/L N 3.5-5.0 Chloride 104 mmol/L N 101-111 Co2 Carbon Dioxide 32 mmol/L N 22-32 Anion Gap 7 mmol/L N 2-11 Glucose 85 mg/dL N 70-100 Blood Urea Nitrogen 18 mg/dL N 6-24 Creatinine 1.05 mg/dL N 0.67-1.17 BUN/Creatinine Ratio 17.1 N 8-20 Calcium 9.1 mg/dL N 8.6-10.3 Egfr Non- 71.8 >60 Egfr 92.3 >60 45 Laboratory test 12/20/2017 [facility] C Reactive 8.80 High < 5.[address] Protein mg/[place] [address] [phone] Order 08/28/2017 [facility] Nebulizer <pending [address] Treatment > [place] [address] [phone] Lipid Profile 07/03/2017 [facility] Triglycerides 125 47 (Trig/Chol/HDL) [address] mg/[place] [address] [phone] Cholesterol 154 mg/dL 48 HDL Cholesterol 36.1 mg/dL 49 LDL Cholesterol 93 mg/dL 50 Laboratory test finding 07/03/2017 [facility] Glucose 89 mg/dL N 70-[address] [place] [address] [phone] Uric Acid 4.9 mg/dL N 4.4-7.6 52 CRP High Sensitivity 5.25 mg/L 53 Laboratory test 02/07/2017 [facility] PSA Screening 1.083 ng/mL N 0-4.[address] [place] [address] [phone] C Reactive Protein 7.45 mg/L High < 5.00 55 Ua Routine 01/27/2017 Client Analyst In House Ua Specific Harmony 1.020 Ua PH 5 Ua Color yellow Ua Appera clear Ua WBC neg Ua Protein trace Ua Glucose norm Ua Ketones neg Ua Bilirubin neg Ua Urobilinogen norm Ua Nitrite neg Ua Occult Blood trace Body Fluid 01/04/2017 [facility] Body Fluid SEE RESULT [address] [place] [address] Stain [phone] CBC Auto Diff 12/28/2016 [facility] White Blood 8.2 10^3/uL N 3.5-10. [address] Count 8 [place] [address] [phone] Red Blood Count 4.43 10^6/uL N 4.0-5.4 [...] % 0 N Comp Metabolic Panel 12/28/2016 [facility] Sodium 138 mmol/L N 133-[address] [place] [address] [phone] Potassium 4.7 mmol/L N 3.5-5.0 Chloride 102 [...] N >60 57 CBC Auto Diff 09/22/2016 [facility] White Blood 7.4 10^3/uL N 3.5-10.[address] [place] [address] [phone] Red Blood Count 4.64 10^6/uL N 4.0-5.4 [...] % 0.1 N Basic Metabolic Panel 09/22/2016 [facility] Sodium 137 mmol/L N 133-145 [address] [place] [address] [phone] Potassium 4.4 mmol/L N 3.5-5.0 Chloride 100 mmol/L Low 101-111 Co2 Carbon Dioxide 30 mmol/L N 22-32 Anion Gap 7 mmol/L N 2-11 Glucose 87 mg/dL N 70-100 Blood Urea Nitrogen 13 mg/dL N 6-24 Creatinine 0.97 mg/dL N 0.67-1.17 BUN/Creatinine Ratio 13.4 N 8-20 Calcium 9.3 mg/dL N 8.6-10.3 Egfr Non- 78.9 N >60 Egfr 101.5 N >60 58 Inr/Protime 09/22/2016 [facility] Inr 0.98 N 0.89-1.11 [address] [place] [address] [phone] Laboratory test 08/31/2016 [facility] Surgical SEE RESULT [address] Pathology BELOW [place], [place] [address] [phone] Laboratory test 07/12/2016 [facility] Body Fluid SEE RESULT 60, finding [address] C&S BELOW 61 [place], [place] [address] [phone] Body Fluid Cell 07/12/2016 [facility] Body Fluid Synovial N Count [address] [place] [place] [address] [phone] Body Fluid Appearance Cloudy N Body Fluid [...] (SEE NOTE) N 63 Laboratory test 07/12/2016 [facility] Cytology SEE RESULT [address] [place] [address] [phone] Laboratory test 07/07/2016 [facility] Valproic Acid 38.0 g/mL Low 50-[address] (Depakene) 0 [place] [address] [phone] CBC Auto Diff 07/05/2016 [facility] White Blood 5.7 10^3/uL N 3.5-[address] Count 0.8 [place] [address] [phone] Red Blood Count 4.66 10^6/uL N 4.0-5.4 [...] Blood Cells % 0 N Laboratory test 07/05/2016 [facility] Erythrocyte Sed 10 mm/Hr N 0-[address] [place] [address] [phone] C Reactive Protein 10.24 mg/L High < 5.00 65 Laboratory 05/17/2016 [facility] Clotest SEE 66, 67 test finding [address] [place] [address] BELOW [phone] Laboratory 05/17/2016 [facility] Surgical SEE 68, [address] [place] [address] BELOW [phone] Laboratory 03/18/2016 [facility] Erythrocyte Sed 8 mm/Hr N 0- 2 test finding [address] Rate 0 [place] [address] [phone] Laboratory 03/07/2016 Client Analyst In House Occult Blood - pos x 2, test finding Stool neg x 1 Laboratory 03/04/2016 [facility] Anti Nuclear 2.1 U Abnormal 70 test finding [address] [place] [address] [phone] Creatine Kinase(CK) 79 U/L N 10-223 71 C Reactive Protein 7.61 mg/L High < 5.00 72 Vitamin B12 And 03/04/2016 [facility] Vitamin B12 474 pg/mL N 180-914 [address] [place] [address] [phone] Folic Acid (Folate) 14.81 ng/mL N >3.99 Laboratory test 03/04/2016 [facility] Ferritin < 10.0 ng/mL Low 24-[address] [place], [place] [address] [phone] Iron & Iron 03/04/2016 [facility] Iron 73 g/dL N 50-212 Binding Capacity [address] [place] [address] [phone] Unsaturated Iron Binding 406 g/dL N Total Iron Binding Capacity 479 g/dL High 250-450 % Iron Saturation 15 % N 15-55 CBC Auto Diff 03/04/2016 [facility] White Blood 8.3 10^3/uL N 3.5-10.[address] [place] [address] [phone] Red Blood Count 4.80 10^6/uL N 4.0-5.4 [...] Nucleated Red Blood Cells % 0 N Vitamin D 1,25 03/04/2016 [facility] Vitamin D 13.7 ng/mL Low 30-50 74 And Vitamin D,[address] Total 25(Oh) [place] [address] [phone] Vitamin D, 1,25 Dihydroxy 23 pg/mL N 18-64 75 Laboratory test 03/04/2016 [facility] Vitamin B12 475 pg/mL N 180-914 [address] [place] [address] [phone] Silvia Igg AB Reflex 03/04/2016 [facility] SS-A/Ro 0.2 U N [address] [place] [address] [phone] SS-B/La Antibody <0.2 U N 78 Sm (Thompson) IgG Antibody <0.2 U N 79 U1-nRNP Antibody <0.2 U N 80 Scl-70 (Scleroderma) Antibody <0.2 U N 81 Abigail-1 Antibody <0.2 U N 82 Laboratory test 03/04/2016 [facility] Complement C3 128 mg/dL N 75 - 175 [address] [place] [address] [phone] Complement C4 22 mg/dL N 14 - 40 84 Anti Double Stranded Dna AB <12.3 IU/mL N 85 Laboratory test 03/04/2016 [facility] C Reactive 7.75 High < 5.00 [address] Protein mg/[place] [address] [phone] Cardiolipin 03/04/2016 [facility] Phospholipid Ab < 4.0 N 87 Igg/Igm [address] IgM, [place] [address] [phone] Phospholipid Ab IgG < 4.0 GPL N 88 Laboratory test 01/26/2016 [facility] C Reactive 11.04 High < 5.00 [address] Protein mg/[place] [address] [phone] Laboratory test 01/26/2016 [facility] Anti Nuclear 2.2 U Abnormal [address] [place] [address] [phone] PSA Screening 0.666 ng/mL N 0-4.000 91 Lipid Profile 01/26/2016 [facility] Triglycerides 182 mg/dL N 92 (Trig/Chol/HDL) [address] [place] [address] [phone] Cholesterol 160 mg/dL N 93 HDL Cholesterol 31.7 mg/dL N 94 LDL Cholesterol 92 mg/dL N 95 Basic Metabolic Panel 01/26/2016 [facility] Sodium 137 mmol/L N 133-[address] [place] [address] [phone] Potassium 4.2 mmol/L N 3.5-5.0 Chloride 101 mmol/L N 101-111 Co2 Carbon Dioxide 30 mmol/L N 22-32 Anion Gap 6 mmol/L N 2-11 Glucose 81 mg/dL N 70-100 Blood Urea Nitrogen 15 mg/dL N 6-24 Creatinine 1.06 mg/dL N 0.67-1.17 BUN/Creatinine Ratio 14.2 N 8-20 Calcium 9.2 mg/dL N 8.6-10.3 Egfr Non- 71.5 N >60 Egfr 92.0 N >60 96 Laboratory test 01/26/2016 [facility] Erythrocyte Sed 4 mm/Hr N 0-20 [address] [place] [address] [phone] CBC Auto Diff 01/26/2016 [facility] White Blood 5.4 N 3.5- 10.[address] Count 10^3/[place] [address] [phone] Red Blood Count 5.09 10^6/uL N 4.0-5.4 [...] Nucleated Red Blood Cells % 0.1 N Liver Function 01/26/2016 [facility] Total Protein 6.7 g/dL N 6.4-8.[address] [place] [address] [phone] Albumin 4.3 g/dL N 3.2-5.2 Globulin 2.4 g/dL N 2-4 Albumin/Globulin Ratio 1.8 N 1-3 Total Bilirubin 0.40 mg/dL N 0.2-1.0 Direct Bilirubin 0.10 mg/dL N 0.03-0.18 Indirect Bilirubin 0.3 mg/dL N 0.3-1.0 Alkaline Phosphatase 47 U/L N 34-104 Alt 12 U/L N 7-52 Ast 16 U/L N 13-39 Body Fluid C&S 12/30/2015 [facility] Body Fluid SEE RESULT [address] [place] [address] Stain [phone] Laboratory test 12/30/2015 [facility] Anaerobic SEE RESULT [address] Culture BELOW [place], [place] [address] [phone] Laboratory test 12/18/2015 [facility] C Reactive 52.18 mg/L High < [address] Protein 5.00 [place], [place] [address]29 [phone] Laboratory test 11/30/2015 [facility] C Reactive 13.25 mg/L High < [address] Protein 5.00 [place], [place] [address] [phone] CBC Auto Diff 09/19/2015 [facility] White Blood 7.2 10^3/uL N 3.5-[address] Count 0.8 [place], [place] [address] [phone] Red Blood Count 4.88 10^6/uL N 4.0-5.4 [...] % 0 N Comp Metabolic Panel 09/19/2015 [facility] Sodium 133 mmol/L N 133-145 [address] [place] [address] [phone] Potassium 4.4 mmol/L N 3.5-5.0 Chloride 103 [...] 109.7 N >60 102 Laboratory test 09/11/2015 [facility] Rheumatoid <15 IU/mL N < [address] [place] [address] [phone] Anti Ssa/Ro 0.3 U N 104 Anti SSB LA <0.2 U N 105 U1 REHABILITATION PROGRAM MANAGER/SNRNP Igg Autoabs <0.2 U N 106 SM(Thompson) Igg Autoantibodies <0.2 U N 107 Comp Metabolic Panel 07/24/2015 [facility] Sodium 140 mmol/L N 133-145 [address] [place] [address] [phone] Potassium 4.3 mmol/L N 3.5-5.0 Chloride 104 [...] N >60 Egfr 98.7 N >60 108 Laboratory test 07/24/2015 [facility] TSH (Thyroid 1.50 ?IU/mL N 0.34-5.[address] Stim Horm) [place] [address] [phone] Free T4 (Free Thyroxine) 0.66 ng/mL N 0.61-1.12 Vitamin B12 424 pg/mL N 180-914 109 Folic Acid (Folate) 11.05 ng/mL N >3.99 Teri (Antinuclear Antibodies) Reflexed to FA Abnormal Negative Protein 07/24/2015 [facility] Total 6.3 g/dL N 6.3 - Electrophoresis [address] Protein(Pep) 7.9 [place] [address] [phone] Albumin 3.4 g/dL N 3.4-4.7 Alpha-1 Globulin 0.2 g/dL N 0.1-0.3 Alpha-2 Globulin 0.8 g/dL N 0.6-1.0 Beta Globulin 0.9 g/dL N 0.7-1.2 Gamma Globulin 0.9 g/dL N 0.6-1.6 Albumin/Globulin Ratio 1.19 N Impression See Comment N 110 Teri Hep-2 07/24/2015 [facility] Teri Pattern Speckled N Negative [address] [place] [address] [phone] Teri Titer 1:640 N <1:80 Teri Reviewed By MD Lemuel Rai <SEE NOTE> N 111 CBC Auto Diff 07/24/2015 [facility] White Blood 7.7 10^3/uL N 4.8-10.[address] [place] [address] [phone] Red Blood Count 4.79 10^6/uL N 4.0-5.4 [...] Nucleated Red Blood Cells % 0 N CBC Auto 01/08/2015 [facility] White Blood 13.1 10^3/uL High 4.8-10.[address] [place] [address] [phone] Red Blood Count 4.47 10^6/uL N 4.0-5.4 [...] Cells % 0 N Comp Metabolic Panel 01/08/2015 [facility] Sodium 136 mmol/L N 133-145 [address] [place] [place] [address] [phone] Potassium 3.6 mmol/L N 3.5-5.0 Chloride 100 [...] N >60 Egfr 64.3 N >60 112 Type & Screen 01/08/2015 [facility] Patient Blood Type A Negative [address] [place] [address] [phone] Antibody Screen NEGATIVE N Urinalysis Profile 01/08/2015 [facility] Urine Color Yellow N [address] [place] [address] [phone] Urine Appearance Cloudy N Urine Specific Harmony 1.015 N 1.010-1.030 Urine pH 5.0 N [...] Urine Squamous Epithelial Cell Present Abnormal Absent Laboratory 01/08/2015 [facility] Troponin I 0.04 ng/mL High < 0.03 113 test finding [address] [place] [id number] [phone] Inr/Protime 01/08/2015 [facility] Inr 0.98 N 0.78-1.[address] [place] [address] [phone] Laboratory 01/08/2015 [facility] Activated 33.8 N 26.0-36.3 test finding [address] [place] [address] Thrombo Time [phone] Lactic Acid 6.9 mmol/L High 0.5-2.2 114 1 REFERENCE VALUE Cutoff: 500 2 REFERENCE [...] 100 11 Metabolite of heroin 12 Lortab, [place], Vicodin; Also a very minor metabolite of [...] buprenorphine metabolite (norbuprenorphine) along with naloxone metabolite (qnxpquki-9-yxzx-glucuronide). Suspect use of buprenorphine with naloxone (e.g. Suboxone) within the past three days. ADDITIONAL INFORMATION This test was developed and its performance characteristics determined by [facility] in a manner consistent with CLIA requirements. This test has not been cleared or approved by the U.S. Food and Drug Administration. Test Performed by: [facility] [address] [place] [address] 41 *Ascorbic acid is present which may [...] [address]: Hattie Burns MD Acct: [id number] Unit: [id number] AGE: 62 Location: PAT Re05/24/18 SEX: M Status: REG REF SPEC: [id number] ERICK: 05/24/[address]: Hattie Burns MD REQ: [id number] RECD: 05/24/18 STATUS: COMP _ SOURCE: URINE SPDESC: ORDERED: Urine Culture QUERIES: Urine Source: Clean Catch Procedure Result Reported Site Urine Culture Final 05/25/18- 1232 ML No Growth (<1,000 CFU/mL) * ML - Main Lab . END OF REPORT DEPARTMENT OF PATHOLOGY, [address] [place] [address] Lemuel Leyva M.D. Director [facility] # [id number] 44 Because ethnic data is not always [...] Serum levels of PSA measured using the [employer] DXI Hybritech immunoassay should not be interpreted as absolute evidence of the presence or absence of disease. The PSA value should be used in conjunction with other pertinent clinical diagnostic procedures. The values obtained with different assay methods or kits cannot be used interchangeably. 55 Acute inflammation: >10.00 56 SEE RESULT BELOW Name: MELINDA COOMBS : [address]: Hattie Burns MD Acct: [id number] Unit: [id number] AGE: 61 Location: OR Re01/04/17 SEX: M Status: MARIAH LAWSON SPEC: [id number] ERICK: 01/04/17-[address] [facility] [address]: Hattie Burns MD REQ: [id number] RECD: 01/04/17 STATUS: RAJESH ROCHA DR: Eliezer Barnes MANAGER LVN _ SOURCE: JOINT FLUI SPDESC:SHOULDER L ORDERED: [...] S.AUREUS NEGATIVE * ML - MAIN LAB ([facility]) . END OF REPORT * ML=Testing performed at Main Lab DEPARTMENT OF PATHOLOGY, [address] [place] [address] Lemuel Leyva M.D. Director [facility] # [id number] 57 Because ethnic data is not always [...] [address]: Hattie Burns MD Acct: [id number] Unit: [id number] AGE: 61 Location: OR Re08/31/16 SEX: M Status: REG [facility] SPEC: [id number] ERICK: 08/31/16- SUBM DR: Hattie Burns MD REQ: [id number] RECD: 08/31/16 STATUS: SOUT _ ORDERED: Decal, LEVEL III [...] fragment with a smooth margin of resection. Animal Breeder sections are submitted in cassettes A and B to include bone following decalcification in cassette B. MICROSCOPIC DESCRIPTION Signed (signature on file) Lemuel Leyva MD 1035 END OF REPORT * ML=Testing performed at Main Lab DEPARTMENT OF PATHOLOGY, [address] [place] [address] Lemuel Leyva M.D. Director [place] # [id number] 60 [id number] 61 SEE RESULT BELOW Name: MELINDA COOMBS : [address]: Hattie Burns MD Acct: [id number] Unit: [id number] AGE: 60 Location: [facility] Re07/12/16 SEX: M Status: REG REF SPEC: [id number] ERICK: 07/12/16-[address] [facility] [address]: Hattie Burns MD REQ: [id number] RECD: 07/12/16 STATUS: COMP _ SOURCE: JOINT FLUI SPDESC:SHOULDER L ORDERED: BF Laly/GS Procedure Result Reported Site Body Fluid Gram Stain Final 07/12/16- 2222 ML 2+ Nucleated Cells No Neutrophils Observed No Organisms Seen Preparation By Direct Smear Body Fluid Culture Final 07/16/16- 826 ML No Growth Day 4 * ML - MAIN LAB ([facility]) . END OF REPORT * ML=Testing performed at Main Lab DEPARTMENT OF PATHOLOGY, [address] [place] [address] Lemuel Leyva M.D. Director [facility] # [id number] 62 -- REFERENCE VALUE -- Synovial: <150/mcL Peritoneal: <500/mcL Pleural: <500/mcL Pericardial: <500/mcL 63 Reactive macrophages and synovial cells seen. Peripheral blood contamination. No acute inflammatory response seen. Reviewed by Dr. Leyva 64 SEE RESULT BELOW Name: MELINDA COOMBS : [address]: Hattie Burns MD Acct: [id number] Unit: [id number] AGE: 60 Location: [facility] Re07/12/16 SEX: M Status: REG REF SPEC: [id number] ERICK: 07/12/16-[address] [facility] [address]: Hattie Burns MD REQ: [id number] RECD: 07/12/16 STATUS: SOUT _ ORDERED: THIN PREP NON G COMMENTS: [id number] FINAL DIAGNOSIS Shoulder, left, fine needle aspiration: [...] performed at Main Lab DEPARTMENT OF PATHOLOGY, [address] [place] [address] Lemuel Leyva M.D. Director [facility] # [id number] 65 Acute inflammation: >10.00 66 [id number] 67 SEE RESULT BELOW Name: MELINDA COOMBS : [address]: Wero Aquino MD Acct: [id number] Unit: [id number] AGE: 60 Location: [facility] Re05/17/16 SEX: M Status: REG REF SPEC: [id number] ERICK: 05/17/16-[address] [facility] [address]: Wero Aquino MD REQ: [id number] RECD: 05/17/16-160 STATUS: RAJESH ROCHA DR: Eliezer Barnes MANAGER LVN _ SOURCE: GAS ANTRUM SPDESC: ORDERED: Clotest COMMENTS: [id number] Procedure Result Reported Site Clotest Final 05/18/16- 0740 ML Clotest Negative * ML - MAIN LAB ([facility]) . END OF REPORT * ML=Testing performed at Main Lab DEPARTMENT OF PATHOLOGY, [address] [place] [address] Lemuel Leyva M.D. Director [facility] # [id number] 68 [id number] 69 SEE RESULT BELOW Name: MELINDA COOMBS : [address]: Wero Aquino MD Acct: [id number] Unit: [id number] AGE: 60 Location: [facility] Re05/17/16 SEX: M Status: REG REF SPEC: [id number] ERICK: 05/17/16-[address] [facility] [address]: Wero Aquino MD REQ: [id number] RECD: 05/17/16-7743 STATUS: ELVIS ROCHA DR: Eliezer Barnes MANAGER LVN _ ORDERED: LEVEL IV COMMENTS: [id number] FINAL DIAGNOSIS Small bowel, second portion of [...] performed at Main Lab DEPARTMENT OF PATHOLOGY, [address] [place] [address] Lemuel Leyva M.D. Director [facility] # [id number] 70 Interpretation: Weak Positive (1.1-2.9) REFERENCE VALUE <=1.0 (Negative) Test Performed by: [address] [address] Sound Recording Technician: Doroteo Humphries II, M.D., Ph.D. 71 Please check this week 72 Acute inflammation: >10.00 73 Normal Range 180 to 914 Indeterminate Range 145 to 180 Deficient Range <145 74 Please check this week 75 Test Performed by: [address] [address] Sound Recording Technician: Doroteo Humphries II, M.D., Ph.D. 76 Normal Range 180 to 914 Indeterminate Range 145 to 180 Deficient Range <145 77 REFERENCE VALUE <1.0 (Negative) 78 REFERENCE VALUE <1.0 (Negative) 79 REFERENCE VALUE <1.0 (Negative) 80 REFERENCE VALUE <1.0 (Negative) 81 REFERENCE VALUE <1.0 (Negative) 82 REFERENCE VALUE <1.0 (Negative) Test Performed by: [place] [address] Sound Recording Technician: Doroteo Humphries II, M.D., Ph.D. 83 Test Performed by: [place] [address] Sound Recording Technician: Doroteo Humphries II, M.D., Ph.D. 84 Test Performed by: [place] [address] Sound Recording Technician: Doroteo Humphries II, M.D., Ph.D. 85 REFERENCE VALUE <30.0 (Negative) Test Performed by: [place] [address] Sound Recording Technician: Doroteo Humphries II, M.D., Ph.D. 86 Acute inflammation: >10.00 87 REFERENCE VALUE <10.0 (Negative) 88 REFERENCE VALUE <10.0 (Negative) Test Performed by: [place] [address] Sound Recording Technician: Doroteo Humphries II, M.D., Ph.D. 89 Acute inflammation: >10.00 90 Interpretation: Weak Positive (1.1-2.9) REFERENCE VALUE <=1.0 (Negative) Test Performed by: [place] [address] Sound Recording Technician: Doroteo Humphries II, M.D., Ph.D. 91 FASTING [...] [address]: Shayne Lopez MD Acct: [id number] Unit: [id number] AGE: 60 Location: Re12/30/15 SEX: M Status: REG REF SPEC: [id number] ERICK: 12/30/[address] [facility] [address]: Shayne Lopez MD REQ: [id number] RECD: 12/30/15 STATUS: RAJESH ROCHA DR: Eliezer Barnes MANAGER LVN _ SOURCE: SAEED HAMLINESC:STEPHANIE R ORDERED: YOSSI Ruffin/GS Procedure Result Reported Site Body Fluid Gram Stain Final 12/30/15- 1252 ML 1+ Neutrophils 3+ Nucleated Cells No Organisms Seen Preparation By Cytospin Smear Body Fluid Culture Final 01/06/16- 904 ML NO GROWTH 7 DAYS * ML - MAIN LAB ([facility]) . END OF REPORT * ML=Testing performed at Main Lab DEPARTMENT OF PATHOLOGY, [address] [place] [address] Lemuel Leyva M.D. Director [facility] # [id number] 99 SEE RESULT BELOW Name: MELINDA COOMBS : [address]: Shayne Lopez MD Acct: [id number] Unit: [id number] AGE: 60 Location: SP Re12/30/15 SEX: M Status: REG REF SPEC: [id number] ERICK: 12/30/15-[address] [facility] [address]: Shayne Lopez MD REQ: [id number] RECD: 12/30/15 STATUS: RAJESH ROCHA DR: Eliezer Barnes MANAGER LVN _ SOURCE: BODY FLUID SPDESC:SHOULDER R ORDERED: Anaerobic Cult Procedure Result Reported Site Anaerobic Culture Final 01/06/16- 0904 ML NO GROWTH AT 7 DAYS * ML - MAIN LAB ([facility]) . END OF REPORT * ML=Testing performed at Main Lab DEPARTMENT OF PATHOLOGY, [address] [place] [address] Lemuel Leyva M.D. Director [facility] # [id number] 100 Acute inflammation: >10.00 101 Acute inflammation: [...] <15 (or dialysis) 103 Test Performed by: [place] [address] Sound Recording Technician: Doroteo Humphries II, M.D., Ph.D. 104 REFERENCE VALUE <1.0 (Negative) Test Performed by: [place] [address] Sound Recording Technician: Doroteo Humphries II, M.D., Ph.D. 105 REFERENCE VALUE <1.0 (Negative) Test Performed by: [place] [address] Sound Recording Technician: Doroteo Humphries II, M.D., Ph.D. 106 REFERENCE VALUE <1.0 (Negative) Test Performed by: [place] [address] Sound Recording Technician: Doroteo Humphries II, M.D., Ph.D. 107 REFERENCE VALUE <1.0 (Negative) Test Performed by: [place] [address] Sound Recording Technician: Doroteo Humphries II, M.D., Ph.D. 108 Because [...] 5 Kidney failure <15 (or dialysis) 109 Normal Range 180 to 914 Indeterminate Range 145 to 180 Deficient Range <145 110 RESULT: No apparent monoclonal protein on serum electrophoresis. Test Performed by: [place] [address] Sound Recording Technician: Doroteo Humphries II, M.D., Ph.D. 111 Lemuel Leyva 112 Because ethnic data is not always [...] 0.03 ng/mL Not supportive of diagnosis of RI 0.03 - 0.50 ng/mL Indeterminate: suggest serial studies if clinically indicated. Greater than 0.5 ng/mL Consistent with diagnosis of RI 114 Critical Result LACT:6.9 Called to COLE at: 19:15:20 by:[id number] Read back by:COLE Procedures Date Code Description Status 06/06/2018 96304 Arthroplasty,Total Shoulder Replacement (TSR) Completed 06/06/2018 36646 Arthroplasty,Total Shoulder Replacement (TSR) Completed 04/27/2018 76801 EKG Tracing & Interpretation Completed 11/08/2017 92689 Destruction ALL Benign Or Premalignant Lesion (Other Completed Than [place] 08/24/2017 76379 EKG Tracing & Interpretation Completed 03/10/2017 93479 EKG Tracing & Interpretation Completed 01/25/2017 95804 Color Flow Doppler/Interp & Reprt Completed 01/25/2017 21054 Pulse Wave/Continuous-Interp.RPT Completed 01/25/2017 74579 Echocardiography, Transesophageal, Real Time W/Image 2D Completed W/W/O M-M 01/04/2017 55196 arthroscopy w/removal loose body or foreign body Completed 01/04/2017 37184 Arthroscopy Shoulder Debridement Extensive Completed 01/04/2017 41132 Arthroscopy Shoulder Debridement Extensive Completed 01/04/2017 84702 Arthroscopy,Shoulder Decompression Of Subacromial Space Completed W/Acromio 12/21/2016 81430 EKG Tracing & Interpretation Completed 08/31/2016 11819 claviculectomy;partial Completed 08/31/2016 46803 claviculectomy;partial Completed 08/31/2016 31150 Excision Tumor, Soft Tissue, Shoulder Area Subfascial, Completed 5 CM Or > 08/25/2016 91904 EKG Tracing & Interpretation Completed 08/02/2016 Aspiration &/Or Inj Of Ganglion Cyst(S) Any Location Completed 07/12/2016 Aspiration &/Or Inj Of Ganglion Cyst(S) Any Location Completed 05/17/2016 94587563 Colonoscopy Completed 07/09/2015 29757 Nerve Conduction 03-04 Studies Completed 07/09/2015 34220 Needle Electromyography Complete, Five Or More Muscles Completed Studied 06/03/2015 11211 EEG Recording Awake & Asleep Completed 05/07/2015 99526 I & D Post-Op Wound Infect Compl Completed 05/07/2015 66028 I & D Post-Op Wound Infect Compl Completed 03/25/2015 56592 Repair Rotator Cuff Rupture open Acute Completed 03/25/2015 74507 Repair Rotator Cuff Rupture open Acute Completed 03/25/2015 59711 Arthroscopy Shoulder,W/Rotator Cuff Repair Completed 03/25/2015 82301 Arthroscopy Shoulder,W/Rotator Cuff Repair Completed 03/25/2015 01204 Open TX Proximal Humeral FX Incl Fixation When Completed Performed 03/25/2015 56070 Open TX Proximal Humeral FX Incl Fixation When Completed Performed 02/06/2015 68978 Holter Monitor Review (24 hr)dr review & interp only Completed 02/04/2015 92696 ECHO Transthoracic, Real-Time 2D With Doppler And Color Completed Flow 02/03/2015 27639 EEG Recording Awake & Drowsy Completed 01/20/2015 80255 EKG Tracing & Interpretation Completed 01/09/2015 21771 Dislocation Shoulder W/FX GRTR Tuberosity Completed W/Manipulation 01/09/2015 58138 EKG, Interpretation Only Completed 01/09/2015 81532 Closed TX Of Greater Humeral Tuberosity FX;W/O Completed Manipulation 01/09/2015 22940 EEG Recording Awake & Asleep Completed 10/23/2014 96252 EKG Tracing & Interpretation Completed 03/22/2013 68864 Holter Monitoring 24 HR New Completed 03/21/2013 35356 ECHO Transthoracic, Real-Time 2D With Doppler And Color Completed Flow 03/20/2013 49880 EKG Tracing & Interpretation Completed 10/05/201270454 Inject/Drain Joint/Bursa Major W/O US Completed 08/19/201219552 Inject/Drain Joint/Bursa Intermediate W/O US Completed 07/04/201215525 Inject/Drain Joint/Bursa Intermediate W/O US Completed 07/04/2012 20407 Rad Exam; Foot Comp Completed 07/04/2012 38639 Rad Exam; Foot Limited Completed 07/04/2012 34662 Rad Exam; Ankle Comp Completed 06/25/2012 57599 Stress Test Completed 06/25/2012 73449 Myocardial Perfusion Imaging Tomographic (Spect) Completed Multiple Studies 06/05/2012 52711 ECHO Stress Test Incl Perf Contiuous ekg Monitoring Completed W/Phys Superv 06/04/2012 70281 ECHO Transthoracic, Real-Time 2D With Doppler And Color Completed Flow Encounters Type Date Location Provider Dx Diagnosis Office Visit 09/13/2018 Orthopedic Hattie Burns MD M19.012 Primary 9:15a Services Of C.M.A. osteoarthritis, left shoulder Z96.612 Presence of left artificial shoulder joint Office Visit 09/07/2018 11:40a [facility] Internal Eliezer Barnes M19.012 Primary Medicine - MANAGER LVN osteoarthritis, left Thomas shoulder J06.9 Acute upper respiratory infection, unspecified Office Visit 08/01/2018 [facility] Internal Parris Cornejo R05 Cough 11:40a Medicine - N.P. Thomas Office Visit 06/04/2018 [facility] Internal Eliezer Barnes NP Z01.818 Encounter for other 2:00p Medicine - preprocedural Thomas examination M25.512 Pain in left shoulder I48.91 Unspecified atrial fibrillation D64.9 Anemia, unspecified G40.89 Other seizures Office Visit 04/27/2018 Hersey Qutarivkaeh S. I48.2 Chronic atrial 3:20p Cardiology Satish Garcia fibrillation R94.31 Abnormal electrocardiogram [ECG] [EKG] Z01.810 Encounter for preprocedural cardiovascular examination M19.012 Primary osteoarthritis, left shoulder Office Visit 04/25/2018 Neurohospitalist Emani Inman, G40.89 Other seizures 10:00a Clinic Satish G60.9 Hereditary and idiopathic neuropathy, unspecified Office Visit 04/24/2018 Orthopedic Hattie Burns, M19.012 Primary 2:15p Services Of osteoarthritis, left C.M.A. shoulder S46.012D Strain of musc/tend the rotator cuff of left shoulder, subs Office Visit 02/13/2018 2:20p [facility] Internal Parris Cornejo, J20.9 Acute bronchitis, Medicine - N.P. unspecified Thomas Office Visit 01/30/2018 2:00p [facility] Internal Arturo Montoya J20.9 Acute bronchitis, Medicine - Satish Chery unspecified [place] Office Visit 11/08/2017 9:30a [facility] Dermatology Sam Goldstein, L30.4 Erythema intertrigo L57.0 Actinic keratosis Office Visit 10/31/2017 9:30a [facility] Dermatology Sam Goldstein, D22.39 Melanocytic nevi of other parts of face D18.01 Hemangioma of skin and subcutaneous tissue D48.5 Neoplasm of uncertain behavior of skin Office Visit 10/25/2017 3:40p [facility] Internal Parris Cornejo, J20.9 Acute bronchitis, Medicine - N.P. unspecified Thomas D23.9 Other benign neoplasm of skin, unspecified Office Visit 08/28/2017 3:40p [facility] Internal Medicine - Eliezer Barnes NP R05 Cough Thomas R06.02 Shortness of breath Office Visit 08/24/2017 Rapidan Qutaybeh S. I48.0 Paroxysmal atrial 1:20p Cardiology Everton Garcia M.D. fibrillation [facility] R94.31 Abnormal electrocardiogram [ECG] [EKG] I71.9 Aortic aneurysm of unspecified site, without rupture I35.1 Nonrheumatic aortic (valve) insufficiency Office Visit 06/22/2017 9:40a [facility] Internal Eliezer Barnes, Z00.00 Encntr for Medicine - MANAGER LVN general adult Thomas medical exam w/o abnormal findings G40.89 Other seizures I48.0 Paroxysmal atrial fibrillation M10.9 Gout, unspecified Z23 Encounter for immunization R79.82 Elevated C-reactive protein (CRP) Office Visit 06/14/2017 10:40a [facility] Internal Eliezer Barnes NP J01.90 Acute sinusitis, Medicine - unspecified Thomas Office Visit 05/16/2017 11:20a [facility] Internal Parris Cornejo J01.90 Acute sinusitis, Medicine - N.P. unspecified Thomas J20.9 Acute bronchitis, unspecified Office Visit 04/14/2017 10:30a Orthopedic Zaneb Yaseen, M75.122 Complete Services Of rotatr-cuff C.M.A. tear/ruptr of left shoulder, not trauma M79.5 Residual foreign body in soft tissue M19.012 Primary osteoarthritis, left shoulder Office Visit 04/14/2017 2:30p [facility] Emani Inman, G40.89 Other seizures Services Of Emre Covarrubias Office Visit 01/27/2017 2:00p [facility] Internal Eliezer Barnes MANAGER LVN R35.8 Other polyuria Medicine - Thomas R32 Unspecified urinary incontinence Office Visit 12/26/2016 3:00p [facility] Internal Eliezer Barnes, Z01.818 Encounter for other Medicine - MANAGER LVN preprocedural Thomas examination M25.512 Pain in left shoulder I48.0 Paroxysmal atrial fibrillation G60.3 Idiopathic progressive neuropathy G40.89 Other seizures Office 12/21/2016 Hersey Gregorio S. R94.31 Abnormal Visit 3:20p Cardiology Satish Garcia electrocardiogram [ECG] [EKG] I48.91 Unspecified atrial fibrillation Z01.810 Encounter for preprocedural cardiovascular examination S46.012A Strain of musc/tend the rotator cuff of left shoulder, init Office Visit 12/15/2016 Orthopedic Hattie Burns, M19.012 Primary 9:30a Services Of osteoarthritis left C.M.A. shoulder S46.012D Strain of musc/tend the rotator cuff of left shoulder, subs Office Visit 08/25/2016 3:00p [facility] Trish Gonzalez, I48.0 Paroxysmal atrial PA fibrillation Z01.810 Encounter for preprocedural cardiovascular examination M67.412 Ganglion, left shoulder Office Visit 08/18/2016 9:00a [facility] Internal Eliezer Barnes, Z01.818 Encounter for other Medicine - MANAGER LVN preprocedural Thomas examination M67.412 Ganglion, left shoulder G40.89 Other seizures I48.0 Paroxysmal atrial fibrillation M10.9 Gout, unspecified Office Visit 07/12/2016 Orthopedic Hattie Burns M19.012 Primary 11:15a Services Of osteoarthritis, left C.M.A. shoulder M75.122 Complete rotatr-cuff tear/ruptr of left shoulder, not trauma M67.412 Ganglion, left shoulder Office Visit 07/05/2016 1:30p Orthopedic Hattie Burns, M25.512 Pain in left Services Of shoulder Isa M19.012 Primary osteoarthritis, left shoulder M75.122 Complete rotatr-cuff tear/ruptr of left shoulder, not trauma R22.32 Localized swelling, mass and lump, left upper limb Office Visit 07/05/2016 Neurohospitalist Emani Sandoval, G40.89 Other 8:30a Clinic MANAGER LVN seizures G60.3 Idiopathic progressive neuropathy M75.122 Complete rotatr-cuff tear/ruptr of left shoulder, not trauma M48.07 Spinal stenosis, lumbosacral region Office Visit 06/20/2016 9:40a [facility] Internal Eliezer Barnes M25.512 Pain in left Medicine - MANAGER LVN shoulder Thomas Office Visit 05/26/2016 9:20a [facility] Internal Eliezer Barnes M25.512 Pain in left Medicine - MANAGER LVN shoulder Thomas D64.9 Anemia, unspecified G60.3 Idiopathic progressive neuropathy Office Visit 04/13/2016 11:40a [facility] Internal Eliezer Barnes M25.512 Pain in left Medicine - MANAGER LVN shoulder Thomas Office Visit 03/08/2016 11:45a Orthopedic Hattie Burns, M75.122 Complete Services Of Isa GILLESPIE rotatr-cuff tear/ruptr of left shoulder, not trauma R79.82 Elevated C-reactive protein (CRP) Office Visit 03/02/2016 3:20p [facility] Internal Eliezer Barnes, D64.9 Anemia, Medicine - MANAGER LVN unspecified Thomas Office Visit 02/23/2016 2:00p Rheumatology Garett R76.0 Raised antibody Services Of Emre Kathleen M.D. titer R79.82 Elevated C-reactive protein (CRP) R20.8 Other disturbances of skin sensation Office Visit 02/19/2016 3:40p [facility] Internal Medicine Estelle Barnes NP R05 Cough Thomas J20.9 Acute bronchitis, unspecified M25.512 Pain in left shoulder Office Visit 02/03/2016 10:40a [facility] Internal Medicine Estelle Barnes NP R05 Cough Thomas J01.00 Acute maxillary sinusitis, unspecified M25.512 Pain in left shoulder Office Visit 01/21/2016 3:40p [facility] Internal Eliezer Barnes, R79.9 Abnormal finding Medicine - MANAGER LVN of blood Thomas chemistry, unspecified Z12.5 Encounter for screening for malignant neoplasm of prostate Z13.220 Encounter for screening for lipoid disorders Z13.1 Encounter for screening for diabetes mellitus Office Visit 01/20/2016 8:30a [facility] Emani Inman, G40.89 Other seizures Services Of Emre Covarrubias G60.3 Idiopathic progressive neuropathy M48.07 Spinal stenosis, lumbosacral region 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 Office Visit 01/15/2016 1:00p Orthopedic Hattie Burns, M75.122 Complete Services Of MD almonte-cuff C.M.AJackie tear/ruptr of left shoulder, not trauma M25.512 Pain in left shoulder Office Visit 12/07/2015 2:00p [facility] Vera Morocho M25.512 Pain in left Infectious Satish Lopez shoulder Diseases R79.82 Elevated C-reactive protein (CRP) Office Visit 11/17/2015 10:40a [facility] Internal Eliezer Barnes, J01.90 Acute sinusitis, Medicine - MANAGER LVN unspecified Thomas Office Visit 11/16/2015 3:40p [facility] Vera Morocho M25.512 Pain in left Infectious [place], shoulder Diseases M.DJackie Z96.612 Presence of left artificial shoulder joint Office Visit 10/23/2015 2:20p [facility] Internal Eliezer Barnes, F43.21 Adjustment Medicine - MANAGER LVN disorder with Thomas depressed mood Office Visit 09/07/2015 1:00p [facility] Internal Eliezer Banres M25.50 Pain in Medicine - MANAGER LVN unspecified joint Thomas Office Visit 08/24/2015 8:00a Orthopedic Tr Barrera, S43.82xD Sprain of oth Services Of Satish parts of left C.M.AJackie shoulder girdle, subs encntr S46.012D Strain of musc/tend the rotator cuff of left shoulder, subs Office Visit 07/28/2015 Neurosurgery Prasanna Sanchez M47.816 Spondylosis w/o 11: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 myelopathy or radiculopathy, lumbar region Office Visit 07/09/2015 [facility] Emani M48.07 Spinal stenosis, 8:30a Services Of Emre Inman M.D. lumbosacral region G40.89 Other seizures G60.3 Idiopathic progressive neuropathy Office Visit 06/15/2015 2:15p [facility] Emani Inman, G40.89 Other seizures Services Of Emre Covarrubias M54.17 Radiculopathy, lumbosacral region Office Visit 05/27/2015 [facility] Shayne Morocho T81.4xxD Infection 2:20p For Amado Lopez M.D. following a Diseases procedure, subsequent encounter Office Visit 05/11/2015 [facility] Shayne Morocho 780.60 Fever, 10:20a For Amado Lopez M.D. Unspecified Diseases 780.99 General Symptoms Other 786.30 Hemoptysis, Unspecified 998.59 Postoperative Infection Other [facility],albaro Wang, D.O. Organism Unspec Hospitalists 345.90 Epilepsy Unspec W/O Intractable 780.60 Fever, Unspecified 998.59 Postoperative Infection Other Office Visit 05/10/2015 [facility],pc Felipe, D.O. Organism Unspec Hospitalists 345.90 Epilepsy Unspec W/O Intractable 998.59 Postoperative Infection Other 780.60 Fever, Unspecified Office Visit 05/09/2015 [facility] Fever, Assoc,pc Felipe, D.O. Unspecified Hospitalists 998.59 Postoperative Infection Other 345.90 Epilepsy Unspec W/O Intractable 486 Pneumonia Organism Unspec Office Visit 05/08/2015 8:59a [facility] Allie 780.60 Fever, Assoc,pc Felipe, D.O. Unspecified Hospitalists 486 Pneumonia Organism Unspec 998.59 Postoperative Infection Other 345.90 Epilepsy Unspec W/O Intractable Office Visit 05/07/2015 8:58a [facility] Allie 486 Pneumonia Assoc,pc Felipe, D.O. Organism Unspec Hospitalists 998.59 Postoperative Infection Other 345.90 Epilepsy Unspec W/O Intractable 780.60 Fever, Unspecified Office Visit 02/10/2015 1:30p [facility] Trish Carlos, 427.31 Atrial PA Fibrillation 401.1 Hypertension Benign 780.2 Syncope & Collapse 780.39 Convulsions Other Office Visit 02/09/2015 3:15p [facility] Emani Inman 780.39 Convulsions Other Services Of [facility] Satish Office Visit 01/20/2015 3:20p [facility] Qutaybeh S. 780.2 Syncope & Maghaydah, Collapse M.DJackie 427.31 Atrial Fibrillation 401.1 Hypertension Benign Office Visit 01/10/2015 Neurohospitalist Emani 780.39 Convulsions 10:20a Clinic Satish Inman Other 780.2 Syncope & Collapse 831.02 Dislocation Humerus Posterior Closed Office Visit 01/10/2015 1:43p [facility] Gaby Hernandez 780.2 Syncope & Assoc,pc Satish Collapse Hospitalists 427.31 Atrial Fibrillation 780.39 Convulsions Other 274.9 Gout Unspec Office Visit 01/09/2015 7:00a Orthopedic Brayan Vanegas 719.41 Pain Joint Services Of Isa Covarrubias Shoulder Region 831.02 Dislocation Humerus Posterior Closed 812.03 FX Humerus Greater Tuberosity Closed Office Visit 01/09/2015 Neurohospitalist Emani Inman, 780.2 Syncope & 10:09a Clinic M.DJackie Collapse Office Visit 01/08/2015 Neurohospitalist Emani Inman 780.2 Syncope & 10:08a Clinic M.D. Collapse Office Visit 01/08/2015 [facility] Aileen 780.2 Syncope & 1:42p Assoc,pc Hospitalists KARLY Malin Collapse 780.39 Convulsions Other 427.31 Atrial Fibrillation 274.9 Gout Unspec Office Visit 10/23/2014 [facility] Qutaybeh S. 427.31 Atrial 3:20p Cardiology Satish Garcia Fibrillation 401.1 Hypertension Benign Office Visit 05/13/2013 9:45a [facility] [place] Chester9.47 Pain Joint Ankle & Services Of Satish Ortiz Foot C.M.AJackie Office Visit 05/08/2013 2:40p [facility] Qutaybeh S. 427.31 Atrial Cardiology Jose Fibrillation M.DJackie Office Visit 03/20/2013 2:40p [facility] Qutaybeh S. 427.31 Atrial Cardiology Maghaydah, Fibrillation Satish 794.31 Electrocardiogram (ECG) (EKG) Abnormal 401.1 Hypertension Benign Office Visit 03/07/2013 3:19p Sleep Disorder Roddy BURNETTE. 780.59 Sleep Disturbances Center Satish Pierre Other Office Visit 11/12/2012 2:20p [facility] For Shayne Morocho 719.07 Effusion Joint Infectious [place], Ankle & Foot Diseases Adonis.Bailee Office Visit 10/12/2012 2:45p Orthopedic Brayan Vanegas 726.65 Bursitis Services Of Satish Prepatellar C.M.A. Office Visit 10/05/2012 2:00p Orthopedic Bia 726.65 Bursitis Services Of Tuan You C.M.Ana [facility] 719.07 Effusion Joint Ankle & Foot 719.06 Effusion Joint Lower Leg Office Visit 10/02/2012 2:00p Orthopedic Services Brayan Vanegas, 274.9 Gout Unspec Of C.M.Ana Covarrubias 726.65 Bursitis Prepatellar Office Visit 08/24/2012 Orthopedic Silvestre 274.9 Gout Unspec 4:00p Services Of Satish Pierre C.M.A. Office Visit 07/04/2012 [facility]opedic [place] 719.07 Effusion Joint Ankle 1:30p Services Of Satish Ortiz & Foot C.M.A. Office Visit 04/17/2012 Orthopedic Brayan Vanegas, 715.36 Osteoarthrosis 2:45p Services Of Satish Localzd Not Spec C.M.A. Prime Or 2Ndy Lower Leg Plan of Treatment Future Appointment(s):12/13/2018 9:15 am - Hattie Burns MD at Orthopedic [facility] Of C.[facility].A.04/26/2019 8:30 am - Emani Inman M.D. at [facility]09/13/2018 - Hattie Burns, MDM19.012 Primary osteoarthritis, left [id number] Presence of left artificial shoulder jointFollow up:Follow up: 3 months
[2018-10-08] MEDS ORDERED: HYDROcodone/ACETAM 10-325 MG(NF) 1 TAB PO ONE (04:24)
--- NOTE | 2018-10-08 04:28 | ED ---
Upper Extremity Pain - HPI Summary HPI Summary: This patient is a 63 year old M presenting to ED with a chief complaint of L shoulder pain since 2 days ago. He had a complete shoulder replacement in [facility] by Dr. Stanley on 06/06/18. 2 days ago, the patient slipped on ice and landed on his L shoulder. He visited the pain clinic here and was prescribed Vicodin. Yesterday, he was moving boxes and felt more pain to his R shoulder when doing so. He ran out of Vicodin 2 days ago and has not taken it since then. The patient rates the pain 7/10 in severity. Symptoms aggravated by movement of the L arm. Symptoms alleviated by nothing. - History of Current Complaint Chief Complaint: Riley Stated Complaint: LEFT SHOULDER PAIN Time Seen by Provider: 10/08/18 04:08 Hx Obtained From: Patient Mechanism Of Injury: Fall From A Standing Position Onset/Duration: Started Days Ago - 2 days ago, Still Present Timing: Constant, Lasting Days Severity Initially: Moderate Severity Currently: Moderate - 7/10 Pain Location: Shoulder - left Aggravating Factor(s): Movement - of the L arm Alleviating Factor(s): Nothing - Allergies/Home Medications Allergies/Adverse Reactions: Allergies Allergy/AdvReac Type Severity Reaction Status Date / Time doxycycline Allergy Severe Hives Verified 10/08/18 03:59 flecainide Allergy Severe Itchy Verified 10/08/18 03:59 Nose, Nausea, Heart Racing Hx of AFIB pseudoephedrine Allergy Severe Palpitation Verified 10/08/18 03:59 [From Olga] s VYCRAL SUTURES Allergy BODY Uncoded 10/08/18 03:59 REJECTS THE SUTURES PMH/Surg Hx/FS Hx/Imm Hx Endocrine/Hematology History: Denies: Hx Diabetes, Hx Thyroid Disease Cardiovascular History: Reports: Hx Atrial Fibrillation, Hx Hypercholesterolemia , Hx Hypertension, Other Cardiovascular Problems/Disorders - Atrial Fib occasionally Denies: Hx Congestive Heart Failure, Hx Pacemaker/ICD Respiratory History: Reports: Hx Pneumonia, Other Respiratory Problems/ Disorders - ASPIRATION PNEUMONIA BEGINNING OF 04/2015, RLL INFILTRATE Denies: Hx Asthma, Hx Chronic Obstructive Pulmonary Disease (COPD) GI History: Reports: Hx Gastroesophageal Reflux Disease - HX OF, Other GI Disorders - pre mri pt had 2016 colonoscopy with polyps removed Denies: Hx Ulcer History: Denies: Hx Dialysis, Hx Renal Disease Musculoskeletal History: Reports: Hx Arthritis - SPINE, Hx Back Problems - Chronic Back, Hx Bursitis - ELBOWS OCCASIONALLY, Hx Gout, Hx Tendonitis - BILATERAL KNEES AND ANKLES, Other Musculoskeletal History - SPINAL STENOSIS/ SOME NECK PROBLEMS Denies: Hx Rheumatoid Arthritis, Hx Osteoporosis Sensory History: Reports: Hx Contacts or Glasses - READING GLASSES Denies: Hx Hearing Aid Opthamlomology History: Reports: Hx Contacts or Glasses - READING GLASSES Neurological History: Reports: Hx Nerve Disease - IDIOPATHIC NEUROPATHY BILATERAL FEET AND LEGS, R/T HX OF LYME DISEASE, Hx Seizures, Other Neuro Impairments/Disorders Psychiatric History: Reports: Hx Anxiety, Other Psychiatric Issues/Disorders - Claustrophobia Denies: Hx Panic Disorder - Cancer History Hx Chemotherapy: No Hx Radiation Therapy: No Hx Palliative Cancer Treatment: No - Surgical History Surgery Procedure, Year, and Place: TONSILLECTOMY, ADENOIDECTOMY AND APPENDECTOMY A CHILD,. ABDOMINAL HERNIA SURGERY A CHILD. [address] 03/2015 LEFT SHOULDER ARTHROSCOPIC ROTATOR CUFF REPAIR AND ORIF, [facility]. 04/2015 I & D LEFT SHOULDER, [facility]; Left Shoulder Surgery for ganglion cyst 09/11/16 [facility]; LEFT SHOULDER SURGERY DECEMBER [address] SMITH AT [facility] Hx Anesthesia Reactions: Yes - BUNIONECTOMY,-MSO4 EPIDURAL - SEVERE N/V - Immunization History Date of Tetanus Vaccine: 2 years ago Date of Influenza Vaccine: July 2017 Infectious Disease History: No Infectious Disease History: Denies: Hx Clostridium Difficile, Hx Hepatitis, Hx Human Immunodeficiency Virus (HIV), Hx of Known/Suspected MRSA, Hx Shingles, Hx Tuberculosis, Hx Known/ Suspected VRE, Hx Known/Suspected VRSA, History Other Infectious Disease, Traveled Outside the [place] in Last 30 Days - Family History Known Family History: Negative: Cardiac Disease, Hypertension, Diabetes - Social History Alcohol Use: None Hx Substance Use: No Substance Use Type: Reports: None Substance Use Comment - Amount & Last Used: hydrocodone/acetaminophen 10-325 Hx Tobacco Use: No Smoking Status (MU): Former Smoker Type: Cigarettes Amount Used/How Often: 1 PPD FOR 20 YEARS Length of Time of Smoking/Using Tobacco: 20 Have You Smoked in the Last Year: No Review of Systems Negative: Fever Positive: Other - L shoulder pain All Other Systems Reviewed And Are Negative: Yes Physical Exam - Summary Physical Exam Summary: VITAL SIGNS: Reviewed. GENERAL: Patient is a well-developed and nourished MALE who is lying comfortable in the stretcher. Patient is not in any acute respiratory distress. HEAD AND FACE: No signs of trauma. No ecchymosis, hematomas or skull depressions. No sinus tenderness. EYES: PERRLA, EOMI x 2, No injected conjunctiva, no nystagmus. EARS: Hearing grossly intact. Ear canals and tympanic membranes are within normal limits. MOUTH: Oropharynx within normal limits. NECK: Supple, trachea is midline, no adenopathy, no JVD, no carotid bruit, no c- spine tenderness, neck with full ROM. CHEST: Symmetric, no tenderness at palpation LUNGS: Clear to auscultation bilaterally. No wheezing or crackles. CVS: Regular rate and rhythm, S1 and S2 present, no murmurs or gallops appreciated. ABDOMEN: Soft, non-tender. No signs of distention. No rebound no guarding, and no masses palpated. Bowel sounds are normal. EXTREMITIES: No edema, no cyanosis or clubbing. Pain with L shoulder movement. Scar over L shoulder anteriorly that has healed well. NEURO: Alert and oriented x 3. No acute neurological deficits. Speech is normal and follows commands. SKIN: Dry and warm Triage Information Reviewed: Yes Vital Signs On Initial Exam: Initial Vitals Temp Pulse Resp BP Pulse Ox 97.5 F 78 16 135/92 97 10/08/18 03:56 10/08/18 03:56 10/08/18 03:56 10/08/18 03:56 10/08/18 03:56 Vital Signs Reviewed: Yes Diagnostics - Vital Signs Vital Signs Temp Pulse Resp BP Pulse Ox 10/08/18 03:56 97.5 F 78 16 135/92 97 - Laboratory Lab Statement: Any lab studies that have been ordered have been reviewed, and results considered in the medical decision making process. - Radiology L shoulder XR Radiology Interpretation Completed By: ED Physician Summary of Radiographic Findings: No fracture. Pending radiologist official report. L humerus XR Radiology Interpretation Completed By: ED Physician Summary of Radiographic Findings: No fracture. Pending radiologist official report. Re-Evaluation - Re-Evaluation First Eval Re-Evaluation Time: 05:01 Comment: Discussed XR results with the patient and plan for discharge. Course/Dx - Course Assessment/Plan: This patient is a 63 year old M presenting to ED with a chief complaint of L shoulder pain since 2 days ago. He had a complete shoulder replacement in [facility] by Dr. Stanley on 06/06/18. 2 days ago, the patient slipped on ice and landed on his L shoulder. He visited the pain clinic here and was prescribed Vicodin. Yesterday, he was moving boxes and felt more pain to his R shoulder when doing so. L shoulder and L humerus XR show no fracture. - Diagnoses Differential Diagnosis/HQI/PQRI: Positive: Other - shoulder pain Provider Diagnoses: Shoulder pain Discharge - Sign-Out/Discharge Documenting (check all that apply): Patient Departure - discharge Patient Received Moderate/Deep Sedation with Procedure: No - Discharge Plan Condition: Stable Disposition: HOME Patient Education Materials: Shoulder Pain (ED) Referrals: Phillip Parisi MD [Medical Doctor] - (Follow up with orthopedist and pain clinic in 1-2 days.) Additional Instructions: RETURN TO THE EMERGENCY DEPARTMENT FOR CHANGING OR WORSENING SYMPTOMS. FOLLOW UP WITH ORTHOPEDIST AND PAIN CLINIC IN 1-2 DAYS. - Attestation Statements Document Initiated by Scribe: Yes Documenting Scribe: Noble Mendez Provider For Whom Scribe is Documenting (Include Credential): Yumi Tillman MD Scribe Attestation: Noble Nunez, scribed for Yumi Tillman MD on 10/08/18 at 0451. Status of Scribe Document: Ready
[2018-10-08] MEDS ORDERED: HYDROcodone/ACETAMIN 5-325 MG* 1 TAB ONE (04:30)
[2018-10-08] MEDS ORDERED: HYDROcodone/ACETAMIN 5-325 MG* 1 TAB PO ONE (04:32)
[2018-10-08 05:10] VITALS: BP 143/74
== END 2018-10-08 05:09 | disposition home or self-care (01) ==
LOC: ED 03:54
DX: M25.512 Pain in left shoulder (principal); I48.91 Unspecified atrial fibrillation; E78.00 Pure hypercholesterolemia, unspecified; I10 Essential (primary) hypertension; K21.9 Gastro-esophageal reflux disease without esophagitis
CPT/HCPCS: 99281

== ENCOUNTER 2019-05-02 15:45 | Emergency (ER) | payer OTHER ==
--- OUTSIDE RECORDS SUMMARY | 2019-05-02 15:50 | XMS REPORT | Continuity of Care Document ---
:1955 External Reference #:[id number] Author Name Eliezer Barnes NP (transmitted by agent of provider Daya Walters) Address [address] [place] [address], [address] [place] [id number] Care Team Providers Name Role Phone Abby Arora MD - Internal Care Team Information As[employer]er [employer] Medicine Problems Active Problems Provider Date Atrial fibrillation Gregorio Garcia M.D. Onset: 03/20/2013 Electrocardiogram abnormal Gregorio Garcia M.D. Onset: 03/20/2013 Benign essential hypertension Gregorio Garcia M.D. Onset: 03/20/2013 Loss of consciousness Emani Inman M.D. Onset: 02/09/2015 Note: with high suspicion of seizure (01/08/15) Strain of rotator cuff capsule Brayan Vanegas M.D. Onset: 03/16/2015 Idiopathic peripheral neuropathy Emani Inman M.D. Onset: 07/09/2015 Lumbosacral stenosis Emani Inman M.D. Onset: 07/09/2015 Lumbar spondylosis Prasanna Mata M.D. Onset: 07/28/2015 Full thickness rotator cuff tear Hattie Burns MD Onset: 03/08/2016 Other seizures Emani Sandoval NP Onset: 07/05/2016 Shoulder joint pain Hattie Burns MD Onset: 07/05/2016 Localized, primary osteoarthritis of the Hattie Burns MD Onset: 07/05/2016 shoulder region Ganglion/synovial cyst - shoulder Hattie Burns MD Onset: 07/12/2016 Paroxysmal atrial fibrillation Eliezer aBrnes NP Onset: 08/18/2016 Other specific joint derangements of left Hattie Burns MD Onset: 01/20/2017 shoulder, not elsewhere classified Residual foreign body in soft tissue Hattie Burns MD Onset: 04/14/2017 Prosthetic arthroplasty of shoulder Hattie Burns MD Onset: 07/17/2018 Social History Type Date Description Comments Sex Unknown ETOH Use Denies alcohol use Tobacco Use Start: Unknown End: Patient is a former 20 years ago, 1 Unknown smoker PPD Recreational Drug Use Denies Drug Use Smoking Status Reviewed: 04/03/19 Patient is a former 20 years ago, 1 smoker PPD Exercise Type/Frequency Exercises regularly walks 5 days a week Allergies, Adverse Reactions, Alerts Active Allergies Reaction Severity Comments Date Doxycycline hives hives 11/12/2012 Flecainide seizure 05/05/2015 Vicryl Sutures suture abscess 10/14/2016 Inactive Allergies NKDA 11/09/2012 Medications Active Medications SIG Qnty Indications Ordering Date Provider Sildenafil Citrate 1 tab 30 mins prior 9tabs F52.21 Eliezer Barnes NP 2018 to intercourse 100mg Tablets Ferrous Sulfate 1 by mouth twice 60tabs D50.9 Eliezer Barnes NP 10/26/2018 daily. 325(65Fe) mg Tablets Shingrix 0.5ml 2units Eliezer Barnes NP 10/26/2018 intramuscular, 50mcg/0.5ML repeat 2-6 months Suspension Rec later Zolpidem Tartrate take one tablet by 30tabs Eliezer Barnes NP 01/23/2018 ER mouth at bedtime as 12.5mg Tablets needed maximum ER daily dose = one tablet Nebulizer use for albuterol 1units R06.02 Eliezer Barnes NP 08/28/2017 Device nebulized solution up to 4 times a day. Nebulizer for use 4 times QS R06.02 Eliezer Barnes NP 08/28/2017 Kit/Tubing/Mouthpie daily as needed ce Kit Xarelto 1 by mouth every 90tabs Gamaltajp Samaniego 01/25/2017 20mg day Satish Garcia Tablets Depakote ER take 1 tab (250 mg) 180tabs Emani Inman, 07/08/2016 250mg by mouth twice a M.D. Tablets ER 24HR day Lyrica take 2 capsules 120caps G60.3 Eliezer Barnes NP 100mg twice a day Capsules Hydrocodone 1 tab q-6 hours as Unknown Bitartrate/Acetamin needed ophen Metoprolol Take One Tablet By 30tabs Eliezer Barnes NP Succinate ER Mouth Every Day 100mg Tablets ER 24HR Allopurinol Take One Tablet By 30tabs Eliezer Barnes NP 300mg Mouth Every Day Tablets History Medications Lidocaine apply to painful 70.88gm M54.31 Eliezer Barnes NP 12/19/2018 - 5% Ointment areas three times 01/07/2019 a day as needed Alprazolam 1/2-1 Tab one to 14tabs F41.9 Eliezer Barnes NP 10/26/2018 - 0.5mg two times dailyAS 12/18/2018 Tablets Needed For Anxiety Cephalexin take 1 by mouth 20caps Hattie Burns 10/17/2018 - 500mg four times a day 10/25/2018 Capsules x 5 days Medications Administered in Office Medication SIG Qnty Indications Ordering Provider Date No Injection Hattie Burns MD 08/02/2016 Injection No Injection Hattie Burns MD 07/12/2016 Injection Depomedrol 80MG Cuba Ortiz M.D. 07/04/2012 Injection Inj, Regadenoson, 0.1 MG Alex Zaragoza M.D., 06/25/2012 Injection [place] [employer] Technetium TC 99M Alex Zaragoza M.D., 06/25/2012 Tetrofosmin, Per Unit Dose [place] [employer] Up To 40 Millicuries Injection Immunizations CPT Code Status Date Vaccine Reaction Lot # [id number] Given 06/22/2017 Influenza Virus Vaccine, No immediate [id number] Quadrivalent, Split, reaction...jh Preservative Free Vital Signs Date Vital Result Comment 04/03/2019 11:01am Height 75 inches 6'3" Weight 275.00 lb Heart Rate 92 /min BP Systolic 136 mmHg BP Diastolic 83 mmHg Body Temperature 98.3 F O2 % BldC Oximetry 94 % BMI (Body Mass Index) 34.4 kg/m2 03/01/2019 3:37pm Height 75 inches 6'3" Weight 279.00 lb Heart Rate 84 /min BP Systolic Sitting 132 mmHg Rue large cuff BP Diastolic Sitting 80 mmHg Rue large cuff BP Systolic Standing 126 mmHg Rue BP Diastolic Standing 80 mmHg Rue Respiratory Rate 18 /min BMI (Body Mass Index) 34.9 kg/m2 Ejection Fraction 55-50% Echo 02/04/2015 Results Test Date Facility Test Result H/L Range Note Laboratory test Finished [facility] Rapid Group A neg finding 9 Strep Laboratory test [facility] Culture Throat SEE RESULT 1, 2 finding [address] [place], [place] [id number] [phone] Laboratory test [facility] Surgical Pathology SEE RESULT 3 finding [address] [place], [place] [id number] [phone] Laboratory test [facility] Uric Acid 4.8 mg/dL Normal 4.4-7.6 [address] [place], [place] [id number] [phone] Lipid Profile [facility] Triglycerides 78 mg/dL 5 (Trig/Chol/HDL) [address] [place], [place] [address] [phone] Cholesterol 132 mg/dL 6 HDL Cholesterol 38.9 mg/dL 7 LDL Cholesterol 78 mg/dL 8 Comp Metabolic 11/06/2018 [facility] Sodium 139 mmol/L Normal 135-[address] [place], [place] [address] [phone] Potassium 4.7 mmol/L Normal 3.5-5.0 Chloride 106 mmol/L Normal 101-111 Co2 Carbon Dioxide 25 mmol/L Normal 22-32 Anion Gap 8 mmol/L Normal 2-11 Glucose 92 mg/dL Normal 70-100 Blood Urea Nitrogen 12 mg/dL Normal 6-24 Creatinine 0.93 mg/dL Normal 0.67-1.17 BUN/Creatinine Ratio 12.9 Normal 8-20 Calcium 8.9 mg/dL Normal 8.6-10.3 Total Protein 6.6 g/dL Normal 6.4-8.9 Albumin 4.3 g/dL Normal 3.2-5.2 Globulin 2.3 g/dL Normal 2-4 Albumin/Globulin Ratio 1.9 Normal 1-3 Total Bilirubin 0.50 mg/dL Normal 0.2-1.0 Alkaline Phosphatase 49 U/L Normal 34-104 Alt 8 U/L Normal 7-52 Ast 14 U/L Normal 13-39 Egfr Non- 82.3 >60 Egfr 99.6 >60 9 Occult Blood,Stool 10/30/2018 Finished [facility] Occult Blood - negative (3 Spec) Stool Laboratory test 10/22/2018 [facility] Erythrocyte Sed 6 mm/Hr Normal 0-20 [address] [place] [address] [phone] C Reactive Protein 8.35 mg/L High <8.01 CBC Auto 10/22/2018 [facility] White Blood 5.1 10^3/uL Normal 3.5-10.[address] [place] [address] [phone] Red Blood Count 4.13 10^6/uL Normal 4.00-5.40 Hemoglobin 8.7 g/dL Low 14.0-18.0 Hematocrit 29 % Low 42-52 Mean Corpuscular Volume 71 fL Low 80-94 Mean Corpuscular Hemoglobin 21 pg Low 27-31 Mean Corpuscular HGB Conc 29 g/dL Low 31-36 Red Cell Distribution Width 18 % High 10.5-15 Platelet Count 303 10^3/uL Normal 150-450 Mean Platelet Volume 7.4 fL Normal 7.4-10.4 Abs Neutrophils 2.4 10^3/uL Normal 1.5-7.7 Abs Lymphocytes 2.1 10^3/uL Normal 1.0-4.8 Abs Monocytes 0.4 10^3/uL Normal 0-0.8 Abs Eosinophils 0.2 10^3/uL Normal 0-0.6 Abs Basophils 0 10^3/uL Normal 0-0.2 Abs Nucleated RBC 0 10^3/uL Granulocyte % 47.7 % Lymphocyte % 40.3 % Monocyte % 7.7 % Eosinophil % 3.8 % Basophil % 0.5 % Nucleated Red Blood Cells % 0.1 Cell Morphology 10/22/2018 [facility] Microcytosis 2+ [address] [place] [address] [phone] Polychromasia 1+ Anisocytosis 1+ Iron & Iron Binding 10/22/2018 [facility] Iron 18 g/dL Low 50-[address] [place] [address] [phone] Unsaturated Iron Binding < 555 g/dL Total Iron Binding Capacity 570 g/dL High 250-450 Transferrin 407 mg/dL High 203-362 % Iron Saturation 3 % Low 15-55 Laboratory test 10/22/2018 [facility] Ferritin 3.2 ng/mL Low 24-[address] [place] [address] [phone] 1 [id number] 2 SEE RESULT BELOW Name: MELINDA COOMBS : [address]: Jeanette Sales MD Acct: [id number] Unit: [id number] AGE: 63 Location: [facility] Re01/07/19 SEX: M Status: REG REF SPEC: [id number] ERICK: 01/07/[address] [facility] [address]: Jeanette Sales MD REQ: [id number] RECD: 01/07/19 STATUS: COMP _ SOURCE: THROAT SPDESC: ORDERED: Throat Culture COMMENTS: [id number] Procedure Result Reported Site Throat Culture Final 01/09/19- 0909 ML Organism 1 NORMAL CESAR Quantity 3+ Throat cultures are clinically indicated to detect the presence of group A strep, arcanobacterium and yeast. In certain cases, predominating organisms will be reported. * ML - Main Lab . END OF REPORT DEPARTMENT OF PATHOLOGY, [address] [place] [address] Lemuel Leyva M.D. Director [facility] # [id number] 3 SEE RESULT BELOW Name: MELINDA COOMBS : [address]: Wero Aquino MD Acct: [id number] Unit: [id number] AGE: 63 Location: ENDO Re12/31/18 SEX: M Status: DEP REF SPEC: [id number] ERICK: 12/31/18-[address]: Wero Aquino MD REQ: [id number] RECD: 12/31/18 STATUS: ELVIS ROCHA DR: Eliezer Barens STATISTICAL CONSULTANT _ ORDERED: LEVEL 4/2 FINAL DIAGNOSIS 1. Stomach, biopsy: -- Antral-type gastric mucosa with mild chronic gastritis. -- No evidence of Helicobacter organisms. 2. Gastroesophageal junction, biopsy: -- Squamous and columnar-type mucosa with chronic inflammation and intestinal metaplasia. -- Dysplasia is absent. 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 The specimen is received in formalin labeled, Gastric Biopsy, and consists of a 0.6 x 0.3 x 0.1 cm regan-pink irregular soft tissue fragment which is submitted entirely in one cassette. 2. The specimen is received in formalin labeled, Biopsy GE Junction, and consists of a 0.3 x 0.3 x 0.1 cm regan-pink irregular soft tissue fragment which is submitted entirely in one cassette. CONTINUED ON NEXT PAGE DEPARTMENT OF PATHOLOGY, [address] [place] [address] Lemuel Leyva M.D. Director [facility] # [id number] RUN DATE: 01/01/19 [facility] LAB LIVE PAGE 2 Patient: MELINDA COOMBS [id number] (Continued) GROSS ANGEL (Continued) Signed by and Reported on: Shantal May MD 01/01/19 1215 END OF REPORT DEPARTMENT OF PATHOLOGY, [address] [place] [address] Lemuel Leyva M.D. Director [facility] # [id number] 4 FASTING 10 HOUR 5 Desirable: <150 Borderline High: 150-199 High: 200-499 Very High: >500 6 Desirable: <200 Borderline High: 200-239 High: >239 7 Low: <40 Desirable: 40-60 High: >60 8 Desirable: <100 Near Optimal: 100-129 Borderline High: 130-159 High: 160-189 Very High: >189 9 Because ethnic data is not always readily [...] 15-29 5 Kidney failure <15 (or dialysis) 10 Test Performed by: [facility] [address] [place] [id number] Lemuel Leyva M.D. Director of Laboratory Procedures Date Code Description Status 03/01/2019 17327 EKG Tracing & Interpretation Completed 05/17/2016 15280786 Colonoscopy Completed Medical Devices Description No Information Available Encounters Type Date Location Provider Dx Diagnosis Office Visit 03/01/2019 [facility] Qutaybeh S. R94.31 Abnormal 4:00p Of Emre Garcia electrocardiogram [ECG] MarshallDJackie [EKG] E66.9 Obesity, unspecified I48.2 Chronic atrial fibrillation I10 Essential (primary) hypertension Office Visit 01/22/2019 9:45a Orthopedic Hattie Burns Z96.612 Presence of left Services Of MD karen Moss shoulder joint Office Visit 01/07/2019 11:10a [facility] Internal [facility] J02.9 [facility] ph[facility]itis, unspecified Office Visit 12/19/2018 11:40a [facility] Internal Eliezer Barnes, M54.31 Sciatica, right [facility] CONSULT[facility] side Office Visit 11/15/2018 10:00a Orthopedic Hattie Burns Z96.612 Presence of left Services Of MD karen Moss shoulder joint Z47.1 Aftercare following joint replacement surgery Office Visit 10/26/2018 9:40a Emre Barnes NP Z00.00 [facility] w/o abnormal findings I48.91 Unspecified atrial fibrillation G40.89 Other seizures M10.9 Gout, unspecified G60.3 Idiopathic progressive neuropathy D50.9 Iron deficiency anemia, unspecified Z13.220 Encounter for screening for lipoid disorders Z13.1 Encounter for screening for diabetes mellitus F41.9 Anxiety disorder, unspecified Office Visit 10/17/2018 9:30a Orthopedic Maricarmen M25.512 Pain in left Services Of DANIEL Ramirez shoulder Isa Z96.612 Presence of left artificial shoulder joint W00.0xxA Fall on same level due to ice and snow, initial encounter Assessments Date Code Description Provider 04/03/2019 I10 Essential (primary) hypertension Eliezer Barnes NP 04/03/2019 D50.9 Iron deficiency anemia, unspecified Eliezer Barnes NP 04/03/2019 F52.21 Male erectile disorder Eliezer Barnes NP 03/01/2019 R94.31 Abnormal electrocardiogram [ECG] Gregorio Garcia M.D. [EKG] 03/01/2019 E66.9 Obesity, unspecified Gregorio Garcia M.D. 03/01/2019 I48.2 Chronic atrial fibrillation Gregorio Garcia M.D. 03/01/2019 I10 Essential (primary) hypertension Gregorio Garcia M.D. 01/22/2019 Z96.612 Presence of left artificial shoulder Hattie Burns MD joint 01/07/2019 J02.9 Acute pharyngitis, unspecified Jeanette Sales M.D. 12/19/2018 M54.31 Sciatica, right side Eliezer Barnes NP 11/15/2018 Z96.612 Presence of left artificial shoulder Hattie Burns MD joint 11/15/2018 Z47.1 Aftercare following joint replacement Hattie Burns MD surgery 10/30/2018 D50.9 Iron deficiency anemia, unspecified Nurse Visit A 10/30/2018 D50.9 Iron deficiency anemia, unspecified Eliezer Barnes NP 10/26/2018 Z00.00 Encounter for general adult medical Eliezer Barnes NP examination without abno 10/26/2018 I48.91 Unspecified atrial fibrillation Eliezer Barnes NP 10/26/2018 G40.89 Other seizures Eliezer Barnes NP 10/26/2018 M10.9 Gout, unspecified Eliezeragatha Barnes, STATISTICAL CONSULTANT 10/26/2018 G60.3 Idiopathic progressive neuropathy Eliezer Barnes NP 10/26/2018 D50.9 Iron deficiency anemia, unspecified Eliezeragatha Barnes, STATISTICAL CONSULTANT 10/26/2018 Z13.220 Encounter for screening for lipoid Eliezer Barnes NP disorders 10/26/2018 Z13.1 Encounter for screening for diabetes Eliezer Barnes NP mellitus 10/26/2018 F41.9 Anxiety disorder, unspecified Eliezer Barnes, STATISTICAL CONSULTANT 10/17/2018 M25.512 Pain in left shoulder Maricarmen Ramirez PA-C 10/17/2018 Z96.612 Presence of left artificial shoulder Maricarmen DANIEL Ramirez joint 10/17/2018 W00.0xxA Fall on same level due to ice and Maricarmen HUANG Ramirez snow, initial encounter Plan of Treatment Future Appointment(s):07/25/2019 9:15 am - Hattie Burns MD at [facility]04/29/2019 1:40 pm - Eliezer Barnes NP at [facility] Internal Medicine - [facility]04/26/2019 8:30 am - Emani Inman M.D. at [facility]04/03/2019 - Eliezer Barnes NPI10 Essential (primary) hypertensionComments: HYPERTENSION:Well controlled on current regimen. Continue present management.D50.9 Iron deficiency anemia, unspecifiedNew Labs:CBC Auto Diff, Ordered: 04/03/19Ferritin, Ordered: 04/03/19Iron & Iron Binding Capacity, Ordered: 04/03/19Comments:Have the bloodwork done soon.F52.21 Male erectile disorderNew Medication:Sildenafil Citrate 100 mg - 1 tab 30 mins prior to intercourseNew Labs:PSA Screening, Ordered: 04/03/19Testosterone Free & Total, Ordered: 04/03/19 Functional Status Description No Information Available Mental Status Description No Information Available Referrals Refer to Dr Reason for Referral Status Appt Date Wero Aquino MD Seen in 2015, had normal colonoscopy. Stool Closed / 0000 guaiac (+) x2 at that time. Anemia has worsened, Hgb 8.7, iron and ferritin low. On xarelto. Capsule endoscopy mentioned in last GI note. [address] [place] [address] [phone]
[2019-05-02 16:09] VITALS: BP 131/72
--- NOTE | 2019-05-02 16:47 | UC ---
UC General HPI - HPI Summary HPI Summary: 63-year-old male comes in with a chief complaint of left-sided facial pain.'s been going on for about a week. It started in the left upper teeth and it spread into the left sinuses the left ear and down at the left lower jaw. He has had some rhinorrhea no fevers measured. He believes it's a sinus infection. It does hurt when he chews so is unsure if it's a tooth problem. No difficulty swallowing. - History of Current Complaint Chief Complaint: UCGeneralIllness Stated Complaint: SINUS CONGESTION Time Seen by Provider: 05/02/19 16:29 Pain Intensity: 2 - Allergy/Home Medications Allergies/Adverse Reactions: Allergies Allergy/AdvReac Type Severity Reaction Status Date / Time doxycycline Allergy Severe Hives Verified 05/02/19 16:10 flecainide Allergy Severe Itchy Verified 05/02/19 16:10 Nose, Nausea, Heart Racing Hx of AFIB pseudoephedrine Allergy Severe Palpitation Verified 05/02/19 16:10 [From Sudafejulee] s/Anxiety VYCRAL SUTURES Allergy BODY Uncoded 05/02/19 16:10 REJECTS THE SUTURES PMH/Surg Hx/FS Hx/Imm Hx Previously Healthy: Yes - GOUT Cardiovascular History: Hypertension, Atrial Fibrillation GI/ History: Gastroesophageal Reflux - Surgical History Surgical History: Yes Surgery Procedure, Year, and Place: TONSILLECTOMY, ADENOIDECTOMY AND APPENDECTOMY A CHILD,. ABDOMINAL HERNIA SURGERY A CHILD. [address] 03/2015 LEFT SHOULDER ARTHROSCOPIC ROTATOR CUFF REPAIR AND ORIF, [facility]. 04/2015 I & D LEFT SHOULDER, [facility]; Left Shoulder Surgery for ganglion cyst 09/11/16 [facility]; LEFT SHOULDER SURGERY DECEMBER [address] SMITH AT [facility]. left shoulder replacement 05/2018 - Family History Known Family History: Negative: Cardiac Disease, Hypertension, Diabetes - Social History Alcohol Use: None Substance Use Type: None Substance Use Comment - Amount & Last Used: hydrocodone/acetaminophen 10-325 Smoking Status (MU): Former Smoker Type: Cigarettes Amount Used/How Often: 1 PPD FOR 20 YEARS Length of Time of Smoking/Using Tobacco: 20 Have You Smoked in the Last Year: No When Did the Patient Quit Smoking/Using Tobacco: 25 years ago - Immunization History Most Recent Influenza Vaccination: 2016 Most Recent Tetanus Shot: 2009 Most Recent Pneumonia Vaccination: Never Review of Systems All Other Systems Reviewed And Are Negative: Yes Constitutional: Positive: Negative Skin: Positive: Negative Eyes: Positive: Negative ENT: Positive: Dental Pain, Ear Ache, Nasal Discharge Respiratory: Positive: Negative Cardiovascular: Positive: Negative Gastrointestinal: Positive: Negative Motor: Positive: Negative Neurovascular: Positive: Negative Musculoskeletal: Positive: Negative Neurological: Positive: Negative Psychological: Positive: Negative Is Patient Immunocompromised?: No Physical Exam Triage Information Reviewed: Yes Appearance: Well-Appearing, No Pain Distress, Well-Nourished Vital Signs: Initial Vital Signs Temp 97.8 F 05/02/19 16:04 Pulse 93 05/02/19 16:04 Resp 16 05/02/19 16:04 BP 131/72 05/02/19 16:04 Pulse Ox 98 05/02/19 16:04 Vital Signs Reviewed: Yes Eye Exam: Normal Eyes: Positive: Conjunctiva Clear ENT: Positive: Pharynx normal, TMs normal, Uvula midline, Other - Patient has have a On one of his left upper molars which the patient reports is tender with chewing. No obvious abscess on palpation. TMJs are nontender to palpation there is no tragus tenderness to palpation. No rash. Parotid gland is nontender to palpation. Submandibular gland is nontender to palpation.. Negative: Muffled voice, Hoarse voice Neck: Positive: Supple Respiratory: Positive: Lungs clear, Normal breath sounds, No respiratory distress Cardiovascular: Positive: RRR Musculoskeletal: Positive: Strength Intact, ROM Intact Neurological: Positive: Alert, Muscle Tone Normal Psychological: Positive: Age Appropriate Behavior Skin Exam: Normal Course/Dx - Course Course Of Treatment: SOURCE OF THE PAIN MAY BE dental although sinus infection is a possibility. At this time we'll treat with amoxicillin to cover both possibilities patient she get reevaluated if not improving or worse. - Diagnoses Provider Diagnosis: Left facial pain Discharge ED - Sign-Out/Discharge Documenting (check all that apply): Patient Departure All imaging exams completed and their final reports reviewed: No Studies - Discharge Plan Condition: Stable Disposition: HOME Prescriptions: Amoxicillin PO (*) [Amoxicillin 500 MG CAP*] 500 mg PO TID #30 cap Patient Education Materials: Sinusitis (ED), Toothache (ED) Referrals: Eliezer Barnes NP [Primary Care Provider] - Additional Instructions: FOLLOW UP WITH YOUR DENTIST OR PRIMARY CARE PHYSICIAN IF NOT COMPLETELY IMPROVED. GET RECHECKED SOONER IF YOUR CONDITION WORSENS OR ANY QUESTIONS OR CONCERNS. - Billing Disposition and Condition Condition: STABLE Disposition: Home
== END 2019-05-02 17:01 | disposition home or self-care (01) ==
LOC: UCEAST 15:45
DX: R51 Headache (principal); K21.9 Gastro-esophageal reflux disease without esophagitis; I10 Essential (primary) hypertension; I48.91 Unspecified atrial fibrillation; Z87.891 Personal history of nicotine dependence
CPT/HCPCS: 99212; G0463

== ENCOUNTER 2019-08-13 14:20 | Emergency (ER) | payer OTHER ==
--- NOTE | 2019-08-13 14:29 | ED ---
Neurological HPI - HPI Summary HPI Summary: This pt is a 64 y/o male, with hx of seizures, presenting to [facility] via EMS for witnessed seizure today. EMS reports pt was shopping at [employer] today when he had a grand mal seizure lasting approximately 5 minutes. EMS states upon their arrival pt was on the floor, confused and extremely combative so EMS administerd 5 mg of Versed with good effect and helped calm the patient down. Per EMS blood glucose of 132. Per pt was c/o nausea prior to seizure today. Pt denies any recent illness. Denies fever, chills, visual changes. Pt denies any weakness. He denies any pain. Pt is on Depakote 250 mg BID for seizures and states he has not missed a dose. His neurologist is Dr. Inman. reports pt's last seizure was in December of 2014. PMHx: seizures, afib, peripheral neuropathy. Denies hx of DM. His medications include hydrocodone for chronic shoulder pain, Lyrica, and Xarelto. Medications reviewed. Allergies noted. - History of Current Complaint Stated Complaint: SEIZURE Hx Obtained From: Patient, Family/Paste Thinner - , EMS Onset/Duration: Sudden Onset Timing: Sudden Onset Onset Severity: Moderate Neurological Deficit Location: Generalized Pain Intensity: 0 Pain Scale Used: 0-10 Numeric Character: Other: - seizure Seizure Character: Generalized Aggravating: Nothing Alleviating: Nothing Associated Signs and Symptoms: Positive: Nausea/Vomiting - nausea prior to seizure. Negative: Visual Changes, Weakness, Pain, Fever Related Hx: Seizure - Additional Pertinent History Primary Care Physician: DARCI - Allergy/Home Medications Allergies/Adverse Reactions: Allergies Allergy/AdvReac Type Severity Reaction Status Date / Time doxycycline Allergy Severe Hives Verified 07/31/19 09:04 flecainide Allergy Severe Itchy Verified 07/31/19 09:04 Nose, Nausea, Heart Racing Hx of AFIB pseudoephedrine Allergy Severe Palpitation Verified 07/31/19 09:04 [From Sudafed] s/Anxiety VYCRAL SUTURES Allergy BODY Uncoded 05/02/19 16:10 REJECTS THE SUTURES Home Medications: Home Medications Allopurinol TAB* [Zyloprim 300 MG TAB*] 300 mg PO DAILY 08/13/19 [History Confirmed 08/13/19] Diclofenac 1% GEL (NF) [Voltaren 1% GEL (NF)] 1 applic TOPICAL BID 08/13/19 [ History Confirmed 08/13/19] Divalproex ER TAB(*) [Depakote ER TAB(*)] 250 mg PO BID 08/13/19 [History Confirmed 08/13/19] Ferrous Sulfate TAB* 325 mg PO DAILY 08/13/19 [History Confirmed 08/13/19] Hydrocodone/Acetamin 10/325(NF [Knott 10/325 (NF)] 1 tab PO QID PRN MDD 4 tabs 08/13/19 [History Confirmed 08/13/19] Metoprolol Succinate XL TAB* [Toprol XL TAB*] 100 mg PO DAILY 08/13/19 [History Confirmed 08/13/19] Omeprazole (Nf) [Prilosec (NF)] 40 mg PO DAILY 08/13/19 [History Confirmed 08/13] Sildenafil Citrate [Viagra] 100 mg PO DAILY PRN 08/13/19 [History Confirmed ] PMH/Surg Hx/FS Hx/Imm Hx Endocrine/Hematology History: Denies: Hx Diabetes, Hx Thyroid Disease Cardiovascular History: Reports: Hx Atrial Fibrillation, Hx Hypercholesterolemia , Hx Hypertension, Other Cardiovascular Problems/Disorders - Atrial Fib occasionally Denies: Hx Congestive Heart Failure, Hx Pacemaker/ICD Respiratory History: Reports: Hx Pneumonia, Other Respiratory Problems/ Disorders - ASPIRATION PNEUMONIA BEGINNING OF 04/2015, RLL INFILTRATE Denies: Hx Asthma, Hx Chronic Obstructive Pulmonary Disease (COPD) GI History: Reports: Hx Gastroesophageal Reflux Disease - HX OF, Other GI Disorders - pre mri pt had 2015 colonoscopy with polyps removed Denies: Hx Ulcer History: Denies: Hx Dialysis, Hx Renal Disease Musculoskeletal History: Reports: Hx Arthritis - SPINE, Hx Back Problems - Chronic Back, Hx Bursitis - ELBOWS OCCASIONALLY, Hx Gout, Hx Tendonitis - BILATERAL KNEES AND ANKLES, Other Musculoskeletal History - SPINAL STENOSIS/ SOME NECK PROBLEMS Denies: Hx Rheumatoid Arthritis, Hx Osteoporosis Sensory History: Reports: Hx Contacts or Glasses - READING GLASSES Denies: Hx Hearing Aid Opthamlomology History: Reports: Hx Contacts or Glasses - READING GLASSES Neurological History: Reports: Hx Nerve Disease - IDIOPATHIC NEUROPATHY BILATERAL FEET AND LEGS, R/T HX OF LYME DISEASE, Hx Seizures Psychiatric History: Reports: Hx Anxiety, Other Psychiatric Issues/Disorders - Claustrophobia Denies: Hx Panic Disorder - Cancer History Hx Chemotherapy: No Hx Radiation Therapy: No Hx Palliative Cancer Treatment: No - Surgical History Surgical History: Yes Surgery Procedure, Year, and Place: TONSILLECTOMY, ADENOIDECTOMY AND APPENDECTOMY A CHILD,. ABDOMINAL HERNIA SURGERY A CHILD. 1989 BUNIONECTOMY X2, [place]. 03[place]2015 [place] [facility] [place] & [place] [facility] [place] for ganglion [place] [facility] [place] DECEM[place] [address] SM[place] [facility] [place] replacement 05/2018 Hx Anesthesia Reactions: Yes - BUNIONECTOMY,-MSO4 EPIDURAL - SEVERE N/V - Immunization History Date of Tetanus Vaccine: 2 years ago Date of Influenza Vaccine: July 2017 Infectious Disease History: Denies: Hx Clostridium Difficile, Hx Hepatitis, Hx Human Immunodeficiency Virus (HIV), Hx of Known/Suspected MRSA, Hx Shingles, Hx Tuberculosis, Hx Known/ Suspected VRE, Hx Known/Suspected VRSA, History Other Infectious Disease - Family History Known Family History: Negative: Cardiac Disease, Hypertension, Diabetes - Social History Occupation: Retired - banker Alcohol Use: None Hx Substance Use: No Substance Use Type: Reports: None Substance Use Comment - Amount & Last Used: hydrocodone/acetaminophen 10-325 Hx Tobacco Use: No Smoking Status (MU): Former Smoker Type: Cigarettes Amount Used/How Often: 1 PPD FOR 20 YEARS Length of Time of Smoking/Using Tobacco: 20 Have You Smoked in the Last Year: No Review of Systems Negative: Fever, Chills Negative: Other - NEGATIVE: visual changes Positive: Nausea Neurological: Other - POSITIVE: seizure Negative: Weakness All Other Systems Reviewed And Are Negative: Yes Physical Exam - Summary Physical Exam Summary: Constitutional: Well-developed, Well-nourished, Alert. (-) Distressed Skin: Warm, Dry HENT: Normocephalic; Atraumatic Eyes: Conjunctiva normal Neck: Musculoskeletal ROM normal neck. (-) JVD, (-) Stridor, (-) Tracheal deviation Cardio: Rhythm regular, rate normal, Heart sounds normal; Intact distal pulses. Radial pulses are 2+ and symmetric. (-) Murmur Pulmonary/Chest wall: Effort normal. (-) Respiratory distress, (-) Wheezes, (-) Rales Abd: Soft. (-) Tenderness, (-) Distension, (-) Guarding, (-) Rebound Musculoskeletal: (-) Edema Lymph: (-) Cervical adenopathy Neuro: Alert and oriented to place and person but not time, Strength normal, Cranial nerves II-XII are grossly intact. (-) Dysmetria, (-) Nystagmus, (-) Ataxia by finger to nose testing, (-) Sensory deficit. Psych: Mood and affect Normal Triage Information Reviewed: Yes Vital Signs Reviewed: Yes Procedures - Sedation Patient Received Moderate/Deep Sedation with Procedure: No Diagnostics - Laboratory Result Diagrams: 08/13/19 14:49 08/13/19 14:49 Lab Statement: Any lab studies that have been ordered have been reviewed, and results considered in the medical decision making process. - CT Brain CT CT Interpretation Completed By: Radiologist Summary of CT Findings: IMPRESSION: No acute intracranial process evident. No lesion to account for seizure activity evident. Dr. Hunter has reviewed this report. - EKG 14:40 Cardiac Rate: NL - at 89 bpm EKG Rhythm: Atrial Flutter Summary of EKG Findings: EKG at 1440 shows atrial flutter at a rate of 89 bpm. Multiple PVCs. No ischemic changes. Course/Dx - Course Course Of Treatment: Patient is here with his typical grand mal seizure. Patient only had one other seizure in his life. Patient was initially postictal with EMS and combative so he received 5 mg of IM Versed. Patient was monitored in the ED until his mental status is back to his baseline. Patient had negative CT brain, negative blood work. Patient's a progress level was low. Dr. Banks was called and he recommended increasing his Depakote to 500 mg twice a day. - Diagnoses Provider Diagnoses: Grand mal seizure, Seizure disorder - Physician Notifications Discussed Care Of Patient With: Aron Banks Time Discussed With Above Provider: 15:59 Instructed by Provider To: Other - Discussed with Dr. Banks, neurologist, who recommends to double Depakote to 500 mg BID and following up with Dr. Inman in 1 month. Discharge ED - Sign-Out/Discharge Documenting (check all that apply): Patient Departure - Discharge home - Discharge Plan Condition: Stable Disposition: HOME Prescriptions: Divalproex DR TAB(*) [Depakote DR(*)] 500 mg PO BID 30 Days #60 tab.dr Patient Education Materials: Recurrent Seizures in Adults (ED) Referrals: Eliezer Barnes, KARLY [Primary Care Provider] - Emani Inman MD [Medical Doctor] - Additional Instructions: Double your Depakote dose to 500 mg twice a day. Follow up with Dr. Inman, neurologist, in 3-4 weeks. PLEASE RETURN TO EMERGENCY DEPARTMENT FOR - Billing Disposition and Condition Condition: STABLE Disposition: Home - Attestation Statements Document Initiated by Scribe: Yes Documenting Scribe: Deandra Lester Provider For Whom Scribe is Documenting (Include Credential): Robert Hunter MD Scribe Attestation: Deandra Nunez, scribed for Robert Hunter MD on 08/13/19 at 1725. Scribe Documentation Reviewed: Yes Provider Attestation: The documentation as recorded by the Deandra piedra accurately reflects the service I personally performed and the decisions made by , Robert Hunter MD Status of Scribe Document: Viewed
[2019-08-13] MEDS ORDERED: NS 0.9% 1000 ML** 1,000 ML IV ONE (14:32)
--- OUTSIDE RECORDS SUMMARY | 2019-08-13 14:48 | XMS REPORT | Continuity of Care Document ---
:1955 External Reference #:[id number] Author Name Parris Cornejo N.P. (transmitted by agent of provider Perlita Saldana) Address [address] [facility] [address] [facility], [address] [place] [id number] Care Team Providers Name Role Phone Abby Arora MD - Internal Care Team Information Transformation Lead Medicine Problems Active Problems Provider Date Atrial [...] MD Onset: 07/12/2016 Paroxysmal atrial fibrillation Eliezer Barnes NP Onset: 08/18/2016 Other specific joint derangements [...] Use Denies Drug Use Smoking Status Reviewed: 07/03/19 Patient is a former 20 years ago, 1 smoker PPD Exercise Type/Frequency Exercises regularly walks 5 days a week Allergies, Adverse Reactions, Alerts Active Allergies Reaction Severity Comments Date Doxycycline hives hives 11/12/2012 Flecainide seizure 05/05/2015 Vicryl Sutures suture abscess 10/14/2016 Inactive Allergies NKDA 11/09/2012 Medications Active Medications SIG Qnty Indications Ordering Date Provider Clindamycin HCL one by mouth three 30caps K09.9 Parris Cornejo, 07/03/2019 times a day x 10 N.P. 300mg Capsules days Diclofenac Sodium apply 2 grams to 100gm Eliezer Barnes NP 05/21/2019 affected area twice 1% Gel daily Androgel 50mg topically to 150gm E29.1 Eliezer Barnes NP 05/15/2019 50mg/5GM shoulder/upper arm (1%) Gel once daily Sildenafil Citrate 1 tab 30 mins prior 9tabs F52.21 Elieezr Barnes NP 2018 to intercourse prn 100mg Tablets Ferrous Sulfate 1 by mouth twice 60tabs D50.9 Eliezer Barnes NP 10/26/2018 daily. 325(65Fe) mg Tablets Shingrix 0.5ml 2units Eliezer Barnes NP 10/26/2018 intramuscular, 50mcg/0.5ML repeat 2-6 months Suspension Rec later Zolpidem Tartrate take one tablet by 30tabs Eliezer Barnes NP 01/23/2018 ER mouth at bedtime as 12.5mg Tablets needed maximum ER daily dose = one tablet Xarelto 1 by mouth every 90tabs Gregorio Samaniego 01/25/2017 20mg day Satish Garcia Tablets Depakote ER take 1 tab (250 mg) 180tabs Emani Inman, 07/08/2016 250mg by mouth twice a M.D. Tablets ER 24HR day Lyrica take 2 capsules 120caps G60.3 Abby 100mg twice a day Cotton, M.D. Capsules Hydrocodone 1 tab q-6 hours as Unknown Bitartrate/Acetamin needed ophen Metoprolol Take One Tablet By 30tabs Eliezer Barnes NP Succinate ER Mouth Every Day 100mg Tablets ER 24HR Allopurinol Take One Tablet By 30tabs Eliezer Barnes NP 300mg Mouth Every Day Tablets History Medications Clindamycin HCL one capsule by 16caps Eliezer Barnes NP 06/20/2019 - 300mg mouth every 6 hours 06/26/2019 Capsules Amoxicillin take 4 pills, 2 g 1 4caps Mary Ellen Estrada, 06/12/2019 - 500mg hour before dental M.D. 07/02/2019 Capsules or gi procedure Medications Administered in Office Medication SIG Qnty [...] Code Status Date Vaccine Reaction Lot # [id number] Given 06/22/2017 Influenza Virus Vaccine, No immediate [id number] Quadrivalent, Split, reaction...jh Preservative Free Vital Signs Date Vital Result Comment 07/03/2019 3:18pm Height 75 inches 6'3" Weight 283.50 lb Heart Rate 83 /min BP Systolic Sitting 172 mmHg BP Diastolic Sitting 90 mmHg Body Temperature 97.2 F O2 % BldC Oximetry 94 % BMI (Body Mass Index) 35.4 kg/m2 05/15/2019 9:04am Height 75 inches 6'3" Weight 286.12 lb Heart Rate 78 /min BP Systolic 142 mmHg BP Diastolic 81 mmHg BP Systolic Recheck 138 mmHg BP Diastolic Recheck 84 mmHg Body Temperature 97.4 F O2 % BldC Oximetry 96 % BMI (Body Mass Index) 35.8 kg/m2 Results Test Acquired Date Facility Test Result H/L Range Note CBC Auto 05/03/2019 [facility] White Blood 9.4 10^3/uL Normal 3.5-10.[address] [place] [address] [phone] Red Blood Count 4.77 10^6/uL Normal 4.18-5.48 Hemoglobin 14.9 g/dL Normal 14.0-18.0 Hematocrit 45 % Normal 42-52 Mean Corpuscular Volume 95 fL High 80-94 Mean Corpuscular Hemoglobin 31 pg Normal 27-31 Mean Corpuscular HGB Conc 33 g/dL Normal 31-36 Red Cell Distribution Width 17 % High 10-15 Platelet Count 218 10^3/uL Normal 150-450 Mean Platelet Volume 8.8 fL Normal 7.4-10.4 Abs Neutrophils 6.8 10^3/uL Normal 1.5-7.7 Abs Lymphocytes 2.0 10^3/uL Normal 1.0-4.8 Abs Monocytes 0.4 10^3/uL Normal 0-0.8 Abs Eosinophils 0.1 10^3/uL Normal 0-0.6 Abs Basophils 0.1 10^3/uL Normal 0-0.2 Abs Nucleated RBC 0.0 10^3/uL Granulocyte % 72.2 % Lymphocyte % 21.1 % Monocyte % 4.6 % Eosinophil % 1.4 % Basophil % 0.7 % Nucleated Red Blood Cells % 0.1 Iron & Iron Binding 05/03/2019 [facility] Iron 84 g/dL Normal 50-[address] [place] [address] [phone] Unsaturated Iron Binding < 399 g/dL Total Iron Binding Capacity 414 g/dL Normal 250-450 Transferrin 296 mg/dL Normal 203-362 % Iron Saturation 20 % Normal 15-55 Laboratory test 05/03/2019 [facility] PSA Screening 0.966 Normal 0-4.000 [address] ng/[place] [address] [phone] Ferritin 27.3 ng/mL Normal 24-336 Testosterone Free 05/03/2019 [facility] Free 8.03 3.67-13.9 2 & Total 101 Testosterone ng/[place] [address] ng/dl [phone] Testosterone 217 ng/dL Abnormal 240-950 3 CBC Auto 04/08/2019 [facility] White Blood 6.5 10^3/uL Normal 3.5-10.[address] [place] [address] [phone] Red Blood Count 4.86 10^6/uL Normal 4.18-5.48 Hemoglobin 14.8 g/dL Normal 14.0-18.0 Hematocrit 45 % Normal 42-52 Mean Corpuscular Volume 93 fL Normal 80-94 Mean Corpuscular Hemoglobin 30 pg Normal 27-31 Mean Corpuscular HGB Conc 33 g/dL Normal 31-36 Red Cell Distribution Width 18 % High 10-15 Platelet Count 228 10^3/uL Normal 150-450 Mean Platelet Volume 7.9 fL Normal 7.4-10.4 Abs Neutrophils 3.7 10^3/uL Normal 1.5-7.7 Abs Lymphocytes 2.0 10^3/uL Normal 1.0-4.8 Abs Monocytes 0.6 10^3/uL Normal 0-0.8 Abs Eosinophils 0.2 10^3/uL Normal 0-0.6 Abs Basophils 0.0 10^3/uL Normal 0-0.2 Abs Nucleated RBC 0.0 10^3/uL Granulocyte % 56.9 % Lymphocyte % 30.2 % Monocyte % 8.8 % Eosinophil % 3.7 % Basophil % 0.4 % Nucleated Red Blood Cells % 0.1 Laboratory test 04/08/2019 [facility] Ferritin 23.5 ng/mL Low 24-[address] [place] [address] [phone] Iron & Iron 04/08/2019 [facility] Iron 113 g/dL Normal 50- [address] [place] [address] [phone] Unsaturated Iron Binding < 409 g/dL Total Iron Binding Capacity 424 g/dL Normal 250-450 Transferrin 303 mg/dL Normal 203-362 % Iron Saturation 27 % Normal 15-55 Laboratory test 04/08/2019 [facility] PSA Screening 0.865 Normal 0-4.000 4 finding 101 ng/[place] [address] [phone] Testosterone 04/08/2019 [facility] Free 5.54 3.67-13.9 5 Free & Total [address] Testosterone ng/[place] [address] ng/dl [phone] Testosterone 142 ng/dL Abnormal 240-950 6 Drug Abuse 20 04/02/2019 [facility] Urine Amphetamine Negative ng/mL [address] [place] [address] [phone] Urine Barbiturates Negative ng/mL 8 Urine Benzodiazepines Negative ng/mL 9 Urine Cocaine Negative ng/mL 10 Urine Phencyclidine Negative ng/mL Cutoff: 25 Urine Tetrahydrocannabinol Negative ng/mL Cutoff: 50 11 Creatinine, Urine 141.6 mg/dL Specific [place] 1.014 pH 5.9 Oxidants Negative 12 Adulterants Comment Normal Codeine, Ur Not Detected ng/mL Cutoff: 25 13 Pmxcrwo-0-kogx-glucuronide, Ur Not Detected ng/mL 14 Morphine, Ur Not Detected ng/mL Cutoff: 25 15 Jvxgqnxe-3-jcbs-glucuronide, U Not Detected ng/mL 16 6-monoacetylmorphine, Ur Not Detected ng/mL Cutoff: 25 17 Hydrocodone, Ur Not Detected ng/mL Cutoff: 25 18 Norhydrocodone, Ur Not Detected ng/mL Cutoff: 25 19 Dihydrocodeine, Ur Not Detected ng/mL Cutoff: 25 20 Hydromorphone, Ur Not Detected ng/mL Cutoff: 25 21 Tyhjgtghhbvnn3zijlffltpnzuizz Not Detected ng/mL 22 Oxycodone, Ur Not Detected ng/mL Cutoff: 25 23 Noroxycodone, Ur Not Detected ng/mL Cutoff: 25 24 Oxymorphone, Ur Not Detected ng/mL Cutoff: 25 25 Plyilppvfue-5-fwog-glucuronide Not Detected ng/mL 26 Noroxymorphone, Ur Not Detected ng/mL Cutoff: 25 27 Fentanyl, Ur Not Detected ng/mL Cutoff: 2 28 Norfentanyl, Ur Not Detected ng/mL Cutoff: 2 29 Meperidine, Ur Not Detected ng/mL Cutoff: 25 30 Normeperidine, Ur Not Detected ng/mL Cutoff: 25 31 Naloxone, Ur Not Detected ng/mL Cutoff: 25 32 Pvrrqjdu-3-qthl-glucuronide, U Not Detected ng/mL 33 Methadone, Ur Not Detected ng/mL Cutoff: 25 34 Eddp, Ur Not Detected ng/mL Cutoff: 25 35 Propoxyphene, Ur Not Detected ng/mL Cutoff: 25 36 Norpropoxyphene, Ur Not Detected ng/mL Cutoff: 25 37 Tramadol, Ur Not Detected ng/mL Cutoff: 25 38 O-desmethyltramadol, Ur Not Detected ng/mL Cutoff: 25 39 Tapentadol, Ur Not Detected ng/mL Cutoff: 25 40 N-desmethyltapentadol, Ur Not Detected ng/mL Cutoff: 50 41 Wlkwoqsbcu-bpux-yscgdypoipi, U Not Detected ng/mL 42 Buprenorphine, Ur Not Detected ng/mL Cutoff: 5 43 Norbuprenorphine, Ur Not Detected ng/mL Cutoff: 5 44 Norbuprenorphine glucuronide Not Detected ng/mL Cutoff: 20 45 Opioid Interpretation See Comment 46 Laboratory test 01/07/2019 [facility] A neg finding Strep Laboratory test 01/07/2019 [facility] Culture Throat SEE RESULT 47, [address] [place] [address] [phone] 1 Serum levels of PSA measured using the Anne Cuauhtemoc DXI Hybritech immunoassay should not be interpreted as absolute evidence of the presence or absence of disease. The PSA value should be used in conjunction with other pertinent clinical diagnostic procedures. The values obtained with different assay methods or kits cannot be used interchangeably. 2 ADDITIONAL INFORMATION Testing performed by [facility]. This test was developed and its performance characteristics determined by [facility] in a manner consistent with CLIA requirements. This test has not been cleared or approved by the U.S. Food and Drug Administration. 3 ADDITIONAL INFORMATION Testing performed by Liquid Chromatography-Tandem Mass Spectrometry (LC-MS/MS). This test was developed and its performance characteristics determined by [facility] in a manner consistent with CLIA requirements. This test has not been cleared or approved by the U.S. Food and Drug Administration. Test Performed by: [facility] - [address] [address] [employer] Tech: Doroteo Humphries M.D. Ph.D.; CLIA# [id number] 4 Serum levels of PSA measured using the Anne Marilla DXI Hybritech immunoassay should not be interpreted as absolute evidence of the presence or absence of disease. The PSA value should be used in conjunction with other pertinent clinical diagnostic procedures. The values obtained with different assay methods or kits cannot be used interchangeably. 5 ADDITIONAL INFORMATION Testing performed by [facility]. This test was developed and its performance characteristics determined by [facility] in a manner consistent with CLIA requirements. This test has not been cleared or approved by the U.S. Food and Drug Administration. 6 ADDITIONAL INFORMATION Testing performed by Liquid Chromatography-Tandem Mass Spectrometry (LC-MS/MS). This test was developed and its performance characteristics determined by [facility] in a manner consistent with CLIA requirements. This test has not been cleared or approved by the U.S. Food and Drug Administration. Test Performed by: [facility] - [address] [address] 7 REFERENCE VALUE Cutoff: 500 8 REFERENCE VALUE Cutoff: 200 9 REFERENCE VALUE Cutoff: 100 10 REFERENCE VALUE Cutoff: 150 11 ADDITIONAL INFORMATION This report is intended for use in clinical monitoring or management of patients. It is not intended for use in employment-related testing. Test Performed by: [facility] - [facility] [address] [place] [address] 12 REFERENCE VALUE Cutoff: 200 mg/L 13 Tylenol 3 14 Metabolite of codeine REFERENCE VALUE Cutoff: 100 15 Sophie Vásquez, Contin; Also a minor metabolite (10%) of codeine and can be seen in low concentrations (<2,000 ng/mL) with poppy seed ingestion. 16 Metabolite of morphine REFERENCE VALUE Cutoff: 100 17 Metabolite of heroin 18 Lortab, [place], Vicodin; Also a very minor metabolite of codeine and impurity (<1%) of oxycodone. 19 Metabolite of hydrocodone 20 Metabolite of hydrocodone 21 Dilaudid, Exalgo; Also a metabolite of hydrocodone and a minor (<5%) metabolite of morphine. 22 Metabolite of hydromorphone REFERENCE VALUE Cutoff: 100 23 Endocet, Percocet, Oxycontin 24 Metabolite of oxycodone 25 Numorphan, Opana; Also a metabolite of oxycodone. 26 Metabolite of oxymorphone REFERENCE VALUE Cutoff: 100 27 Metabolite of oxymorphone 28 Actiq, Duragesic, Fentora 29 Metabolite of fentanyl 30 Demerol 31 Metabolite of meperidine 32 Narcan 33 Metabolite of naloxone REFERENCE VALUE Cutoff: 100 34 Dolophine 35 Metabolite of methadone 36 Darvon, Darvocet 37 Metabolite of propoxyphene 38 Tradol, Ultram, Ultracet 39 Metabolite of tramadol 40 Nucynta 41 Metabolite of tapentadol 42 Metabolite of tapentadol REFERENCE VALUE Cutoff: 100 43 Buprenex, Suboxone 44 Metabolite of buprenorphine 45 Metabolite of buprenorphine 46 No opioids were detected. The absence of expected drug(s) and/or drug metabolite(s) may indicate non-compliance, altered pharmacokinetics, inappropriate timing of specimen collection relative to drug administration, diluted/adulterated urine, or limitations of testing. ADDITIONAL INFORMATION This test was developed and its performance characteristics determined by [facility] in a manner consistent with CLIA requirements. This test has not been cleared or approved by the U.S. Food and Drug Administration. 47 [id number] SEE RESULT BELOW Name: MELINDA COOMBS : [address]: Jeanette Sales MD Acct: [id number] Unit: [id number] AGE: 63 Location: [facility] Re01/07/19 SEX: M Status: REG REF SPEC: [id number] ERICK: 01/07/19-[address] [facility] [address]: Jeanette Sales MD REQ: [id number] RECD: 01/07/19 STATUS: COMP _ SOURCE: THROAT SPDESC: ORDERED: Throat Culture COMMENTS: [id number] Procedure Result Reported Site Throat Culture Final 01/09/19- 0909 ML Organism 1 NORMAL CESAR Quantity 3+ Throat cultures are clinically indicated to detect the presence of group A strep, arcanobacterium and yeast. In certain cases, predominating organisms will be reported. * ML - Main Lab . END OF REPORT DEPARTMENT OF PATHOLOGY, [address] [place] [address] Lemuel Leyva M.D. 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 R94.31 Abnormal Visit 4:00p Cardiology Of Satish Garcia electrocardiogram [facility] [ECG] [EKG] E66.9 Obesity, unspecified I48.2 Chronic atrial fibrillation I10 Essential (primary) hypertension Office Visit 01/22/2019 9:45a [facility] Hattie Burns, Z96.612 Presence of left Orthopedics at [facility] [place] shoulder joint Office Visit 01/07/2019 11:10a [facility] Internal Jeanette J02.9 [facility] ph[facility]itis, unspecified Assessments Date Code Description Provider 07/03/2019 K09.9 Cyst of oral region, unspecified Parris Cornejo, N.P. 05/15/2019 E29.1 Testicular hypofunction Eliezer Barnes NP 05/03/2019 G60.3 Idiopathic progressive neuropathy Emani Inman M.D. 05/03/2019 G40.89 Other seizures Emani Inman M.D. 04/03/2019 I10 Essential (primary) hypertension Eliezer Molly, [employer] WORKER 04/03/2019 D50.9 Iron deficiency anemia, unspecified Eliezer Barnes NP 04/03/2019 F52.21 Male erectile disorder Eliezer Barnes NP 03/01/2019 R94.31 Abnormal electrocardiogram [ECG] [EKG] Gregorio Garcia M.D. 03/01/2019 E66.9 Obesity, unspecified Gregorio Garcia M.D. 03/01/2019 I48.2 Chronic atrial fibrillation Gregorio Garcia M.D. 03/01/2019 I10 Essential (primary) hypertension Gregorio Garcia M.D. 01/22/2019 Z96.612 Presence of left artificial shoulder Hattie Burns MD joint 01/07/2019 J02.9 Acute pharyngitis, unspecified Jeanette Sales M.D. Plan of Treatment Future Appointment(s):08/16/2019 8:40 am - Eliezer Barnes NP at [facility] Internal Medicine - [facility]11/01/2019 9:30 am - Emani Inman M.D. at [facility]07/25/2019 9:15 am - Hattie Burns MD at [facility] at [place]307/03/2019 - Parris Cornejo N.P.K09.9 Cyst of oral region, unspecifiedNew Medication:Clindamycin HCL 300 mg - one by mouth three times a day x 10 daysComments:I have prescribed a course of Clindamycin for you.Take 1 tablet, 3 times daily, for 10 days. Please touch base with your dental professional to get your tooth taken care of. Functional Status Description No Information Available Mental Status Description No Information Available Referrals Description No Information Available
--- OUTSIDE RECORDS SUMMARY | 2019-08-13 14:48 | XMS REPORT | Continuity of Care Document ---
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 Active Problems Provider Date Atrial [...] Use Denies Drug Use Smoking Status Reviewed: 07/25/19 Patient is a former 20 years ago, 1 smoker PPD Exercise Type/Frequency Exercises regularly walks 5 days a week Allergies, Adverse Reactions, Alerts Active Allergies Reaction Severity Comments Date Doxycycline hives hives 11/12/2012 Flecainide seizure 05/05/2015 Vicryl Sutures suture abscess 10/14/2016 Inactive Allergies NKDA 11/09/2012 Medications Active Medications SIG Qnty Indications Ordering Date Provider Diclofenac Sodium apply 2 grams to 100gm Eliezer Barnes NP 05/21/2019 affected area twice 1% Gel daily Androgel 50mg topically to 150gm E29.1 Eliezer Barnes NP 05/15/2019 50mg/5GM shoulder/upper arm (1%) Gel once daily Sildenafil Citrate 1 tab 30 mins prior 9tabs F52.21 Eliezer Barnes NP 2018 to intercourse as 100mg Tablets needed Ferrous Sulfate 1 by mouth twice 60tabs [...] 120caps G60.3 Abby 100mg twice a day Satish Arora Capsules Hydrocodone 1 tab q-6 hours as Unknown Bitartrate/Acetamin needed ophen Metoprolol Take One Tablet By 30tabs Eliezer Barnes NP Succinate ER Mouth Every Day 100mg Tablets ER 24HR Allopurinol Take One Tablet By 30tabs Eliezer Barnes NP 300mg Mouth Every Day Tablets History Medications Clindamycin HCL one by mouth three 30caps K09.9 Parris Cornejo, 07/03/2019 - 300mg times a day x 10 N.P. 07/13/2019 Capsules days Clindamycin HCL one capsule by 16caps Eliezer Barnes NP 06/20/2019 - 300mg mouth every 6 06/26/2019 Capsules hours Amoxicillin take 4 pills, 2 g 4caps Mary Ellen Estrada, 06/12/2019 - 500mg 1 hour before M.DJackie 07/02/2019 Capsules dental or gi procedure Medications Administered in Office [...] Code Status Date Vaccine Reaction Lot # [id number] Given 06/22/2017 Influenza Virus Vaccine, No immediate [id number] Quadrivalent, Split, reaction...jh Preservative Free Vital Signs Date Vital Result Comment 07/25/2019 9:27am Height 75 inches 6'3" Weight 285.00 lb Heart Rate 83 /min Respiratory Rate 18 /min Body Temperature 97.2 F Pain Level 5 BMI (Body Mass Index) 35.6 kg/m2 07/03/2019 3:18pm Height 75 inches 6'3" Weight 283.50 lb Heart Rate 83 /min BP Systolic Sitting 172 mmHg BP Diastolic Sitting 90 mmHg Body Temperature 97.2 F O2 % BldC Oximetry 94 % BMI (Body Mass Index) 35.4 kg/m2 Results Test Acquired Date Facility Test Result H/L Range Note CBC Auto 05/03/2019 [facility] White Blood 9.4 10^3/uL Normal 3.5-10.[address] [place] [address] [phone] Red Blood Count 4.77 10^6/uL Normal 4.18-5.48 [...] % 0.1 Iron & Iron Binding 05/03/2019 [facility] Iron 84 g/dL Normal 50-[address] [place] [address] [phone] Unsaturated Iron Binding < 399 g/dL Total Iron Binding Capacity 414 g/dL Normal 250-450 Transferrin 296 mg/dL Normal 203-362 % Iron Saturation 20 % Normal 15-55 Laboratory test 05/03/2019 [facility] PSA Screening 0.966 Normal 0-4.[address] ng/[place] [address] [phone] Ferritin 27.3 ng/mL Normal 24-336 Testosterone Free 05/03/2019 [facility] Free 8.03 3.67-13.9 2 & Total 101 Testosterone ng/[place] [address] ng/dl [phone] Testosterone 217 ng/dL Abnormal 240-950 3 CBC Auto 04/08/2019 [facility] White Blood 6.5 10^3/uL Normal 3.5-10.8 Diff [address] [place] [address] [phone] Red Blood Count 4.86 10^6/uL Normal 4.18-5.48 [...] Blood Cells % 0.1 Laboratory test 04/08/2019 [facility] Ferritin 23.5 ng/mL Low 24-336 finding [address] [place] [address] [phone] Iron & Iron 04/08/2019 [facility] Iron 113 g/dL Normal 50- [address] [place], [place] [id number] [phone] Unsaturated Iron Binding < 409 g/dL Total Iron Binding Capacity 424 g/dL Normal 250-450 Transferrin 303 mg/dL Normal 203-362 % Iron Saturation 27 % Normal 15-55 Laboratory test 04/08/2019 [facility] PSA Screening 0.865 Normal 0-4.000 4 finding 101 ng/mL [place], [place] [id number] [phone] Testosterone 04/08/2019 [facility] Free 5.54 3.67-13.9 5 Free & Total [address] Testosterone ng/[place] [address] ng/dl [phone] Testosterone 142 ng/dL Abnormal 240-950 6 Drug Abuse 20 04/02/2019 [facility] Urine Amphetamine Negative ng/mL [address] [place], [place] [id number] [phone] Urine Barbiturates Negative ng/mL 8 Urine Benzodiazepines Negative ng/mL 9 Urine Cocaine Negative ng/mL 10 Urine Phencyclidine Negative ng/mL Cutoff: 25 Urine Tetrahydrocannabinol Negative ng/mL Cutoff: 50 11 Creatinine, Urine 141.6 mg/dL Specific [place] 1.014 pH 5.9 Oxidants Negative 12 Adulterants Comment Normal Codeine, Ur Not Detected ng/mL Cutoff: 25 13 Nhdases-5-xcbv-glucuronide, Ur Not Detected ng/mL 14 Morphine, Ur Not Detected ng/mL Cutoff: 25 15 Ljvievlu-0-daco-glucuronide, U Not Detected ng/mL 16 6-monoacetylmorphine, Ur Not Detected ng/mL Cutoff: 25 17 Hydrocodone, Ur Not Detected ng/mL Cutoff: 25 18 Norhydrocodone, Ur Not Detected ng/mL Cutoff: 25 19 Dihydrocodeine, Ur Not Detected ng/mL Cutoff: 25 20 Hydromorphone, Ur Not Detected ng/mL Cutoff: 25 21 Bjbamvlqzmwtb7peozcqmsubyhswe Not Detected ng/mL 22 Oxycodone, Ur Not Detected ng/mL Cutoff: 25 23 Noroxycodone, Ur Not Detected ng/mL Cutoff: 25 24 Oxymorphone, Ur Not Detected ng/mL Cutoff: 25 25 Xlnjykabptp-3-rtsi-glucuronide Not Detected ng/mL 26 Noroxymorphone, Ur Not Detected ng/mL Cutoff: 25 27 Fentanyl, Ur Not Detected ng/mL Cutoff: 2 28 Norfentanyl, Ur Not Detected ng/mL Cutoff: 2 29 Meperidine, Ur Not Detected ng/mL Cutoff: 25 30 Normeperidine, Ur Not Detected ng/mL Cutoff: 25 31 Naloxone, Ur Not Detected ng/mL Cutoff: 25 32 Hmxjelov-9-tbur-glucuronide, U Not Detected ng/mL 33 Methadone, Ur [...] Ur Not Detected ng/mL Cutoff: 50 41 Cvvxtgbyuo-syeu-faedbojvrch, U Not Detected ng/mL 42 Buprenorphine, Ur Not Detected ng/mL Cutoff: 5 43 Norbuprenorphine, Ur Not Detected ng/mL Cutoff: 5 44 Norbuprenorphine glucuronide Not Detected ng/mL Cutoff: 20 45 Opioid Interpretation See Comment 46 1 Serum levels of PSA measured using the [employer] DXI Hybritech immunoassay should not be interpreted as absolute evidence of the presence or absence of disease. The PSA value should be used in conjunction with other pertinent clinical diagnostic procedures. The values obtained with different assay methods or kits cannot be used interchangeably. 2 ADDITIONAL INFORMATION Testing performed by [facility]. This test was developed and its performance characteristics determined by [facility] in a manner consistent with CLIA requirements. This test has not been cleared or approved by the U.S. Food and Drug Administration. 3 ADDITIONAL INFORMATION Testing performed by Liquid Chromatography-Tandem Mass Spectrometry (LC-MS/MS). This test was developed and its performance characteristics determined by [facility] in a manner consistent with CLIA requirements. This test has not been cleared or approved by the U.S. Food and Drug Administration. Test Performed by: [address] [address] Senior Vice President: Doroteo Humphries M.D. Ph.D.; CLIA# [id number] 4 Serum levels of PSA measured using the [employer] DXI Hybritech immunoassay should not be interpreted as absolute evidence of the presence or absence of disease. The PSA value should be used in conjunction with other pertinent clinical diagnostic procedures. The values obtained with different assay methods or kits cannot be used interchangeably. 5 ADDITIONAL INFORMATION Testing performed by [facility]. This test was developed and its performance characteristics determined by [facility] in a manner consistent with CLIA requirements. This test has not been cleared or approved by the U.S. Food and Drug Administration. 6 ADDITIONAL INFORMATION Testing performed by Liquid Chromatography-Tandem Mass Spectrometry (LC-MS/MS). This test was developed and its performance characteristics determined by [facility] in a manner consistent with CLIA requirements. This test has not been cleared or approved by the U.S. Food and Drug Administration. Test Performed by: [facility] [address] [place] [address] 7 REFERENCE VALUE Cutoff: 500 8 REFERENCE VALUE Cutoff: 200 9 REFERENCE VALUE Cutoff: 100 10 REFERENCE VALUE Cutoff: 150 11 ADDITIONAL INFORMATION This report is intended for use in clinical monitoring or management of patients. It is not intended for use in employment-related testing. Test Performed by: [facility] [address] [place] [address] 12 REFERENCE VALUE Cutoff: 200 mg/L 13 Tylenol 3 14 Metabolite of codeine REFERENCE VALUE Cutoff: 100 15 Sophie Vásquez, Contin; Also a minor metabolite (10%) of codeine and can be seen in low concentrations (<2,000 ng/mL) with poppy seed ingestion. 16 Metabolite of morphine REFERENCE VALUE Cutoff: 100 17 Metabolite of heroin 18 Lortab, Mcgregor, Vicodin; Also a very minor metabolite of [...] developed and its performance characteristics determined by [facility] in a manner consistent with CLIA requirements. This test has not been cleared or approved by the U.S. Food and Drug Administration. Procedures Date Code Description Status 05/15/2019 94296 Nerve Conduction 03-04 Studies Completed 05/15/2019 38183 Needle Electromyography Each Extremity W/Related Completed Paraspinal Areas 03/01/2019 42319 EKG Tracing & Interpretation Completed 05/17/2016 73334962 Colonoscopy Completed Medical Devices Description No Information Available Encounters Type Date Location Provider Dx Diagnosis Office Visit 07/03/2019 [facility] Internal Parris Cornejo, K09.9 Cyst of oral region, 3:20p Medicine - [facility] N.P. 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 05/15/2019 G60.3 Idiopathic progressive neuropathy Emani Inman M.D. 05/15/2019 E29.1 Testicular hypofunction Eliezer Barnes NP 05/03/2019 G60.3 Idiopathic progressive neuropathy Emani Inman M.D. 05/03/2019 G40.89 Other seizures Emani Inman M.D. 04/03/2019 I10 Essential (primary) hypertension Eliezer Barnes NP 04/03/2019 D50.9 Iron deficiency anemia, unspecified Eliezer Barnes NP 04/03/2019 F52.21 Male erectile disorder Eliezer Barnes NP 03/01/2019 R94.31 Abnormal electrocardiogram [ECG] [EKG] Gregorio Garcia M.D. 03/01/2019 E66.9 Obesity, unspecified Gregorio Garcia M.D. 03/01/2019 I48.2 Chronic atrial fibrillation Gregorio Garcia M.D. 03/01/2019 I10 Essential (primary) hypertension Gregorio Garcia M.D. Plan of Treatment Future Appointment(s):08/16/2019 8:40 am - Eliezer Barnes NP at [facility]30 am - Emani Inman M.D. at [facility]07/25/2019 - SHANDA Campos19.012 Primary osteoarthritis, left shoulderFollow up:Follow up: As needed Functional Status Description No Information Available Mental Status Description No Information Available Referrals Description No Information Available
[2019-08-13 14:54] LABS: ABS Basophils 0.1 10^3/ul (0-0.2); ABS Eosinophils 0.2 10^3/ul (0-0.6); ABS Lymphocytes 2.1 10^3/ul (1.0-4.8); ABS Monocytes 0.6 10^3/ul (0-0.8); Eosinophil % 1.9 %; Hematocrit 46 % (42-52); Hemoglobin 15.4 g/dL (14.0-18.0); Lymphocyte % 23.6 %; Mean Corpuscular HGB Conc 33 g/dL (31-36); Mean Corpuscular Hemoglobin 32 pg (27-31); Mean Corpuscular Volume 95 fL (80-94); Mean Platelet Volume 7.2 fL (7.4-10.4); Platelet Count 235 10^3/uL (150-450); Red Blood Count 4.87 10^6 /uL (4.18-5.48); Red Cell Distribution Width 15 % (10-15); White Blood Count 8.9 10^3/uL (3.5-10.8)
[2019-08-13 15:11] LABS: Albumin 4.3 g/dL (3.2-5.2); Albumin/Globulin Ratio 1.7 (1-3); EGFR African American 83.6 (>60); EGFR Non-African American 69.1 (>60); Globulin 2.5 g/dL (2-4); Potassium 4.8 mmol/L (3.5-5.0); Total Bilirubin 0.5 mg/dL (0.2-1.0); Total Protein 6.8 g/dL (6.4-8.9)
[2019-08-13 16:33] VITALS: BP 141/71
== END 2019-08-13 16:32 | disposition home or self-care (01) ==
LOC: ED 14:20
DX: G40.409 Other generalized epilepsy and epileptic syndromes, not intractable, without status epilepticus (principal); I48.91 Unspecified atrial fibrillation; E78.00 Pure hypercholesterolemia, unspecified; I10 Essential (primary) hypertension; K21.9 Gastro-esophageal reflux disease without esophagitis; F41.9 Anxiety disorder, unspecified; Z96.612 Presence of left artificial shoulder joint; Z87.891 Personal history of nicotine dependence; Z79.899 Other long term (current) drug therapy; Z88.1 Allergy status to other antibiotic agents; Z88.8 Allergy status to other drugs, medicaments and biological substances
CPT/HCPCS: 36415; 70450; 80053; 80164; 84484; 85025; 93005; 96360; 99283

== ENCOUNTER 2020-06-25 08:58 | Observation (INO) ==
[2020-06-25 10:18] LABS: ABS Lymphocytes 0.9 10^3/ul (1.0-4.8); ABS Monocytes 0.6 10^3/ul (0-0.8); ABS Neutrophils 12.6 10^3/ul (1.5-7.7); Eosinophil % 0.3 %; Hematocrit 52 % (42-52); Hemoglobin 17.1 g/dL (14.0-18.0); Lymphocyte % 6.4 %; Mean Corpuscular HGB Conc 33 g/dL (31-36); Mean Corpuscular Hemoglobin 32 pg (27-31); Mean Corpuscular Volume 98 fL (80-94); Mean Platelet Volume 8.6 fL (7.4-10.4); Nucleated Red Blood Cells % 0.1; Platelet Count 189 10^3/uL (150-450); Red Blood Count 5.28 10^6 /uL (4.18-5.48); Red Cell Distribution Width 17 % (10-15); White Blood Count 14.2 10^3/uL (3.5-10.8)
[2020-06-25 10:34] LABS: INR 1.21 (0.82-1.09)
[2020-06-25 10:37] LABS: Albumin 4.4 g/dL (3.2-5.2); Albumin/Globulin Ratio 1.6 (1-3); Ammonia 59 mcmol/L (16-53); C Reactive Protein 18.7 mg/L (<8.01); Calcium 9.3 mg/dL (8.6-10.3); EGFR African American 86.3 (>60); EGFR Non-African American 71.3 (>60); Globulin 2.7 g/dL (2-4); Magnesium 1.7 mg/dL (1.9-2.7); Potassium 4.1 mmol/L (3.5-5.0); Total Bilirubin 1.3 mg/dL (0.2-1.0); Total Protein 7.1 g/dL (6.4-8.9)
[2020-06-25 10:41] LABS: BNP 288 pg/mL (<=100)
[2020-06-25 10:42] LABS: CKMB ng/mL 2.7 ng/mL (0.6-6.3)
[2020-06-25 10:50] LABS: TSH Ultra Thyroid Stim Horm 2.83 mcIU/mL (0.34-5.60)
[2020-06-25] MEDS ORDERED: Cefepime 2 GM in Dextrose 2 GM/50 ML BAG IV ONE (12:27)
[2020-06-25] MEDS ORDERED: cefTRIAXone 1 gm/50 mL NS BAG 1 GM/50 ML BAG IV ONE (12:47)
[2020-06-25] MEDS ORDERED: Azithromycin 500 mg/250 ml NS 500 MG/250 ML BAG IVPB ONE (12:47)
[2020-06-25] MEDS: NS 0.9% 1000 ml BAG 1,000 ML IV ONE ×2 (13:13→17:07)
[2020-06-25 13:25] LABS: Urine Appearance Clear; Urine Bilirubin Negative (Negative); Urine Blood Negative (Negative); Urine Color Amber; Urine Glucose Negative (Negative); Urine Ketones Negative (Negative); Urine Nitrite Negative (Negative); Urine Protein 1+(30 mg/dL) (Negative); Urine Specific Gravity 1.025 (1.010-1.030); Urine Urobilinogen Positive (Negative)
[2020-06-25 13:37] LABS: Urine Bacteria 1+ (Absent); Urine Red Blood Cell 3+(>10/hpf) (Absent); Urine White Blood Cell Trace(0-5/hpf) (Absent)
[2020-06-25] MEDS ORDERED: NS 0.9% 1000 ml BAG 1,000 ML IV ONE (13:42)
[2020-06-26 09:42] VITALS: BP 142/82
[2020-06-26] MEDS ORDERED: cefTRIAXone 1 gm/50 mL NS BAG 1 GM/50 ML BAG IVPB SCH (13:00)
[2020-06-26] MEDS ORDERED: Azithromycin 500 mg/250 ml NS 500 MG/250 ML BAG IVPB SCH (15:00)
== END 2020-06-26 12:20 | disposition home or self-care (01) ==
LOC: ED 08:58 → MED 08:58
PROVIDERS: ADMIT Student in an Organized Health Care Education/Training Program; ATTEND Student in an Organized Health Care Education/Training Program

== ENCOUNTER 2021-05-31 13:17 | Inpatient (IN) ==
[2021-05-31] MEDS ORDERED: Albuterol 0.5% CONC CONTINUOUS NEB.SOL 5 mg/ml 20 ml BOT ONE (13:21)
[2021-05-31] MEDS ORDERED: Albuterol 0.5% CONC CONTINUOUS NEB.SOL 5 mg/ml 20 ml BOT INH ONE (13:21)
[2021-05-31] MEDS ORDERED: Lactated Ringers 1000 ml BAG 1,000 ML IV ONE (13:24)
[2021-05-31] MEDS ORDERED: cefTRIAXone 1 gm/50 mL NS BAG 1 GM/50 ML BAG IV ONE (13:43)
[2021-05-31] MEDS ORDERED: NS 0.9% 1000 ml BAG 1,000 ML IV ONE (13:44)
[2021-05-31 13:50] LABS: PCO2 Arterial 40 mmHg (35-45); PO2 Arterial 93 mmHg (80-100)
[2021-05-31 14:02] LABS: ABS Basophils 0.1 10^3/ul (0-0.2); ABS Eosinophils 0.1 10^3/ul (0-0.6); ABS Lymphocytes 2.5 10^3/ul (1.0-4.8); ABS Monocytes 0.8 10^3/ul (0-0.8); Eosinophil % 0.6 %; Hematocrit 47 % (42-52); Hemoglobin 15.6 g/dL (14.0-18.0); Mean Corpuscular HGB Conc 34 g/dL (31-36); Mean Corpuscular Hemoglobin 33 pg (27-31); Mean Corpuscular Volume 97 fL (80-94); Mean Platelet Volume 8.6 fL (7.4-10.4); Platelet Count 165 10^3/uL (150-450); Red Blood Count 4.79 10^6 /uL (4.18-5.48); Red Cell Distribution Width 15 % (10-15); White Blood Count 14.4 10^3/uL (3.5-10.8)
[2021-05-31 14:19] LABS: ALT 11 U/L (7-52); Albumin 3.9 g/dL (3.2-5.2); Albumin/Globulin Ratio 1.3 (1-3); Alkaline Phosphatase 46 U/L (35-149); Blood Urea Nitrogen 26 mg/dL (6-24); CO2 Carbon Dioxide 29 mmol/L (22-32); Calcium 8.5 mg/dL (8.6-10.3); Chloride 95 mmol/L (101-111); Globulin 3.1 g/dL (2-4); Glucose 80 mg/dL (70-100); Sodium 130 mmol/L (135-145)
[2021-05-31 14:32] LABS: Troponin I 0.04 ng/mL (<0.03)
[2021-05-31 14:40] LABS: Anion Gap 6 mmol/L (2-11)
[2021-05-31] MEDS ORDERED: Metoprolol Tartrate 5 mg VIAL 5 ml VIAL (1 mg/ml) IV ONE (14:58)
[2021-05-31 15:20] LABS: Activated Partial Thrombo Time 54.7 seconds (26.0-38.0); INR 3.21 (0.86-1.15)
[2021-05-31 15:53] LABS: Potassium Redraw 3.9 mmol/L (3.5-5.0)
[2021-05-31] MEDS ORDERED: HYDROcodone/ACETAMIN 5/325 mg TAB PO ONE (16:04)
[2021-05-31 16:41] LABS: C Reactive Protein 284.85 mg/L (<8.01)
[2021-05-31 17:41] LABS: Rapid COVID-19 Molecular Undetected (Undetected)
[2021-05-31] MEDS ORDERED: Lactated Ringers 500 ml BAG 500 ML IV SCH (18:00)
[2021-05-31] MEDS ORDERED: DOXYcycline 100 MG in NS 0.9% 250 ml 250 ML IVPB SCH (19:00)
[2021-05-31] MEDS ORDERED: Azithromycin 500 mg/250 ml NS 500 MG/250 ML BAG IVPB SCH (21:00)
[2021-06-01 06:40] LABS: ABS Lymphocytes 0.6 10^3/ul (1.0-4.8); ABS Monocytes 0.5 10^3/ul (0-0.8); ABS Neutrophils 9.7 10^3/ul (1.5-7.7); Hematocrit 43 % (42-52); Hemoglobin 14.6 g/dL (14.0-18.0); Lymphocyte % 5.9 %; Mean Corpuscular HGB Conc 34 g/dL (31-36); Mean Corpuscular Hemoglobin 33 pg (27-31); Mean Corpuscular Volume 97 fL (80-94); Mean Platelet Volume 8.7 fL (7.4-10.4); Nucleated Red Blood Cells % 0.1; Platelet Count 160 10^3/uL (150-450); Red Blood Count 4.43 10^6 /uL (4.18-5.48); Red Cell Distribution Width 15 % (10-15); White Blood Count 10.8 10^3/uL (3.5-10.8)
[2021-06-01 06:55] LABS: Calcium 8.5 mg/dL (8.6-10.3); Magnesium 1.9 mg/dL (1.9-2.7); Potassium 4.9 mmol/L (3.5-5.0)
[2021-06-01 08:39] LABS: Influenza A Molecular Negative (Negative); Influenza B Molecular Negative (Negative)
[2021-06-01] MEDS: Albuterol HFA INHALER 8 gm MDI INH SCH ×3 (08:43→15:21)
[2021-06-01 12:11] VITALS: BP 126/76
[2021-06-01] MEDS ORDERED: cefTRIAXone 1 gm/50 mL NS BAG 1 GM/50 ML BAG IVPB SCH (15:00)
== END 2021-06-01 15:15 | disposition home or self-care (01) | DRG 139 ==
LOC: ED 13:17 → MED 20:02 → SUATTDRO 20:02
PROVIDERS: ADMIT Internal Medicine; ATTEND Internal Medicine

== ENCOUNTER 2023-12-19 13:08 | Inpatient (IN) ==
[2023-12-17] MEDS: Acetaminophen IV 1 GM/100ML 1,000 MG/100 ML BAG IV ONE (18:00)
[2023-12-17] MEDS: Scopolamine 1 mg/72hr PATCH TRANSDERM ONE (18:00)
[2023-12-17] MEDS: Lactated Ringers 1000 ml BAG 1,000 ML IV SCH (18:00)
[~2023-12-19 13:08] MED LIST changes: -Buffered Lidocaine 0.9% SYRIN* 5 ML/SYR SYRINGE INTRADERM ONE; -Dexamethasone TAB* 4 MG PO ONE; -DiMENhydriNATE IV* 50 MG/ML VIAL IV PUSH PRN; -Famotidine IV* 10 MG/ML 2 ML (20 mg) IV ONE; +NS 0.45% 1000 ml BAG 1,000 ML IV SCH; +Naloxone 0.4 mg VIAL 0.4 mg/ml 1 ml VIAL IV PRN; -Naloxone* 0.4 MG/ML 1 ML VIAL IV PRN; +Ondansetron 4 mg VIAL 2 MG/ML 2 ml VIAL IV PRN; -Ondansetron TAB* 4 MG PO ONE; -PROCHLORPERAZINE INJ 5 MG/ML 2 ML VIAL IV PRN; -fentaNYL* 50 MCG/ML 2 ML VIAL (100 MCG VIAL) IV PRN; -oxyCODONE/Acetamin 5/325 MG* TAB PO PRN
[2023-12-19] MEDS ORDERED: ceFAZolin 2 GM PREMIX 2 GM/50 ML BAG ONE (13:52)
[2023-12-19] MEDS ORDERED: Tranexamic Acid 1 GM/100ML BAG 2,000 MG/200 ML BAG IV ONE (13:52)
[2023-12-19] MEDS ORDERED: Propofol 10 MG/ML 20 ML BTL ONE (14:14)
[2023-12-19] MEDS ORDERED: Midazolam 2 mg/2 ml VIAL 1 mg/ml 2 ml VIAL (2 mg) ONE (14:15)
[2023-12-19 14:18] LABS: Rapid COVID-19 Molecular Undetected (Undetected)
[2023-12-19] MEDS ORDERED: fentaNYL 100 mcg/2 ml 50 MCG/ML VIAL ONE ×2 (15:35→19:43)
[2023-12-19] MEDS ORDERED: ROPIVACAINE 5 MG/ML 30 ML BTL (0.5%) ONE ×2 (15:35→16:03)
[2023-12-19] MEDS ORDERED: Ondansetron 4 mg VIAL 2 MG/ML 2 ml VIAL IV PRN (16:08)
[2023-12-19] MEDS ORDERED: Magnesium Hydroxide LIQ 30 ML UDC PO PRN (16:08)
[2023-12-19] MEDS ORDERED: Ondansetron ODT 4 mg TAB 4 MG TAB PO PRN (16:08)
[2023-12-19] MEDS ORDERED: Lactulose 30 ml UDC PO PRN (16:08)
[2023-12-19] MEDS ORDERED: ceFAZolin VIAL VIAL ONE ×2 (16:39→16:40)
[2023-12-19] MEDS ORDERED: Glycopyrrolate IV 0.2 MG/ML 1 ML VIAL ONE ×2 (16:55→17:01)
[2023-12-19] MEDS: fentaNYL 100 mcg/2 ml 50 MCG/ML VIAL IV PRN (19:45)
[2023-12-19] MEDS: Lactated Ringers 1000 ml BAG 1,000 ML IV SCH (22:02)
[2023-12-19] MEDS: Magnesium Hydroxide LIQ 30 ML UDC PO SCH (22:04)
[2023-12-19] MEDS: HYDROcodone/Acetamin 10/325 TAB (NF) PO PRN (22:50)
[2023-12-20] MEDS: ceFAZolin 1 GM ADVAN 1 GM in NS 0.9% 50 ML 50 ML IVPB SCH (01:06)
[2023-12-20 05:41] LABS: Hematocrit 43.6 % (38-53); Hemoglobin 14.9 g/dL (13.2-16.3); Mean Platelet Volume 8.5 fL (7.5-11.2); Platelet Count 166 10^3/uL (150-450)
[2023-12-20 06:57] LABS: Calcium 8.7 mg/dL (8.6-10.3); Potassium 4.8 mmol/L (3.5-5.0); eGFR CKD-EPI 82.5 (>60)
[2023-12-20] MEDS: Vitamin THERAPEUTIC TAB PO SCH (08:25)
[2023-12-20 10:03] VITALS: BP 150/77
== END 2023-12-20 13:20 | disposition home or self-care (01) | DRG 470 ==
LOC: AA 13:08 → SSU 16:09
PROVIDERS: ADMIT Orthopaedic Surgery Adult Reconstructive Orthopaedic Surgery; ATTEND Orthopaedic Surgery Adult Reconstructive Orthopaedic Surgery

== ENCOUNTER 2023-12-21 17:21 | Inpatient (IN) ==
[2023-12-21] MEDS: HYDROmorphone 1 MG/1 ML SYRINGE IV ONE (20:21)
[2023-12-21] MEDS: Acetaminophen IV 1 GM/100ML 1,000 MG/100 ML BAG IV ONE (20:26)
[2023-12-21] MEDS ORDERED: cefTRIAXone 2 GM ADDV.VIAL 2 GM in NS 0.9% 100 ml BAG 100 ML IV ONE (20:35)
[2023-12-21] MEDS: cefTRIAXone 2 gm/50 mL D5W 2 GM/50 ML BAG IV ONE (21:26)
[2023-12-21] MEDS: HYDROcodone/Acetamin 10/325 TAB (NF) PO PRN (23:32)
[2023-12-21 23:59] LABS: ABS Basophils 0.1 10^3/uL (0.0-0.1); ABS Eosinophils 0.1 10^3/uL (0.0-0.5); ABS Lymphocytes 1.9 10^3/uL (1.0-4.8); ABS Monocytes 1.2 10^3/uL (0.0-1.1); ABS Neutrophils 9.5 10^3/uL (1.5-7.6); ABS Nucleated RBC 0.01 10^3/ul; Eosinophil % 0.6 %; Hematocrit 40.2 % (38-53); Hemoglobin 13.5 g/dL (13.2-16.3); Lymphocyte % 15.2 %; Mean Corpuscular Hemoglobin 33.6 pg (27-33); Mean Corpuscular Hgb Conc 33.7 g/dL (31-36); Mean Corpuscular Volume 99.8 fL (80-97); Mean Platelet Volume 8.5 fL (7.5-11.2); Nucleated Red Blood Cells % 0.1 %/100WBC (0.0-0.8); Platelet Count 175 10^3/uL (150-450); Red Blood Count 4.03 10^6/uL (4.06-5.63); Red Cell Distribution Width 15.6 % (12-17); White Blood Count 12.8 10^3/uL (3.6-10.2)
[2023-12-22 00:28] LABS: Albumin 3.5 g/dL (3.2-5.2); Albumin/Globulin Ratio 1.5 (1-3); Calcium 8.7 mg/dL (8.6-10.3); Creatinine, Serum 0.99 mg/dL (0.67-1.17); Globulin 2.4 g/dL (2-4); Potassium 4.4 mmol/L (3.5-5.0); Total Bilirubin 0.9 mg/dL (0.2-1.0); Total Protein 5.9 g/dL (6.4-8.9); eGFR CKD-EPI 83.5 (>60)
[2023-12-22] MEDS: Acetaminophen IV 1 GM/100ML 1,000 MG/100 ML BAG IV PRN (02:44)
[2023-12-22 08:41] LABS: ABS Basophils 0.1 10^3/uL (0.0-0.1); ABS Eosinophils 0.1 10^3/uL (0.0-0.5); ABS Lymphocytes 1.8 10^3/uL (1.0-4.8); ABS Monocytes 1.2 10^3/uL (0.0-1.1); ABS Neutrophils 8.7 10^3/uL (1.5-7.6); ABS Nucleated RBC 0.02 10^3/ul; Eosinophil % 0.9 %; Hematocrit 40.6 % (38-53); Hemoglobin 13.7 g/dL (13.2-16.3); Mean Corpuscular Hemoglobin 33.6 pg (27-33); Mean Corpuscular Hgb Conc 33.8 g/dL (31-36); Mean Corpuscular Volume 99.4 fL (80-97); Mean Platelet Volume 8.7 fL (7.5-11.2); Nucleated Red Blood Cells % 0.1 %/100WBC (0.0-0.8); Platelet Count 194 10^3/uL (150-450); Red Blood Count 4.08 10^6/uL (4.06-5.63); Red Cell Distribution Width 15.7 % (12-17); White Blood Count 11.9 10^3/uL (3.6-10.2)
[2023-12-22 09:21] LABS: Creatinine, Serum 0.99 mg/dL (0.67-1.17); Potassium 4.9 mmol/L (3.5-5.0); eGFR CKD-EPI 83.5 (>60)
[2023-12-22 16:27] LABS: PCO2 Arterial 40 mmHg (35-45); PO2 Arterial 69 mmHg (80-100)
[2023-12-22] MEDS: cefTRIAXone 2 gm/50 mL D5W 2 GM/50 ML BAG IV ONE (20:24)
[2023-12-22 21:47] LABS: Urine Appearance Clear; Urine Bilirubin Negative (Negative); Urine Blood Negative (Negative); Urine Color Yellow; Urine Glucose Negative (Negative); Urine Ketones Negative (Negative); Urine Nitrite Negative (Negative); Urine Protein Negative (Negative); Urine Specific Gravity 1.016 (1.002-1.030); Urine Urobilinogen Negative (Negative)
[2023-12-23 05:39] LABS: ABS Basophils 0.1 10^3/uL (0.0-0.1); ABS Eosinophils 0.1 10^3/uL (0.0-0.5); ABS Lymphocytes 2.1 10^3/uL (1.0-4.8); ABS Monocytes 1.3 10^3/uL (0.0-1.1); ABS Neutrophils 8.8 10^3/uL (1.5-7.6); ABS Nucleated RBC 0.01 10^3/ul; Eosinophil % 0.9 %; Hemoglobin 13.4 g/dL (13.2-16.3); Lymphocyte % 16.7 %; Mean Corpuscular Hemoglobin 33.7 pg (27-33); Mean Corpuscular Hgb Conc 34.3 g/dL (31-36); Nucleated Red Blood Cells % 0.1 %/100WBC (0.0-0.8); Platelet Count 214 10^3/uL (150-450); Red Blood Count 3.97 10^6/uL (4.06-5.63); Red Cell Distribution Width 15.5 % (12-17); White Blood Count 12.4 10^3/uL (3.6-10.2)
[2023-12-23 06:30] LABS: Calcium 8.5 mg/dL (8.6-10.3); Creatinine, Serum 0.91 mg/dL (0.67-1.17); Potassium 4.1 mmol/L (3.5-5.0); eGFR CKD-EPI 92.4 (>60)
[2023-12-24 05:16] LABS: ABS Eosinophils 0.3 10^3/uL (0.0-0.5); ABS Lymphocytes 2.4 10^3/uL (1.0-4.8); ABS Monocytes 1.1 10^3/uL (0.0-1.1); ABS Neutrophils 5.3 10^3/uL (1.5-7.6); Eosinophil % 3.4 %; Hematocrit 36.2 % (38-53); Hemoglobin 12.3 g/dL (13.2-16.3); Lymphocyte % 25.7 %; Mean Corpuscular Hemoglobin 33.7 pg (27-33); Mean Corpuscular Hgb Conc 33.9 g/dL (31-36); Mean Corpuscular Volume 99.5 fL (80-97); Mean Platelet Volume 8.4 fL (7.5-11.2); Platelet Count 256 10^3/uL (150-450); Red Blood Count 3.64 10^6/uL (4.06-5.63); Red Cell Distribution Width 15.4 % (12-17); White Blood Count 9.2 10^3/uL (3.6-10.2)
[2023-12-24 05:50] LABS: Creatinine, Serum 0.99 mg/dL (0.67-1.17); Potassium 4.2 mmol/L (3.5-5.0); eGFR CKD-EPI 83.5 (>60)
[2023-12-24] MEDS: Senna TAB 8.6 mg TAB PO PRN (10:02)
[2023-12-24] MEDS: Naloxone 0.4 mg VIAL 0.4 mg/ml 1 ml VIAL ONE (13:53)
[2023-12-24] MEDS: Lactated Ringers 1000 ml BAG 1,000 ML IV ONE (13:54)
[2023-12-24] MEDS: HYDROcodone/Acetamin 10/325 TAB (NF) PO SCH (14:00)
[2023-12-24] MEDS: Lactated Ringers 1000 ml BAG 1,000 ML IV SCH (15:45)
[2023-12-25] MEDS: HYDROcodone/Acetamin 10/325 TAB (NF) PO PRN (12:59)
[2023-12-25] MEDS: Lidocaine 5% OINT TUBE TOPICAL PRN (13:30)
[2023-12-25] MEDS ORDERED: Magnesium Hydroxide LIQ 30 ML UDC PO PRN (16:17)
[2023-12-27 06:49] LABS: Rapid COVID-19 Molecular Undetected (Undetected)
[2023-12-27 11:11] VITALS: BP 113/65
== END 2023-12-27 10:35 | DRG 92 ==
LOC: ED 17:21 → EDHOLD 17:21 → SUATTDRO 21:16 → EDHOLD 23:29 → SSU 12-22 00:29
PROVIDERS: ADMIT Internal Medicine; ATTEND Internal Medicine